=== PATIENT | male | born 1975 | race African-American/Black ===

== ENCOUNTER 2024-08-15 23:02 | Emergency (ER) | payer SELFPAY ==
[2024-08-15 23:06] VITALS: BP 179/114; PULSE 110; RESP 16; TEMP 36.1; O2SAT 97; BMI 30.7
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
[2024-08-15] MEDS: TET/DIPHTH/PERT-ADULT 0.5ML SYRINGE 0.5 ML IM (23:47)
[2024-08-16 00:01] VITALS: BP 127/78; PULSE 88; RESP 18; TEMP 36.6; O2SAT 100
== END 2024-08-16 00:07 | disposition home or self-care (01) ==
LOC: ER 08-16 00:23
PROVIDERS: Emergency Provider Emergency Medicine
DX: S01.111A Laceration without foreign body of right eyelid and periocular area, initial encounter (principal); Y04.0XXA Assault by unarmed brawl or fight, initial encounter; Z23 Encounter for immunization
CPT/HCPCS: 12011; 12001; 90471; 90715; 99282

== ENCOUNTER 2024-12-27 11:30 | Emergency (ER) | payer SELFPAY ==
[2024-12-27 11:38] VITALS: BP 138/88; PULSE 100; RESP 16; TEMP 36.8; O2SAT 99; BMI 29.9
--- NOTE | 2024-12-27 12:08 | ED_ITS ---
<Statement entered by Jevon Crowell DO - 12/27/24 16:44> I was consulted by the TANA, and we discussed the complexity of problems being addressed. I approved the treatment and management plan for this patient's care in the emergency department, thus performing a substantive portion of the medical decision making. Patient presented with right-sided ear pain. On examination he has right-sided otitis media. He also complains of a migraine that is consistent with his baseline migraines. He has not had any neurologic deficits that would raise concern for intracranial extension of infection from his otitis media. 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 Patient was administered migraine cocktail and his symptoms significantly improved. Patient will be treated with cefdinir for acute otitis media. He was discharged home in stable condition Jevon Crowell DO Discharge Plan Disposition Patient Disposition: Home, Self-Care Condition: Good Prescriptions Prescriptions: New cefdinir 300 mg capsule 300 mg PO BID 10 Days Qty: 20 0RF Referrals Follow up/Referrals: Provider,Referral, MD [Primary Care Provider, Medical] - See instructions Activity Restrictions/Add. Instructions Additional Instructions/Restrictions: Increase fluids and rest. Take meds as directed for the ear infection. If you continue with migraine or have migraine symptoms again please talk to your PCP about further treatments and management for this. Clinical Impressions Clinical Impression: Otitis media Instructions Patient Instructions: Middle Ear Infections (Alternative Therapy), DI for Migraine Print Language Print Language: Thai Discharge ED Provider: Jevon Crowell General Adult HPI <Lin Murguia (ED), PAPER MACHINE BACKTENDER - Last Filed: 12/27/24 16:32> General Chief complaint: Ear Stated complaint: R ear pain Time Seen by Provider: 12/27/24 12:16 Mode of Arrival: Ambulatory Source of Information: Patient and Spouse Description of Symptoms (Recalled from ER Triage Doc. by RN): pt complains of r ear pain. states it is causing a headache. x2 days. History of Present Illness HPI narrative: 49-year-old male presents to the ED today for complaint of ear pain on the right. States that it started hurting yesterday. Patient used heating pad Tylenol and ibuprofen. Says this had little effect. No nausea, vomiting or diarrhea. No fevers. No other symptoms. Patient continues with a headache. is at bedside and wants patient to have headache treatment. I did ask patient if he wanted headache treatment he does. Related Data Previous Rx's ?Medication ?Instructions ?Recorded cefdinir 300 mg capsule 300 mg PO BID 10 days #20 ca ps 12/27/24 Allergies Allergy/AdvReac Type Severity Reaction Status Date / Time No Known Allergies Allergy Verified 08/15/24 23:43 PFSH <Lin Murguia (ED), PAPER MACHINE BACKTENDER - Last Filed: 12/27/24 16:32> PFS Disclaimer: The information contained in this section may have been updated after the patient was seen, as this information can be updated by other users. Social History (Updated 08/16/24 @ 01:59 by Juaquin Goodwin MD) Smoking Status: Current every day smoker alcohol intake: never current occupational status: employed Travel in the last 8 weeks?: None Have you lived/traveled outside US in past 30 days?: No Contact w/someone who lives/traveled outside US past 30 days?: No Exposure to someone with infectious disease in past 14 days?: No Do you have a fever (greater than 100.4 F or 38 C)?: No Have you tested positive for COVID-19?: No Exposed to someone with COVID-19 in past 14 days?: No Do you have a sore throat?: No Do you have a cough?: No Do you have any weakness?: No Do you have any diarrhea?: No Are you experiencing any unusual bleeding?: No Do you have any muscle aches/pain?: No Do you have any abdominal pain?: No Are you experiencing loss of taste or smell?: No <Lin Murguia (ED), PAPER MACHINE BACKTENDER - Last Filed: 12/27/24 16:32> ROS Obtained: Yes Systems reviewed as appropriate & no additional complaints except as documented Constitutional Constitutional: Reports as per HPI Physical Exam <Lin Murguia (ED), PAPER MACHINE BACKTENDER - Last Filed: 12/27/24 16:32> General General appearance: alert Head Head exam: normocephalic Eye Eye exam: Present PERRL and EOMI ENT ENT exam: Present normal oropharynx and mucous membranes moist Neck Neck exam: Present full ROM and trachea midline Respiratory Respiratory exam: Present normal lung sounds bilaterally Cardiovascular Cardiovascular exam: Present regular rate, normal rhythm, normal heart sounds, +S1 and +S2 Abdominal Exam Abdominal exam: Present soft and normal bowel sounds exam: Present normal inspection Extremities Exam Extremities exam: Present normal inspection, full ROM and normal capillary refill Neurological Exam Neurological exam: Present alert and oriented X3 Skin Skin exam: Present warm, dry and intact Medical Decision Making <Lin Murguia (ED), PAPER MACHINE BACKTENDER - Last Filed: 12/27/24 16:32> Medical Records Screening: Per USPSTF and CDC recommendations, given the prevalence of disease in our region, it is our hospital?s policy to screen for HIV and viral Hepatitis for all patients aged 18 and over and those with ongoing risk factors. Michael Inquiry Pt receiving controlled substance: No Michael was queried for this patient: No Vital Signs: 12/27/24 11:38 12/27/24 13:48 12/27/24 15:09 Temperature 98.3 F 98.7 F Temperature Source Oral Pulse Rate 80 64 Pulse Rate [Right] 100 H Respiratory Rate 16 16 Blood Pressure 134/90 113/80 Blood Pressure [Right Arm] 138/88 Blood Pressure Mean 101 Blood Pressure Mean [Right Arm] 104 02 Sat by Pulse Oximetry 99 99 Oxygen Delivery Method Room Air Room Air Orders (Tests/Meds): ED MEDICATIONS Discontinued Medications Generic Name Dose Route Start Last Admin Trade Name Freq PRN Reason Stop Dose Admin Acetaminophen 1,000 mg 12/27/24 14:03 12/27/24 14:17 Acetaminophen 1,000mg/100ml Vial IV 12/27/24 14:04 1,000 mg ONCE ONE Administration Dexamethasone Sodium Phosphate 8 mg 12/27/24 12:04 12/27/24 12:49 Dexamethasone 4mg/Ml 1ml Vial IV 12/27/24 12:05 8 mg ONCE ONE Administration Diphenhydramine HCl 50 mg 12/27/24 12:04 12/27/24 12:49 Diphenhydramine 50mg/Ml Vial IV 12/27/24 12:05 50 mg ONCE ONE Administration Sodium Chloride 1,000 mls @ 999 mls/hr 12/27/24 12:04 12/27/24 15:01 Sod Chlor 0.9% 1000ml Bag IV 12/27/24 13:04 Infused .Q1H1M ONE Infusion Ceftriaxone Sodium 1 gm/ 50 mls @ 100 mls/hr 12/27/24 12:15 12/27/24 13:35 Sodium Chloride IV 01/06/25 12:14 Infused Q24H [place] Infusion Ketorolac Tromethamine 30 mg 12/27/24 12:04 12/27/24 12:49 Ketorolac 30mg/Ml Vial IV 12/27/24 12:05 30 mg ONCE ONE Administration Oxycodone HCl 5 mg 12/27/24 14:04 12/27/24 14:16 Oxycodone 5mg Immediate Release Tablet PO 12/27/24 14:05 5 mg ONCE ONE Administration Prochlorperazine Edisylate 5 mg 12/27/24 12:04 12/27/24 12:49 Prochlorperazine 10mg/2ml Vial IV 12/27/24 12:05 5 mg ONCE ONE Administration Medical Decision Narrative: patient is a 49-year-old male presenting to the emergency department for evaluation of right ear pain and migraine. Patient is hemodynamically stable and nontoxic-appearing upon arrival, afebrile. Differential diagnosis includes migraine, viral illness, ear pain among others. No workup necessary as this is an ear infection but we will treat for migraine. Initial inventions include crystalloid bolus, analgesics. Patient had Migraine cocktail which initially helped migraine cocktail that made patient sleepy and I woke him up approximately 45 minutes after he had it and he said that his headache was not gone. I gave additional medicines and checked on him at 1450 and these medications had resolved the migraine. Patient is now feeling better and wants to go home. Patient will now get his antibiotics and be safe for discharge home <Jevon Crowell, DO - Last Filed: 12/27/24 16:43> Vital Signs: 12/27/24 11:38 12/27/24 13:48 12/27/24 15:09 Temperature 98.3 F 98.7 F Temperature Source Oral Pulse Rate 80 64 Pulse Rate [Right] 100 H Respiratory Rate 16 16 Blood Pressure 134/90 113/80 Blood Pressure [Right Arm] 138/88 Blood Pressure Mean 101 Blood Pressure Mean [Right Arm] 104 02 Sat by Pulse Oximetry 99 99 Oxygen Delivery Method Room Air Room Air Orders (Tests/Meds): ED MEDICATIONS Discontinued Medications Generic Name Dose Route Start Last Admin Trade Name Freq PRN Reason Stop Dose Admin Acetaminophen 1,000 mg 12/27/24 14:03 12/27/24 14:17 Acetaminophen 1,000mg/100ml Vial IV 12/27/24 14:04 1,000 mg ONCE ONE Administration Dexamethasone Sodium Phosphate 8 mg 12/27/24 12:04 12/27/24 12:49 Dexamethasone 4mg/Ml 1ml Vial IV 12/27/24 12:05 8 mg ONCE ONE Administration Diphenhydramine HCl 50 mg 12/27/24 12:04 12/27/24 12:49 Diphenhydramine 50mg/Ml Vial IV 12/27/24 12:05 50 mg ONCE ONE Administration Sodium Chloride 1,000 mls @ 999 mls/hr 12/27/24 12:04 12/27/24 15:01 Sod Chlor 0.9% 1000ml Bag IV 12/27/24 13:04 Infused .Q1H1M ONE Infusion Ceftriaxone Sodium 1 gm/ 50 mls @ 100 mls/hr 12/27/24 12:15 12/27/24 13:35 Sodium Chloride IV 01/06/25 12:14 Infused Q24H [place] Infusion Ketorolac Tromethamine 30 mg 12/27/24 12:04 12/27/24 12:49 Ketorolac 30mg/Ml Vial IV 12/27/24 12:05 30 mg ONCE ONE Administration Oxycodone HCl 5 mg 12/27/24 14:04 12/27/24 14:16 Oxycodone 5mg Immediate Release Tablet PO 12/27/24 14:05 5 mg ONCE ONE Administration Prochlorperazine Edisylate 5 mg 12/27/24 12:04 12/27/24 12:49 Prochlorperazine 10mg/2ml Vial IV 12/27/24 12:05 5 mg ONCE ONE Administration Medical Decision Narrative: patient is a 49-year-old male presenting to the emergency department for evaluation of right ear pain and migraine. Patient is hemodynamically stable and nontoxic-appearing upon arrival, afebrile. Differential diagnosis includes migraine, viral illness, otitis media, among others. On physical examination the patient has right-sided TM erythema and bulging with purulence indicative of otitis media. No workup necessary as this is an ear infection but we will treat for migraine. Initial inventions include crystalloid bolus, analgesics. Patient had Migraine cocktail which initially helped migraine cocktail that made patient sleepy and I woke him up approximately 45 minutes after he had it and he said that his headache was not gone. I gave additional medicines and checked on him at 1450 and these medications had resolved the migraine. Patient is now feeling better and wants to go home. Patient will now get his antibiotics and be safe for discharge home Critical Care <Lin Murguia (ED), PAPER MACHINE BACKTENDER - Last Filed: 12/27/24 16:32> Critical Care Time Critical Care Time: No
[2024-12-27] MEDS: DEXAMETHASONE 4MG/ML 1ML VIAL 8 MG IV (12:49)
[2024-12-27] MEDS: 0.9 % SODIUM CHLORIDE 1000ML 1,000 ML 999 ML IV (12:49)
[2024-12-27] MEDS: PROCHLORPERAZINE 10MG/2ML VIAL 5 MG IV (12:49)
[2024-12-27] MEDS: KETOROLAC 30MG/ML VIAL 30 MG IV (12:49)
[2024-12-27] MEDS: CEFTRIAXONE 1 GM 1 GM in 0.9 % SODIUM CHLORIDE 50 ML IV (12:52)
[2024-12-27 13:48] VITALS: BP 134/90; PULSE 80; O2SAT 99
[2024-12-27] MEDS: OXYCODONE 5MG IMMEDIATE RELEASE TABLET 5 MG PO (14:16)
[2024-12-27] MEDS: ACETAMINOPHEN 1,000MG/100ML VIAL 1000 MG IV (14:17)
[2024-12-27 15:09] VITALS: BP 113/80; PULSE 64; RESP 16; TEMP 37.1; O2SAT 98
== END 2024-12-27 15:15 | disposition home or self-care (01) ==
PROVIDERS: Emergency Provider Student in an Organized Health Care Education/Training Program
DX: G43.909 Migraine, unspecified, not intractable, without status migrainosus (principal); H66.91 Otitis media, unspecified, right ear; F17.210 Nicotine dependence, cigarettes, uncomplicated
CPT/HCPCS: 96365; 96375; 99284; J0131; J0696; J0780; J1100; J1200; J1885; J7030

== ENCOUNTER 2025-02-05 11:18 | Inpatient (IN) | payer OTHER, SELFPAY ==
--- OUTSIDE RECORDS SUMMARY | 2024-12-07 08:15 | XMS_ITS | Encounter Summary ---
Author Organization [facility] Address [address] [place] [address] Care Team Providers Care Control Technician Name Role Phone No Pcp, Provider Not In [facility] Primary Care Provid er Unavailable Reason for Referral * MRI/CAT Scan (Routine) - AFF Authorized Specialty Diagnoses / Procedures Referred By Contac t Referred To Contact Orthopedic Surgery Diagnoses Cubital tunnel syndrome of both upper extremities Paresthesia and pain of both upper extremities Procedures MRI CERVICAL SPINE WO CONTRAST Yusuf Ortiz MD [address] [place] [address] Phone: tel: fax: [facility] [address] [place] [address] Phone: tel: fax: Referral ID Status Reason Start Date Expiration Date Visits Requested Visits Authorized [id number] AFF Authorized 12/07/2024 12/07/2025 1 1 Reason for Visit * Reason Comments Follow-up Encounter Details Date Type Department Care Team (Late st Contact Info) Description 12/07/2024 9:15 [place] [address] Yusuf Ortiz MD [address] [place] [address] Cubital tunnel syndrome of both upper extremities (Primary Dx); Paresthesia and pain of both upper extremities; DDD (degenerative disc disease), cervical Social History Tobacco Use Types Packs/Day Years Used Date Smoking Tobacco: Every Day Cigarettes Smokeless Tobacco: Never Alcohol Use Standard Drinks/Week Comments Yes 3.3 (1 standard drink = 0.6 oz p ure alcohol) Sexually Active Control Partners Comments Yes Female Sex and Gender Information Value Date Recorded Sex Assigned at Not on file Legal Sex Male 5:49 AM EDT Gender Identity Not on file Sexual Orientation Not on file documented as of this encounter Ordered Prescriptions Prescription Sig Dispense Quantity Refills Last Filled Start Date End Date diclofenac (VOLTAREN) 75 mg Oral Tablet, Delayed Release (E.C.)Indications:C ubital tunnel syndrome of both upper extremities,Paresth esia and pain of both upper extremities Take 1 Tablet by mouth 2 times daily. 60 Tablet 12/07/2024 methocarbamoL (ROBAXIN) 750 mg Oral TabletIndications:C ubital tunnel syndrome of both upper extremities,Paresth esia and pain of both upper extremities Take 1 Tablet by mouth 3 times daily. 90 Tablet 1 12/07/2024 documented in this encounter Progress Notes * Yusuf Ortiz MD - 12/07/2024 9:15 AM EDT Images from the original note were not included. Chief Compliant/Diagnosis: bilateral Cubital Tunnel Syndrome, clinical Bilateral chronic wrist pain /abutment syndrome Neutral variance History: Last seen: 11/25/2024 Patient returns today for EMG results. He is here today with his fianc??e who is very concerned regarding his arm pain and weakness. She reports that he was not able to lift the trash without pain Bilateral upper extremity Physical Exam: No change please see previous documentation Radiology / Other Testing: EMG [place] 11/25/2024 Based on today's study there is electrodiagnostic evidence of a moderate right median sensorimotor mononeuropathy best localized to the wrist without evidence of active denervation in the median innervated hand or forearm muscles. The right median motor study revealed a prolonged onset latency. The right median anti-sensory study revealed a prolonged peak latency. No sign of active denervation, positive sharp waves or fibrillation potentials, was noted with needle EMG of the right median innervated hand or forearm muscles. Based on today's study there is electrodiagnostic evidence of a mild left median sensory mononeuropathy best localized to the wrist without evidence of active denervation in the median innervated hand or forearm muscles. The left median anti-sensory study revealed a prolonged peak latency. Based on today's study there is no electrodiagnostic evidence of a bilateral upper extremity activeC5-T1 radiculopathy, brachial plexopathy, ulnar mononeuropathy or overt peripheral polyneuropathy. Cervical Spine, 2V AP, Lateral; 12/07/2024; [facility] Personally reviewed and interpreted Multilevel degenerative change C4-7 Loss of normal lordotic curve Impression: bilateral Cubital Tunnel Syndrome, clinical Negative EMG Right slightly worse than the left Bilateral carpal tunnel syndrome No neuropathic symptoms in median nerve distribution Asymptomatic Bilateral chronic wrist pain /abutment syndrome Neutral variance /lunate changes on MRI Cervical spine DDD C4-7 Plan: Reviewed treatment plan with patient. Discussed and reviewed the possibility of a proximal compression contributing and/or his primary cause MRI cervical spine Diclofenac prescription Robaxin prescription Return Callback list following above studies documented in this encounter Plan of Treatment Upcoming Encounters Date Type Department Care Team (Late st Contact Info) Description 02/08/2025 12:45 PM EST Office Visit [place] [phone] Yusuf Ortiz MD [address] [place] [id number] documented as of this encounter Results * MRI CERVICAL SPINE WO CONTRAST (12/22/2024 9:33 AM EDT) Narrative [facility] - 12/22/2024 9:34 AM EDT Please see the scanned MRI report associated with this order on the Imaging tab of the patient's chart. us Ysuuf Ortiz MD IMG MRI ORDERABLES Final Result [facility] * XR CERVICAL SPINE AP AND LATERAL (12/07/2024 10:04 AM EDT) Narrative [facility], Paras - 12/07/2024 10:04 AM EDT Please see physician's note from office encounter for x-ray imaging result us Yusuf Ortiz MD IMG DIAGNOSTIC IMAGING ORDERABL ES Final Result documented in this encounter Visit Diagnoses Diagnosis Cubital tunnel syndrome of both upper extremities- Primary Paresthesia and pain of both upper extremities Disturbance of skin sensation DDD (degenerative disc disease), cervical Degeneration of cervical intervertebral disc Cubital tunnel syndrome of both upper extremities Paresthesia and pain of both upper extremities Disturbance of skin sensation Cubital tunnel syndrome of both upper extremities Paresthesia and pain of both upper extremities Disturbance of skin sensation documented in this encounter Care Teams Control Technician Relationship Specialty Start Date End Date No Pcp, Provider Not In [facility] PCP - General 03/09/24 documented as of this encounter
--- OUTSIDE RECORDS SUMMARY | 2024-12-07 08:55 | XMS_ITS | Encounter Summary ---
Author Organization [facility] Address [address] [place] [address] Care Team Providers Care Receiving Supervisor Name Role Phone No Pcp, Provider Not In [facility] Primary Care Provid er Unavailable Encounter Details Date Type Department Care Team (Latest Contact Info) Description 12/07/2024 9:55 [place] [address] Yusuf Ortiz MD [address] [place] [address] Cubital tunnel syndrome of both upper extremities; Paresthesia and pain of both upper extremities Social History Tobacco Use Types Packs/Day Years [...] on file documented as of this encounter Plan of Treatment Upcoming Encounters Date Type Department Care Team (Late st Contact Info) Description 02/08/2025 12:45 PM EST Office Visit [address] [address] Yusuf Ortiz MD [address] [place] [address] documented as of this encounter Procedures Procedure Name Priority Date/Time Associated Diagnosis Comments XR CERVICAL SPINE AP AND LATERAL Routine 12/07/2024 10:04 AM EDT Cubital tunnel syndrome of both upper extremities Paresthesia and pain of both upper extremities documented in this encounter Results * XR CERVICAL SPINE AP AND LATERAL (12/07/2024 10:04 AM EDT) Narrative [facility], Paras - 12/07/2024 10:04 AM EDT Please see physician's note from office encounter for x-ray imaging result us Yusuf Ortiz MD IMG DIAGNOSTIC IMAGING ORDERABL ES Final Result documented in this encounter Visit Diagnoses Diagnosis Cubital tunnel syndrome of both upper extremities Paresthesia and pain of both upper extremities Disturbance of skin sensation documented in this encounter Care Teams Receiving Supervisor Relationship Specialty Start Date End Date No Pcp, Provider Not In Epic PCP - General 03/09/24 documented as of this encounter
--- OUTSIDE RECORDS SUMMARY | 2024-12-22 08:00 | XMS_ITS | Encounter Summary ---
Author Organization [facility] Address [address] [place] [address] Care Team Providers Care Linux System Administrator Name Role Phone No Pcp, Provider Not In [facility] Primary Care Provid er Unavailable Reason for Visit * MRI/CAT Scan (Routine) - AFF Authorized Specialty Diagnoses / Procedures Referred By Contac t Referred To Contact Orthopedic Surgery Diagnoses Cubital tunnel syndrome of both upper extremities Paresthesia and pain of both upper extremities Procedures MRI CERVICAL SPINE WO CONTRAST Yusuf Ortiz MD [address] [place] [address] Phone: tel: fax: [facility] [address] [place] [address] Phone: tel: fax: Referral ID Status Reason Start Date Expiration Date Visits Requested Visits Authorized [id number] AFF Authorized 12/07/2024 12/07/2025 1 1 Encounter Details Date Type Department Care Team (Latest Contact Info) Description 12/22/2024 9:00 AM EDT Ancillary Procedure [facility] [address] [place] [address] Yusuf Ortiz MD [address] [place] [address] Cubital tunnel syndrome of both [...] Description 02/08/2025 12:45 PM EST Office Visit [facility] [address] [place] [address] Yusuf Ortiz MD [address] [place] [address] documented as of this encounter Procedures Procedure Name Priority Date/Time Associated Diagnosis Comments MRI CERVICAL SPINE WO CONTRAST Routine 12/22/2024 9:33 AM EDT Cubital tunnel syndrome of both upper extremities Paresthesia and pain of both upper extremities documented in this encounter Results * MRI CERVICAL SPINE WO CONTRAST (12/22/2024 9:33 AM EDT) Narrative [facility] - 12/22/2024 9:34 AM EDT Please see the scanned MRI report associated with this order on the Imaging tab of the patient's chart. Yusuf Ortiz MD IMG MRI ORDERABLES Final Result [facility] documented in this encounter Visit Diagnoses Diagnosis Cubital tunnel syndrome of both upper extremities Paresthesia and pain of both upper extremities Disturbance of skin sensation documented in this encounter Care Teams Linux System Administrator Relationship Specialty Start Date End Date No Pcp, Provider Not In [facility] PCP - General 03/09/24 documented as of this encounter
--- OUTSIDE RECORDS SUMMARY | 2025-01-22 08:15 | XMS_ITS | Encounter Summary ---
Author Organization [facility] Address [address] [place] [address] Care Team Providers Care Shop Clerk Name Role Phone No Pcp, Provider Not In [facility] Primary Care Provid er Unavailable Reason for Referral * In Office Procedure (Routine) - AFF Authorized Specialty Diagnoses / Procedures Referred By Contac t Referred To Contact Orthopedic Surgery Diagnoses DDD (degenerative disc disease), cervical Radiculopathy of cervical region Procedures [facility] PROCEDURE UNDER FLUORO Albino Orellana MD [address] [facility] [address] [place] [address] Phone: tel: fax: [facility] [address] [place] [address] Phone: tel: fax: Referral ID Status Reason Start Date Expiration Date Visits Requested Visits Authorized [id number] AFF Authorized 01/22/2025 01/22/2026 1 1 Reason for Visit * Reason Comments Pain Encounter Details Date Type Department Care Team (Latest Contact Info) Description 01/22/2025 9:15 AM EDT Office Visit [facility] [address] [place], [place] [id number] Albino Orellana MD [address] [place] [address] Radiculopathy of cervical region (Primary Dx); DDD (degenerative disc disease), cervical; Smoking history; Nicotine dependence with nicotine-induced disorder, unspecified nicotine product type; Foraminal stenosis of cervical region; Neck pain; Cervical stenosis of spinal canal; Cervical spondylosis; Cervical radiculopathy Social History Tobacco Use Types Packs/Day Years [...] on file documented as of this encounter Last Filed Vital Signs Vital Sign Reading Time Taken Comments Blood Pressure - - Pulse - - Temperature - - Respiratory Rate - - Oxygen Saturation - - Inhaled Oxygen Concentration - - Weight 101.6 kg (224 lb) 01/22/2025 9:34 AM EDT Height 180.3 cm (5' 11 ) 01/22/2025 9:34 AM EDT Body Mass Index 31.24 01/22/2025 9:34 AM EDT documented in this encounter Progress Notes * Albino Orellana MD - 01/22/2025 9:15 AM EDT Images from the original note were not included. 01/22/25 CHIEF COMPLAINT: Chief Complaint Patient presents with ??? Neck - Pain HISTORY OF PRESENT ILLNESS: 49 y.o. male Bilateral hand pain Oscillates between right and left. 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 Ortiz's team Previous Treatment: Gabapentin Muscle relaxers Wrist injections at Past Medical History: Body mass index is 31.24 kg/m??. 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 He has never used smokeless tobacco. He reports current alcohol use of about 2.0 oz of alcohol per week. He reports that he does not use drugs. PHYSICAL EXAM: C-Spine Exam Inspection/Palpation: Points to the C8 distribution as a maximal source of numbness and tingling Nondermatomal pain throughout the hand Range of Motion: Guarded range of motion cervical spinal flexion extension Motor: 4 out of 5 operations mgr. Otherwise 5 out of 5 throughout Sensation: Intact throughout decrease in the C8/ulnar distribution bilaterally Special Tests: Spurling's test positive in the C6 and C7 distribution bilaterally Reflexes: Deferred Gait & station: Stable Diagnostic Testing: C spine X rays: 4 views with flexion extension. Independently reviewed Multilevel degenerative disc disease throughout the cervical spine Loss of cervical lordosis Otherwise maintained alignment C spine MRI: Independently reviewed Multilevel degenerative disc disease throughout the cervical spine C3-4 no significant neural impingement C4-5 no significant impingement C5-6 moderate left-sided foraminal stenosis C6-7 moderate to severe bilateral foraminal stenosis C7-T1 no significant neural impingement Impression: 1. Radiculopathy of cervical region [facility] PROCEDURE UNDER FLUORO 2. DDD (degenerative disc disease), cervical XR CERVICAL SPINE FLEXION AND EXTENSION ONLY [facility] PROCEDURE UNDER FLUORO 3. Smoking history CT TOBACCO USE CESSATION INTERMEDIATE 3-10 MINUTES NICOTINE+METABOLITE, URINE - REF LAB 4. Nicotine dependence with nicotine-induced disorder, unspecified nicotine product type 5. Foraminal stenosis of cervical region 6. Neck pain 7. Cervical stenosis of spinal canal 8. Cervical spondylosis 9. Cervical radiculopathy Medical decision Making: Discussion was had with the patient. He appears to have a C6 and C7 radiculopathy bilaterally. I donot think this explains all of his symptoms. Part of his symptoms are consistent with C8 however I see no impingement of C8. I do think he would benefit from an ACDF to decompress C6 and C7. I did explain that the surgery would not solve all of the issues in his upper extremities. He expressed understanding. Currently not a candidate because of his continued smoking. States he can quit. Ordering urine nicotine test. I want to see him back after he passes the test. Also ordering LEXIE for therapeutic and diagnostic purposes Tobacco: I discussed and reviewed the severe effects of nicotine and vasoconstriction, and recommended tobacco cessation. I discussed with the patient their use of tobacco (or other nicotine-containing products) and the direct negative effects on bone, muscle, nerve, and tendon tissue. These effects includedelayed or incomplete healing, increased risk of infection, and pseudarthrosis. The patient was strongly advised to discontinue the use of any nicotine-containing product and to contact their primarycare provider to discuss non-nicotine smoking cessation strategies. A patient educational handout was provided including local and state resources. Zgoy-wa-[id number] counseling was performed for approximately five minutes. Plan: C6-7 interlaminar LEXIE Urine nicotine test Follow-up when urine nicotine test is negative Will consider a C5-7 ACDF in the future Reviewed imaging with patient Activity as tolerated Albino Orellana MD [facility]opa[facility] Surgeon Disclaimer: This note was partially transcribed via voice recognition software. Though all efforts were made to ensure accuracy, it is possible this note may contain services host errors. Please bring any inaccuracies discovered to my attention so I may make a corrective addendum in a timely fashion. [1] Past Medical History: Diagnosis Date ??? Hypertension documented in this encounter Plan of Treatment Upcoming Encounters Date Type Department Care Team (Late st Contact Info) Description 02/08/2025 12:45 [place] [address] Yusuf Ortiz MD [address] [place] [phone] Scheduled Orders Name Type Priority Associated Diagnoses Orde r Schedule CT TOBACCO USE CESSATION INTERMEDIATE 3-[address] Charge Routine Smoking history Ordered: 01/22/2025 NICOTINE+METABOLITE, URINE - REF LAB Lab Routine Smoking history 1 Occurrences starting 01/22/2025 until 01/22/2026 documented as of this encounter Results * XR CERVICAL SPINE FLEXION AND EXTENSION ONLY (01/22/2025 9:33 AM EDT) Narrative Genericuser, Audit - 01/22/2025 9:33 AM EDT Please see physician's note from office encounter for x-ray imaging result Albino Orellana MD IMG DIAGNOSTIC IMAGING OR DERABLES Final Result documented in this encounter Visit Diagnoses Diagnosis Radiculopathy of cervical region- Primary Brachial neuritis or radiculitis nos DDD (degenerative disc disease), cervical Degeneration of cervical intervertebral disc Smoking history Personal history of tobacco use, presenting hazards to health Nicotine dependence with nicotine-induced disorder, unspecified nicotine product type Foraminal stenosis of cervical region Spinal stenosis in cervical region Neck pain Cervicalgia Cervical stenosis of spinal canal Spinal stenosis in cervical region Cervical spondylosis Cervical spondylosis without myelopathy Cervical radiculopathy Brachial neuritis or radiculitis nos DDD (degenerative disc disease), cervical Degeneration of cervical intervertebral disc documented in this encounter Orders Nursing Count Last Ordered Date First Orde red Date [facility] PROCEDURE UNDER FLUORO 1 025 documented in this encounter Care Teams Shop Clerk Relationship Specialty Start Date End Date No Pcp, Provider Not In [facility] PCP - General 03/09/24 documented as of this encounter
--- OUTSIDE RECORDS SUMMARY | 2025-01-22 08:30 | XMS_ITS | Encounter Summary ---
Author Organization [facility] Address [address] [place] [address] Care Team Providers Care [employer] Weapons Sergeant Name Role Phone No Pcp, Provider Not In [facility] Primary Care Provid er Unavailable Encounter Details Date Type Department Care Team (Latest Contact Info) Description 01/22/2025 9:30 AM EDT Ancillary Procedure [facility] [address] [facility] [address] [place] [address] Albino Orellana MD [address] [address] DDD (degenerative disc disease), cervical Social History [...] Description 02/08/2025 12:45 PM EST Office Visit [facility] [address] [place] [address] Yusuf Ortiz MD [address] [place] [phone] documented as of this encounter Procedures Procedure Name Priority Date/Time Associated Diagnosis Comments XR CERVICAL SPINE FLEXION AND EXTENSION ONLY Routine 01/22/2025 9:33 AM EDT DDD (degenerative disc disease), cervical documented in this encounter Results * XR CERVICAL SPINE FLEXION AND EXTENSION ONLY (01/22/2025 9:33 AM EDT) Narrative Genericuser, Audit - 01/22/2025 9:33 AM EDT Please see physician's note from office encounter for x-ray imaging result Albino Orellana MD IMG DIAGNOSTIC IMAGING OR DERABLES Final Result documented in this encounter Visit Diagnoses Diagnosis DDD (degenerative disc disease), cervical Degeneration of cervical intervertebral disc documented in this encounter Care Teams [employer] Weapons Sergeant Relationship Specialty Start Date End Date No Pcp, Provider Not In [facility] PCP - General 03/09/24 documented as of this encounter
[2025-02-05] VITALS (34 sets, daily range): BP systolic 104–171; BP diastolic 48–123; PULSE 102–116; RESP 16–29; TEMP 36.3–37; O2SAT 90–100; BMI 30.7; BMI 30.6
--- OUTSIDE RECORDS SUMMARY | 2025-02-05 11:33 | XMS_ITS | Encounter Summary ---
Author Organization [facility] Address [address] [place] [address] Care Team Providers Care Floor Clerk Name Role Phone No Pcp, Provider Not In [facility] Primary Care Provid er Unavailable Encounter Details Date Type Department Care Team (Late st Contact Info) Description 12/25/2024 Orders Only [facility] [place] [employer] [place] [address] Kimberly Torres ATC Paresthesia and pain of both upper extremities (Primary Dx) Social History Tobacco Use Types [...] Description 02/08/2025 12:45 PM EST Office Visit [facility] [address] [place] [address] Yusuf Ortiz MD [address] [place] [address] documented as of this encounter Visit Diagnoses Diagnosis Paresthesia and pain of both upper extremities- Primary Disturbance of skin sensation documented in this encounter Care Teams Floor Clerk Relationship Specialty Start Date End Date No Pcp, Provider Not In [facility] PCP - General 03/09/24 documented as of this encounter
--- OUTSIDE RECORDS SUMMARY | 2025-02-05 11:33 | XMS_ITS | Encounter Summary ---
Author Organization [facility] Address [address] [place] [address] Care Team Providers Care Admissions Counselor Name Role Phone No Pcp, Provider Not In [facility] Primary Care [facility] er Unavailable Reason for Visit * Reason Onset Date Comments Results 12/25/2024 Encounter Details Date Type Department Care Team (Late Contact Info) Description 12/25/2024 Telephone [facility] [place] [address] [place] [address] Kimberly Torres ATC Results Social History Tobacco Use Types Packs/Day Years [...] on file documented as of this encounter Miscellaneous Notes * Telephone Encounter - Kimberly Torres ATC - 12/25/2024 10:48 AM EDT tried calling pt to discuss MRI. follow up with spine. documented in this encounter Plan of Treatment Upcoming Encounters Date Type Department Care Team (Late st Contact Info) Description 02/08/2025 12:45 [place] [address] Yusuf Ortiz MD [address] [place] [phone] documented as of this encounter Visit Diagnoses Not on filedocumented in this encounter Care Teams Admissions Counselor Relationship Specialty Start Date End Date No Pcp, Provider Not In Epic PCP - General 03/09/24 documented as of this encounter
--- OUTSIDE RECORDS SUMMARY | 2025-02-05 11:33 | XMS_ITS | Encounter Summary ---
Author Organization [place] [address] Care Team Providers Care Rn Corrections Name Role Phone No Pcp, Provider Not In [facility] Primary Care Provid er Unavailable Reason for Referral * Consultation (Routine) - Pending Review Specialty Diagnoses / Procedures Referred By Viji gaona Referred To Contact Otolaryngology Diagnoses Allergic rhinitis, unspecified seasonality, unspecified trigger Procedures [place] OFFICE/OUTPATIENT NEW MODERATE MDM 45 MINUTES [place] Echevarria APRN [address] [place], [place] [id number] Phone: tel: Referral ID Status Reason Start Date Expiration Date V isits Requested Visits Authorized [id number] Pending Review 12/28/2024 12/28/2025 1 1 Encounter Details Date Type Department Care Team (Late st Contact Info) Description 12/28/2024 Community Orders [facility] [place] [address] [place] Echevarria APRN [address] [place] [address] Allergic rhinitis, unspecified seasonality, unspecified trigger (Primary Dx) Social History Tobacco Use Types [...] Description 02/08/2025 12:45 PM EST Office Visit [facility] [address] [place] [address] Yusuf Ortiz MD [address] [place] [address] Scheduled Referrals Name Type Priority Associated Diagnoses Orde r Schedule AMB REFERRAL TO ENT Outpatient Referral Routine Allergic rhinitis, unspecified seasonality, unspecified trigger Ordered: 12/28/2024 documented as of this encounter Visit Diagnoses Diagnosis Allergic rhinitis, unspecified seasonality, unspecified trigger- Primary documented in this encounter Care Teams Rn Corrections Relationship Specialty Start Date End Date No Pcp, Provider Not In [facility] PCP - General 03/09/24 documented as of this encounter
--- OUTSIDE RECORDS SUMMARY | 2025-02-05 11:35 | XMS_ITS | Clinical Summary ---
Author Organization [facility] Address [address] [place] [id number] Care Team Providers Care Title Insurance Examiner Name Role Phone Pcp, No Primary Care Provider [phone] Source Comments This information has been disclosed to you from confidential records protectedfrom disclosure by state law. You shall make no further disclosure of thisinformation without the specific, written, and informed release of theindividual to whom it pertains, or as otherwise permitted by law. A generalauthorization for the release of medical or other information is not sufficientfor the purposes of therelease of HIV test results or diagnoses. [id number] Allergies Active Allergy Reactions Criticality Noted Date Comments House Dust 10/04/2023 Mold 10/04/2023 Pollen Extracts 10/04/2023 Medications predniSONE (DELTASONE) 10 MG tabletIndicatio ns:Left wrist pain 3 po BID x 3 days, 2 po BID x 3 days, 1 po BID x 3 day, 1 po q d x 3 days 39 tablet 04/28/2024 Active predniSONE (DELTASONE) 10 MG tabletIndicatio ns:Left wrist pain 3 po BID x 3 days, 2 po BID x 3 days, 1 po BID x 3 day, 1 po q d x 3 days 39 tablet 06/23/2024 Active gabapentin (NEURONTIN) 300 MG capsuleIndicati ons:Left wrist pain Take 1 capsule (300 mg total) by mouth at bedtime. 30 capsule 06/23/2024 Active celecoxib (CELEBREX) 200 MG capsule TAKE 1 CAPSULE BY MOUTH 2 TIMES A DAY. 60 capsule 08/04/2024 Active Active Problems Problem Noted Date Diagnosed Date HTN (hypertension) 08/04/2024 TFCC (triangular fibrocartil age complex) injury, left, initial encounter 10/04/2023 Left wrist pain 10/04/2023 Social History Tobacco Use Types Packs/Day Years Used Date Smoking Tobacco: Every Day Cigarettes Tobacco Cessation:Ready to Q uit: Not Asked; Counseling Given: Not Answered Sex and Gender Information Value Date Recorded Sex Assigned at Not on file Legal Sex Male 8:24 PM EST Gender Identity Not on file Sexual Orientation Not on file Last Filed Vital Signs Vital Sign Reading Time Taken Comments Blood Pressure - - Pulse - - Temperature - - Respiratory Rate - - Oxygen Saturation - - Inhaled Oxygen Concentration - - Weight 97.5 kg (215 lb) 08/04/2024 2:26 PM EDT Height 180.3 cm (5' 11 ) 08/04/2024 2:26 PM EDT Body Mass Index 29.99 08/04/2024 2:26 PM EDT Plan of Treatment Health Maintenance Due Date Last Done Comments ASCVD Assessment 1974 Abnormal Colonoscopy Follow Up 1974 Hepatitis C Screening (MyChart) 1974 Renal Function/GFR 1974 Tobacco Cessation Readiness 1974 Immunization: DTaP/Tdap/Td ( 6 - Tdap) 02/12/1990 02/11/1990, 05/26/1979, 11/23/1975, Additional history exists Alcohol Misuse Screening 1992 Depression Screening 1992 HIV Screening 1992 Immunization: Pneumococcal ( 1 of 2 - PCV) 1993 Immunization: Hepatitis B (2 of 3 - 19+ 3-dose series) 10/28/2018 09/30/2018 Cologuard (FIT-DNA) 06/20/2019 Colonoscopy 06/20/2019 Colorectal Cancer Screening (MyChart) 06/20/2019 Stool Testing (gFOBT) 06/20/2019 Immunization: Zoster (1 of 2) 2024 Lung Cancer Screening 2024 Immunization: COVID-19 ( - season) 2024 11/11/2020, 10/20/2020 Immunization: Influenza (MyC pereira) (#1) 2024 Insurance MANAGED MEDICAID Care Teams Title Insurance Examiner Relationship Specialty Start Date End Date Pcp, No No Address PCP - General 01/21/23
--- OUTSIDE RECORDS SUMMARY | 2025-02-05 11:35 | XMS_ITS | Clinical Summary ---
Author Organization [facility] Address [address] [facility] [place] [address] Phone Care Team Providers Care Manager Workers Compensation Name Role Phone No Pcp, Provider Not In [facility] Primary Care Provid er Unavailable Allergies No known active allergies Medications lisinopril-hydroc hlorothiazide (PRINZIDE;ZESTORE TIC) 10-12.5 mg per tabletIndications :HTN (hypertension) Take 1 Tab by mouth daily. 30 Tab 1 2 Active naltrexone microspheres (VIVITROL IM) Inject into the muscle. Active ibuprofen (ADVIL;MOTRIN) 200 mg Oral Tablet Take 600 mg by mouth every 8 hours as needed for Pain. Active phenylephrine/DM/ acetaminop/GG (TYLENOL COLD AND FLU SEVERE ORAL) Take by mouth. Active ascorbic acid/multivit-min (EMERGEN-C ORAL) Take by mouth. Active dextromethorphan HBr (THERAFLU COUGH ORAL) Take by mouth. Active nabumetone (RELAFEN) 750 mg Oral Tablet Take 1 Tab by mouth 2 times daily as needed for Pain for up to 12 doses. 12 Tab 0 Active fluticasone propionate (FLONASE) 50 mcg/actuation Nasl Soddy Daisy, Suspension TAKE 1 SPRAY EACH NARE BY NASAL TWICE A DAY 0 Active methocarbamoL (ROBAXIN) 750 mg Oral TabletIndications :Cubital tunnel syndrome of both upper extremities,Pares thesia and pain of both upper extremities Take 1 Tablet by mouth 3 times daily. 90 Tablet 1 5 Active diclofenac (VOLTAREN) 75 mg Oral Tablet, Delayed Release (E.C.)Indications :Cubital tunnel syndrome of both upper extremities,Pares thesia and pain of both upper extremities Take 1 Tablet by mouth 2 times daily. 60 Tablet 5 Active diazePAM (VALIUM) 2 mg Oral TabletIndications :DDD (degenerative disc disease), cervical,Radiculo marianela of cervical region Take one tablet by mouth 30 minutes prior to MRI; take second tablet if needed 2 Tablet Active Hospital, Clinic, or Other Facility Administered Medication Ordered Dose Route Frequency Start Date End Date Status lidocaine 1% 10 mg/mL (1 %) injection 3 mLIndications:Radicul opathy of cervical region 3 mL OTHER ONCE PRN 02/03/2025 02/03/2025 Ended dexAMETHasone sodium phosphate (DECADRON) solution 20 mgIndications:Radicul opathy of cervical region 20 mg INTRASPINAL ONCE 02/03/2025 02/03/2025 Ended sodium chloride 0.9% injection/flush solution 1 mLIndications:Radicul opathy of cervical region 1 mL INTRASPINAL ONCE 02/03/2025 02/03/2025 Ended iohexoL (OMNIPAQUE) injection 3 mLIndications:Radicul opathy of cervical region 3 mL INTRASPINAL ONCE 02/03/2025 02/03/2025 Ended Active Problems Problem Noted Date Diagnosed Date HTN (hypertension) Encounters Date Type Department Care Team Description 02/03/2025 10:45 AM EST Office Visit [address] [address] Edu Yin MD Radiculopathy of cervical region (Primary Dx) 01/22/2025 9:30 AM EDT Ancillary Procedure [address] [address] Albino Orellana MD DDD (degenerative disc disease), cervical 01/22/2025 9:15 AM EDT Office Visit [address] [address] Albino Orellana MD Radiculopathy of cervical region (Primary Dx); DDD (degenerative disc disease), cervical; Smoking history; Nicotine dependence with nicotine-induced disorder, unspecified nicotine product type; Foraminal stenosis of cervical region; Neck pain; Cervical stenosis of spinal canal; Cervical spondylosis; Cervical radiculopathy 01/22/2025 [facility] [address] [address] Kalpesh Theresa, [place] Medication Refill 12/28/2024 [place] [address] [place] Echevarria APRN Allergic rhinitis, unspecified seasonality, unspecified trigger (Primary Dx) 12/25/2024 [facility]phone [facility] Audiologist [address] [place] [address] Kimberly Torres, ATC Results 12/25/2024 Orders Only [facility] Audiologist [address] [place] [address] Kimberly Torres, ATC Paresthesia and pain of both upper extremities (Primary Dx) 12/22/2024 9:00 AM EDT [facility] [address] [address] Yusuf Ortiz MD Cubital tunnel syndrome of both upper extremities; Paresthesia and pain of both upper extremities 12/07/2024 9:55 AM EDT Ancillary Procedure [address] [address] Yusuf Ortiz MD Cubital tunnel syndrome of both upper extremities; Paresthesia and pain of both upper extremities 12/07/2024 9:15 AM EDT Office Visit [address] [address] Yusuf Ortiz MD Cubital tunnel syndrome of both upper extremities (Primary Dx); Paresthesia and pain of both upper extremities; DDD (degenerative disc disease), cervical 11/25/2024 10:00 AM EDT Office Visit [address] [address] Rudi Mcneal DO Paresthesia and pain of both upper extremities (Primary Dx); Cubital tunnel syndrome of both upper extremities 11/09/2024 3:45 [place] [address] Yusuf Ortiz MD Cubital tunnel syndrome of both upper extremities (Primary Dx); Chronic pain of both wrists from Last 3 Months Surgical History Surgery Date Site/Laterality Comments VASECTOMY Medical History Medical History Date Comments Hypertension Family History Medical History Relation Name Comments Diabetes Father Hypertension Father Stroke Father Allergies Neg Hx Bleeding Prob Neg Hx Cancer Neg Hx Hearing Loss Neg Hx Heart Disease Neg Hx Migraines Neg Hx Thyroid Disease Neg Hx Relation Name Status Comments Father Alive Mother Alive Social History Tobacco Use Types Packs/Day Years [...] Sign Reading Time Taken Comments Blood Pressure 171/102 03/09/2024 10:54 AM EST Pulse 101 03/09/2024 10:44 AM EST Temperature 36.7 C (98 F) 03/09/2024 10:54 AM EST Respiratory Rate 16 03/09/2024 10:54 AM EST Oxygen Saturation 100% 03/09/2024 10:44 AM EST Inhaled Oxygen Concentration - - Weight 101.6 kg (224 lb) 01/22/2025 9:34 AM EDT Height 180.3 cm (5' 11 ) 01/22/2025 9:34 AM EDT Body Mass Index 31.24 01/22/2025 9:34 AM EDT Plan of Treatment Upcoming Encounters Date Type Department Care Team (Late st Contact Info) Description 02/08/2025 12:45 PM EST Office Visit [address] [address] Yusuf Ortiz MD [address] [place] [phone] Health Maintenance Due Date Last Done Comments Annual Wellness Exam 1977 Hepatitis B Vaccine (2 of 3 - 19+ 3-dose series) 10/28/2018 09/30/2018 Cologuard 06/20/2019 Colon Cancer Screening 06/20/2019 Colonoscopy 06/20/2019 FIT 06/20/2019 Sigmoidoscopy 06/20/2019 Virtual Colonography 06/20/2019 Pneumococcal Vaccine 50+ (1 of 1 - PCV) 2024 Zoster (1 of 2) 2024 COVID-19 Vaccine (3 - 2024- season) 2024 11/11/2020, 10/20/2020 Influenza Vaccine (#1) 2024 DTaP/TDaP/Td (7 - Td or Tdap) 08/15/2034 08/15/2024, 02/11/1990, 05/26/1979, Additional history exists Meningococcal B Vaccine Aged Out No l onger eligible based on patient's age to complete this topic Procedures Procedure Name Priority Date/Time Associated Diagnosis Comments XR CERVICAL SPINE FLEXION AND EXTENSION ONLY Routine 01/22/2025 9:33 AM EDT DDD (degenerative disc disease), cervical MRI CERVICAL SPINE WO CONTRAST Routine 12/22/2024 9:33 AM EDT Cubital tunnel syndrome of both upper extremities Paresthesia and pain of both upper extremities XR CERVICAL SPINE AP AND LATERAL Routine 12/07/2024 10:04 AM EDT Cubital tunnel syndrome of both upper extremities Paresthesia and pain of both upper extremities from Last 3 Months Results * XR CERVICAL SPINE FLEXION AND EXTENSION ONLY (01/22/2025 9:33 AM EDT) Narrative Genericuser, Paras - 01/22/2025 9:33 AM EDT Please see physician's note from office encounter for x-ray imaging result us Albino Orellana MD IMG DIAGNOSTIC IMAGING OR DERABLES Final Result * MRI CERVICAL SPINE WO CONTRAST (12/22/2024 9:33 AM EDT) Narrative [facility] - 12/22/2024 9:34 AM EDT Please see the scanned MRI report associated with this order on the Imaging tab of the patient's chart. us Yusuf WHITE MRI ORDERABLES Final Result [facility] * XR CERVICAL SPINE AP AND LATERAL (12/07/2024 10:04 AM EDT) Narrative Paras Moyer - 12/07/2024 10:04 AM EDT Please see physician's note from office encounter for x-ray imaging result us Yusuf WHITE DIAGNOSTIC IMAGING ORDERABL ES Final Result from Last 3 Months Insurance PLAN [place] [facility] Care Teams Manager Workers Compensation Relationship Specialty Start Date End Date No Pcp, Provider Not In Epic PCP - General 03/09/24
[2025-02-05 11:38] LABS: Coronavirus 19, PCR Not Detected (NotDetected); Influenza A, PCR Not Detected (NotDetected); Influenza B, PCR Not Detected (NotDetected)
--- NOTE | 2025-02-05 11:42 | XR_ITS ---
FINAL REPORT TECHNIQUE: Single view chest CLINICAL HISTORY: Shortness of breath, wheezing FINDINGS: A single view of the chest was obtained. The heart is moderately enlarged. The lungs are clear. There is no pneumothorax. IMPRESSION: No acute cardiopulmonary process. Reviewed, Interpreted and Dictated by Onesimo Larson MD Transcribed by Geraldine Malin Authenticated and [facility]
--- NOTE | 2025-02-05 11:42 | ECG_ITS ---
APPROVED REPORT Exam: Resting ECG HR:105 bpm ECG Measurements Heart Rate 105 AXES MT 128 P 68 QRSd 112 QRS -43 QT 349 T -1 QTc 410 Conclusion SINUS TACHYCARDIA POSSIBLE LEFT ATRIAL ENLARGEMENT [-0.1mV P-WAVE IN V1/V2] LEFT AXIS DEVIATION [QRS AXIS < -30] MODERATE INTRAVENTRICULAR CONDUCTION DELAY [110+ ms QRS DURATION] NONSPECIFIC T-WAVE ABNORMALITY ABNORMAL ECG UNCONFIRMED REPORT Sinus tachycardia. Isolated ST elevation in aVL. No reciprocal ST depressions. QTc normal at 410 no STEMI Electronically signed by : DANIELA BONNER, 02/05/2025 15:24:55
--- NOTE | 2025-02-05 11:52 | HMH.EDGENADL ---
Discharge Plan Disposition Patient Disposition: Admitted Prescriptions Prescriptions: No Action cefdinir 300 mg capsule 300 mg PO BID 10 Days Qty: 20 0RF Referrals Follow up/Referrals: Provider,Referral, [Referring, Medical] - See instructions Clinical Impressions Clinical Impression: Myocarditis, VILMA (acute kidney injury), Elevated liver enzymes Print Language Print Language: Omani Discharge ED Provider: Garcia Cunningham General Adult HPI General Chief complaint: Upper Respiratory Infection Stated complaint: SOA-asthma, cough, rattling/wheezing breathing Time Seen by Provider: 02/05/25 11:36 Mode of Arrival: Ambulatory Source of Information: Patient and Spouse Description of Symptoms (Recalled from ER Triage Doc. by RN): Pt presents for evaluation after feeling unwell for a week. Pt reports he has a hx of asthma and has had wheezing. Pt has attempted using his inhaler and nebulizer at home. Pt states he has had a productive cough, bodyaches and nasal congestion History of Present Illness HPI narrative: Montez Lynn is a 49-year-old male with a past medical history of asthma and neck pain who presents to the emergency department for complaints of a week of intermittently productive cough and shortness of breath and wheezing. Patient's spouse states that she was diagnosed with rhinovirus a week before his illness began. They state that his illness began on Saturday of last week. He reports mostly dry cough with occasional clear and yellow sputum. He states that he normally has an inhaler at home but has run out. He denies any fevers or chest pain. He denies any abdominal pain. He states that he recently had some diarrhea but none currently. Related Data Home Medications ?Medication ?Instructions ?Recorded ?Confirmed No Known Home Medications 02/05/25 02/05/25 Allergies Allergy/AdvReac Type Severity Reaction Status Date / Time No Known Allergies Allergy Verified 08/15/24 23:43 [facility] Disclaimer: The information contained in this section may have been updated after the patient was seen, as this information can be updated by other users. Social History Smoking Status: Current every day smoker alcohol intake: never current occupational status: employed Travel in the last 8 weeks?: None Have you lived/traveled outside [place] in past 30 days?: No Contact w/someone who lives/traveled outside [place] past 30 days?: No Exposure to someone with infectious disease in past 14 days?: No Do you have a fever (greater than 100.4 F or 38 C)?: No Have you tested positive for COVID-19?: No Exposed to someone with COVID-19 in past 14 days?: No Do you have a sore throat?: No Do you have a cough?: No Do you have any weakness?: No Do you have any diarrhea?: No Are you experiencing any unusual bleeding?: No Do you have any muscle aches/pain?: No Do you have any abdominal pain?: No Are you experiencing loss of taste or smell?: No ROS Obtained: Yes Systems reviewed as appropriate & no additional complaints except as documented Physical Exam General General appearance: alert Comment: Increased work of breathing. Head Head exam: atraumatic Eye Eye exam: Present normal appearance ENT ENT exam: Present normal external ear exam Neck Neck exam: Present full ROM Chest Chest inspection: Present symmetric chest wall rise Respiratory Respiratory exam: Present normal lung sounds bilaterally, respiratory distress (Mild increased work of breathing) and wheezes Cardiovascular Cardiovascular exam: Present normal rhythm and tachycardia Abdominal Exam Abdominal exam: Present soft and tenderness (Mild epigastric); Absent guarding exam: Present deferred Extremities Exam Extremities exam: Present normal inspection; Absent edema Back Exam Back exam: Present normal inspection Neurological Exam Neurological exam: Present alert and oriented X3 Psychiatric Psychiatric exam: Present normal affect Skin Skin exam: Present warm and dry Medical Decision Making Medical Records Screening: Per USPSTF and CDC recommendations, given the prevalence of disease in our region, it is our hospital?s policy to screen for HIV and viral Hepatitis for all patients aged 18 and over and those with ongoing risk factors. Michael Inquiry Pt receiving controlled substance: No Vital Signs: 02/05/25 11:28 02/05/25 11:30 02/05/25 11:31 Temperature 97.8 F Temperature Source Temporal Artery Scan Pulse Rate 106 H 109 H Pulse Rate [Right] 110 H Respiratory Rate 29 H 18 Blood Pressure 149/114 H 157/123 H Blood Pressure [Right Arm] 153/113 H Blood Pressure Mean [Right Arm] 126 Blood Pressure Source [Right Arm] Automatic Cuff Blood Pressure Position [Right Arm] Sitting 02 Sat by Pulse Oximetry 100 100 99 Oxygen Delivery Method Room Air 02/05/25 12:30 Temperature Temperature Source Pulse Rate Pulse Rate [Right] Respiratory Rate 28 H Blood Pressure Blood Pressure [Right Arm] Blood Pressure Mean [Right Arm] Blood Pressure Source [Right Arm] Blood Pressure Position [Right Arm] 02 Sat by Pulse Oximetry Oxygen Delivery Method Lab Data Lab Results 02/05/25 11:24: SARS-CoV-2 (PCR) Not detected, Influenza A Untype (PCR) Not detected, Influenza Type B (PCR) Not detected 02/05/25 11:48: WBC 11.7 H, RBC 4.90, Hgb 12.9 L, Hct 40.5 L, MCV 82.7, MCH 26.3 L, MCHC 31.9, RDW 15.3, Plt Count 363, MPV 10.1, Neut % (Auto) 46.1, Lymph % (Auto) 43.5, [place] % (Auto) 8.2, Eos % (Auto) 1.0, Baso % (Auto) 0.8, Neut # (Auto) 5.4, Lymph # (Auto) 5.[address], [place] # (Auto) 1.0, Eos # (Auto) 0.1, Baso # (Auto) 0.1, Total Counted 100, Neutrophils % (Manual) 50, Lymphocytes % (Manual) 41, Monocytes % (Manual) 9, Platelet Estimate Normal, RBC Morphology Normal, Sodium 137, Potassium 4.3, Chloride 104, Carbon Dioxide 26, Anion Gap 11.3, BUN 19, Creatinine 1.30 H, Estimated Creat Clear 96, Estimated GFR 58 L, Est GFR ( Amer) 71, Glucose 117 H, Calcium 9.4, Total Bilirubin 0.8, AST 194 H, ALT 304 H*, Alkaline Phosphatase 61, Troponin I 0.05 H, C-Reactive Protein 36.6 H, NT-Pro-B Natriuret Pep 5370 H, Total Protein 7.3, Albumin 4.3, Globulin 3.0, Albumin/Globulin Ratio 1.4, Lipase 73 02/05/25 11:51: VBG pH 7.36, VBG pCO2 45.3, VBG pO2 36.5, VBG HCO3 24.8, VBG Total CO2 26.2, VBG O2 Saturation 61.7, VBG Base Excess -0.7, VBG Lactic Acid 2.3 H 02/05/25 11:48 02/05/25 11:48 Orders (Tests/Meds): ED MEDICATIONS Generic Name Dose Route Start Last Admin Trade Name Butchq PRN Reason Stop Dose Admin Enoxaparin Sodium 100 mg 02/05/25 13:00 Enoxaparin 100mg/Ml Syringe 1 mg/kg (100 mg) 03/07/25 12:59 SUBCUT Q12H [place] Milrinone Lactate 20 mg/ 100 mls @ 3.742 mls/hr 02/05/25 12:43 Sodium Chloride IV 03/07/25 12:42 .Q24H [place] Protocol 0.125 MCG/KG/MIN Discontinued Medications Generic Name Dose Route Start Last Admin Trade Name Butchq PRN Reason Stop Dose Admin Albuterol/Ipratropium 9 ml 02/05/25 11:42 02/05/25 11:55 Ipratropium/Albuterol 3 Ml Neb IH 02/05/25 11:43 9 ml ONCE ONE Administration Bumetanide 2 mg 02/05/25 12:42 Bumetanide 1mg/4ml Vial IV 02/05/25 12:43 ONCE ONE Dexamethasone 10 mg 02/05/25 11:42 02/05/25 11:54 Dexamethasone 4mg Tablet PO 02/05/25 11:43 10 mg ONCE ONE Administration Lactated Ringer's 1,000 mls @ 999 mls/hr 02/05/25 11:44 02/05/25 12:24 Lactated Ringer's 1000 Ml Bag IV 02/05/25 12:44 Infused .Q1H1M ONE Infusion ORDERS Category Date Time Status Cardiology Consult [Consult to Cardiology] [CONS] Cons 02/05/25 12:49 Active Routine CXR --portable [XR chest portable] Stat Exams 02/05/25 11:42 Completed POCUS Point of Care (ER Only) Stat Exams 02/05/25 12:24 Ordered BNP [NT Pro Brain Natriuretic Pep.] Stat Lab 02/05/25 11:48 Completed CBC w/Auto Diff [Complete Blood Count Auto Diff] Stat Lab 02/05/25 11:48 Completed CMP [Comprehensive Metabolic Panel] Stat Lab 02/05/25 11:48 Completed CRP [C-Reactive Protein] Stat Lab 02/05/25 11:48 Completed Complete Blood Count Auto Diff AMLAB Lab 02/06/25 06:00 Ordered Comprehensive Metabolic Panel AMLAB Lab 02/06/25 06:00 Ordered Full Resp Panel w/COVID ([facility]) Routine Lab 02/05/25 Received Lipase Stat Lab 02/05/25 11:48 Completed Lipid Panel AMLAB Lab 02/06/25 06:00 Ordered Magnesium AMLAB Lab 02/06/25 06:00 Ordered Mini Respiratory Panel Stat Lab 02/05/25 11:24 Received Rapid PCR Covid and Flu A/B Stat Lab 02/05/25 11:24 Completed Troponin I Q3H Lab 02/05/25 14:45 Ordered Troponin I Q3H Lab 02/05/25 17:45 Ordered Troponin I Stat Lab 02/05/25 11:48 Completed VBG [Venous Blood Gas] Stat RT 02/05/25 11:51 Completed CA echo doppler complete Stat Y 02/05/25 12:46 Completed EKG Request [ECG Request] Stat Y 02/05/25 11:42 Ordered ECG Data Tracing #1: I reviewed this ECG and interpreted as documented below: Sinus tachycardia slight ST elevation in aVL. No ST depressions. QTc normal at 410. Left axis deviation. Medical Decision Narrative: Montez Lynn is a 49-year-old male with a past medical history of asthma and neck pain who presents to the emergency department for complaints of a week of intermittently productive cough and shortness of breath and wheezing. Patient's spouse states that she was diagnosed with rhinovirus a week before his illness began. They state that his illness began on Saturday of last week. He reports mostly dry cough with occasional clear and yellow sputum. He states that he normally has an inhaler at home but has run out. He denies any fevers or chest pain. He denies any abdominal pain. He states that he recently had some diarrhea but none currently. On arrival, patient is hypertensive, tachycardic, mildly tachypneic. Oxygen saturation 99% on room air. Afebrile. Physical exam, as stated above, revealed an ill-appearing male but is nontoxic. He has wheezing bilaterally on lung auscultation. He is tachycardic without murmur or rub. He has some mild tenderness in the epigastric region but abdomen is otherwise soft, nontender nondistended. No peripheral edema. Differential diagnosis includes, but is not limited to: Asthma exacerbation, pneumonia, myocarditis, pericarditis, atypical pneumonia, ACS, viral respiratory illness, acute pancreatitis, among others. The most morbid conditions were considered and workup was based on these. Workup in the emergency department included: EKG, chest x-ray, CBC with differential, CMP, troponin, BNP, CRP, VBG with lactate, viral respiratory panel, lipase, chest x-ray. Patient was treated initially with 10 mg of dexamethasone as well as a continuous albuterol treatment. Patient initially had a rapid COVID and flu testing that was negative. EKG was interpreted by me personally. Isolated mild ST elevation in aVL but no reciprocal changes. Sinus tachycardia. See interpretation above. Chest x-ray was interpreted by me personally. No focal consolidation or pneumothorax. The cardiac silhouette does appear enlarged. Patient was ordered fluids initially, however he did not receive any prior to stopping fluids due to concern for acute CHF with the enlarged heart on chest x-ray. Patient's lab work shows leukocytosis of 11.7, hemoglobin mildly low at 12.9, hematocrit 40.5, platelets normal at 363. pH normal 7.36, pCO2 normal at 45.3, bicarb normal at 24.8. Lactate very mildly elevated at 2.3. Electrolytes within normal limits, however VILMA with creatinine 1.3 BUN normal at 19. Liver enzymes are elevated with AST of 194, ALT of 304, bilirubin normal at 0.8. Initial troponin elevated at 0.05. CRP elevated at 36.6. NT proBNP elevated at 5370. Lipase normal at 73. Bedside [id number] ultrasound was performed by me personally. Patient has significantly reduced left ventricular ejection fraction but no pericardial effusion. See procedure note for details. Due to this, I am concerned patient has a viral myocarditis in setting of 's recent diagnosis of rhinovirus. Patient's respiratory panel was widened to a mini respiratory panel. I discussed patient's case with Dr. Pederson with the cardiology team who stated to place the patient on milrinone 0.125 mcg/kg/min as well as 2 mg of IV Bumex. These were ordered. Given concern for acute heart failure in the setting of likely viral myocarditis, I did discuss admission with patient and family and they are in agreement with this plan. I discussed patient's case with the hospitalist, Dr. Lubin, who agreed to admit the patient. Formal echocardiogram was ordered. A full respiratory panel was also ordered. Procedures Limited Ultrasound Indication:: Limited cardiac ultrasound Indication: Shortness of breath Identified cardiac views: -Cardiac parasternal long axis -Cardiac parasternal short axis -Cardiac apical four-chamber -Cardiac subxiphoid Findings: -Cardiac activity present however severely diminished ventricular contraction in the bilateral ventricles -Wall motion grossly normal -Pericardial effusion absent -Right heart strain absent Impression: - From above Images were saved to permanent archive The study was technically adequate CPT: 05876 This study was performed by me, Garcia Cunningham MD, and I personally interpreted all images/videos. Based on my clinical judgement, these images were adequate and did necessitate further imaging. Critical Care Critical Care Time Critical Care Time: Yes Attestation: On 02/05/25, the high probability of a clinically significant, sudden or life threatening deterioration of the following system(s) required my full and direct attention, intervention and personal management. The time I documented below is in addition to time spent performing reported procedures but includes the following listed in this critical care notation. Total Time Total Critical Care Time: 35
[2025-02-05] MEDS: DEXAMETHASONE 4MG TABLET 10 MG PO (11:54)
[2025-02-05 11:55] LABS: Hematocrit 40.5 % (42.0-52.0); Hemoglobin 12.9 g/dL (14.1-18.0); Immature Granulocytes % 0.4 %; Mean Corpuscular HGB Conc 31.9 g/dL (31.8-35.4); Mean Corpuscular Hemoglobin 26.3 pg (27.0-31.2); Mean Corpuscular Volume 82.7 fl (80-94); Nucleated Red Blood Cells % 0 %; Platelet Count 363 K/mm3 (142-424); Red Blood Count 4.90 M/mm3 (4.60-6.20); Red Cell Distribution Width-SD 45.7 fL; White Blood Count 11.7 K/mm3 (4.8-10.8)
[2025-02-05] MEDS: LACTATED RINGERS 1000ML 1,000 ML 999 ML IV (11:55)
[2025-02-05] MEDS: IPRATROPIUM/ALBUTEROL 3 ML NEB 9 ML IH (11:55)
[2025-02-05 12:00] LABS: Coronavirus 19, PCR Not Detected (NotDetected); Influenza A, PCR Not Detected (NotDetected); Influenza B, PCR Not Detected (NotDetected)
[2025-02-05 12:04] LABS: Alanine Aminotransferase 304 U/L (12-78); Albumin Level 4.3 g/dl (3.5-5.0); Albumin/Globulin Ratio 1.4 (1.1-1.8); Alkaline Phosphatase 61 U/L (38-126); Anion Gap 11.3 mEq/L (5-15); Aspartate Amino Transferase 194 U/L (17-59); Bilirubin,Total 0.8 mg/dl (0.2-1.3); Blood Urea Nitrogen 19 mg/dl (9-20); Calcium 9.4 mg/dl (8.4-10.2); Carbon Dioxide 26 mmol/L (22.0-30.0); Chloride 104 mmol/L (98-107); Creatinine Clearance Estimated 96 mL/min (50-200); Creatinine,Serum 1.30 mg/dl (0.66-1.25); Estimated Glomerular Filt Rate 58 ml/min (>60); GFR (African American) 71 ML/MIN (>60); Globulin 3.0 g/dL (1.3-3.2); Glucose 117 mg/dl (74-100); Lipase 73 U/L (23-300); Potassium 4.3 mmoL/L (3.5-5.1); Sodium 137 mmol/L (136-145); Total Protein,Serum 7.3 g/dl (6.3-8.2)
[2025-02-05 12:10] LABS: C-Reactive Protein 36.6 mg/L (0-4)
[2025-02-05 12:10] LABS: VBG HCO3 24.8 mmol/L (23-30); VBG PCO2 45.3 mmol/L (35-51); VBG PH 7.36 mmol/L (7.31-7.41); VBG PO2 36.5 mmol/L (28-40)
[2025-02-05 12:11] LABS: Lactate Venous 2.3 mmol/L (0.4-2.0)
[2025-02-05 12:18] LABS: NT Pro Brain Natriuretic Pep. 5370 pg/mL (0-125); Troponin I 0.05 ng/ml (0.00-0.034)
--- NOTE | 2025-02-05 12:46 | CA_ITS ---
APPROVED REPORT EXAM: Comprehensive 2D, Doppler, and color-flow Echocardiogram Operations Research Analyst: Gayla Montanez RT(R) Ht: 5 ft 11 in Wt: 220lbs BSA: 2.20 BP: 153/113 mmHg Indications: Shortness of air, hx rhinovirus, cough, smoker Echo Enhancing Agent Indication: Rule out Shunt Agent(s) / Amount(s) Used: Agitated Saline 10 cc 2D Dimensions LVEF (Hernández's) 10.60 % M: 52 - 72 LV Volume 246.20 mL M: 62 - 150 LV Volume Index 111.9 mL/m2 M: 34 - 74 LA Volume 81.80 mL LA Volume Index 37.18 mL/m2 (M/F) 16-34 EF AP4 7.70 % EF AP2 12.1 % EF BP 10.6 % GL Strain -3.2 % M-Mode Dimensions RVDd 3.34 cm (0.9-2.6) LA Diam 4.35 cm (1.9-4.0) LVDd 7.61 cm (3.5-5.7) LVDs 7.10 cm (3.5-5.7) IVSd 0.76 cm (0.6-1.1) PWd 0.72 cm (0.6-1.1) EF (Teich) 14.40% FS 6.70% EDV (Teich) 308.20 mL TAPSE 1.39 (<1.7) ESV (Teich) 263.70 mL Tricuspid Valve TR P. Velocity 343.00 cm/s Left Ventricle The left ventricle is severely dilated. Left ventricular systolic function is severely reduced. There is normal left ventricular wall thickness. There is severe global hypokinesis. The left ventricular diastolic function is indeterminate. LVEF is 10%. Right Ventricle The right ventricle is moderately dilated. The right ventricular systolic function is severely reduced. Atria Left atrium is severely dilated. Right atrium is moderately dilated. The interatrial septum bows rightward, suggestive of marked elevation in LA pressures. There is no color Doppler evidence of interatrial shunt. Agitated saline administration demonstrates no evidence of interatrial shunt. Aortic Valve The aortic valve is mildly thickened. There is no hemodynamically significant aortic valvular stenosis. Mild aortic regurgitation is present. Mitral Valve The mitral valve is normal in structure. No evidence of mitral valve stenosis. Mild mitral regurgitation is present. Tricuspid Valve The tricuspid valve leaflets are thin and pliable. Moderate tricuspid regurgitation. RVSP is 50-55 mmHg. Pulmonic Valve The pulmonary valve is grossly normal in structure. Mild pulmonic valve regurgitation is present. Great Vessels The aortic root is normal in size. IVC is dilated. Pericardium There is no pericardial effusion. Other Information Study Quality: Fair Conclusion Severe LV dilation with severe reduction in LV systolic function (LVEF 10%). Moderate RV dilation with severe reduction in RV systolic function. Biatrial dilation. The interatrial septum bows rightward, suggestive of marked elevation in LA pressures. Moderate TR. Mild AI, mild MR. Markedly elevated RVSP 50-55 mmHg. Electronically signed by : Silvia Mcginnis MD 02/05/2025 18:01:00
--- NOTE | 2025-02-05 12:46 | PC.NURSE ---
DR BONNER SPEAKING WITH DR ISLAS FOR ADMISSION
[2025-02-05 12:50] LABS: RBC Morphology Normal; Total Cells Counted 100
--- NOTE | 2025-02-05 12:50 | PC.NURSE ---
PATIENT PLACEMENT COORDINATOR NOTIFIED OF ADMISSION
[2025-02-05 12:51] LABS: Adenovirus,PCR Not Detected (NotDetected); Chlamydophila Pneumoniae, PCR Not Detected (NotDetected); Coronavirus 19, PCR Not Detected (NotDetected); Coronovirus HKU1,PCR Not Detected (NotDetected); Influenza A, PCR Not Detected (NotDetected); Influenza AH1, 2009 Not Detected (NotDetected); Influenza AH1, PCR Not Detected (NotDetected); Influenza AH3,PCR Not Detected (NotDetected); Influenza B, PCR Not Detected (NotDetected); Mycoplasma Pneumoniae, PCR Not Detected (NotDetected); Parainfluenza 1, PCR Not Detected (NotDetected); Parainfluenza 2, PCR Not Detected (NotDetected); Parainfluenza 3, PCR Not Detected (NotDetected); Parainfluenza 4, PCR Not Detected (NotDetected)
--- NOTE | 2025-02-05 12:51 | EXP.HP ---
History of Present Illness *Admission Date: 02/05/25 *Reason for visit:: Dyspnea *History of present illness: Mr. Lynn is a 49-year-old gentleman who presented to the ER because of complaint of shortness of breath. States he been feeling short of breath over the past week. Has been dealing with an upper respiratory infection was diagnosed with rhinovirus last week. Gotten progressively short of breath over the past week. Denies increased swelling in his legs. Has had a dry nonproductive cough. No nausea or vomiting. On arrival to the ER, patient was evaluated and found to had elevated BNP. Bedside echo performed showing reduced EF. Cardiology was consulted and recommended initiation of milrinone for possible cardiomyopathy/myocarditis secondary to his viral illness. Will also initiate diuresis. Medicine consulted for admission. Patient to be admitted to the ICU for further care. On evaluation, patient appears uncomfortable and is short of breath during interview. Diuresing well. At least 1 L out so far since admission. [facility] Disclaimer: The information contained in this section may have been updated after the patient was seen, as this information can be updated by other users. Medical History Severe left ventricular systolic dysfunction (LVSD) Cardiomyopathy Hypertension Smoker Elevated liver enzymes VILMA (acute kidney injury) Acute HFrEF (heart failure with reduced ejection fraction) Non-STEMI (non-ST elevated myocardial infarction) Social History Smoking Status: Current every day smoker alcohol intake: never current occupational status: employed Travel in the last 8 weeks?: None Have you lived/traveled outside US in past 30 days?: No Contact w/someone who lives/traveled outside US past 30 days?: No Exposure to someone with infectious disease in past 14 days?: No Do you have a fever (greater than 100.4 F or 38 C)?: No Have you tested positive for COVID-19?: No Exposed to someone with COVID-19 in past 14 days?: No Do you have a sore throat?: No Do you have a cough?: No Do you have any weakness?: No Do you have any diarrhea?: No Are you experiencing any unusual bleeding?: No Do you have any muscle aches/pain?: No Do you have any abdominal pain?: No Are you experiencing loss of taste or smell?: No Review of Systems Review of Systems Review of systems (narrative): 14 point review of systems performed, pertinent positives and negatives as per HPI Meds Home Medications and Allergies Home Medications ?Medication ?Instructions ?Recorded ?Confirmed ?Type lisinopril 20 1 tab PO DAILY 02/05/25 02/05/25 History mg-hydrochlorothiazide 25 mg tablet New Prescriptions to Start Prescriptions: Allergies Allergy/AdvReac Type Severity Reaction Status Date / Time No Known Allergies Allergy Verified 08/15/24 23:43 Exam Data for Last 24 hours Vital signs and Labs for Last 24 Hours: Temp Pulse Resp BP Pulse Ox O2 Del Method 97.8 F 110 H 28 H 153/113 H 99 Room Air 02/05/25 11:31 02/05/25 11:31 02/05/25 12:30 02/05/25 11:31 02/05/25 11:31 02/05/25 11:31 Laboratory Results - last 24 hr 02/05/25 11:24: SARS-CoV-2 (PCR) Not detected, Influenza A Untype (PCR) Not detected, Influenza Type B (PCR) Not detected 02/05/25 11:48: WBC 11.7 H, RBC 4.90, Hgb 12.9 L, Hct 40.5 L, MCV 82.7, MCH 26.3 L, MCHC 31.9, RDW 15.3, Plt Count 363, MPV 10.1, Neut % (Auto) 46.1, Lymph % (Auto) 43.5, [place] % (Auto) 8.2, Eos % (Auto) 1.0, Baso % (Auto) 0.8, Neut # (Auto) 5.4, Lymph # (Auto) 5.1 H, [place] # (Auto) 1.0, Eos # (Auto) 0.1, Baso # (Auto) 0.1, Total Counted 100, Neutrophils % (Manual) 50, Lymphocytes % (Manual) 41, Monocytes % (Manual) 9, Platelet Estimate Normal, RBC Morphology Normal, Sodium 137, Potassium 4.3, Chloride 104, Carbon Dioxide 26, Anion Gap 11.3, BUN 19, Creatinine 1.30 H, Estimated Creat Clear 96, Estimated GFR 58 L, Est GFR ( Amer) 71, Glucose 117 H, Calcium 9.4, Total Bilirubin 0.8, AST 194 H, ALT 304 H*, Alkaline Phosphatase 61, Troponin I 0.05 H, C-Reactive Protein 36.6 H, NT-Pro-B Natriuret Pep 5370 H, Total Protein 7.3, Albumin 4.3, Globulin 3.0, Albumin/Globulin Ratio 1.4, Lipase 73 02/05/25 11:51: VBG pH 7.36, VBG pCO2 45.3, VBG pO2 36.5, VBG HCO3 24.8, VBG Total CO2 26.2, VBG O2 Saturation 61.7, VBG Base Excess -0.7, VBG Lactic Acid 2.3 H I & O for Last 24 hours: Intake & Output 02/02/25 02/03/25 02/04/25 02/05/25 23:59 23:59 23:59 23:59 Intake Total 50 / 50 Balance 50 / 50 Weight 99.79 kg Constitutional Constitutional: mild distress, obese and cooperative *Routine HEENT Exam Head: Present normocephalic Eye: Present EOMI and PERRL ENT: Present mucous membranes moist *Routine Neck Exam Neck: Present supple; Absent lymphadenopathy *Routine Respiratory Exam Respiratory: Present CTA bilaterally; Absent rhonchi, wheezes or crackles Comments: Dyspneic on interview *Routine Cardiovascular Exam Cardiovascular: Present tachycardia; Absent murmur Comments: Regular rhythm *Routine Abdominal Exam Abdominal: Present soft and normoactive bowel sounds; Absent tenderness *Routine Rectal Exam Rectal:: deferred *Routine Genitalia Exam Genitalia:: deferred *Routine Extremities Exam Extremities: Absent cyanosis, clubbing or edema *Routine Skin Exam Skin: Present warm; Absent rash *Routine Neurological Exam Neurological: Present alert, oriented X3 and moving all extremities; Absent altered mental status Assessment and Plan *Assessment and plan (1) Myocarditis: Problem Comment: Enterovirus, POA Status: Acute Qualifiers: Myocarditis type: infective Infective myocarditis organism: viral Chronicity: acute Qualified Code(s): B33.22 - Viral myocarditis Category: Medical Code(s): I51.4 - Myocarditis, unspecified (2) Severe left ventricular systolic dysfunction (LVSD): Status: Acute Category: Medical Code(s): I51.89 - Other ill-defined heart diseases (3) Cardiomyopathy: Status: Acute Qualifiers: Cardiomyopathy type: other Qualified Code(s): I42.8 - Other cardiomyopathies Category: Medical Code(s): I42.9 - Cardiomyopathy, unspecified (4) Hypertension: Status: Acute Qualifiers: Hypertension type: primary hypertension Qualified Code(s): I10 - Essential (primary) hypertension Category: Medical Code(s): I10 - Essential (primary) hypertension (5) Acute HFrEF (heart failure with reduced ejection fraction): Status: Acute Category: Medical Code(s): I50.21 - Acute systolic (congestive) heart failure (6) Non-STEMI (non-ST elevated myocardial infarction): Status: Acute Category: Medical Code(s): I21.4 - Non-ST elevation (NSTEMI) myocardial infarction Plan 49-year-old male who presents with acute onset of shortness of breath over the past few days. Found to be in acute heart failure with suspected viral myocarditis. Discussed case with ER physician, request admission for treatment of his acute heart failure. I admitted to the ICU for further care. High risk for decompensation. Necessitating inpatient care. Cardiology consulted to assist with management. Problems addressed as follows: Viral myocarditis Acute HFrEF Hypertension - Discussed case with cardiology, read of echo shows an EF of approximately 15%. - Initiate milrinone drip. Will administer Bumex 1 mg IV twice daily. If blood pressure remains elevated, will initiate nitroprusside drip to facilitate diuresis. Plan for guideline directed management with consideration of Jardiance, Entresto, spironolactone and beta-jax prior to discharge pending patient's clinical course. Will hold on these medications at this time will patient is on milrinone drip. - Cardiology to reevaluate on Saturday for possible ischemic workup including left heart cath, cardiac MRI. - Remained stable on room air, goal sats greater than 90%. - Lipid panel ordered for the morning - Initial white count of 11.7, hemoglobin 12.9, kidney function likely at patient's baseline with BUN 19, creatinine 1.3. Mild elevation in liver enzymes with AST 194, ALT 304. Troponin detectable but flat at 0.05. BNP elevated at 5300. Findings consistent with congestive hepatopathy - Respiratory panel positive for entero/rhinovirus - Repeat CBC, CMP, magnesium ordered for the morning. Full code Cardiac diet Therapeutic Lovenox
[2025-02-05] MEDS: BUMETANIDE 1MG/4ML VIAL 2 MG IV (13:00)
[2025-02-05] MEDS: MILRINONE LACTATE 20 MG in 0.9 % SODIUM CHLORIDE 80 ML 3.74 MG IV (13:00)
--- NOTE | 2025-02-05 13:12 | PC.NURSE ---
[facility] nonprofit financial controller at bedside.
--- NOTE | 2025-02-05 13:16 | PC.NURSE ---
Attempted to call report. Assigned bed is still occupied at this time. Pending return call from Leah PHAN
--- NOTE | 2025-02-05 13:30 | P.CONCA_ITS ---
History of Present Illness History of Present Illness Consult date: 02/05/25 Requesting physician: Yusuf Lubin Chief complaint: SOB History of present illness: This is a 49-year-old -Al[place] gentleman who presented to the emergency department with complaints of shortness of breath. The patient reports that he has a history of asthma. He has been sick for approximately a week with an upper respiratory infection and was diagnosed with rhinovirus. He states that he has been progressively worsening having shortness of breath, wheezing and a minimally productive cough. He states that he does cough up clear to yellow sputum at times. He states that this just continues to worsen and he did not feel good so he decided to come to the emergency department. He denies any chest pain or pressure. He denies any lower extremity edema. He denies any fever, chills, nausea, vomiting, diarrhea, PND or orthopnea. He states that his significant other was sick first and then he caught what ever she had. Bedside echocardiogram showed an ejection fraction of approximately 15%. The patient has been started on a milrinone drip and there is concern of viral myocarditis. [facility] Disclaimer: The information contained in this section may have been updated after the patient was seen, as this information can be updated by other users. Medical History (Updated 02/05/25 @ 13:35 by Aure Howard APRN) Severe left ventricular systolic dysfunction (LVSD) Cardiomyopathy Hypertension Smoker Elevated liver enzymes VILMA (acute kidney injury) Acute HFrEF (heart failure with reduced ejection fraction) Non-STEMI (non-ST elevated myocardial infarction) Social History Smoking Status: Current every day smoker alcohol intake: never current occupational status: employed Travel in the last 8 weeks?: None Have you lived/traveled outside US in past 30 days?: No Contact w/someone who lives/traveled outside US past 30 days?: No Exposure to someone with infectious disease in past 14 days?: No Do you have a fever (greater than 100.4 F or 38 C)?: No Have you tested positive for COVID-19?: No Exposed to someone with COVID-19 in past 14 days?: No Do you have a sore throat?: No Do you have a cough?: No Do you have any weakness?: No Do you have any diarrhea?: No Are you experiencing any unusual bleeding?: No Do you have any muscle aches/pain?: No Do you have any abdominal pain?: No Are you experiencing loss of taste or smell?: No Review of Systems Review of Systems Review of systems:: pertinent systems reviewed and negative unless documented below Constitutional Constitutional: Reports system reviewed and no additional complaints, except as documented, Reports fatigue and Reports lethargy Eyes Eyes: Reports system reviewed and no additional complaints, except as documented ENT Ears, Nose, Mouth, and Throat: Reports system reviewed and no additional complaints, except as documented *Cardiovascular Cardiovascular: Reports system reviewed and no additional complaints, except as documented, Reports dyspnea, Reports dyspnea on exertion and Denies leg edema *Respiratory Respiratory: Reports system reviewed and no additional complaints, except as documented, Reports chest congestion, Reports cough, Reports dyspnea, Reports dyspnea on exertion and Reports wheezing *Gastrointestinal Gastrointestinal: Reports system reviewed and no additional complaints, except as documented *Genitourinary Genitourinary: Reports system reviewed and no additional complaints, except as documented *Musculoskeletal Musculoskeletal: Reports system reviewed and no additional complaints, except as documented Integumentary/Breasts Skin/Breast: Reports system reviewed and no additional complaints, except as documented *Neurologic Neurologic: Reports system reviewed and no additional complaints, except as documented Psychiatric Psychiatric: Reports system reviewed and no additional complaints, except as documented Endocrine Endocrine: Reports system reviewed and no additional complaints, except as documented and Reports fatigue Hematologic/Lymphatic Hematologic/Lymphatic: Reports system reviewed and no additional complaints, except as documented Allergic/Immunologic Allergic/Immunologic: Reports system reviewed and no additional complaints, except as documented and Reports wheezing Exam Data for Last 24 hours Vital signs and Labs for Last 24 Hours: Temp Pulse Resp BP Pulse Ox O2 Del Method 97.8 F 106 H 29 H 153/113 H 99 Room Air 02/05/25 11:31 02/05/25 13:00 02/05/25 13:00 02/05/25 11:31 02/05/25 11:31 02/05/25 11:31 Laboratory Results - last 24 hr 02/05/25 11:24: SARS-CoV-2 (PCR) Not detected 02/05/25 11:24: SARS-CoV-2 (PCR) Not detected, Influenza Type A (PCR) Not detected, Influenza A Untype (PCR) Not detected, Influenza Type B (PCR) Not detected 02/05/25 11:24: Influenza Type B (PCR) Not detected, RSV (PCR) Not detected, Rhinovirus (PCR) Detected 02/05/25 11:48: WBC 11.7 H, RBC 4.90, Hgb 12.9 L, Hct 40.5 L, MCV 82.7, MCH 26.3 L, MCHC 31.9, RDW 15.3, Plt Count 363, MPV 10.1, Neut % (Auto) 46.1, Lymph % (Auto) 43.5, [place] % (Auto) 8.2, Eos % (Auto) 1.0, Baso % (Auto) 0.8, Neut # (Auto) 5.4, Lymph # (Auto) 5.1 H, [place] # (Auto) 1.0, Eos # (Auto) 0.1, Baso # (Auto) 0.1, Total Counted 100, Neutrophils % (Manual) 50, Lymphocytes % (Manual) 41, Monocytes % (Manual) 9, Platelet Estimate Normal, RBC Morphology Normal, Sodium 137, Potassium 4.3, Chloride 104, Carbon Dioxide 26, Anion Gap 11.3, BUN 19, Creatinine 1.30 H, Estimated Creat Clear 96, Estimated GFR 58 L, Est GFR ( Amer) 71, Glucose 117 H, Calcium 9.4, Total Bilirubin 0.8, AST 194 H, ALT 304 H*, Alkaline Phosphatase 61, Troponin I 0.05 H, C-Reactive Protein 36.6 H, NT-Pro-B Natriuret Pep 5370 H, Total Protein 7.3, Albumin 4.3, Globulin 3.0, Albumin/Globulin Ratio 1.4, Lipase 73 02/05/25 11:51: VBG pH 7.36, VBG pCO2 45.3, VBG pO2 36.5, VBG HCO3 24.8, VBG Total CO2 26.2, VBG O2 Saturation 61.7, VBG Base Excess -0.7, VBG Lactic Acid 2.3 H I & O for Last 24 hours: Intake & Output 02/02/25 02/03/25 02/04/25 02/05/25 23:59 23:59 23:59 23:59 Intake Total 50 / 50 Balance 50 / 50 Weight 220 lb Constitutional Constitutional: no acute distress and average body habitus *Routine HEENT Exam Head: Present normocephalic and atraumatic ENT: Present mucous membranes moist *Routine Neck Exam Neck: Present supple, full ROM and normal carotid upstroke; Absent JVD, carotid bruit or lymphadenopathy *Routine Respiratory Exam Respiratory: Present wheezes, normal respiratory effort, able to speak in complete sentences and symmetric chest movement *Routine Cardiovascular Exam Cardiovascular: Present RRR, Normal S1 and Normal S2; Absent murmur or gallop *Routine Abdominal Exam Abdominal: Present soft and normoactive bowel sounds; Absent tenderness, distended or organomegaly *Routine Extremities Exam Extremities: Present full ROM, pulses intact and normal capillary refill; Absent cyanosis, clubbing or edema *Routine Skin Exam Skin: Present intact and warm; Absent erythema *Routine Neurological Exam Neurological: Present alert, oriented X3 and CN II-XII intact; Absent sensory deficit or motor deficit Routine Psychiatric Exam Psychiatric: Present normal affect Meds Home Medications and Allergies Home Medications ?Medication ?Instructions ?Recorded ?Confirmed ?Type No Known Home Medications 02/05/2501/23 History New Prescriptions to Start Prescriptions: Allergies Allergy/AdvReac Type Severity Reaction Status Date / Time No Known Allergies Allergy Verified 08/15/24 23:43 Assessment and Plan *Assessment and plan (1) Acute HFrEF (heart failure with reduced ejection fraction): Status: Acute Category: Medical Code(s): I50.21 - Acute systolic (congestive) heart failure (2) Non-STEMI (non-ST elevated myocardial infarction): Status: Acute Category: Medical Code(s): I21.4 - Non-ST elevation (NSTEMI) myocardial infarction (3) Elevated liver enzymes: Status: Acute Category: Medical Code(s): R74.8 - Abnormal levels of other serum enzymes (4) VILMA (acute kidney injury): Status: Acute Category: Medical Code(s): N17.9 - Acute kidney failure, unspecified (5) Smoker: Status: Acute Category: Social Hx Code(s): F17.200 - Nicotine dependence, unspecified, uncomplicated (6) Hypertension: Status: Acute Qualifiers: Hypertension type: primary hypertension Qualified Code(s): I10 - Essential (primary) hypertension Category: Medical Code(s): I10 - Essential (primary) hypertension (7) Cardiomyopathy: Status: Acute Qualifiers: Cardiomyopathy type: other Qualified Code(s): I42.8 - Other cardiomyopathies Category: Medical Code(s): I42.9 - Cardiomyopathy, unspecified (8) Severe left ventricular systolic dysfunction (LVSD): Status: Acute Category: Medical Code(s): I51.89 - Other ill-defined heart diseases Plan Plan: 1. The patient presented to the hospital with shortness of breath. He does have an elevated BNP and bedside echo shows an ejection fraction of 15%. The patient has acute HFrEF and severe LV dysfunction. Will obtain a formal echocardiogram to officially evaluate his ejection fraction. 2. The patient has been started on a milrinone drip for his acute HFrEF. Will diurese the patient over the weekend with the milrinone drip. 3. Will start him on Bumex 1 mg IV twice daily for diuresis over the weekend as well. 4. No beta-blockers at this time due to concerns of cardiogenic shock. 5. Patient does have an elevated troponin consistent with a non-STEMI. Will plan to proceed with left cardiac catheterization on Saturday morning after the patient has been diuresed over the weekend. 6. If there is no ischemic cardiomyopathy found then we will likely plan to proceed with a cardiac MRI on Saturday or Saturday to confirm whether or not the patient has a viral myocarditis. 7. His blood pressure is elevated and we do anticipate this will improve with diuresis. 8. The patient is tachycardic which we also anticipate to improve with diuresis. 9. His LDL goal is less than 55. Will get a lipid panel in the morning. 10. Will plan to start Entresto and spironolactone once the patient has been diuresed with IV diuretics over the weekend for HFrEF. 11. Will start him on Jardiance once he is euvolemic for HFrEF. 12. The patient has elevated liver enzymes which is most likely from hepatic congestion from his heart failure. 13. Patient has an VILMA is likely normal congestion from his heart failure. Will follow his kidney function closely 14. Further recommendations will be made pending the patient's response to treatment and the results of his echocardiogram. Thank you for the opportunity to help participate in the care of this patient. All recommendations and orders are per Dr. Mcginnis.
--- NOTE | 2025-02-05 13:39 | PC.NURSE ---
Report called to Leah PHAN
--- NOTE | 2025-02-05 14:09 | PC.NURSE ---
Patient arrived to ICU at this time. Patient brought to ICU via stretcher with DISCOVERY MANAGER and WALTER. Continuation of care plan.
--- NOTE | 2025-02-05 14:20 | PC.NURSE ---
Primary RN verified Milrinone order on MAY. Per Dr. Lubin, Continue patient at current rate and do not titrate drip. Continuation of care plan.
--- NOTE | 2025-02-05 15:28 | PC.NURSE ---
Per Dr. Pederson, start Nitroprusside Drip 50 mg in Dextrose 5% in Water 250mL. states titrate to a systolic of [address] Pederson states you can increase dose to 1 mcg/kg/min. Continuation of care plan.
[2025-02-05 15:37] LABS: Troponin I 0.05 ng/ml (0.00-0.034)
[2025-02-05] MEDS: NITROPRUSSIDE SODIUM 50 MG in DEXTROSE 5 % IN WATER 250 ML 15.05 MG IV (15:38)
--- NOTE | 2025-02-05 16:00 | PC.NURSE ---
Dr. Lubin states I am okay with titrating patients drip to a systolic of 120 or less. Continuation of care plan.
[2025-02-05 16:11] LABS: Reflex Lactic Add Lactic Reflex
[2025-02-05] MEDS: BUMETANIDE 1MG/4ML VIAL 1 MG IV (16:22)
--- NOTE | 2025-02-05 17:50 | PC.NURSE ---
Per Dr. Pederson, Titrate drip as needed to get goal systolic of [address] Pederson states okay to titrate drip above 1 mcg/kg/min. Continuation of care plan.
[2025-02-05 18:41] LABS: Lactic Acid Follow Up (RFLX 1) 3.6 mmol/L (0.7-2.1)
--- NOTE | 2025-02-05 18:49 | PC.NURSE ---
BP of 138/74 (97), HR of 108, Oxygen saturation of 92% on RA. Patient on 4 mcg/kg/minute of Nitroprusside drip. Refer to MAR. Dr. Lubin aware. Continuation of care plan.
[2025-02-05 19:07] LABS: Troponin I 0.04 ng/ml (0.00-0.034)
[2025-02-05] MEDS: NITROPRUSSIDE SODIUM 50 MG in DEXTROSE 5 % IN WATER 250 ML 120.36 MG IV (20:04)
[2025-02-05] MEDS: ACETAMINOPHEN 325MG TAB 650 MG PO (20:18)
[2025-02-05 20:20] LABS: Reflex Lactic (2 hrs) Add Lactic Reflex
[2025-02-05 20:47] LABS: Lactic Acid Follow up (RFLX 2) 3.4 mmol/L (0.7-2.1)
[2025-02-05] MEDS: NITROPRUSSIDE SODIUM 50 MG in DEXTROSE 5 % IN WATER 250 ML 90.27 MG IV (22:04)
[2025-02-06] VITALS (36 sets, daily range): BP systolic 109–166; BP diastolic 59–99; PULSE 85–107; RESP 15–28; TEMP 36.2–36.6; O2SAT 88–99; BMI 29.8
[2025-02-06 01:01] LABS: Potassium 3.8 mmoL/L (3.5-5.1)
[2025-02-06] MEDS: NITROPRUSSIDE SODIUM 50 MG in DEXTROSE 5 % IN WATER 250 ML 30.09 MG IV (01:57)
[2025-02-06 07:36] LABS: Hematocrit 38.7 % (42.0-52.0); Hemoglobin 12.9 g/dL (14.1-18.0); Immature Granulocytes % 0.6 %; Mean Corpuscular HGB Conc 33.3 g/dL (31.8-35.4); Mean Corpuscular Hemoglobin 26.5 pg (27.0-31.2); Mean Corpuscular Volume 79.6 fl (80-94); Nucleated Red Blood Cells % 0.1 %; Platelet Count 380 K/mm3 (142-424); Red Blood Count 4.86 M/mm3 (4.60-6.20); Red Cell Distribution Width-SD 42.2 fL; White Blood Count 17.1 K/mm3 (4.8-10.8)
[2025-02-06 07:50] LABS: Alanine Aminotransferase 248 U/L (12-78); Albumin Level 4.0 g/dl (3.5-5.0); Albumin/Globulin Ratio 1.5 (1.1-1.8); Alkaline Phosphatase 64 U/L (38-126); Anion Gap 11.7 mEq/L (5-15); Aspartate Amino Transferase 106 U/L (17-59); Bilirubin,Total 0.6 mg/dl (0.2-1.3); Blood Urea Nitrogen 17 mg/dl (9-20); Calcium 9.0 mg/dl (8.4-10.2); Carbon Dioxide 23 mmol/L (22.0-30.0); Chloride 102 mmol/L (98-107); Cholesterol 202 mg/dl (140-200); Creatinine Clearance Estimated 110 mL/min (50-200); Creatinine,Serum 1.10 mg/dl (0.66-1.25); Estimated Glomerular Filt Rate 71 ml/min (>60); GFR (African American) 86 ML/MIN (>60); Globulin 2.7 g/dL (1.3-3.2); Glucose 152 mg/dl (74-100); HDL Cholesterol 50 mg/dl (40-60); Magnesium 1.6 mg/dl (1.6-2.3); Potassium 3.7 mmoL/L (3.5-5.1); Sodium 133 mmol/L (136-145); Total Protein,Serum 6.7 g/dl (6.3-8.2); Triglycerides 108 mg/dl (30-150)
--- NOTE | 2025-02-06 08:11 | P.PN_ITS ---
Subjective *Date: 02/06/25 *Time: 12:11 Interval history: States he is breathing more comfortable today. Denies chest pain. Still quite fatigued. Planes of being hot, the temperature in his room is warm however. Afebrile. Pressure with systolics in the 120s on nitroprusside drip. Will discontinue milrinone today. Stable on room air. Tolerating p.o. intake. Has had significant urine output of greater than 5 L, negative greater than 3-1/2 L since admission Medical Exam Vital signs and Labs for Last 24 Hours: Vital Signs Temp Pulse Pulse Resp BP BP Pulse Ox 02/06/25 07:55 93 L 02/06/25 06:50 02/06/25 06:00 99 H 129/80 89 L 02/06/25 05:00 02/06/25 05:00 93 H 23 130/81 91 L 02/06/25 04:00 97.8 F 98 H 25 H 131/76 92 L 02/06/25 04:00 02/06/25 04:00 99 H 02/06/25 03:00 02/06/25 03:00 101 H 26 H 119/64 97 02/06/25 02:00 100 H 23 134/76 91 L 02/06/25 01:00 02/06/25 01:00 101 H 22 121/72 99 02/06/25 00:30 100 H 22 118/73 94 L 02/06/25 00:15 123/79 02/06/25 00:15 106 H 93 L 02/06/25 00:00 02/06/25 00:00 99 H 02/06/25 00:00 97.6 F 100 H 21 109/72 L 95 02/05/25 23:00 02/05/25 23:00 104 H 20 104/48 L 96 02/05/25 22:00 105 H 17 128/66 90 L 02/05/25 21:00 104 H 24 126/61 93 L 02/05/25 21:00 02/05/25 20:30 106 H 22 121/64 93 L 02/05/25 20:00 107 H 02/05/25 20:00 02/05/25 20:00 98.6 F 106 H 28 H 139/73 96 02/05/25 19:00 02/05/25 18:46 108 H 24 138/74 93 L 02/05/25 18:30 107 H 26 H 148/80 H 97 02/05/25 18:24 104 H 28 H 132/76 96 02/05/25 18:20 105 H 28 H 161/91 H 96 02/05/25 18:15 102 H 28 H 159/91 H 96 02/05/25 18:00 103 H 28 H 170/98 H 96 02/05/25 17:44 106 H 16 163/108 H 96 02/05/25 17:42 103 H 24 163/112 H 96 02/05/25 17:33 104 H 27 H 163/116 H 97 02/05/25 17:15 104 H 16 145/100 H 96 02/05/25 17:00 108 H 26 H 153/101 H 93 L 02/05/25 17:00 02/05/25 16:45 107 H 25 H 144/99 H 96 02/05/25 16:30 109 H 18 151/100 H 96 02/05/25 16:19 109 H 26 H 151/93 H 98 02/05/25 16:16 113 H 28 H 171/109 H 96 02/05/25 16:00 109 H 26 H 129/89 94 L 02/05/25 16:00 110 H 02/05/25 15:40 114 H 23 150/102 H 96 02/05/25 15:23 109 H 18 151/109 H 96 02/05/25 15:00 02/05/25 15:00 110 H 19 151/103 H 95 02/05/25 14:46 97.4 F L 114 H 20 149/104 H 98 02/05/25 14:42 113 H 95 02/05/25 14:21 116 H 02/05/25 14:20 115 H 20 166/123 H 97 02/05/25 14:08 98.5 F 108 H 22 157/123 H 02/05/25 13:00 106 H 29 H 02/05/25 12:30 28 H 02/05/25 11:31 97.8 F 110 H 18 153/113 H 99 02/05/25 11:30 109 H 29 H 157/123 H 100 02/05/25 11:28 106 H 149/114 H 100 O2 Del Method 02/06/25 07:55 Room Air 02/06/25 06:50 Room Air 02/06/25 06:00 Room Air 02/06/25 05:00 Room Air 02/06/25 05:00 Room Air 02/06/25 04:00 Room Air 02/06/25 04:00 Room Air 02/06/25 04:00 02/06/25 03:00 Room Air 02/06/25 03:00 Room Air 02/06/25 02:00 Room Air 02/06/25 01:00 Room Air 02/06/25 01:00 02/06/25 00:30 02/06/25 00:15 02/06/25 00:15 02/06/25 00:00 Room Air 02/06/25 00:00 02/06/25 00:00 02/05/25 23:00 Room Air 02/05/25 23:00 Room Air 02/05/25 22:00 Room Air 02/05/25 21:00 02/05/25 21:00 Room Air 02/05/25 20:30 02/05/25 20:00 02/05/25 20:00 Room Air 02/05/25 20:00 Room Air 02/05/25 19:00 Room Air 02/05/25 18:46 Room Air 02/05/25 18:30 Room Air 02/05/25 18:24 Room Air 02/05/25 18:20 Room Air 02/05/25 18:15 Room Air 02/05/25 18:00 Room Air 02/05/25 17:44 Room Air 02/05/25 17:42 Room Air 02/05/25 17:33 Room Air 02/05/25 17:15 Room Air 02/05/25 17:00 Room Air 02/05/25 17:00 Room Air 02/05/25 16:45 Room Air 02/05/25 16:30 Room Air 02/05/25 16:19 02/05/25 16:16 02/05/25 16:00 Room Air 02/05/25 16:00 02/05/25 15:40 Room Air 02/05/25 15:23 Room Air 02/05/25 15:00 Room Air 02/05/25 15:00 Room Air 02/05/25 14:46 Room Air 02/05/25 14:42 Room Air 02/05/25 14:21 02/05/25 14:20 Room Air 02/05/25 14:08 Room Air 02/05/25 13:00 02/05/25 12:30 02/05/25 11:31 Room Air 02/05/25 11:30 02/05/25 11:28 Intake and Output 02/05/25 02/06/25 02/06/25 23:59 07:59 15:59 Intake Total 805.026 / 855.026 329.987 / 329.987 Output Total 3700 / 4050 1000 / 1000 Balance -2894.974 / -3194.974 -670.013 / -670.013 Intake: Intake, Oral Amount 210 / 210 0 / 0 Intake, Total IV Amount 595.026 / 645.026 329.987 / 329.987 Nitroprusside Sodium 50 mg In 595.026 / 595.026 329.987 / 329.987 Dextrose 5 % in Water 250 ml @ 0.5 MCG/KG/MIN 15.045 mls/hr IV .[id number] [facility] Rx#:[id number] Output: Output, Urine Amount 3700 / 4050 1000 / 1000 Other: Weight 96.706 kg Patient Weight 02/06/25 23:59 Weight 96.706 kg Laboratory Results - last 24 hr 02/05/25 11:24: SARS-CoV-2 (PCR) Not detected 02/05/25 11:24: SARS-CoV-2 (PCR) Not detected, Influenza Type A (PCR) Not detected, Influenza A Untype (PCR) Not detected, Influenza Type B (PCR) Not detected 02/05/25 11:24: Influenza Type B (PCR) Not detected, RSV (PCR) Not detected, Rhinovirus (PCR) Detected 02/05/25 11:48: WBC 11.7 H, RBC 4.90, Hgb 12.9 L, Hct 40.5 L, MCV 82.7, MCH 26.3 L, MCHC 31.9, RDW 15.3, Plt Count 363, MPV 10.1, Neut % (Auto) 46.1, Lymph % (Auto) 43.5, [place] % (Auto) 8.2, Eos % (Auto) 1.0, Baso % (Auto) 0.8, Neut # (Auto) 5.4, Lymph # (Auto) 5.1 H, [place] # (Auto) 1.0, Eos # (Auto) 0.1, Baso # (Auto) 0.1, Total Counted 100, Neutrophils % (Manual) 50, Lymphocytes % (Manual) 41, Monocytes % (Manual) 9, Platelet Estimate Normal, RBC Morphology Normal, Sodium 137, Potassium 4.3, Chloride 104, Carbon Dioxide 26, Anion Gap 11.3, BUN 19, Creatinine 1.30 H, Estimated Creat Clear 96, Estimated GFR 58 L, Est GFR ( Amer) 71, Glucose 117 H, Calcium 9.4, Total Bilirubin 0.8, AST 194 H, ALT 304 H*, Alkaline Phosphatase 61, Troponin I 0.05 H, C-Reactive Protein 36.6 H, NT-Pro-B Natriuret Pep 5370 H, Total Protein 7.3, Albumin 4.3, Globulin 3.0, Albumin/Globulin Ratio 1.4, Lipase 73 02/05/25 11:51: VBG pH 7.36, VBG pCO2 45.3, VBG pO2 36.5, VBG HCO3 24.8, VBG Total CO2 26.2, VBG O2 Saturation 61.7, VBG Base Excess -0.7, VBG Lactic Acid 2.3 H 02/05/25 15:00: Troponin I 0.05 H 02/05/25 18:11: Lactate 3.6 H, Troponin I 0.04 H 02/05/25 20:30: Lactate 3.4 H 02/05/25 : Chlamy pneumoniae PCR Not detected, Adenovirus (PCR) Not detected, B. pertussis DNA (PCR) Not detected, Coronavirus OC43 (PCR) Not detected, Coronavirus HKU1 (PCR) Not detected, Coronavirus 229E (PCR) Not detected, SARS-CoV-2 (PCR) Not detected, Coronavirus NL63 (PCR) Not detected, Human Metapneumovir PCR Not detected, Influenza A (H1) PCR Not detected, Influ A (H1N1/09) PCR Not detected, Influenza A (H3) PCR Not detected, Influenza Type A (PCR) Not detected, Influenza Type B (PCR) Not detected, M. pneumoniae (PCR) Not detected, Parainfluenza 1 (PCR) Not detected, Parainfluenza 2 (PCR) Not detected, Parainfluenza 3 (PCR) Not detected, Parainfluenza 4 (PCR) Not detected, RSV (PCR) Not detected, Entero/Rhino (PCR) Detected A 02/06/25 00:48: Potassium 3.8 02/06/25 07:25: WBC 17.1 H D, RBC 4.86, Hgb 12.9 L, Hct 38.7 L, MCV 79.6 L, MCH 26.5 L, MCHC 33.3, RDW 14.7, Plt Count 380, MPV 10.1, Neut % (Auto) 75.0, Lymph % (Auto) 17.1, [place] % (Auto) 7.1, Eos % (Auto) 0.0 L, Baso % (Auto) 0.2, Neut # (Auto) 12.8 H, Lymph # (Auto) 2.9, [place] # (Auto) 1.2 H, Eos # (Auto) 0.0, Baso # (Auto) 0.0, Sodium 133 L, Potassium 3.7, Chloride 102, Carbon Dioxide 23, Anion Gap 11.7, BUN 17, Creatinine 1.10, Estimated Creat Clear 110, Estimated GFR 71, Est GFR ( Amer) 86 D, Glucose 152 H D, Calcium 9.0, Magnesium 1.6, Total Bilirubin 0.6, AST 106 H D, ALT 248 H, Alkaline Phosphatase 64, Total Protein 6.7, Albumin 4.0, Globulin 2.7, Albumin/Globulin Ratio 1.5, Triglycerides 108, Cholesterol 202 H, LDL Cholesterol Direct 129.25 H, VLDL Cholesterol 22, HDL Cholesterol 50, Cholesterol/HDL Ratio 4.0 H I & O for Labs for Last 24 Hours: Intake & Output 02/03/25 02/04/25 02/05/25 02/06/25 23:59 23:59 23:59 23:59 Intake Total 855.026 / 855.026 329.987 / 329.987 Output Total 4050 / 4050 1000 / 1000 Balance -3194.974 / -3194.974 -670.013 / -670.013 Weight 99.507 kg 96.706 kg Constitutional: Present mild distress, obese and cooperative Head: Present atraumatic and normocephalic Respiratory: Present normal respiratory effort; Absent rhonchi, wheezes or crackles Cardiac: Present Regular Rhythm and Tachycardia GI: Present soft and normal bowel sounds; Absent distention or tenderness Extremities: Present normal inspection and full ROM; Absent edema Skin: Present intact; Absent erythema Neuro: Present Grossly Intact, alert, awake, oriented x 3 and moves all extremities Assessment and Plan *Assessment and plan (1) Myocarditis: Problem Comment: Enterovirus, POA Status: Acute Qualifiers: Chronicity: acute Infective myocarditis organism: viral Myocarditis type: infective Qualified Code(s): B33.22 - Viral myocarditis Category: Medical Code(s): I51.4 - Myocarditis, unspecified (2) Severe left ventricular systolic dysfunction (LVSD): Status: Acute Category: Medical Code(s): I51.89 - Other ill-defined heart diseases (3) Cardiomyopathy: Status: Acute Qualifiers: Cardiomyopathy type: other Qualified Code(s): I42.8 - Other cardiomyopathies Category: Medical Code(s): I42.9 - Cardiomyopathy, unspecified (4) Hypertension: Status: Acute Qualifiers: Hypertension type: primary hypertension Qualified Code(s): I10 - Essential (primary) hypertension Category: Medical Code(s): I10 - Essential (primary) hypertension (5) Acute HFrEF (heart failure with reduced ejection fraction): Status: Acute Category: Medical Code(s): I50.21 - Acute systolic (congestive) heart failure (6) Non-STEMI (non-ST elevated myocardial infarction): Status: Acute Category: Medical Code(s): I21.4 - Non-ST elevation (NSTEMI) myocardial infarction Plan 49-year-old male who presents with acute onset of shortness of breath over the past few days. Found to be in acute heart failure with suspected viral myocarditis. Discussed case with ER physician, request admission for treatment of his acute heart failure. I admitted to the ICU for further care. High risk for decompensation. Weaning drips today, will discontinue milrinone but continue nitroprusside. Continue to aggressively diurese. Consider initiating GDMT tomorrow pending patient's response to stopping milrinone. Cardiology continues to assist with care. Problems addressed as follows: Viral myocarditis due to enterovirus Acute HFrEF Hypertension - Discussed case with cardiology, read of echo shows an EF of approximately 10%. - Wean off milrinone drip today. Continue Bumex 1 mg IV twice daily. Continue nitroprusside drip for goal blood pressure systolic less than 120. - If does well off milrinone and on nitroprusside over the next 24 hours, will initiate low-dose Entresto in the morning. - Plan for guideline directed management with consideration of Jardiance, Entresto, spironolactone and beta-jax prior to discharge pending patient's clinical course. - Cardiology to reevaluate on Saturday for possible ischemic workup including left heart cath, cardiac MRI. - Remained stable on room air, goal sats greater than 90%. - Kidney function stable with BUN 17, creatinine 1.1. - LDL 129. - Liver enzymes remain marginally elevated with AST 106, ALT 249. - Respiratory panel positive for entero/rhinovirus - Repeat CBC, CMP, magnesium ordered for the morning. A1C and TSH ordered for screening purposes for the morning given his heart failure ICU/Critical care attestation This patient is critically ill with 35 minutes devoted solely to this patient managing life/organ supporting interventions that required physician assessment. This includes time spent making adjustments in ventilator settings, IV fluid administration, titration of pressors, adjustments of medications, discussion of patient with consultants and other care providers as well as updating patient and/or family (if patient by virtue of his/her condition is unable to participate in decision making). This does not include time spent performing separately billed procedures. Time is not concurrent with that of other providers. Full code Cardiac diet Therapeutic Lovenox
[2025-02-06] MEDS: NITROPRUSSIDE SODIUM 50 MG in DEXTROSE 5 % IN WATER 250 ML 90.27 MG IV ×5 (08:25→21:35)
[2025-02-06] MEDS: BUMETANIDE 1MG/4ML VIAL 1 MG IV ×2 (08:25→15:51)
--- NOTE | 2025-02-06 11:00 | PC.NURSE ---
Patient complains of shortness of breath and congestion. Patients oxygen saturation of 95% on RA. Patients lungs sounds bilaterally clear throughout. notified. No new orders received. Continuation of care plan.
--- NOTE | 2025-02-06 12:20 | PC.NURSE ---
Patient and spouse educated on cardiac diet and restrictions. Patient and spouse verbalize understanding. Continuation of care plan.
[2025-02-06] MEDS: MAGNESIUM SULFATE IN WATER 2 GM/50 ML PIGGYBACK IV (12:48)
--- NOTE | 2025-02-06 13:27 | PC.NURSE ---
Pharmacist, Lencho, states ordered one 2 gm dose of Magnesium as ordered on MAY. Primary RN verified with Provider at this time. Dr. Lubin states he only wants one dose of magnesium, even though ordered electrolyte protocol calls for two doses to be given. Continuation of care plan.
[2025-02-06] MEDS: NITROPRUSSIDE SODIUM 50 MG in DEXTROSE 5 % IN WATER 250 ML 120.36 MG IV (13:48)
--- NOTE | 2025-02-06 18:10 | PC.NURSE ---
Addendum entered by Leah Lanier RN 02/06/25 19:18: Patients spouse states that patient is short of breath and congested. Original Note: Patients spouse states complains that patient is short of breath and congested Patients oxygen saturation of 96% on RA. Patients lung sounds diminished bilaterally in bases. Primary RN askes patient how he feels. Patient states he is just tired. Ave Ruiz notified. Continuation of care plan.
--- NOTE | 2025-02-06 18:15 | PC.NURSE ---
Patient provided an Incentive Spirometer at this time. Patient educated on how to use IS and benefits of IS. Patient verbalizes understanding. Continuation of care plan.
--- NOTE | 2025-02-06 18:46 | PC.NURSE ---
Ave Ruiz at bedside. Continuation of care plan.
[2025-02-07] VITALS (32 sets, daily range): BP systolic 113–151; BP diastolic 65–116; PULSE 82–110; RESP 14–27; TEMP 36.4–36.9; O2SAT 92–98; BMI 30.2
[2025-02-07] MEDS: NITROPRUSSIDE SODIUM 50 MG in DEXTROSE 5 % IN WATER 250 ML 90.27 MG IV ×2 (00:27→03:55)
--- NOTE | 2025-02-07 00:39 | PC.NURSE ---
Pts POA, Mary, called questioning why pt did not have antibiotics ordered considering his WBC is 17. I spoke with Mary to let her know I had contacted the provider to make her aware that the family had questions about antibiotics and that pt was flagging severe sepsis risk. Ave Garcia spoke with latosha at bedside and Tita) over the phone.
--- NOTE | 2025-02-07 06:03 | EXP.ACUTE.PN ---
Subjective *Date: 02/07/25 *Time: 09:24 Interval history: Feeling little bit better today. Some shortness of breath overnight needing oxygen. Concern for component of sleep apnea per nurses evaluation. Blood pressure doing better. Will discontinue nitro drip today. Continues have negative volume status. Kidney function remained stable. Alert and oriented x 4. Medical Exam Vital signs and Labs for Last 24 Hours: Vital Signs Temp Pulse Resp BP Pulse Ox O2 Del Method O2 Flow Rate 02/07/25 05:00 92 H 27 H 133/72 93 L Nasal Cannula 1 02/07/25 05:00 133/72 02/07/25 04:00 97.7 F 98 H 25 H 120/78 93 L Nasal Cannula 1 02/07/25 04:00 96 Nasal Cannula 1 02/07/25 04:00 Nasal Cannula 1 02/07/25 04:00 96 H 02/07/25 03:01 102 H 19 128/79 96 Nasal Cannula 1 02/07/25 02:00 95 H 24 115/75 92 L Nasal Cannula 1 02/07/25 02:00 Nasal Cannula 1 02/07/25 01:00 96 H 22 113/72 94 L Nasal Cannula 1 02/07/25 01:00 Nasal Cannula 1 02/07/25 00:00 97.7 F 96 H 21 117/65 95 Room Air 02/07/25 00:00 95 Nasal Cannula 1 02/07/25 00:00 96 H 02/06/25 23:00 96 H 15 123/59 L 95 Room Air 02/06/25 23:00 Nasal Cannula 1 02/06/25 21:00 85 27 H 111/62 88 L Room Air 02/06/25 21:00 Room Air 02/06/25 20:57 97.7 F 02/06/25 20:00 102 H 02/06/25 20:00 95 Room Air 02/06/25 20:00 100 H 22 116/75 91 L 02/06/25 19:00 101 H 16 116/76 95 02/06/25 18:25 Room Air 02/06/25 18:00 99 H 20 141/73 H 97 Room Air 02/06/25 17:51 99 H 20 127/73 94 L Room Air 02/06/25 17:30 96 H 22 126/78 95 Room Air 02/06/25 17:02 97 H 20 122/82 95 Room Air 02/06/25 17:00 Room Air 02/06/25 16:15 97.2 F L 95 H 17 109/72 L 94 L Room Air 02/06/25 16:00 100 H 02/06/25 16:00 96 Room Air 02/06/25 15:31 100 H 21 115/67 97 Room Air 02/06/25 15:00 Room Air 02/06/25 15:00 103 H 24 125/81 98 Room Air 02/06/25 14:43 99 H 20 128/79 94 L Room Air 02/06/25 14:28 106 H 20 143/84 H 96 Room Air 02/06/25 14:09 97 H 22 131/74 93 L Room Air 02/06/25 13:30 100 H 19 122/99 H 97 Room Air 02/06/25 13:01 98 H 22 120/66 95 Room Air 02/06/25 13:00 Room Air 02/06/25 12:45 97.2 F L 99 H 20 120/69 96 Room Air 02/06/25 12:00 96 Room Air 02/06/25 12:00 100 H 28 H 135/69 93 L Room Air 02/06/25 12:00 107 H 02/06/25 11:00 96 H 24 125/68 92 L Room Air 02/06/25 11:00 Room Air 02/06/25 10:08 97 H 20 134/82 93 L Room Air 02/06/25 09:00 96 H 17 151/91 H 96 Room Air 02/06/25 09:00 Room Air 02/06/25 08:15 97 H 20 132/70 92 L Room Air 02/06/25 08:00 100 H 02/06/25 08:00 97.5 F L 97 H 24 145/66 H 96 Room Air 02/06/25 07:55 93 L Room Air 02/06/25 07:00 97.5 F L 99 H 18 166/98 H 93 L Room Air 02/06/25 06:50 Room Air Intake and Output 02/06/25 02/06/25 02/07/25 15:59 23:59 07:59 Intake Total 1455.333 / 2609.282 823.962 / 2609.282 502.750 / 502.750 Output Total 1050 / 3870 1820 / 3870 400 / 400 Balance 405.333 / -1260.718 -996.038 / -1260.718 102.750 / 102.750 Intake: Intake, Oral Amount 535 / 870 335 / 870 0 / 0 Intake, Total IV Amount 920.333 / 1739.282 488.962 / 1739.282 502.750 / 502.750 Magnesium Sulfate in Water 2 gm 38 / 38 In 50 ml @ 50 mls/hr IV ONCE ONE Rx#:[id number] Milrinone Lactate 20 mg In 0.9 74.925 / 74.925 % Sodium Chloride 80 ml @ 0.125 MCG/KG/MIN 3.742 mls/hr IV . Q24H [facility] Rx#:[id number] Nitroprusside Sodium 50 mg In 311.424 / 641.411 Dextrose 5 % in Water 250 ml @ 3 MCG/KG/MIN 90.273 mls/hr IV . Q2H48M [facility] Rx#:[id number] Nitroprusside Sodium 50 mg In 495.984 / 984.946 488.962 / 984.946 502.750 / 502.750 Dextrose 5 % in Water 250 ml @ 4 MCG/KG/MIN 120.364 mls/hr IV .Q2H6M [facility] Rx#:[id number] Output: Output, Urine Amount 1050 / 3870 1820 / 3870 400 / 400 Other: Weight 97.84 kg Patient Weight 02/07/25 23:59 Weight 97.84 kg Laboratory Results - last 24 hr 02/06/25 07:25: WBC 17.1 H D, RBC 4.86, Hgb 12.9 L, Hct 38.7 L, MCV 79.6 L, MCH 26.5 L, MCHC 33.3, RDW 14.7, Plt Count 380, MPV 10.1, Neut % (Auto) 75.0, Lymph % (Auto) 17.1, [place] % (Auto) 7.1, Eos % (Auto) 0.0 L, Baso % (Auto) 0.2, Neut # (Auto) 12.8 H, Lymph # (Auto) 2.9, [place] # (Auto) 1.2 H, Eos # (Auto) 0.0, Baso # (Auto) 0.0, Sodium 133 L, Potassium 3.7, Chloride 102, Carbon Dioxide 23, Anion Gap 11.7, BUN 17, Creatinine 1.10, Estimated Creat Clear 110, Estimated GFR 71, Est GFR ( Amer) 86 D, Glucose 152 H D, Calcium 9.0, Magnesium 1.6, Total Bilirubin 0.6, AST 106 H D, ALT 248 H, Alkaline Phosphatase 64, Total Protein 6.7, Albumin 4.0, Globulin 2.7, Albumin/Globulin Ratio 1.5, Triglycerides 108, Cholesterol 202 H, LDL Cholesterol Direct 129.25 H, VLDL Cholesterol 22, HDL Cholesterol 50, Cholesterol/HDL Ratio 4.0 H I & O for Labs for Last 24 Hours: Intake & Output 02/04/25 02/05/25 02/06/25 02/07/25 23:59 23:59 23:59 23:59 Intake Total 855.026 / 670.228 7025.282 / 2609.282 502.750 / 502.750 Output Total 4050 / 4050 3870 / 3870 400 / 400 Balance -3194.974 / -3194.974 -1260.718 / -1260.718 102.750 / 102.750 Weight 99.507 kg 96.706 kg 97.84 kg Constitutional: Present mild distress, obese and cooperative Head: Present atraumatic and normocephalic Respiratory: Present normal respiratory effort; Absent rhonchi, wheezes or crackles Cardiac: Present Regular Rhythm and Tachycardia GI: Present soft and normal bowel sounds; Absent distention or tenderness Extremities: Present normal inspection and full ROM; Absent edema Skin: Present intact; Absent erythema Neuro: Present Grossly Intact, alert, awake, oriented x 3 and moves all extremities Assessment and Plan *Assessment and plan (1) Myocarditis: Problem Comment: Enterovirus, POA Status: Acute Qualifiers: Chronicity: acute Infective myocarditis organism: viral Myocarditis type: infective Qualified Code(s): B33.22 - Viral myocarditis Category: Medical Code(s): I51.4 - Myocarditis, unspecified (2) Severe left ventricular systolic dysfunction (LVSD): Status: Acute Category: Medical Code(s): I51.89 - Other ill-defined heart diseases (3) Cardiomyopathy: Status: Acute Qualifiers: Cardiomyopathy type: other Qualified Code(s): I42.8 - Other cardiomyopathies Category: Medical Code(s): I42.9 - Cardiomyopathy, unspecified (4) Hypertension: Status: Acute Qualifiers: Hypertension type: primary hypertension Qualified Code(s): I10 - Essential (primary) hypertension Category: Medical Code(s): I10 - Essential (primary) hypertension (5) Acute HFrEF (heart failure with reduced ejection fraction): Status: Acute Category: Medical Code(s): I50.21 - Acute systolic (congestive) heart failure (6) Non-STEMI (non-ST elevated myocardial infarction): Status: Acute Category: Medical Code(s): I21.4 - Non-ST elevation (NSTEMI) myocardial infarction Plan 49-year-old male who presents with acute onset of shortness of breath over the past few days. Found to be in acute heart failure with suspected viral myocarditis. Discussed case with ER physician, request admission for treatment of his acute heart failure. I admitted to the ICU for further care. High risk for decompensation. Off both today. Initiating oral Entresto. Continue diuresis. Consider initiating GDMT tomorrow pending patient's response to stopping milrinone. Cardiology continues to assist with care. Problems addressed as follows: Viral myocarditis due to enterovirus Acute HFrEF Hypertension - Discussed case with cardiology, read of echo shows an EF of approximately 10%. - Discontinue nitroprusside. Continue Bumex 1 mg twice daily - Initiate Entresto 24/ twice daily. Will monitor for improvement in blood pressure. Consider up titration if blood pressure remains elevated today - Plan for guideline directed management with consideration of Jardiance, spironolactone and beta-jax prior to discharge pending patient's clinical course. - Cardiology to reevaluate on Saturday for possible ischemic workup including left heart cath, cardiac MRI. - Remained stable on room air while awake, oxygen overnight while asleep at 1 L. goal sats greater than 90%. - White count still elevated at 17, likely reactive with his steroids plus viral infection. Kidney function stable with BUN 16, creatinine 1.2. Liver enzymes improving with bilirubin 0.8, AST 82, ALT 153 - LDL 129. - Respiratory panel positive for entero/rhinovirus - Repeat CBC, CMP, magnesium ordered for the morning. A1C and TSH ordered for screening purposes for the morning given his heart failure ICU/Critical care attestation This patient is critically ill with 35 minutes devoted solely to this patient managing life/organ supporting interventions that required physician assessment. This includes time spent making adjustments in ventilator settings, IV fluid administration, titration of pressors, adjustments of medications, discussion of patient with consultants and other care providers as well as updating patient and/or family (if patient by virtue of his/her condition is unable to participate in decision making). This does not include time spent performing separately billed procedures. Time is not concurrent with that of other providers. Full code Cardiac diet Therapeutic Lovenox
[2025-02-07] MEDS: ACETAMINOPHEN 325MG TAB 650 MG PO (06:28)
--- NOTE | 2025-02-07 07:07 | PC.NURSE ---
states stop Nitroprusside IV drip and administer 0900 Entresto dose ordered on MAY now. Continuation of care plan.
[2025-02-07] MEDS: SACUBITRIL/VALSARTAN 24-26MG TABLET 1 EACH PO ×2 (07:27→12:43)
[2025-02-07 07:50] LABS: Hematocrit 41.2 % (42.0-52.0); Hemoglobin 13.7 g/dL (14.1-18.0); Immature Granulocytes % 0.8 %; Mean Corpuscular HGB Conc 33.3 g/dL (31.8-35.4); Mean Corpuscular Hemoglobin 26.4 pg (27.0-31.2); Mean Corpuscular Volume 79.4 fl (80-94); Nucleated Red Blood Cells % 0.2 %; Platelet Count 374 K/mm3 (142-424); Red Blood Count 5.19 M/mm3 (4.60-6.20); Red Cell Distribution Width-SD 43.0 fL; White Blood Count 17.1 K/mm3 (4.8-10.8)
[2025-02-07 08:07] LABS: Alanine Aminotransferase 153 U/L (12-78); Albumin Level 3.7 g/dl (3.5-5.0); Albumin/Globulin Ratio 1.4 (1.1-1.8); Alkaline Phosphatase 67 U/L (38-126); Anion Gap 8.3 mEq/L (5-15); Aspartate Amino Transferase 82 U/L (17-59); Bilirubin,Total 0.8 mg/dl (0.2-1.3); Blood Urea Nitrogen 16 mg/dl (9-20); Calcium 8.7 mg/dl (8.4-10.2); Carbon Dioxide 25 mmol/L (22.0-30.0); Chloride 101 mmol/L (98-107); Creatinine Clearance Estimated 102 mL/min (50-200); Creatinine,Serum 1.20 mg/dl (0.66-1.25); Estimated Glomerular Filt Rate 64 ml/min (>60); GFR (African American) 78 ML/MIN (>60); Globulin 2.7 g/dL (1.3-3.2); Glucose 108 mg/dl (74-100); Magnesium 1.8 mg/dl (1.6-2.3); Potassium 3.3 mmoL/L (3.5-5.1); Sodium 131 mmol/L (136-145); Total Protein,Serum 6.4 g/dl (6.3-8.2)
[2025-02-07 08:58] LABS: RBC Morphology Normal; Total Cells Counted 100
[2025-02-07] MEDS: POTASSIUM CHLORIDE 20MEQ TAB 40 MEQ PO ×2 (09:05→12:24)
[2025-02-07] MEDS: BUMETANIDE 1MG/4ML VIAL 1 MG IV ×2 (09:05→15:55)
[2025-02-07 09:55] LABS: Thyroid Stimulating Hormone 0.91 uIU/mL (0.465-4.68)
--- NOTE | 2025-02-07 12:29 | PC.NURSE ---
Patients blood pressure of 144/116 (121), HR 93. notified. 1243 New orders received. Refer to MAR. Continuation of care plan.
[2025-02-07 14:45] LABS: Hemoglobin A1C 6.5 % (4.0-6.0)
--- NOTE | 2025-02-07 16:24 | PC.NURSE ---
Transfer pt from step-down to Med-surg.
--- NOTE | 2025-02-07 16:51 | PC.NURSE ---
Patient transferred to Medical Surgical Room 213 at this time. Patient transported via wheelchair by ICU SRNA.
[2025-02-07] MEDS: SACUBITRIL/VALSARTAN 24-26MG TABLET 2 EACH PO (18:57)
[2025-02-08] VITALS (15 sets, daily range): BP systolic 105–158; BP diastolic 59–103; PULSE 90–104; RESP 14–19; TEMP 36.4–36.7; O2SAT 91–99; BMI 29.5
--- NOTE | 2025-02-08 | IR_ITS ---
APPROVED REPORT Patient Location: Inpatient PROCEDURES Left heart catheterization Left ventriculogram Selective coronary angiogram INDICATION Cardiomyopathy ejection fraction 10% Informed consent was obtained prior to the procedure. COMPLICATIONS none Estimated Blood Loss: less than 10ml TECHNIQUE One percent lidocaine used to anesthetize the right anterior aspect of the wrist. The right radial artery was accessed via the Seldinger technique. A 6 [place] sheath was placed in the right radial artery. 2.5 mg of Verapamil, 800 mcg of nitroglycerin, 1mg Lidocaine and 5000 U Heparin were given through the arterial sheath. The JL3 catheter was also used to perform left heart catheterization, left ventriculogram and selective coronary angiogram. At the end of the procedure the sheath was removed good hemostasis was achieved using Traclet band, patient was transferred to the postop holding area in stable condition. ANGIOGRAPHIC RESULTS The left main artery Normal The left anterior descending artery Normal The circumflex artery Large dominant normal The right coronary artery Small nondominant The REIS ventriculogram reveals Severely dilated severely hypokinetic ejection fraction 5 to 10% The left ventricular end-diastolic pressure 15 to 20 mmHg IMPRESSION Normal coronary arteries Severe left ventricular dilatation with severely reduced ejection fraction Normal LVEDP PLAN 1. GDMT for systolic heart failure 2. Recommend anticoagulation based on severely reduced ejection fraction 3. LifeVest 4. Recommend CMR to evaluate for myocarditis Electronically signed by : Neal Pederson MD 02/08/2025 12:58:34
[2025-02-08 06:03] LABS: Hematocrit 50.9 % (42.0-52.0); Immature Granulocytes % 1.3 %; Mean Corpuscular HGB Conc 32.0 g/dL (31.8-35.4); Mean Corpuscular Hemoglobin 25.6 pg (27.0-31.2); Mean Corpuscular Volume 79.9 fl (80-94); Nucleated Red Blood Cells % 0.1 %; Platelet Count 432 K/mm3 (142-424); Red Blood Count 6.37 M/mm3 (4.60-6.20); Red Cell Distribution Width-SD 43.0 fL; White Blood Count 16.2 K/mm3 (4.8-10.8)
[2025-02-08 06:08] LABS: Hemoglobin 16.6 g/dL (14.1-18.0)
[2025-02-08 06:26] LABS: Alanine Aminotransferase 142 U/L (12-78); Albumin Level 4.0 g/dl (3.5-5.0); Albumin/Globulin Ratio 1.2 (1.1-1.8); Alkaline Phosphatase 65 U/L (38-126); Anion Gap 8.9 mEq/L (5-15); Aspartate Amino Transferase 43 U/L (17-59); Bilirubin,Total 0.8 mg/dl (0.2-1.3); Blood Urea Nitrogen 18 mg/dl (9-20); Calcium 9.2 mg/dl (8.4-10.2); Carbon Dioxide 25 mmol/L (22.0-30.0); Chloride 105 mmol/L (98-107); Creatinine Clearance Estimated 92 mL/min (50-200); Creatinine,Serum 1.30 mg/dl (0.66-1.25); Estimated Glomerular Filt Rate 58 ml/min (>60); GFR (African American) 71 ML/MIN (>60); Globulin 3.3 g/dL (1.3-3.2); Glucose 130 mg/dl (74-100); Potassium 3.9 mmoL/L (3.5-5.1); Sodium 135 mmol/L (136-145); Total Protein,Serum 7.3 g/dl (6.3-8.2)
[2025-02-08 06:30] LABS: Magnesium 2.0 mg/dl (1.6-2.3)
--- NOTE | 2025-02-08 06:41 | PC.NURSE ---
Pt. is alert and orientated x 4. Pt. is on room air. Pt. has viral myocardititis Pt. scheduled for a heart cath today and possible cardiac MRI. Pt. has slept all night. Pt. denies chest pain or shortness of breath. Personal items and call light in reach. Bed in low and locked postion. safety measures in place.
[2025-02-08] MEDS: EMPAGLIFLOZIN 10MG TABLET 10 MG PO (07:46)
[2025-02-08] MEDS: SPIRONOLACTONE 25MG TABLET 25 MG PO (07:46)
[2025-02-08] MEDS: SACUBITRIL/VALSARTAN 24-26MG TABLET 4 EACH PO ×2 (07:47→21:18)
[2025-02-08] MEDS: BUMETANIDE 1 MG TABLET PO ×2 (07:52→17:00)
[2025-02-08 09:05] LABS: Total Cells Counted 100
[2025-02-08 09:06] LABS: RBC Morphology Normal
--- NOTE | 2025-02-08 09:31 | US_ITS ---
FINAL REPORT TECHNIQUE: Sonographic images of the kidneys and retroperitoneum were obtained in the longitudinal and transverse planes. CLINICAL HISTORY: htn COMPARISON: None FINDINGS: The right kidney measures 11.7 cm in nhgv-[id number] length. No hydronephrosis, mass, or stone. Cortical echogenicity and thickness are normal. There is a hypoechoic cyst present in the midportion of the right kidney, measuring 1.5 x 1.4 cm in size. The left kidney measures 11.4 cm in [id number]-vp-[id number] length. No hydronephrosis, mass, or stone. Cortical echogenicity and thickness are normal. There is a large hypoechoic 6.4 x 6.0 left upper pole cyst. Several other smaller cysts are noted in the left kidney as well. IMPRESSION: Bilateral renal cysts are present, largest on the left measuring 6.4 x 6.0 cm in size. No evidence of hydronephrosis or masses otherwise seen. Reviewed, Interpreted and Dictated by Lucas Brown MD Transcribed by Constance Stokes Authenticated and [facility]
--- NOTE | 2025-02-08 09:44 | P.PN_ITS ---
Subjective *Date: 02/08/25 *Time: 09:44 Interval history: Feels little fatigued this morning. Has diuresed well over the past 24 hours. Stable on room air. Afebrile. No nausea or vomiting. Awaiting cards eval and heart cath. Medical Exam Vital signs and Labs for Last 24 Hours: Vital Signs Temp Pulse Pulse Resp BP BP Pulse Ox 02/08/25 09:00 02/08/25 08:00 100 H 02/08/25 08:00 97.6 F 102 H 19 135/96 H 96 02/08/25 08:00 02/08/25 06:48 02/08/25 05:00 02/08/25 04:00 98.1 F 104 H 16 158/100 H 95 02/08/25 04:00 100 H 02/08/25 03:00 02/08/25 01:00 02/08/25 00:00 100 H 02/08/25 00:00 97.7 F 95 H 16 141/93 H 97 02/07/25 21:00 02/07/25 20:00 90 02/07/25 20:00 16 98 02/07/25 20:00 98.4 F 91 H 16 138/93 H 98 02/07/25 19:00 02/07/25 18:55 146/99 H 02/07/25 17:46 94 H 18 151/99 H 98 02/07/25 17:00 02/07/25 16:05 97.6 F 100 H 22 137/95 H 94 L 02/07/25 16:00 95 02/07/25 16:00 100 H 02/07/25 16:00 02/07/25 15:02 96 H 26 H 128/97 H 93 L 02/07/25 14:03 98 H 16 141/99 H 96 02/07/25 14:00 02/07/25 13:05 96 H 18 147/113 H 95 02/07/25 12:09 99 H 20 148/116 H 94 L 02/07/25 12:00 95 02/07/25 12:00 100 H 02/07/25 12:00 02/07/25 10:55 97.9 F 02/07/25 10:45 96 H 18 142/97 H 97 02/07/25 10:30 94 H 20 134/82 97 02/07/25 10:20 95 H 20 144/81 H 96 02/07/25 10:15 89 16 98 02/07/25 10:00 99 H 15 97 02/07/25 10:00 02/07/25 09:45 98 H 14 96 O2 Del Method 02/08/25 09:00 Room Air 02/08/25 08:00 02/08/25 08:00 Room Air 02/08/25 08:00 Room Air 02/08/25 06:48 Room Air 02/08/25 05:00 Room Air 02/08/25 04:00 Room Air 02/08/25 04:00 02/08/25 03:00 Room Air 02/08/25 01:00 Room Air 02/08/25 00:00 02/08/25 00:00 Room Air 02/07/25 21:00 Room Air 02/07/25 20:00 02/07/25 20:00 Room Air 02/07/25 20:00 Room Air 02/07/25 19:00 Room Air 02/07/25 18:55 02/07/25 17:46 Room Air 02/07/25 17:00 Room Air 02/07/25 16:05 Room Air 02/07/25 16:00 Room Air 02/07/25 16:00 02/07/25 16:00 Room Air 02/07/25 15:02 Room Air 02/07/25 14:03 Room Air 02/07/25 14:00 Room Air 02/07/25 13:05 02/07/25 12:09 Room Air 02/07/25 12:00 Room Air 02/07/25 12:00 02/07/25 12:00 Room Air 02/07/25 10:55 02/07/25 10:45 Room Air 02/07/25 10:30 Room Air 02/07/25 10:20 Room Air 02/07/25 10:15 Room Air 02/07/25 10:00 Room Air 02/07/25 10:00 Room Air 02/07/25 09:45 Room Air Intake and Output 02/07/25 02/08/25 02/08/25 23:59 07:59 15:59 Intake Total 370 / 1914.750 240 / 240 Output Total 777 / 3802 0 / 0 Balance -407 / -1887.250 240 / 240 Intake: Intake, Oral Amount 370 / 1160 240 / 240 Output: Output, Urine Amount 777 / 3802 0 / 0 Other: Number of Voids 1 Number of Unmeasured Voids 2 1 Weight 95.765 kg Patient Weight 02/08/25 23:59 Weight 95.765 kg Laboratory Results - last 24 hr 02/07/25 07:19: Hemoglobin A1c 6.5 H, TSH 0.91 02/08/25 05:32: WBC 16.2 H, RBC 6.37 H, Hgb 16.6 D, Hct 50.9, MCV 79.9 L, MCH 25.6 L, MCHC 32.0, RDW 17.2, Plt Count 432 H, MPV 10.7 H, Neut % (Auto) 53.8, Lymph % (Auto) 32.3, [place] % (Auto) 10.0 H, Eos % (Auto) 1.9, Baso % (Auto) 0.7, Neut # (Auto) 8.7 H, Lymph # (Auto) 5.2 H, [place] # (Auto) 1.6 H, Eos # (Auto) 0.3, Baso # (Auto) 0.1, Total Counted 100, Neutrophils % (Manual) 55, Lymphocytes % (Manual) 39, Monocytes % (Manual) 3, Eosinophils % (Manual) 1, Basophils % (Manual) 2.0 H, Platelet Estimate Normal, RBC Morphology Normal, Sodium 135 L, Potassium 3.9, Chloride 105, Carbon Dioxide 25, Anion Gap 8.9, BUN 18, Creatinine 1.30 H, Estimated Creat Clear 92, Estimated GFR 58 L, Est GFR ( Amer) 71, Glucose 130 H D, Calcium 9.2, Magnesium 2.0 D, Total Bilirubin 0.8, AST 43 D, ALT 142 H, Alkaline Phosphatase 65, Total Protein 7.3, Albumin 4.0, Globulin 3.3 H, Albumin/Globulin Ratio 1.2 I & O for Labs for Last 24 Hours: Intake & Output 02/05/25 02/06/25 02/07/25 02/08/25 23:59 23:59 23:59 23:59 Intake Total 855.026 / 462.158 0141.282 / 2609.282 1674.750 / 1914.750 240 / 240 Output Total 4050 / 4050 3870 / 3870 3802 / 3802 0 / 0 Balance -3194.974 / -3194.974 -1260.718 / -1260.718 -2127.250 / -1887.250 240 / 240 Weight 99.507 kg 96.706 kg 97.84 kg 95.765 kg Constitutional: Present no acute distress, obese and cooperative Head: Present atraumatic and normocephalic Respiratory: Present normal respiratory effort; Absent rhonchi, wheezes or crackles Cardiac: Present Regular Rhythm and Tachycardia GI: Present soft and normal bowel sounds; Absent distention or tenderness Extremities: Present normal inspection and full ROM; Absent edema Skin: Present intact; Absent erythema Neuro: Present Grossly Intact, alert, awake, oriented x 3 and moves all extremities Assessment and Plan *Assessment and plan (1) Myocarditis: Problem Comment: Enterovirus, POA Status: Acute Qualifiers: Chronicity: acute Infective myocarditis organism: viral Myocarditis type: infective Qualified Code(s): B33.22 - Viral myocarditis Category: Medical Code(s): I51.4 - Myocarditis, unspecified (2) Severe left ventricular systolic dysfunction (LVSD): Status: Acute Category: Medical Code(s): I51.89 - Other ill-defined heart diseases (3) Cardiomyopathy: Status: Acute Qualifiers: Cardiomyopathy type: other Qualified Code(s): I42.8 - Other cardiomyopathies Category: Medical Code(s): I42.9 - Cardiomyopathy, unspecified (4) Hypertension: Status: Acute Qualifiers: Hypertension type: primary hypertension Qualified Code(s): I10 - Essential (primary) hypertension Category: Medical Code(s): I10 - Essential (primary) hypertension (5) Acute HFrEF (heart failure with reduced ejection fraction): Status: Acute Category: Medical Code(s): I50.21 - Acute systolic (congestive) heart failure (6) Non-STEMI (non-ST elevated myocardial infarction): Status: Acute Category: Medical Code(s): I21.4 - Non-ST elevation (NSTEMI) myocardial infarction (7) Enteroviral infection: Status: Acute Category: Medical Code(s): B34.1 - Enterovirus infection, unspecified (8) Diabetes: Status: Acute Category: Medical Code(s): E11.9 - Type 2 diabetes mellitus without complications Plan 49-year-old male who presents with acute onset of shortness of breath over the past few days. Found to be in acute heart failure with suspected viral myocarditis. Discussed case with ER physician, request admission for treatment of his acute heart failure. I admitted to the ICU for further care. High risk for decompensation. Off both today. Initiating oral Entresto. Continue diuresis. Consider initiating GDMT tomorrow pending patient's response to stopping milrinone. Cardiology continues to assist with care. Problems addressed as follows: Viral myocarditis due to enterovirus Acute HFrEF Hypertension New diagnosis of diabetes - Discussed case with cardiology, read of echo shows an EF of approximately 10%. Evaluating today for heart cath. Plan on going for heart cath later today. -Transition to Bumex 1 mg p.o. twice daily. Increase Entresto to full dose twice daily. Will add Jardiance 10 mg daily and spironolactone 25 mg daily. Continue to hold on beta-jax at risk for cardiogenic shock. -Will consider cardiac MRI after heart cath today. - Remained stable on room air, goal sats greater than 90%. - White count improving at 16. Hemoglobin 16.6. Platelets 432. Kidney function stable with BUN 18, creatinine 1.3. Glucose 130. Potassium 3.9 and magnesium 2.0. Liver enzymes essentially normal today. - LDL 129, will consider statin pending heart cath findings - Respiratory panel positive for entero/rhinovirus - Repeat CBC, CMP, magnesium ordered for the morning. A1C 6.5, TSH 0.9. Will initiate fingersticks with sliding scale insulin. Would likely see improvement with just the addition of Jardiance as above Full code Cardiac diet Therapeutic Lovenox
--- NOTE | 2025-02-08 09:57 | EXP.CARD.PN ---
Subjective Subjective Date: 02/08/25 Time: 08:00 Principal diagnosis: Acute HFrEF Interval history: Patient complaining of generalized weakness and fatigue. Denies chest pain or shortness of breath. Off of all drips. Patient is -7 L. Morning labs reviewed and stable. Exam Data for Last 24 hours Vital signs and Labs for Last 24 Hours: Temp Pulse Resp BP Pulse Ox O2 Del Method O2 Flow Rate 97.6 F 102 H 19 135/96 H 96 Room Air 1 02/08/25 08:00 02/08/25 08:00 02/08/25 08:00 02/08/25 08:00 02/08/25 08:00 02/08/25 09:00 02/07/25 06:00 Laboratory Results - last 24 hr 02/07/25 07:19: Hemoglobin A1c 6.5 H 02/08/25 05:32: WBC 16.2 H, RBC 6.37 H, Hgb 16.6 D, Hct 50.9, MCV 79.9 L, MCH 25.6 L, MCHC 32.0, RDW 17.2, Plt Count 432 H, MPV 10.7 H, Neut % (Auto) 53.8, Lymph % (Auto) 32.3, [place] % (Auto) 10.0 H, Eos % (Auto) 1.9, Baso % (Auto) 0.7, Neut # (Auto) 8.7 H, Lymph # (Auto) 5.2 H, [place] # (Auto) 1.6 H, Eos # (Auto) 0.3, Baso # (Auto) 0.1, Total Counted 100, Neutrophils % (Manual) 55, Lymphocytes % (Manual) 39, Monocytes % (Manual) 3, Eosinophils % (Manual) 1, Basophils % (Manual) 2.0 H, Platelet Estimate Normal, RBC Morphology Normal, Sodium 135 L, Potassium 3.9, Chloride 105, Carbon Dioxide 25, Anion Gap 8.9, BUN 18, Creatinine 1.30 H, Estimated Creat Clear 92, Estimated GFR 58 L, Est GFR ( Amer) 71, Glucose 130 H D, Calcium 9.2, Magnesium 2.0 D, Total Bilirubin 0.8, AST 43 D, ALT 142 H, Alkaline Phosphatase 65, Total Protein 7.3, Albumin 4.0, Globulin 3.3 H, Albumin/Globulin Ratio 1.2 I & O for Last 24 hours: Intake & Output 02/05/25 02/06/25 02/07/25 02/08/25 23:59 23:59 23:59 23:59 Intake Total 855.026 / 037.091 1535.282 / 2609.282 1674.750 / 1914.750 240 / 240 Output Total 4050 / 4050 3870 / 3870 3802 / 3802 0 / 0 Balance -3194.974 / -3194.974 -1260.718 / -1260.718 -2127.250 / -1887.250 240 / 240 Weight 219 lb 6 oz 213 lb 3.2 oz 215 lb 11.2 oz 211 lb 2 oz Constitutional Constitutional: no acute distress *Routine Respiratory Exam Respiratory: Present CTA bilaterally and symmetric chest movement *Routine Cardiovascular Exam Cardiovascular: Present RRR, Normal S1 and Normal S2 *Routine Abdominal Exam Abdominal: Present soft and normoactive bowel sounds; Absent tenderness *Routine Extremities Exam Extremities: Present full ROM and normal capillary refill; Absent edema *Routine Skin Exam Skin: Present intact, dry and warm Detailed Neck Exam: Thyroids Thyroid: Absent bruit Progress Note: A&P Assessment and plan (1) Myocarditis: Problem details: Enterovirus, POA Status: Acute (2) Severe left ventricular systolic dysfunction (LVSD): Status: Acute (3) Cardiomyopathy: Status: Acute (4) Hypertension: Status: Acute (5) Acute HFrEF (heart failure with reduced ejection fraction): Status: Acute (6) Non-STEMI (non-ST elevated myocardial infarction): Status: Acute (7) Enteroviral infection: Status: Acute (8) Diabetes: Status: Acute Assessment and Plan Assessment and Plan for All Diagnoses:: Acute HFrEF RV dilation and severe reduction in RV function Moderate TR Markedly elevated RVSP 50-55 Concern for viral myocarditis EF 10% with moderate RV dilation with severe reduction in RV systolic function Respiratory panel positive for entero/rhinovirus. WBC 17.1 trending down to 16.2, lactate 3.6, C-reactive protein 36.6 on admission Patient diuresed well over the weekend, -7 L Continue GDMT with Entresto, Jardiance and Aldactone Start metoprolol to tartrate 6.25 mg p.o. twice daily Left heart catheterization today shows normal coronaries with normal LVEDP LifeVest ordered Patient will need outpatient cardiac MRI for further evaluation of cardiomyopathy Hypertension Renal artery ultrasound pending Continue meds as outlined above Hyperlipidemia LDL goal less than 55, LDL is 129. No statin until liver enzymes are normal New diagnosis of diabetes mellitus A1c is 6.5 Defer to primary service Transaminitis-improving AST 194, ALT 304 on admission-both improving Likely secondary to cardiogenic shock on admission Acute kidney injury Creatinine 1.3 today, continue to monitor Cardiac summary 02/08/2025: Left heart catheterization reveals normal coronaries and normal LVEDP. Patient will be fitted for LifeVest this afternoon. Will restart metoprolol tartrate 6.25 mg p.o. twice daily. Anticipate discharge home tomorrow morning. Patient will need outpatient cardiac MRI for further evaluation of cardiomyopathy. Cardiac meds: Bumex 1 mg p.o. twice daily Jardiance 10 mg p.o. daily Entresto 97/103 mg p.o. twice daily Aldactone 25 mg p.o. daily Needs statin prior to discharge No beta-jax at this time due to recent cardiogenic shock
--- NOTE | 2025-02-08 11:49 | PC.NURSE ---
pt off floor to minilab operator
[2025-02-08] MEDS: HEPARIN 1,000 UNITS/500ML NS (CATH LAB) 3000 UNIT IV (11:55)
[2025-02-08] MEDS: 0.9 % SODIUM CHLORIDE 500 ML 25 ML IV (11:56)
[2025-02-08] MEDS: LIDOCAINE 1% 10ML MDV 10 ML IJ (11:56)
[2025-02-08] MEDS: VERAPAMIL 2.5MG/ML 2ML VIAL 2.5 MG IV (11:56)
[2025-02-08] MEDS: NITROGLYCERIN 800MCG/8ML SYR (CATH LAB) 800 MCG IA (11:56)
[2025-02-08] MEDS: HEPARIN 1,000 UNITS/ML 10ML VIAL (CATH LAB) 5000 UNIT IV (11:56)
[2025-02-08] MEDS: FENTANYL 100MCG/2ML VIAL 50 MCG IV (11:58)
[2025-02-08] MEDS: MIDAZOLAM HCL 1MG/ML 5ML VIAL 1 MG IV (11:58)
--- NOTE | 2025-02-08 13:04 | SUR.PHASEII ---
Patient recovered on cath table, taken to [facility] from procedure room.
[2025-02-08] MEDS: IOPAMIDOL-370 (76%);100ML BOTTLE 50 ML IV (13:43)
[2025-02-08] MEDS: METOPROLOL TARTRATE 25MG TABLET 6.25 MG PO ×2 (14:40→21:18)
[2025-02-08] MEDS: ACETAMINOPHEN 325MG TAB 650 MG PO (15:30)
[2025-02-08 17:42] LABS: POC Glucose,Bedside 126 gm/dL (70-110)
[2025-02-08 21:32] LABS: POC Glucose,Bedside 131 gm/dL (70-110)
[2025-02-09] VITALS: BP 116/74; PULSE 89; PULSE 90; RESP 14; TEMP 36.6; O2SAT 96
[2025-02-09 04:00] VITALS: BP 136/98; PULSE 100; PULSE 95; RESP 14; TEMP 36.6; O2SAT 98; BMI 29.7
--- NOTE | 2025-02-09 04:00 | PC.NURSE ---
Patient is alert and oriented x4. He was observed to be resting in bed with eyes closed, respirations even and unlabored on room air, and no apparent distress throughout the majority of the night. Family members have called a couple times during the night to check in on the patient. He has not had any complaints, such as worsening shortness of breath, pain, dizziness, etc, this shift. Normal sinus rhythm on telemetry. Right radial cath site was assessed; dressing remains clean, dry, and intact. Patient ambulates independently with standby assistance as needed. Physical assessment was performed appropriately (see nursing shift biophysical intervention) for this shift. No acute changes noted thus far. Scheduled medications were administered per MAY. He was provided a few bedtime snacks and tolerated consumption of the items very well (without nausea/vomiting urges). ACHS glucose checks performed. Vital signs have remained stable. At this time, the patient remains resting in bed with no new needs vocalized. Call light within reach. Droplet precautions ongoing for Entero/Rhinovirus.
[2025-02-09 05:53] LABS: POC Glucose,Bedside 136 gm/dL (70-110)
[2025-02-09 06:06] LABS: Hematocrit 49.9 % (42.0-52.0); Hemoglobin 16.1 g/dL (14.1-18.0); Immature Granulocytes % 0.9 %; Mean Corpuscular HGB Conc 32.3 g/dL (31.8-35.4); Mean Corpuscular Hemoglobin 26.1 pg (27.0-31.2); Mean Corpuscular Volume 80.9 fl (80-94); Nucleated Red Blood Cells % 0 %; Platelet Count 444 K/mm3 (142-424); Red Blood Count 6.17 M/mm3 (4.60-6.20); Red Cell Distribution Width-SD 44.1 fL; White Blood Count 15.9 K/mm3 (4.8-10.8)
[2025-02-09 06:16] LABS: Alanine Aminotransferase 123 U/L (12-78); Albumin Level 4.0 g/dl (3.5-5.0); Albumin/Globulin Ratio 1.3 (1.1-1.8); Alkaline Phosphatase 58 U/L (38-126); Anion Gap 10.2 mEq/L (5-15); Aspartate Amino Transferase 55 U/L (17-59); Bilirubin,Total 0.7 mg/dl (0.2-1.3); Blood Urea Nitrogen 21 mg/dl (9-20); Calcium 8.9 mg/dl (8.4-10.2); Carbon Dioxide 24 mmol/L (22.0-30.0); Chloride 105 mmol/L (98-107); Creatinine Clearance Estimated 80 mL/min (50-200); Creatinine,Serum 1.50 mg/dl (0.66-1.25); Estimated Glomerular Filt Rate 50 ml/min (>60); GFR (African American) 60 ML/MIN (>60); Globulin 3.1 g/dL (1.3-3.2); Glucose 136 mg/dl (74-100); Potassium 4.2 mmoL/L (3.5-5.1); Sodium 135 mmol/L (136-145); Total Protein,Serum 7.1 g/dl (6.3-8.2)
[2025-02-09 06:45] LABS: Magnesium 2.1 mg/dl (1.6-2.3)
[2025-02-09 07:55] VITALS: BP 131/87; PULSE 95; RESP 18; TEMP 37; O2SAT 98
[2025-02-09 08:00] VITALS: PULSE 110
[2025-02-09] MEDS: EMPAGLIFLOZIN 10MG TABLET 10 MG PO (08:25)
[2025-02-09] MEDS: METOPROLOL TARTRATE 25MG TABLET 6.25 MG PO (08:25)
[2025-02-09] MEDS: SPIRONOLACTONE 25MG TABLET 25 MG PO (08:26)
[2025-02-09] MEDS: SACUBITRIL/VALSARTAN 24-26MG TABLET 4 EACH PO (08:26)
[2025-02-09] MEDS: BUMETANIDE 1 MG TABLET PO ×2 (08:30→16:02)
--- NOTE | 2025-02-09 09:31 | CA_ITS ---
FINAL REPORT TECHNIQUE: Grayscale, color Doppler and duplex Doppler ultrasound of the kidneys, aorta and renal arteries was performed. Multiple velocities were measured. CLINICAL HISTORY: HTN, Smoker, NSTEMI, Cardiomyopathy-EF=10% COMPARISON: None FINDINGS: Aorta velocity: 50 cm/sec Right kidney: 11.7 cm. No evidence of hydronephrosis or mass. Renal cysts are again noted, and unchanged since the ultrasound of the kidneys 02/08/2025. Right intrarenal RI: 0.56-0.66 Right renal artery velocity: 125 cm/sec. Right RAR (Renal artery-Aortic Ratio): 2.48 Left Kidney: 11.4 cm. No evidence of hydronephrosis or mass. Renal cysts are again noted, and unchanged since the prior ultrasound of 02/08/2025. Left intrarenal RI: 0.61-0.70 Left renal artery velocity: 119 cm/sec. Left RAR (Renal Artery-Aortic Ratio): 2.65 IMPRESSION: No evidence of significant renal artery stenosis. CT angiogram or postcontrast MR angiogram would be more sensitive for evaluation of possible renal artery stenosis. Reviewed, Interpreted and Dictated by Lucas Brown MD Transcribed by Constance Stokes Authenticated and [facility]
--- NOTE | 2025-02-09 10:46 | EXP.CARD.PN ---
Subjective Subjective Date: 02/09/25 Time: 08:00 Principal diagnosis: Acute HFrEF Interval history: Patient doing well this morning. He denies chest pain or shortness of breath. He continues to complain of generalized weakness. Morning labs reviewed and stable. Exam Data for Last 24 hours Vital signs and Labs for Last 24 Hours: Temp Pulse Resp BP Pulse Ox O2 Del Method O2 Flow Rate 98.6 F 110 H 18 131/87 98 Room Air 1 02/09/25 07:55 02/09/25 08:00 02/09/25 07:55 02/09/25 07:55 02/09/25 07:55 02/09/25 09:00 02/07/25 06:00 Laboratory Results - last 24 hr 02/08/25 16:59: POC Glucose 126 H 02/08/25 21:23: POC Glucose 131 H 02/09/25 05:24: WBC 15.9 H, RBC 6.17, Hgb 16.1, Hct 49.9, MCV 80.9, MCH 26.1 L, MCHC 32.3, RDW 17.1, Plt Count 444 H, MPV 10.3, Neut % (Auto) 56.1, Lymph % (Auto) 31.0, [place] % (Auto) 9.3, Eos % (Auto) 1.9, Baso % (Auto) 0.8, Neut # (Auto) 8.9 H, Lymph # (Auto) 4.9 H, [place] # (Auto) 1.5 H, Eos # (Auto) 0.3, Baso # (Auto) 0.1, Sodium 135 L, Potassium 4.2, Chloride 105, Carbon Dioxide 24, Anion Gap 10.2, BUN 21 H, Creatinine 1.50 H, Estimated Creat Clear 80, Estimated GFR 50 L, Est GFR ( Amer) 60, Glucose 136 H, Calcium 8.9, Magnesium 2.1, Total Bilirubin 0.7, AST 55 D, ALT 123 H, Alkaline Phosphatase 58, Total Protein 7.1, Albumin 4.0, Globulin 3.1, Albumin/Globulin Ratio 1.3 02/09/25 05:45: POC Glucose 136 H I & O for Last 24 hours: Intake & Output 02/06/25 02/07/25 02/08/25 02/09/25 23:59 23:59 23:59 23:59 Intake Total 2609.282 / 2609.282 1674.750 / 3853.830 4065 / 1720 600 / 600 Output Total 3870 / 3870 3802 / 3802 150 / 150 0 / 0 Balance -1260.718 / -1260.718 -2127.250 / -1887.250 970 / 1570 600 / 600 Weight 213 lb 3.2 oz 215 lb 11.2 oz 211 lb 2 oz 212 lb 7 oz Constitutional Constitutional: no acute distress *Routine Respiratory Exam Respiratory: Present CTA bilaterally and symmetric chest movement *Routine Cardiovascular Exam Cardiovascular: Present RRR, Normal S1 and Normal S2 *Routine Abdominal Exam Abdominal: Present soft and normoactive bowel sounds; Absent tenderness *Routine Extremities Exam Extremities: Present full ROM and normal capillary refill; Absent edema *Routine Skin Exam Skin: Present intact, dry and warm Detailed Neck Exam: Thyroids Thyroid: Absent bruit Progress Note: A&P Assessment and plan (1) Myocarditis: Problem details: Enterovirus, POA Status: Acute (2) Severe left ventricular systolic dysfunction (LVSD): Status: Acute (3) Cardiomyopathy: Status: Acute (4) Hypertension: Status: Acute (5) Acute HFrEF (heart failure with reduced ejection fraction): Status: Acute (6) Non-STEMI (non-ST elevated myocardial infarction): Status: Acute (7) Enteroviral infection: Status: Acute (8) Diabetes: Status: Acute Assessment and Plan Assessment and Plan for All Diagnoses:: Acute HFrEF RV dilation and severe reduction in RV function Moderate TR Markedly elevated RVSP 50-55 Concern for viral myocarditis EF 10% with moderate RV dilation with severe reduction in RV systolic function Respiratory panel positive for entero/rhinovirus. WBC 17.1 trending down to 16.2, lactate 3.6, C-reactive protein 36.6 on admission Patient diuresed well over 7 L Continue GDMT with Entresto, Jardiance and Aldactone and metoprolol Left heart catheterization yesterday shows normal coronaries with normal LVEDP LifeVest in place Patient will need outpatient cardiac MRI for further evaluation of cardiomyopathy Hypertension Renal ultrasound shows bilateral renal cysts Renal artery duplex is pending Continue meds as outlined above Hyperlipidemia LDL goal less than 55, LDL is 129. No statin until liver enzymes are normal New diagnosis of diabetes mellitus A1c is 6.5 Defer to primary service Transaminitis-improving AST 194, ALT 304 on admission-both improving Likely secondary to cardiogenic shock on admission Acute kidney injury Creatinine 1.5 today, continue to monitor Cardiac summary 02/09/2025: Patient is CV stable for discharge home. Please schedule an office follow-up on Saturday for reevaluation. Patient needs cardiac MRI for cardiomyopathy ordered on Saturday. Renal artery duplex is pending and can be addressed at Saturday's follow-up. Will need labs at office follow-up. LifeVest is in place. Please continue below listed medications. Cardiac meds: Bumex 1 mg p.o. twice daily Jardiance 10 mg p.o. daily Entresto 97/103 mg p.o. twice daily Aldactone 25 mg p.o. daily Needs statin at office follow-up if labs have improved Metoprolol to tartrate 6.25 mg p.o. twice daily
[2025-02-09 10:55] LABS: POC Glucose,Bedside 109 gm/dL (70-110)
--- NOTE | 2025-02-09 10:55 | DIET.NUTRFU ---
provided multiple diabetic handouts for at home, diabetes is new. Encouraged him to limit sugary beverages and adjust portion control
[2025-02-09 12:00] VITALS: BP 123/82; PULSE 80; RESP 17; O2SAT 100
--- NOTE | 2025-02-09 12:10 | P.DS_ITS ---
General Admission date:: 02/05/25 HPI HPI HPI: Mr. Lynn is a 49-year-old gentleman who presented to the ER because of complaint of shortness of breath. States he been feeling short of breath over the past week. Has been dealing with an upper respiratory infection was diagnosed with rhinovirus last week. Gotten progressively short of breath over the past week. Denies increased swelling in his legs. Has had a dry nonproductive cough. No nausea or vomiting. On arrival to the ER, patient was evaluated and found to had elevated BNP. Bedside echo performed showing reduced EF. Cardiology was consulted and recommended initiation of milrinone for possible cardiomyopathy/myocarditis secondary to his viral illness. Will also initiate diuresis. Medicine consulted for admission. Patient to be admitted to the ICU for further care. On evaluation, patient appears uncomfortable and is short of breath during interview. Diuresing well. At least 1 L out so far since admission. Hospital Course Hospital Course Hospital Course: Jason Lynn is a 49-year-old male who presented with acute onset of shortness of breath over the past few days. Found to be in acute heart failure with suspected viral myocarditis in setting of rhinovirus. Discussed case with ER physician, request admission for treatment of his acute heart failure. 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 Presented with shortness of breath, weakness, malaise in the setting of rhinovirus. ? ECHO revealed LVEF 10% with moderate RV dilatation, severe reduction in RV systolic function, elevated RVSP 50 to 55 mmHg. ? Troponins plateaued at 0.04, BNP 5370 with signs of pulmonary edema. ? Cardiology consulted s/p [facility] on 02/08/2025 which showed normal coronaries severely reduced LVEF. Recommended cardiac MRI and LifeVest. ? Patient has a longstanding current smoker, does not drink alcohol. A1c 6.5%, LDL 129, TSH normal. ? Cardiology recommended Bumex 1 mg twice daily, metoprolol tartrate 6.25 mg twice daily, Jardiance 10 mg, Entresto 97-103 mg, spironolactone 25 mg. Patient tolerated these medications well during hospital course. BP stable. ? Gradually clinically improved over hospital course. On day of discharge, patient feels like some of his energy is back but continues to have dyspnea on exertion which is improving. Diuresed well with IV Bumex. ? LifeVest fitted, planning for outpatient cardiac MRI. ? Will closely follow-up with cardiology within 1 week. Cardiology will start statin at follow-up. #Type 2 diabetes, new diagnosis ? Hemoglobin A1c 6.5%, started metformin 500 mg twice daily. ? Follow-up with PCP within 1 week. #Current tobacco smoker ? Patient would like to quit smoking, discharge nicotine patches. Total time spent on discharge: 36 minutes on chart review, counseling, documentation, and direct care with patient. Exam Data for Last 24 hours Vital signs and Labs for Last 24 Hours: Temp Pulse Resp BP Pulse Ox O2 Del Method O2 Flow Rate 98.6 F 110 H 18 131/87 98 Room Air 1 02/09/25 07:55 02/09/25 08:00 02/09/25 07:55 02/09/25 07:55 02/09/25 07:55 02/09/25 10:54 02/07/25 06:00 Laboratory Results - last 24 hr 02/08/25 16:59: POC Glucose 126 H 02/08/25 21:23: POC Glucose 131 H 02/09/25 05:24: WBC 15.9 H, RBC 6.17, Hgb 16.1, Hct 49.9, MCV 80.9, MCH 26.1 L, MCHC 32.3, RDW 17.1, Plt Count 444 H, MPV 10.3, Neut % (Auto) 56.1, Lymph % (Auto) 31.0, [place] % (Auto) 9.3, Eos % (Auto) 1.9, Baso % (Auto) 0.8, Neut # (Auto) 8.9 H, Lymph # (Auto) 4.9 H, [place] # (Auto) 1.5 H, Eos # (Auto) 0.3, Baso # (Auto) 0.1, Sodium 135 L, Potassium 4.2, Chloride 105, Carbon Dioxide 24, Anion Gap 10.2, BUN 21 H, Creatinine 1.50 H, Estimated Creat Clear 80, Estimated GFR 50 L, Est GFR ( Amer) 60, Glucose 136 H, Calcium 8.9, Magnesium 2.1, Total Bilirubin 0.7, AST 55 D, ALT 123 H, Alkaline Phosphatase 58, Total Protein 7.1, Albumin 4.0, Globulin 3.1, Albumin/Globulin Ratio 1.3 02/09/25 05:45: POC Glucose 136 H 02/09/25 10:46: POC Glucose 109 I & O for Last 24 hours: Intake & Output 02/06/25 02/07/25 02/08/25 02/09/25 23:59 23:59 23:59 23:59 Intake Total 2609.282 / 2609.282 1674.750 / 3978.320 4063 / 1720 960 / 960 Output Total 3870 / 3870 3802 / 3802 150 / 150 0 / 0 Balance -1260.718 / -1260.718 -2127.250 / -1887.250 970 / 1570 960 / 960 Weight 96.706 kg 97.84 kg 95.765 kg 96.36 kg Constitutional Constitutional: no acute distress *Routine Respiratory Exam Respiratory: Present CTA bilaterally and symmetric chest movement *Routine Cardiovascular Exam Cardiovascular: Present RRR, Normal S1 and Normal S2 *Routine Abdominal Exam Abdominal: Present soft and normoactive bowel sounds; Absent tenderness *Routine Extremities Exam Extremities: Present full ROM and normal capillary refill; Absent edema *Routine Skin Exam Skin: Present intact, dry and warm Detailed Neck Exam: Thyroids Thyroid: Absent bruit Results Data Completed and Pending Labs on day of discharge: Labs from last 24 hours 02/09/25 02/09/25 02/09/25 10:46 05:45 05:24 WBC 15.9 H RBC 6.17 Hgb 16.1 Hct 49.9 MCV 80.9 MCH 26.1 L MCHC 32.3 RDW 17.1 Plt Count 444 H MPV 10.3 Neut % (Auto) 56.1 Lymph % (Auto) 31.0 [place] % (Auto) 9.3 Eos % (Auto) 1.9 Baso % (Auto) 0.8 Neut # (Auto) 8.9 H Lymph # (Auto) 4.9 H [place] # (Auto) 1.5 H Eos # (Auto) 0.3 Baso # (Auto) 0.1 Sodium 135 L Potassium 4.2 Chloride 105 Carbon Dioxide 24 Anion Gap 10.2 BUN 21 H Creatinine 1.50 H Estimated Creat Clear 80 Estimated GFR 50 L Est GFR ( Amer) 60 Glucose 136 H POC Glucose 109 136 H Calcium 8.9 Magnesium 2.1 Total Bilirubin 0.7 AST 55 D ALT 123 H Alkaline Phosphatase 58 Total Protein 7.1 Albumin 4.0 Globulin 3.1 Albumin/Globulin Ratio 1.3 02/08/25 02/08/25 21:23 16:59 WBC RBC Hgb Hct MCV MCH MCHC RDW Plt Count MPV Neut % (Auto) Lymph % (Auto) [place] % (Auto) Eos % (Auto) Baso % (Auto) Neut # (Auto) Lymph # (Auto) [place] # (Auto) Eos # (Auto) Baso # (Auto) Sodium Potassium Chloride Carbon Dioxide Anion Gap BUN Creatinine Estimated Creat Clear Estimated GFR Est GFR ( Amer) Glucose POC Glucose 131 H 126 H Calcium Magnesium Total Bilirubin AST ALT Alkaline Phosphatase Total Protein Albumin Globulin Albumin/Globulin Ratio DS: Diagnosis Discharge Diagnosis (1) Myocarditis: Status: Acute Code(s): I51.4 - Myocarditis, unspecified Qualifiers: Chronicity: acute Infective myocarditis organism: viral Myocarditis type: infective Qualified Code(s): B33.22 - Viral myocarditis Problem details: Enterovirus, POA (2) Severe left ventricular systolic dysfunction (LVSD): Status: Acute Code(s): I51.89 - Other ill-defined heart diseases (3) Cardiomyopathy: Status: Acute Code(s): I42.9 - Cardiomyopathy, unspecified Qualifiers: Cardiomyopathy type: other Qualified Code(s): I42.8 - Other cardiomyopathies (4) Hypertension: Status: Acute Code(s): I10 - Essential (primary) hypertension Qualifiers: Hypertension type: primary hypertension Qualified Code(s): I10 - Essential (primary) hypertension (5) Acute HFrEF (heart failure with reduced ejection fraction): Status: Acute Code(s): I50.21 - Acute systolic (congestive) heart failure (6) Non-STEMI (non-ST elevated myocardial infarction): Status: Acute Code(s): I21.4 - Non-ST elevation (NSTEMI) myocardial infarction (7) Enteroviral infection: Status: Acute Code(s): B34.1 - Enterovirus infection, unspecified (8) Diabetes: Status: Acute Code(s): E11.9 - Type 2 diabetes mellitus without complications Meds Home Medications and Allergies Home Medications ?Medication ?Instructions ?Recorded ?Confirmed ?Type bumetanide 1 mg tablet 1 mg PO BIDL 30 days #60 tab s 11/18/25 Rx empagliflozin 10 mg tablet 10 mg PO DAILY 30 days #30 tabs 02/09/25 Rx (Jardiance) metformin 500 mg tablet 500 mg PO BIDWMEAL 30 days # 60 tabs 02/09/25 Rx metoprolol tartrate 25 mg tablet 6.25 mg (1/4 x 25 mg) PO BID 30 02/09/25 Rx days #15 tabs nicotine 21 mg/24 hr daily 21 mg transdermal DAILY 30 days 02/09/25 Rx transdermal patch #28 ea sacubitril 97 mg-valsartan 103 mg 1 tab PO BID 30 days #60 tabs 02/09/25 Rx tablet (Entresto) spironolactone 25 mg tablet 25 mg PO DAILY 30 days #30 tabs 02/09/25 Rx New Prescriptions to Start Prescriptions: valentinmetanide Angelina,Lan empagliflozin [Jardiance] Angelina,Lan metformin Angelina,Lan metoprolol tartrate Angelina,Lan nicotine Angelina,Lan sacubitril-valsartan [Entresto] Angelina,Lan spironolactone Angelina,Lan Allergies Allergy/AdvReac Type Severity Reaction Status Date / Time No Known Allergies Allergy Verified 08/15/24 23:43 Discharge Plan Disposition Patient Disposition: Home, Self-Care Condition: Fair Discharge Order Discharge Orders: Discharge Order (Routine); Ordered 02/09/25 Ordered By: Lan Alfaro Follow up Plan Follow up with: Chari Branch MD [Physician, Pulmonology] - 04/05/25 3:40 pm Referral Note: Elevated RVSP, would benefit from sleep study. Carlos Enrique Mcginnis MD [Staff Physician, Cardiology] - 02/16/25 10:45 am Prescriptions/Medication Reconciliation: New bumetanide 1 mg Tablet 1 mg PO BIDL 30 Days Qty: 60 0RF metoprolol tartrate 25 mg Tablet 6.25 mg PO BID 30 Days Qty: 15 0RF Jardiance 10 mg Tablet 10 mg PO DAILY 30 Days Qty: 30 0RF spironolactone 25 mg Tablet 25 mg PO DAILY 30 Days Qty: 30 0RF nicotine 21 mg/24 hr Patch 24 Hour 21 mg transdermal DAILY 30 Days Qty: 28 0RF metformin 500 mg tablet 500 mg PO BIDWMEAL 30 Days Qty: 60 0RF sacubitril-valsartan [Entresto] 97-103 mg tablet 1 tab PO BID 30 Days Qty: 60 0RF Discontinued lisinopril-hydrochlorothiazide 20-25 mg tablet 1 tab PO DAILY Problem Reconciliation Problems Reviewed?: Yes Patient Discharge Instructions Patient Instructions: Cardiac Catheterization, DI for Myocarditis, DI for Surgical Site Infection, Stop Light Heart Failure Print Language: German Providers Primary Care Provider: Marta Shaw Admit Provider: Yusuf Lubin Attending Provider: Yusuf Lubin
[2025-02-09] MEDS: NICOTINE 21MG/24HR PATCH 21 MG TD (15:54)
[2025-02-09] MEDS: ACETAMINOPHEN 325MG TAB 650 MG PO (15:54)
[2025-02-09 16:11] LABS: POC Glucose,Bedside 112 gm/dL (70-110)
--- NOTE | 2025-02-10 10:03 | SW/DCPLANNER ---
Spoke with patient on the phone. Patient stated that he is doing pretty good. Patient stated that he is aware of his upcoming appointments. Patient stated that he was able to get his medicine picked up from the pharmacy. Patient stated that he does not have any concerns or questions at this time. Bella Amaro
== END 2025-02-09 16:15 | disposition home or self-care (01) | DRG 280 ==
LOC: ER 13:03 → ICU 13:10 → 2ND 02-07 16:37
PROVIDERS: Internal Medicine; Admitting Provider Internal Medicine Adolescent Medicine; Emergency Provider Student in an Organized Health Care Education/Training Program; PCP Pediatrics; Visit Provider Internal Medicine Adolescent Medicine
PROC: 4A023N7 Measurement of Cardiac Sampling and Pressure, Left Heart, Percutaneous Approach (ICD-10-PCS; CPT 93452; principal; 2025-02-08 12:00)
DX: I40.0 Infective myocarditis (principal); I50.21 Acute systolic (congestive) heart failure; I21.A1 Myocardial infarction type 2; N17.9 Acute kidney failure, unspecified; I42.8 Other cardiomyopathies; I11.0 Hypertensive heart disease with heart failure; K76.1 Chronic passive congestion of liver; J45.909 Unspecified asthma, uncomplicated; E11.9 Type 2 diabetes mellitus without complications; E78.5 Hyperlipidemia, unspecified; F17.200 Nicotine dependence, unspecified, uncomplicated; I07.1 Rheumatic tricuspid insufficiency; B97.10 Unspecified enterovirus as the cause of diseases classified elsewhere; B97.89 Other viral agents as the cause of diseases classified elsewhere; Z79.899 Other long term (current) drug therapy
CPT/HCPCS: 0223U; 36415; 71045; 76770; 80053; 80061; 82803; 82962; 83036; 83605; 83690; 83735; 83880; 84132; 84443; 84484; 85007; 85025; 86140; 87631; 87636; 93005; 93306; 93976; 99152; 99285; C1725; C1769; J1200; J1644; J1650; J1939; J2003; J2250; J2260; J3010; J3475; J7040; J7060; J7120; J8540; Q9967

== ENCOUNTER 2025-02-23 09:04 | Outpatient (CLI) | payer OTHER, SELFPAY ==
--- OUTSIDE RECORDS SUMMARY | 2025-02-11 15:00 | XMS_ITS | Encounter Summary ---
Author Organization [facility] Address [address] [place] [address] Care Team Providers Care Practice Support Specialist Name Role Phone Duke Monterroso MD Primary Care Provider [phone] Reason for Referral * Consult, Test & Treat (Routine) - Authorized Specialty Diagnoses / Procedures Referred By Contac t Referred To Contact Sleep Medicine / Pulmonology Diagnoses Chronic systolic heart failure (CMS/HCC) Mary Blackburn MD [address] [place] [address] Phone: tel: fax: Modesto Davidson MD [address] [facility] [address] [place] [address] Phone: tel: fax: Referral ID Status Reason Start Date Expiration Date V isits Requested Visits Authorized [id number] Authorized 02/11/2025 02/11/2026 99 99 * Radiology Services (Routine) - Not Needed Specialty Diagnoses / Procedures Referred By Contac t Referred To Contact Diagnoses Acute on chronic combined systolic and diastolic heart failure (CMS/HCC) Procedures 2D ECHO COMPLETE W/STRAIN/3D PRN CONTR/BUBBLE WV ECHO TTHRC R-T 2D W/WOM-MODE COMPL SPEC&COLR D CHG 3D RENDERING W/INTERP & POSTPROCESS SUPERVISION Mary Blackburn MD [address] [place] [address] Phone: tel: fax: [address] [address] Phone: tel: Referral ID Status Reason Start Date Expiration Date V isits Requested Visits Authorized [id number] Not Needed 02/11/2025 02/11/2026 1 1 * Radiology Services (Routine) - Pending Review Specialty Diagnoses / Procedures Referred By Contac t Referred To Contact Diagnoses Acute on chronic combined systolic and diastolic heart failure (CMS/HCC) Procedures DIAG-CHEST PA & LATERAL Mary Blackburn MD [address] [place] [address] [place] [address] Phone: tel: fax: [address] [phone] Phone: tel: Referral ID Status Reason Start Date Expiration Date V isits Requested Visits Authorized [id number] Pending Review 02/11/2025 02/11/2026 1 1 Reason for Visit * Reason Comments New Patient Consult Encounter Details Date Type Department Care Team (Latest Contact Info) Description 02/11/2025 3:00 PM EST Office Visit [facility] - [facility] Heart Failure [address] [place] [address] Medical Office Building [address] [place] [address] Mary Blackburn MD [address] [place] [address] [place] [address] Acute on chronic combined systolic and diastolic [...] 3:01 PM EST documented in this encounter Patient Instructions * [...] the original note were not included. The [facility] [place] New Patient Visit Subjective Montez Lynn 1975 [...] recent hospital stay. He was admitted to [facility] for day days with symptoms of [...] 210 to 208 lbs). 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 Order Dose: 1 Katy IBUPROFEN (MOTRIN) 200 MG TABLET Take 600 [...] Advanced Heart Failure & Cardiac Transplant [facility] The patient/family provided verbal consent to the use of ambient listening technology/audio recording during this visit. I reviewed/edited the note before signing. Total time spent 65 minutes New 60-74 min [facility] [id number] [1] Current Outpatient Medications: bumetanide (BUMEX) 1 [...] fluticasone propionate (FLONASE) 50 mcg/actuation nasal spray, Katy 1 Katy into nose daily. (Patient not taking: Reported [...] Care Team (Late st Contact Info) Description 02/24/2025 2:30 PM EST Appointment [facility] Testing Center [facility] [address], [address] [place] [address] 02/25/2025 1:00 PM EST Appointment [facility] Heart Failure [address] [place] [address] Medical Office Building [address] [place] [address] Rose Sol, DANGELO [address] [place] [phone] Scheduled Orders Name Type Priority Associated Diagnoses Orde r Schedule DIAG-CHEST PA & LATERAL Imaging Routine Acute on chronic combined systolic and diastolic heart failure (CMS/HCC) Expected: 02/11/2025, Expires: 02/11/2026 2D ECHO COMPLETE W/STRAIN/3D PRN CONTR/BUBBLE ECHO Routine Acute on chronic combined systolic and diastolic heart failure (CMS/HCC) Expected: 02/18/2025, Expires: 02/11/2026 Scheduled Referrals Name Type Priority Associated Diagnoses Orde r Schedule AMB REFERRAL TO SLEEP MEDICINE CONSULT Outpatient Referral Routine Acute on chronic combined systolic and diastolic heart failure (CMS/HCC) Overweight (BMI 25.0-29.9) LYN (obstructive sleep apnea) Ordered: 02/11/2025 documented as of this encounter Results * (ABNORMAL) HS TROPONIN-I, OUTPATIENT (02/11/2025 4:28 PM EST) Pathologist [facility] HS-Troponin I, Outpatient 94(HH) 0 - 35 ng/L [facility] Comment: The critical result was called to and read back by Torrie Arzate PROCESS IMPROVEMENT MANAGER Please refer to the High Sensitivity Troponin [...] Blackburn MD CHEMISTRY ORDERABLES Final R esult [facility] [address] [place] [address], [facility] * (ABNORMAL) COMPREHENSIVE METABOLIC PANEL (02/11/2025 4:28 PM EST) Pathologist [facility] Sodium 139 135 - 146 mmol/L [facility] Potassium 4.7 3.5 - 5.1 mmol/L [facility] Chloride 102 98 - 110 mmol/L [facility] CO2 26 22 - 29 mmol/L [facility] Anion Gap 11 5 - 13 mmol/L [facility] Comment:Anion gap calculatio n does not include potassium (K+) value. BUN 22 7 - 25 mg/dL [facility] Creatinine 1.67(H) 0.50 - 1.30 mg/dL [facility] Glucose 103(H) 71 - 99 mg/dL [facility] Comment:Reference range (71- 99 mg/dL) refers only to fasting samples, and does not apply to non-fasting samples. eGFR CKD-EPI 2020 50 See Note [facility] Comment: eGFR calculated with 2020 [...] LAB ALT 98(H) 0 - 60 U/L [facility] Alkaline Phosphatase 46 33 - 140 U/L [facility] Total Protein 7.8 6.0 - 8.0 g/dL [facility] Albumin 4.5 3.5 - 5.0 g/dL [facility] Globulin 3.3 2.0 - 3.7 g/dL [facility] Albumin/Globulin Ratio 1.4 1.0 - 2.1 [facility] BUN/Creatinine Ratio 13 [facility] Serum (Serum) 02/11/2025 4:2 8 PM EST 02/11/2025 5:46 PM EST us Mary Blackburn MD CHEMISTRY ORDERABLES Final R esult [facility] [address] * (ABNORMAL) HGB, A1C (GLYCOHEMOGLOBIN) (02/11/2025 4:28 PM EST) Hgb A1C 6.2(H) 4.0 - 5.6 % [facility] Comment: Reference Ranges for Hgb [...] Glycohemoglobin Standardization program (NGSP) and traceable to [facility]. Estimated Average Glucose 131(H) 68 - 114 mg/dL [facility] Whole Blood 02/11/2025 4:28 PM EST 02/11/2025 5:42 PM EST Mary Blackburn MD CHEMISTRY ORDERABLES Final R esult Performing Organization Address City/[facility] Co de Phone Number [facility] [address] * NT PRO BNP (02/11/2025 4:28 PM EST) [facility] Signature Pro BNP 254 0 - 299 pg/mL [facility] Comment: The reference ranges are for acute CHF diagnosis only: Rule out cutpoint----<300 pg/mL Rule in cutpoint ----->450 pg/mL (<50 years old) >900 pg/mL (>50 years old) Plasma 02/11/2025 4:28 PM EST 02/11/2025 5:50 PM EST Mary Blackburn MD CHEMISTRY ORDERABLES Final R esult Performing Organization Address [facility] Co de Phone Number [facility] [address] documented in this encounter Visit Diagnoses [...] conditions classified elsewhere and of unspecified site documented in this encounter Care Teams Practice Support Specialist Relationship Specialty Start Date End Date Duke Monterroso MD PCP - General Family Medicine 05/18/10 02/11/25 documented as of this encounter
--- OUTSIDE RECORDS SUMMARY | 2025-02-11 16:18 | XMS_ITS | Encounter Summary ---
Author Organization [facility] Address [address] [place] [address] Care Team Providers Care Cooling Tower Operator Name Role Phone Duke Monterroso MD Primary Care Provider [phone] Encounter Details Date Type Department Care Team (Latest Contact Info) Description 02/11/2025 4:18 PM EST - 02/11/2025 11:59 PM EST Hospital Encounter Laboratory [address] [place] [address] [address] [place] [address] Chronic systolic heart failure (CMS/HCC) Discharge Disposition: [...] this encounter Medications at Time of Discharge bumetanide (BUMEX) 1 mg tabletIndications :Acute on [...] fluticasone propionate (FLONASE) 50 mcg/actuation nasal spray Tamms 1 Tamms into nose daily. 10/13/2024 ibuprofen (MOTRIN) 200 mg tablet Take 600 mg by mouth every 8 hours as needed. 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 90 Tablet 1 02/11/2025 metFORMIN (GLUCOPHAGE) 500 mg tablet Take 500 mg by mouth 2 times daily (with meals). 02/09/2025 methocarbamoL (ROBAXIN) 750 mg tablet Take 750 mg by mouth 3 times daily. 12/07/2024 nicotine (NICODERM CQ) 21 mg/24 hr patch Apply 1 Patch to skin daily. 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 90 Tablet 1 02/11/2025 documented as of this encounter Plan of Treatment Upcoming Encounters Date Type Department Care Team (Late st Contact Info) Description 02/24/2025 2:30 PM EST Appointment [facility] - [place] [facility] [address], [address] [place] [phone] 02/25/2025 1:00 PM EST Appointment [facility] - [facility] Heart Failure [address] [place] [address] Medical Office Building [address] [place] [address] Rose Sol NP [address] [place] [phone] documented as of this encounter Procedures Procedure [...] to and read back by Torrie Arzate INFORMATION CONSULTANT Please refer to the High Sensitivity Troponin [...] Blackburn MD CHEMISTRY ORDERABLES Final R esult [facility] [address] * (ABNORMAL) COMPREHENSIVE METABOLIC PANEL (02/11/2025 [...] LAB Creatinine 1.67(H) 0.50 - 1.30 mg/dL [facility] Glucose 103(H) 71 - 99 mg/dL [facility] Comment:Reference range (71- 99 mg/dL) refers only to fasting samples, and does not apply to non-fasting samples. eGFR CKD-EPI 2020 50 See Note [facility] Comment: eGFR calculated with 2020 CKD-EPI equation using creatinine, patient's age and gender. Other factors, especially muscle mass, may affect accuracy and need to be considered. Patient values should be interpreted as a trend. The reference interval is >60 mL/min/1.73m2. Calcium 9.5 8.5 - 10.5 mg/dL [facility] Total Bilirubin 0.3 0.2 - 1.2 mg/dL [facility] AST 35 0 - 40 U/L [facility] ALT 98(H) 0 - 60 U/L [facility] Alkaline Phosphatase 46 33 - 140 U/L [facility] Total Protein 7.8 6.0 - 8.0 g/dL [facility] Albumin 4.5 3.5 - 5.0 g/dL [facility] Globulin 3.3 2.0 - 3.7 g/dL [facility] Albumin/Globulin Ratio 1.4 1.0 - 2.1 [facility] BUN/Creatinine Ratio 13 [facility] Serum (Serum) 02/11/2025 4:2 8 PM EST 02/11/2025 5:46 PM EST us Mary Blackburn MD CHEMISTRY ORDERABLES Final R esult [facility] [address] * (ABNORMAL) HGB, A1C (GLYCOHEMOGLOBIN) (02/11/2025 4:28 PM EST) Hgb A1C 6.2(H) 4.0 - 5.6 % [facility] Comment: Reference Ranges for [...] Glycohemoglobin Standardization program (NGSP) and traceable to [facility]. Estimated Average Glucose 131(H) 68 - 114 mg/dL [facility] Whole Blood 02/11/2025 4:28 PM EST 02/11/2025 5:42 PM EST Mary Blackburn MD CHEMISTRY ORDERABLES [facility] Performing Organization Address [facility] de Phone Number [facility] [address] * NT PRO BNP (02/11/2025 4:28 PM EST) [facility] Signature Pro BNP 254 0 - 299 pg/mL [facility] Comment: The reference ranges are for acute CHF diagnosis only: Rule out cutpoint----<300 pg/mL Rule in cutpoint ----->450 pg/mL (<50 years old) >900 pg/mL (>50 years old) Plasma 02/11/2025 4:28 PM EST 02/11/2025 5:50 PM EST us Mary Blackburn MD CHEMISTRY ORDERABLES Final R esult Performing Organization Address [facility] Co de Phone Number [facility] [address] documented in this encounter Visit Diagnoses Diagnosis Chronic systolic heart failure (CMS/HCC) Chronic systolic heart failure documented in this encounter Care Teams Cooling Tower Operator Relationship Specialty Start Date End Date Duke Monterroso MD PCP - General Family Medicine 05/18/10 02/11/25 documented as of this encounter
--- OUTSIDE RECORDS SUMMARY | 2025-02-12 11:25 | XMS_ITS | Encounter Summary ---
Author Organization [facility] Address [address] [place] [id number] Care Team Providers Care Environmental Field Professional Name Role Phone Madison Echevarria Primary Care Provider [phone] Reason for Visit * Reason Comments Chest Pain Encounter Details Date Type Department Care Team ([facility] st Contact Info) Description 02/12/2025 11:25 AM EST - 02/12/2025 4:10 PM EST Emergency [facility] Emergency Department - [facility] (Main) [address] [place] [id number] Bryanna Rosenthal MD [address] [place] [address]. [place] [address] Atypical chest pain (Primary Dx); Systolic heart failure, unspecified HF chronicity (CMS/HCC) Discharge Disposition: Home or Self Care Social History Tobacco Use Types Packs/Day Years Used Date Smoking Tobacco: Every Day Cigarettes Passive Smoke Exposure: Never Smokeless Tobacco: Current Tobacco Cessation:Ready to Q uit: Not Asked; Counseling Given: Not Answered Alcohol Use Standard Drinks/Week Comments Yes 0 (1 standard drink = 0.6 oz pur e alcohol) occ Sex and Gender Information Value Date Recorded Sex Assigned at Not on file Legal Sex Male 7:08 PM EST Gender Identity Not on file Sexual Orientation Not on file documented as of this encounter Last Filed Vital Signs Vital Sign Reading Time Taken Comments Blood Pressure 101/64 02/12/2025 3:55 PM EST Pulse 83 02/12/2025 3:55 PM EST Temperature 37 C (98.6 F) 02/12/2025 11:25 AM EST Respiratory Rate 20 02/12/2025 3:55 PM EST Oxygen Saturation 98% 02/12/2025 3:55 PM EST Inhaled Oxygen Concentration - - Weight 96.6 kg (213 lb) 02/12/2025 12:11 PM EST Height 180.3 cm (5' 11 ) 02/12/2025 12:11 PM EST Body Mass Index 29.71 02/12/2025 12:11 PM EST documented in this encounter Discharge Instructions * Discharge Instructions* Bryanna Rosenthal MD - 02/12/2025 3:17 PM EST Continue to take all your medicines as prescribed. Follow up with Dr. Blackburn in the heart failure team in the office. Return immediately if any chest pain or shortness of breath with exertion, coughing up blood, fevers of 100.4, or any other concerns * Attachments The following attachments cannot be sent through Care Everywhere. * Nonspecific Chest Pain Adult [id number] ([place]ican) * Heart Failure: How to Manage ([place]ican) * Heart Failure Action Plan ([place]) documented in this encounter Medications at Time of Discharge [...] fluticasone propionate (FLONASE) 50 mcg/actuation nasal spray [place] 1 [place] into nose daily. 10/13/2024 ibuprofen (MOTRIN) 200 [...] 1 02/11/2025 documented as of this encounter ED Notes * Breanne Hernandez RN - 02/12/2025 4:03 PM EST Patient Education: Learner: Patient and Family/Other Motivation/Readiness to Learn: High Barriers to Learning: None Learning Preference: Verbal and Written Discharge instructions given. Patient and Family verbalizes understanding of instructions. No further questions. Carley Lynn discharged to home per ambulation Patient identification verified with all documents, including prescriptions given to the patient:yes What was your final reassessment of pain: 0 = No Pain * Jevon Novoa - 02/12/2025 2:25 PM EST Cricital result call to Calvin Hare RN for hs troponin 66.2 * Breanne Hernandez RN - 02/12/2025 2:19 PM EST Spoke with pacemaker rep via phone. Requested pt's hotspot for pacemaker and recommends extra batteries and lithopone charger for [employer]. Pt is working on getting someone to bring items to this ED. * Bryanna Rosenthal MD - 02/12/2025 11:41 AM EST Images from the original note were not included. CHIEF COMPLAINT Chief Complaint Patient presents with Chest Pain at bedside who adds to history HPI Carley Lynn is a 49 y.o. male who presents with reports of left upper chest pain that he has had for over a month with some shortness of breath. The patient was admitted to [facility] in [place] this past week and was diagnosed with acute congestive heart failure with an ejection fraction of 10%. He had cardiac catheterization which showed a unremarkable coronary arteries. He was started on blood pressure medicines as well as diuretics. He has been weighing himself daily his weight has been stable since discharge. The [facility] he was seen yesterday by Dr. Blackburn. Outpatient blood work was performed high sensitivity troponin was 94 so he was contacted to come to the ER today. The patient states it was fell on well today until they called and told him this and he became worried and he again had some discomfort in theleft upper chest and left anterior shoulder region. He denies any shortness of breath today. The states that this morning he was diaphoretic. No nausea vomiting or diarrhea. No fevers or chills. No cough. No orthopnea or PND They state that they believe uncontrolled severe hypertension was the culprit to the heart failure REVIEW OF SYSTEMS See HPI for further details. Review of systems as noted above otherwise all system reviewed and arenegative PAST MEDICAL HISTORY Past Medical History[1] FAMILY HISTORY Family History[2] SOCIAL HISTORY Social History[3] SURGICAL HISTORY Past Surgical History[4] CURRENT MEDICATIONS Medications- Current, Listed Cont[5] ALLERGIES Allergies[6] PHYSICAL EXAM VITAL SIGNS: BP 110/86 Pulse 77 Temp 98.6 ??F (37 ??C) (Oral) Resp (!) 21 Ht 5' 11 (1.803 m) Wt 213 lb (96.6 kg) SpO2 95% BMI 29.71 kg/m?? Constitutional: Well developed, Well nourished, Non-toxic appearance. Overweight HENT: Normocephalic, Atraumatic, Bilateral external ears normal, Oropharynx moist, No oral exudates, Nose normal. Eyes: PERRLA, EOMI, Conjunctiva normal, No discharge. Neck: Normal range of motion, No tenderness, Supple, No stridor. Cardiovascular: Regular rate and rhythm. No rubs or gallops Thorax & Lungs: Minimally diminished at the base otherwise clear to auscultation. Speaking in full sentences. O2 saturation 100% on room air Abdomen: Soft, nontender, nondistended, positive bowel sounds Skin: Warm, Dry, No erythema, No rash. Back: No tenderness, No CVA tenderness. Extremities: Intact distal pulses, No tenderness, No cyanosis, No clubbing. No edema no clinical evidence DVT Neurologic: Alert & oriented x 3, Normal motor function, Normal sensory function, No focal deficits noted. MEDICAL DECISION MAKING EKG--reviewed and interpreted by myself Sinus rhythm LAE, consider biatrial enlargement Left ventricular hypertrophy Anterior Q waves, possibly due to LVH Nonspecific T abnormalities, lateral leads rate 88 beats per minute Left axis deviation Normal ST segments No evidence of acute ischemia infarct MEDICAL RECORD REVIEW: RADIOLOGY DIAG-PORTABLE CHEST Final Result by Interface, Incoming Radiology Results (02/12 122) IMPRESSION: No acute radiographic abnormality of the chest. Electronically signed by Mati Mora DO ED PROCEDURES CLINICAL COURSE & DISPOSITION: Pertinent Labs & Imaging studies reviewed. (See chart for details) Labs Reviewed CBC WITH DIFFERENTIAL - Abnormal; Notable for the following components: Result Value RBC 6.11 (*) Hematocrit Blood 52.1 (*) MCH 26.5 (*) RDW 17.2 (*) Platelets 467 (*) All other components within normal limits B NATRIURETIC PEPTIDE - Abnormal; Notable for the following components: BNP 134 (*) All other components within normal limits D-DIMER - Abnormal; Notable for the following components: D-Dimer, Quant 233 (*) All other components within normal limits POC HS TROPONIN I ISTAT - Abnormal; Notable for the following components: POC HS Troponin I ISTAT 65.6 (*) All other components within normal limits POC HS TROPONIN I ISTAT - Abnormal; Notable for the following components: POC HS Troponin I ISTAT 66.2 (*) All other components within normal limits PT (PRO TIME INCLUDES INR) APTT DIFFERENTIAL NT PRO BNP POC CARDIAC SERIES (0, 90M, 3H, 6H) Upon arrival EKG was obtained which had nonspecific T-waves laterally in repolarization abnormalitysecondary to LVH but no evidence of acute ischemia infarct. Initial high sensitivity troponin was 66.2 repeat was 65.6 no evidence acute coronary syndrome. CBC had normal white blood cell count and hemoglobin with platelets of 467,000. BNP was 134. D-dimer was 233 which age adjusted is normal no concerns for pulmonary emboli. Chest x-ray showed no acute abnormality. I reached out to the congestive heart failure team that the patient's clin asst Dr. Blackburn's part of. They came down to evaluate the patient. They contacted [employer] and there has been no significant dysrhythmias. They have cleared the patient for discharge home and close outpatient follow up. Patient was given chest pain precautions. It is extremely reassuring that the patient had a left heart catheterization this month which showed no significant obstructive disease but he does have significant congestive heart failure that will need close outpatient follow up. He was discharged in good and stable condition I estimate there is LOW risk for PULMONARY EMBOLISM, ACUTE CORONARY SYNDROME, OR THORACIC AORTIC DISSECTION, thus I consider the disposition reasonable. The patient and/or family and I have discussedthe diagnosis and risks, and and disposition was agreed upon. We also discussed returning to the Emergency Department immediately if new or worsening symptoms occur. We have discussed the symptoms which are most concerning (e.g., bloody sputum, fever, worsening pain or shortness of breath, vomiting) that necessitate immediate return. RISK FACTORS Hypertension Diabetes Mellitus Obesity: BMI >30 kg/m Smoking: Current or quit within last 90 days Positive family history: Patient of sibling with CVD <65yo Atherosclerotic disease: Prior NH, PCI, CABG, CVA, TIA or PAD History: 0 EK Age: 1 Risk:1 Troponin:0 Total Score:3 [x] Pertinent Labs & Imaging studies reviewed. (See chart for details) [x] Independent Review of the EKG and comparison with old studies has been performed and is stated above [x] Test in the radiology section of CPT: ordered and reviewed [x] Pt's Past Medical records have been obtained and reviewed ( see above) [x] Review and summarize past medical records [x] Differential Diagnosis considered but not limited to : Acute coronary syndrome, pulmonary emboli, pneumothorax, congestive heart failure, pericarditis, pneumonia [x] Chronic medical conditions affecting care: has no past medical history on file. [x] During the patient's time in the ED,I spoke with and had shared clinical decision making with the following providers regarding the care of the patient: BEDSIDE NURSING, the congestive heart failure team led by Dr. Alexandre [x] ALL test results,differential,final diagnosis and treatment plan has been discussed with pt andfamily(if present) and they voice complete understanding. [x] CODE STATUS Decision has been discussed or reviewed No Order [] Decision Rules/Scores Utilized MIPS: No MIPS criteria met SOCIAL DETERMINANTS OF HEALTH Social Determinants of Health significantly impacting pt treatment and diagnosis Social Drivers of Health Tobacco Use: High Risk (02/12/2025) Patient History Smoking Tobacco Use: Every Day Smokeless Tobacco Use: Current Passive Exposure: Never Alcohol Use: Not on file Financial Resource Strain: Not on file Food Insecurity: Not on file Transportation Needs: Not on file Physical Activity: Not on file Stress: Not on file Social Connections: Not on file Intimate Partner Violence: Not on file Depression: Not on file Housing Stability: Not on file Utilities: Not on file FINAL IMPRESSION 1. Acute on chronic atypical chest pain 2. Chronic systolic heart failure 3. Please note that some or all of this chart was generated using [employer] medical voicerecognition software. Although every effort was made to ensure the accuracy of this automated contaminated land consultant, some errors in contaminated land consultant may have occurred. Electronically signed by: Bryanna Rosenthal MD, 02/12/2025 3:14 PM [1] No past medical history on file. [2] No family history on file. [3] Social History Socioeconomic History Marital status: Significant Other Tobacco Use Smoking status: Every Day Types: Cigarettes Passive exposure: Never Smokeless tobacco: Current Substance and Sexual Activity Alcohol use: Yes Comment: occ Drug use: Not Currently [4] No past surgical history on file. [5] No current facility-administered medications for this encounter. Current Outpatient Medications: bumetanide (BUMEX) 1 mg [...] fluticasone propionate (FLONASE) 50 mcg/actuation nasal spray, [place] 1 [place] into nose daily. (Patient not taking: Reported [...] mouth daily., Disp: 90 Tablet, Rfl: 1 [6] Allergies Allergen Reactions House Dust Mold Pollen Extracts * Sabra Burnett RN - 02/12/2025 11:17 AM EST Pt presents to ED with cc of left sided chest pain x 1 month, Endorses radiation into neck and leftshoulder. Denies numbness/tingling of extremities or SOB. States he went to clin asst yesterday and obtained blood work. HS Trop yesterday 94 + cardiac hx Pt has life vest on Sent by cardiology documented in this encounter Plan of Treatment Upcoming Encounters Date Type Department Care Team (Late st Contact Info) Description 02/24/2025 2:30 PM EST Appointment [facility] Testing Center - [facility] Out[facility] [address], [address] [place] [id number] 02/25/2025 1:00 PM EST Appointment [facility] [place] Heart Failure [facility] [facility] [address] [place] [address] Rose Sol, DANGELO [facility] [address] [place] [address] documented as of this encounter Procedures Procedure Name Priority Date/Time Associated Diagnosis Comments POC HS TROPONIN I ISTAT Routine 02/12/2025 2:23 PM EST NT PRO BNP STAT 02/12/2025 12:37 PM EST POC HS TROPONIN I ISTAT Routine 02/12/2025 11:59 AM EST DIAG-PORTABLE CHEST STAT 02/12/2025 1 1:55 AM EST APTT STAT 02/12/2025 11:42 AM EST PT (PRO TIME INCLUDES INR) STAT 02/12/2025 11:42 AM EST DIFFERENTIAL STAT 02/12/2025 11:42 AM EST D-DIMER STAT 02/12/2025 11:42 AM EST CBC WITH DIFFERENTIAL STAT 02/12/2025 11:42 AM EST B NATRIURETIC PEPTIDE STAT 02/12/2025 11:42 AM EST ECG STAT 02/12/2025 11:32 AM EST documented in this encounter Results * (ABNORMAL) POC HS TROPONIN I ISTAT (02/12/2025 2:23 PM EST) [facility] POC HS Troponin I ISTAT 66.2(HH) 0.0 - 35.0 ng/L [facility] Blood, Venous 02/12/2025 2:2 3 PM EST 02/12/2025 2:25 PM EST Bryanna Rosenthal MD POINT OF CARE TEST ORDERABLES Final Result Performing Organization Address City/[facility] [address]/[facility] Co de Phone Number [facility] [address] * NT PRO BNP (02/12/2025 12:37 PM EST) [facility] Pro BNP 282 0 - 299 pg/mL [facility] Comment: The reference ranges are for acute CHF diagnosis only: Rule out cutpoint----<300 pg/mL Rule in cutpoint ----->450 pg/mL (<50 years old) >900 pg/mL (>50 years old) Plasma 02/12/2025 12:3 7 PM EST 02/12/2025 1:18 PM EST Bryanna Rosenthal MD CHEMISTRY ORDERABLES Final Res ult Performing Organization Address [facility] [address]/[facility] de Phone Number [facility] [address] * (ABNORMAL) POC HS TROPONIN I ISTAT (02/12/2025 11:59 AM EST) [facility] POC HS Troponin I ISTAT 65.6(HH) 0.0 - 35.0 ng/L [facility] Blood, Venous 02/12/2025 11: 59 AM EST 02/12/2025 12:00 PM EST Bryanna Rosenthal MD POINT OF CARE TEST ORDERABLES Final Result Performing Organization Address City/[facility] [address]/[facility] Co de Phone Number [facility] [address] * DIAG-PORTABLE CHEST (02/12/2025 11:55 AM EST) Anatomical Region Laterality Modality Chest Radiographic Shabana ging 02/12/2025 12:2 1 PM EST Impressions 02/12/2025 12:21 PM EST IMPRESSION: No acute radiographic abnormality of the chest. Electronically signed by Mati Mora DO Narrative 02/12/2025 12:21 PM EST EXAM: DIAG-PORTABLE CHEST. DATE: 02/12/2025 11:41 EST. INDICATION: Chest pain COMPARISON: None TECHNIQUE: Standard per department protocol. FINDINGS: Medical devices: None Cardiomediastinal silhouette at the upper limits of normal No focal consolidation, pleural fluid collection, or pneumothorax. Osseous structures unremarkable. Procedure Note Mati Mora DO - 02/12/2025 EXAM: DIAG-PORTABLE CHEST. DATE: 02/12/2025 11:41 EST. INDICATION: Chest pain COMPARISON: None TECHNIQUE: Standard per department protocol. FINDINGS: Medical devices: None Cardiomediastinal silhouette at the upper limits of normal No focal consolidation, pleural fluid collection, or pneumothorax. Osseous structures unremarkable. IMPRESSION: No acute radiographic abnormality of the chest. Electronically signed by Mati Mora DO Bryanna Rosenthal MD [facility] ORDERAB LES Final Result * DIFFERENTIAL (02/12/2025 11:42 AM EST) Neutrophils Absolute 4.95 1.50 - 7.80 10*3/uL [facility] Lymphocytes Absolute 3.17 0.80 - 3.90 10*3/uL [facility] Monocytes Absolute 0.70 0.20 - 0.90 10*3/uL [facility] Eosinophils Absolute 0.23 0.00 - 0.50 10*3/uL [facility] Basophils Absolute 0.08 0.00 - 0.20 10*3/uL [facility] Immature Granulocytes Absolute 0.05 0.00 - 0.10 10*3/uL [facility] Neutrophils Relative 54.0 % [facility] Lymphocytes Relative 34.5 % [facility] Monocytes Relative 7.6 % [facility] Eosinophils Relative 2.5 % [facility] Basophils Relative 0.9 % [facility] Immature Granulocytes 0.5 % [facility] nRBC 0 0 - 0 /100 WBC [facility] Whole Blood 02/12/2025 11:4 2 AM EST 02/12/2025 11:50 AM EST Bryanna Rosenthal MD HEMATOLOGY ORDERABLES Final Re sult Performing Organization Address [facility] [address]/[facility] Co de Phone Number [facility] [address] * (ABNORMAL) D-DIMER (02/12/2025 11:42 AM EST) D-Dimer, Quant 233(H) 0 - 230 ng/mL DDU [facility] Comment: The D-dimer test is used frequently to exclude an acute PE or DVT. In patients with a low to moderate clinical risk assessment and a D-dimer result < 230 ng/mL DDU, the likelihood of a PE or DVT is very low. However, a thromboembolic event should not be excluded solely on the basis of the D-Dimer level. Increased levels of D-Dimer are associated with a PE, DVT, DIC, malignancies, inflammation, sepsis, surgery, trauma, , and advancing patient age. For patients above 50yo with low to moderate risk assessment, the cutoff value rises and can be calculated: age x5. Example: patient age 60, cutoff is 300 ng/L DDU Plasma (Blood) 02/12/2025 11 :42 AM EST 02/12/2025 11:50 AM EST Bryanna Rosenthal MD HEMATOLOGY ORDERABLES Final Re sult Performing Organization Address [facility] [address]/[facility] Co de Phone Number [facility] [address] * (ABNORMAL) B NATRIURETIC PEPTIDE (02/12/2025 11:42 AM EST) BNP 134(H) 0 - 100 pg/mL [facility] Plasma (Blood) 02/12/2025 11 :42 AM EST 02/12/2025 11:50 AM EST Bryanna Rosenthal MD CHEMISTRY ORDERABLES Final Res ult Performing Organization Address [facility] de Phone Number [facility] [address] * APTT (02/12/2025 11:42 AM EST) PTT 28.4 23.1 - 37.6 seconds [facility] Comment: Effective 09/21/2024, there is a new lot number of PTT reagent. There are no changes in critical value or reference ranges. Plasma (Blood) 02/12/2025 11 :42 AM EST 02/12/2025 11:50 AM EST Bryanna Rosenthal MD HEMATOLOGY ORDERABLES Final Re sult Performing Organization Address [facility] de Phone Number [facility] [address] * PT (PRO TIME INCLUDES INR) (02/12/2025 11:42 AM EST) Protime 11.5 10.1 - 13.7 seconds [facility] Comment: Effective 09/21/24, the PT reference range changed from 10.5-14.1 s to 10.1-13.7 s. The INR reference range remains the same at 0.9-1.1. INR 1.0 0.9 - 1.[address] [facility] Comment: RECOMMENDED THERAPEUTIC RANGES USING INR : Stable Oral Anticoagulant Therapy: 2.0 - 3.0 Mechanical Prosthetic Heart Valve: 2.5 - 3.5 Recurrent Acute Myocardial Infarction: 2.5 - 3.5 Plasma (Blood) 02/12/2025 11 :42 AM EST 02/12/2025 11:50 AM EST Bryanna Rosenthal MD HEMATOLOGY ORDERABLES Final Re sult Performing Organization Address [facility] [address]/[facility] de Phone Number [facility] [address] * (ABNORMAL) CBC WITH DIFFERENTIAL (02/12/2025 11:42 AM EST) WBC 9.18 4.00 - 12.00 10*3/uL [facility] RBC 6.11(H) 4.20 - 5.80 10*6/uL [facility] Hemoglobin 16.2 13.2 - 17.1 g/dL [facility] Hematocrit Blood 52.1(H) 40.0 - 51.0 % [facility] MCV 85.3 80.0 - 100.0 fL [facility] MCH 26.5(L) 27.0 - 33.0 pg [facility] MCHC 31.1 30.0 - 36.0 g/dL [facility] RDW 17.2(H) 11.0 - 15.0 % [facility] Platelets 467(H) 140 - 400 10*3/uL [facility] MPV 9.8 9.0 - 13.0 fL [facility] Whole Blood (Blood) 02/12/2025 11:42 AM EST 02/12/2025 11:50 AM EST us Bryanna Rosenthal MD HEMATOLOGY ORDERABLES Final Re sult [facility] [address] * ECG (02/12/2025 11:32 AM EST) Heart Rate 88 bpm [facility] QRS Interval 105 ms [facility] QT Interval 348 ms [facility] QTc Interval 421 ms [facility] P [place] [address] [facility] QRS [place] -[address] [facility] T Wave [place] 117 deg [facility] P-R Interval 151 msec [facility] 02/12/2025 11:3 2 AM EST Narrative [facility] - 02/12/2025 11:[address] [facility] ED Test Date: 2025-02-12 11:32:03 Pat Name: CARLEY LYNN Department: ED Room: Gender: Male Senior Animal Trainer: [id number] : 1975 Requested By: BRYANNA Lai Order Number: [id number] Reading MD: Bryanna Rosenthal MD Interpretive Statements Sinus rhythm LAE, consider biatrial enlargement Left ventricular hypertrophy Anterior Q waves, possibly due to LVH Nonspecific T abnormalities, lateral leads rate 88 beats per minute Left axis deviation Normal ST segments No evidence of acute ischemia infarct Electronically Signed On 02-12-2025 11:43:29 EST by Bryanna Rosenthal MD Procedure Note Bryanna Rosenthal MD - 02/12/2025 [facility] ED Test Date: 2025-02-12 11:32:03 Pat Name: CARLEY LYNN Department: ED Room: Gender: Male Senior Animal Trainer: [id number] : 1975 Requested By: BRYANNA Lai Order Number: [id number] Reading MD: Bryanna Rosenthal MD Interpretive Statements Sinus rhythm LAE, consider biatrial enlargement Left ventricular hypertrophy Anterior Q waves, possibly due to LVH Nonspecific T abnormalities, lateral leads rate 88 beats per minute Left axis deviation Normal ST segments No evidence of acute ischemia infarct Electronically Signed On 02-12-2025 11:43:29 EST by Bryanna Rosenthal MD Bryanna Rosenthal MD ECG ORDERABLES Final Result Performing Organization Address City/State/[facility] Co de Phone Number [facility] [address] [place] [address] documented in this encounter Visit Diagnoses Diagnosis Atypical chest pain- Primary Other chest pain Systolic heart failure, unspecified HF chronicity (CMS/HCC) documented in this encounter Administered Medications Inactive Administered Medications - up to 3 most recent administrations Medication Order MAR Action Action Date Dose Rate Site aspirin chewable tablet 324 mg 324 mg, Oral, ONCE, On Sat02/12/25 at 1200, For 1 dose Given 02/12/2025 11:58 AM EST 324 mg nitroglycerin (NITRO-BID) 2 % ointment 1 Inch 1 Inch, Transdermal, ONCE, On Sat02/12/25 at 1200, For 1 dose, Apply one (1) inch to chest wall. Given 02/12/2025 11:58 AM EST 1 Inch documented in this encounter Active and Recently Administered Medications Times are shown in EST. Scheduled Medication Order 02/10/2025 02/11/2025 02/12/2025 aspirin chewable tablet 324 mg (COMPLETED) 324 mg, Oral, ONCE, On Sat02/12/25 at 1200, For 1 dose 1158 (Given - Provid er: Breanne Hernandez RN) nitroglycerin (NITRO-BID) 2 % ointment 1 Inch (COMPLETED) 1 Inch, Transdermal, ONCE, On Sat02/12/25 at 1200, For 1 dose, Apply one (1) inch to chest wall. 1158 (Given - Provid er: Breanne Hernandez RN) documented in this encounter Care Teams Environmental Field Professional Relationship Specialty Start Date End Date [address] [place] [address] PCP - General 02/12/25 documented as of this encounter
--- NOTE | 2025-02-23 09:00 | MR_ITS ---
APPROVED REPORT Acid Strength Inspector: CLINICAL INDICATION Cardiomyopathy evaluation TECHNIQUE Image Acquisition: Cardiac magnetic resonance (CMR) was performed on Siemens Espree MRI 1.5T scanner. Software platform sequences were performed using the Siemens [employer] MR B19 platform. A set of three-plane, low-resolution, large ejypk-mo-wduf localizers were initially acquired. Then axial, coronal, sagittal TrueFISP, as well as axial HASTE images, were obtained. These were followed by gated TrueFISP breathold cinematic sequences obtained in the short axis with 8 mm slices and 2 mm gaps, 2-chamber (vertical long axis), 3-chamber, 4-chamber (horizontal long axis). A bolus of contrast was injected intravenously with first-pass sequences obtained in the short axis and four-chamber planes. After approximately 10 minutes, a TI supervisor in charge sequence was performed to determine the optimal TI time. Using the optimized TI time, delayed contrast enhancement segmented inversion???recovery TurboFLASH sequences were obtained in the short axis, 2-chamber, 3-chamber, and 4-chamber projections. 2D-velocity phase mapping was performed. Functional parameters were calculated by offline analysis on an independent workstation ([employer] Platform, [employer] ([employer] Contrast: ProHance??? (Gadoteridol) FINDINGS MORPHOLOGY AND FUNCTION Left ventricle: The left ventricle is severely dilated. The indexed left ventricular end-diastolic volume (LVEDVi) is 164 ml/m2 (reference range 57-105 ml/m2 in males, 56-96 ml/m2 in females). Severe reduction in global LV systolic function is present. There is normal left ventricular wall thickness. LVEF is calculated at 21.7% (reference range 57-77%). Right ventricle: The right ventricle is severely dilated. The indexed right ventricular end-diastolic volume (RVEDVi) is 105 ml/m2 (reference range 61-121 ml/m2 in males, 48-112 ml/m2 in females). Severe reduction in right ventricular systolic function is present. RVEF is calculated at 21.3% (reference range 52-72% in males, 51-71% in females). Atria: The left atrium is mildly dilated. The maximum indexed left atrial volume is 36 ml/m2 (reference range 26-52 ml/m2 in males, 27-53 ml/m2 in females). The right atrium is normal in size. The maximum indexed right atrial volume is 20ml/m2 (reference range 18-90 ml/m2). Aorta: The diameter of the aortic annulus is normal, measuring 25 mm (coronal view reference range 21-30 mm in males, 19-27 mm in females). The diameter of the aortic sinus is normal, measuring 35 mm (coronal view reference range 25-42 mm in males, 24-36 mm in females). The diameter of the sinotubular junction is normal, measuring 25 mm (coronal view reference range 18-32 mm in males, 18-28 mm in females). The diameters of the ascending and descending thoracic aorta are normal. Main pulmonary artery: The main pulmonary artery diameter is normal. Pericardium: The pericardial thickness is normal. The pericardial thickness measures 2.0 mm (normal < 4.0 mm). There is no pericardial effusion. VALVES The valvular morphologies in the visualized sequences appear normal. There is no significant valvular stenosis or regurgitation of the mitral, aortic, tricuspid, or pulmonic valve noted visually. Systolic anterior motion of the mitral valve is not visualized. Ratio of pulmonary to systemic flow, Qp:Qs ratio = 0.9 (normal < or = 1.2, hemodynamically significant shunt > 1.5), demonstrating no evidence of hemodynamically significant shunt. TISSUE CHARACTERIZATION Resting Perfusion: Normal myocardial blood flow at rest. No evidence of resting hypoperfusion. Myocardial Fibrosis and/or edema: Normal gadolinium kinetics are present. No evidence of late gadolinium enhancement is noted, consistent with absence of myocardial scarring, infarction, or necrosis. T2-weighted imaging demonstrates no evidence of myocardial edema or inflammation. OTHER No other significant findings are noted. However, this exam is focused on the cardiac structure and function. IMPRESSION Severe LV dilation with severe reduction in LV systolic function. LVEDVi= 164 ml/m2 and LVEF= 21.7%. Severe RV dilation with severe reduction in RV systolic function. RVEDVi= 105 ml/m2 and RVEF= 21.3%. Mild LA atrial enlargement. No CMR evidence of myocardial scarring, infarction, or necrosis. No evidence of myocardial edema or inflammation. Perfusion analysis demonstrates normal blood flow at rest with no evidence of resting hypoperfusion. Ratio of pulmonary to systemic flow, Qp:Qs ratio = 0.9 (normal < or = 1.2, hemodynamically significant shunt > 1.5), demonstrating no evidence of hemodynamically significant shunt. The above CMR findings are most suggestive of chronic, dilated, non-ischemic cardiomyopathy. COMPARISON None CRITICAL RESULT None COMMUNICATION The above findings were relayed to the patient at the time of the routine outpatient cardiology follow-up visit, prior to dictation of this report. The findings of this cardiac MR were reviewed, reported, and signed by Carlos Enrique Mcginnis MD (Diet Consultant). Conclusion Electronically signed by : Silvia Mcginnis MD 03/09/2025 12:44:32
--- OUTSIDE RECORDS SUMMARY | 2025-02-23 09:07 | XMS_ITS | Encounter Summary ---
Author Organization [facility] Address [address] [place] [address] Care Team Providers Care Biostatistics Professor Name Role Phone Duke Monterroso MD Primary Care Provider [phone] Madison Echevarria Primary Care Provider [phone] Reason for Visit * Reason Onset Date Comments Results 02/11/2025 Encounter Details Date Type Department Care Team ([facility] st Contact Info) Description 02/11/2025 Telephone [facility] Physicians - Heart & Vascular, [place] [address] [place] [address] Torrie Arzate NP [address] [facility] [place] [address] Results Social History Tobacco Use Types Packs/Day [...] encounter Miscellaneous Notes * Telephone Encounter - Torrie Arzate NP - 02/11/2025 8:09 PM EST Alerted after hours for elevated hs Trop of 94, as ordered today during office visit with other labs. During office visit today reported to have stable presentation, will alert ordering team of lab. documented in this encounter Plan of Treatment Upcoming Encounters Date Type Department Care Team (Late st Contact Info) Description 02/24/2025 2:30 PM EST Appointment [facility] Testing Center - [facility] [address] [facility], [address] [place] [address] 02/25/2025 1:00 PM EST Appointment [facility] Cardi[facility] - [place] Heart Failure [address] [place] [address] Medical Office Building [address] [place] [address] Rose Sol, DANGELO [address] [place] [address] [address] [place] [address] documented as of this encounter Visit Diagnoses Not on filedocumented in this encounter Care Teams Biostatistics Professor Relationship Specialty Start Date End Date Duke Monterroso MD PCP - General Family Medicine 05/18/10 02/11/25 Madison Echevarria [address] [place] [address] PCP - General 02/12/25 documented as of this encounter
--- OUTSIDE RECORDS SUMMARY | 2025-02-23 09:07 | XMS_ITS | Encounter Summary ---
Author Organization [facility] Address [address] [place] [address] Care Team Providers Care Sql Database Developer Name Role Phone Madison Echevarria Primary Care Provider [phone] Reason for Visit * Reason Onset Date Comments Patient Status Update 02/12/2025 Encounter Details Date Type Department Care Team (Late st Contact Info) Description 02/12/2025 Telephone [facility] Cardiovascular Associates - [facility] Heart Failure [address] [place] [address] Medical Office Building [address] [place] [phone] Lena Ruby, RN [address] [place] [address] Patient Status Update Social History Tobacco Use Types Packs/Day Years Used Date Smoking Tobacco: Every Day Cigarettes Passive Smoke Exposure: Never Smokeless Tobacco: Current Alcohol Use Standard Drinks/Week Comments Yes 0 (1 standard drink = 0.6 oz pur e alcohol) occ Sex and Gender Information Value Date Recorded Sex Assigned at Not on file Legal Sex Male 7:08 PM EST Gender Identity Not on file Sexual Orientation Not on file documented as of this encounter Miscellaneous Notes * Telephone Encounter - Lena Ruby RN - 02/12/2025 10:40 AM EST Montez is a 49 y.o. M with a hx of HF, HTN, DM II He saw Dr. Blackburn in the clinic 02/11. Labs were ordered. Critical outpt Troponin of 94. A. DANGELO Arzate was notified and sent the call to Dr. Blackburn. Sent secure chat to Dr. Blackburn to make sure she wasaware. Per Dr. Blackburn, if patient having CP, come to clinic to get an EKG. Called pt. He stated he had left shoulder pain this morning for about 5 mins. Denied any other symptoms. Per Dr. Blackburn, come to clinic to get an EKG. Called Montez back. His SO stated he was now diaphoretic, clammy, and having left shoulder pain. Advised pt go to the ER. They stated they were already on their way. Dr. Blackburn notified in secure chat. Dr. Blackburn stated she reviewed pt's lab results last night. 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 [...] images: Echo, CT scan sent to us documented in this encounter Plan of Treatment Upcoming Encounters Date Type Department Care Team (Late st Contact Info) Description 02/24/2025 2:30 PM EST Appointment [facility] Testing Center - [place] [facility] Outpatient [facility] [address] [place] [address], [address] [place] [id number] 02/25/2025 1:00 PM EST Appointment [facility] Cardiovascular Associates - [facility] [place] Heart Failure [address] [place] [address] Medical Office Building [address] [place] [phone] Rose Sol NP [address] [place] [phone] documented as of this encounter Visit Diagnoses Not on filedocumented in this encounter Care Teams Sql Database Developer Relationship Specialty Start Date End Date Madison Echevarria [address] [place] [address] PCP - General 02/12/25 documented as of this encounter
--- OUTSIDE RECORDS SUMMARY | 2025-02-23 09:07 | XMS_ITS | Encounter Summary ---
Author Organization [facility] Address [address] [place] [address] Care Team Providers Care Actuarial Science Teacher Name Role Phone Duke Monterroso MD Primary Care Provider [phone] Encounter Details Date Type Department Care Team (Late st Contact Info) Description 02/11/2025 Abstract [facility] Cardiovascular Associates - [facility] Heart Failure [address] [place] [address] Office [address] [place] [address] Kristi Veliz RN Social History Tobacco Use Types Packs/Day Years [...] Description 02/24/2025 2:30 PM EST Appointment [facility] Testing Center [facility] Outpatient Center [address] [facility], [address] [place], [place] [id number] 02/25/2025 1:00 PM EST Appointment [facility] Cardi[facility] - [facility] Heart Failure [address] [place] [address] Medical Office Building [address] [place] [phone] Rose Sol, DANGELO [address] [facility] [address] [place] [phone] documented as of this encounter Visit Diagnoses Not on filedocumented in this encounter Care Teams Actuarial Science Teacher Relationship Specialty Start Date End Date Duke Monterroso MD PCP - General Family Medicine 05/18/10 02/11/25 documented as of this encounter
--- OUTSIDE RECORDS SUMMARY | 2025-02-23 09:07 | XMS_ITS | Encounter Summary ---
Author Organization [facility] Address [address] [place] [address] Care Team Providers Care Attendant Coin Operated Laundry Name Role Phone Duke Monterroso MD Primary Care Provider [phone] Madison Echevarria Primary Care Provider [phone] Encounter Details Date Type Department Care Team (Late st Contact Info) Description 02/11/2025 Orders Only [facility] Cardiovascular Associates - [facility] Heart [address] [place] [phone] Mast, Juliette [address] [place] [address]. [place], [place] [address] Social History Tobacco Use Types Packs/Day Years [...] Description 02/24/2025 2:30 PM EST Appointment [facility] Outpatient Center [address] [facility], [address] [place] [address] 02/25/2025 1:00 PM EST Appointment [facility] Cardiovascular Associates - [facility] Heart [address] [place] [phone] Rose Sol NP [address] [phone] documented as of this encounter Visit Diagnoses Not on filedocumented in this encounter Care Teams Attendant Coin Operated Laundry Relationship Specialty Start Date End Date Duke Monterroso MD PCP - General Family Medicine 05/18/10 02/11/25 Madison Echevarria [address] [place] [address] PCP - General 02/12/25 documented as of this encounter
--- OUTSIDE RECORDS SUMMARY | 2025-02-23 09:07 | XMS_ITS | Clinical Summary ---
Author Organization [facility] Address [address] [place] [address] Care Team Providers Care Tours Hostess Name Role Phone Madison Echevarria Primary Care Provider [phone] Allergies Active Allergy Reactions Criticality Noted Date Comments House Dust 10/04/2023 Mold 10/04/2023 Pollen Extracts 10/04/2023 Medications diclofenac (VOLTAREN) 75 mg EC tablet Take 75 mg by mouth 2 times daily. 12/08/19 25 Active ibuprofen (MOTRIN) 200 mg tablet Take 600 mg by mouth every 8 hours as needed. Active methocarbamoL (ROBAXIN) 750 mg tablet Take 750 mg by mouth 3 times daily. 12/08/19 25 Active fluticasone propionate (FLONASE) 50 mcg/actuation nasal spray [place] 1 [place] into nose daily. 10/14/19 25 Active nicotine (NICODERM CQ) 21 mg/24 hr patch Apply 1 Patch to skin daily. 02/10/20 25 Active metFORMIN (GLUCOPHAGE) 500 mg tablet Take 500 mg by mouth 2 times daily (with meals). 02/10/20 25 Active Cefdinir (OMNICEF) 300 mg capsule 300 MG ORALLY TWICE A DAY FOR 10 DAYS 12/28/19 25 Active diazePAM (VALIUM) 2 mg tablet Take one tablet by mouth 30 minutes prior to MRI; take second tablet if needed 01/23/20 25 Active bumetanide (BUMEX) 1 mg tabletIndicati ons: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 90 Tablet 1 02/12/20 25 Active Entresto 97-103 mg TabletIndicati ons:Acute on chronic combined systolic and diastolic heart failure (CMS/HCC) Take 1 Tablet by mouth 2 times daily. 90 Tablet 3 02/12/20 Active spironolactone (ALDACTONE) 25 mg tabletIndicati ons:Acute on chronic combined systolic and diastolic heart failure (CMS/HCC) Take 1 Tablet by mouth daily. 90 Tablet 1 02/12/20 25 Active Jardiance 10 mg Tablet tabletIndicati ons:Acute on chronic combined systolic and diastolic heart failure (CMS/HCC) Take 1 Tablet by mouth daily. 90 Tablet 1 02/12/20 Active bumetanide (BUMEX) 1 mg tablet Take 1 mg by mouth daily. 02/10/20 025 Discontinued(Re order) Jardiance 10 mg Tablet tablet Take 10 mg by mouth daily. 02/10/20 025 Discontinued(Re order) metoprolol tartrate (LOPRESSOR) 25 mg tablet Take 12.5 mg by mouth daily. 02/10/20 025 Discontinued Entresto 97-103 mg Tablet Take 1 Tablet by mouth 2 times daily. 02/11/20 025 Discontinued(Re order) spironolactone (ALDACTONE) 25 mg tablet Take 25 mg by mouth daily. 02/10/20 025 Discontinued(Re order) Active Problems Problem Noted Date Diagnosed Date Chronic systolic heart failure 02/11/2025 Acute on chronic combined sy stolic and diastolic heart failure 02/11/2025 Overweight (BMI 25.0-29.9) 02/11/2025 Primary hypertension 02/11/2025 LYN (obstructive sleep apnea) 02/11/2025 Chronic systolic dysfunction of right ventricle 02/11/2025 Tobacco use 02/11/2025 Rhinovirus infection 02/11/2025 Encounters Date Type Department Care Team Description 02/15/2025 Telephone [facility] Physicians - Heart & Vascular, [place] [address] [place] [address] Mary Blackburn MD Other (Recent ED visit and results ) 02/12/2025 11:25 AM EST - 02/12/2025 4:10 PM EST Emergency [facility] Emergency Department - [facility] ([facility]) [address] [place] [address] Bryanna Rosenthal MD Atypical chest pain (Primary Dx); Systolic heart failure, unspecified HF chronicity (CMS/HCC) Discharge Disposition: Home or Self Care 02/12/2025 Travel 02/12/2025 Telephone [facility] Failure [address] [place] [address] [address] [place] [phone] Lena Ruby, SYLVESTER Patient Status Update 02/11/2025 4:18 PM EST - 02/11/2025 11:59 PM EST Hospital Encounter Laboratory [address] [facility] [address] [place] [address] Chronic systolic heart failure (CMS/HCC) Discharge Disposition: Home or Self Care 02/11/2025 3:00 PM EST Office Visit [facility] [address] [place] [phone] Mary Blackburn MD Acute on chronic combined systolic and diastolic heart failure (CMS/HCC) (Primary Dx); Chronic systolic dysfunction of right ventricle; Overweight (BMI 25.0-29.9); Primary hypertension; LYN (obstructive sleep apnea); Tobacco use; Rhinovirus infection 02/11/2025 Telephone [facility] Physicians - Heart & Vascular, [place] [id number] [place] [address] [address] [place] [address] Torrie Arzate, DANGELO Results 02/11/2025 Telephone [facility] [address] [place] [address] [address] [place] [phone] Lena Ruby, SYLVESTER Other (Off work x 6 weeks) 02/11/2025 Abstract [facility] Failure [address] [place] [address] Office [facility] [address] [place] [phone] Kristi Veliz RN 02/11/2025 Orders Only [facility] [address] Medical Office Building [address] [place] [phone] Mast, Juliette from Last 3 Months Social History Tobacco Use Types Packs/Day Years [...] Mass Index 29.71 02/12/2025 12:11 PM EST Plan of Treatment Upcoming Encounters Date Type Department Care Team (Late st Contact Info) Description 02/24/2025 2:30 PM EST Appointment [facility] Testing Center [facility] Outpatient Center [address] [facility], [address] [place] [id number] 02/25/2025 1:00 PM EST Appointment [facility] Cardiovascular Associates - [facility] Heart Failure [address] [place] [address] Medical Office Building [address] [place] [phone] Rose Sol NP [address] [place] [address] [address] [place] [phone] Health Maintenance Due Date Last Done Comments Cologuard 1975 Colonoscopy 1974 Colorectal Cancer Screening 1974 FIT 1974 Tobacco Cessation Counseling 1986 Lipid Screening 1992 Pneumococcal Vaccine: 50+ Ye ars (1 of 2 - PCV) 1993 BMI Counseling 03/25/2024 Depression Screening 03/25/2024 Zoster-RZV(Shingrix) (1 of 2) 2024 COVID-19 Vaccine (3 - season) 2024, 10/20/2020 Influenza Vaccination (#1) 2024 Tetanus Vaccination (Every 10 Years) 08/15/203407/24 Procedures Procedure Name Priority Date/Time Associated Diagnosis Comments POC HS TROPONIN I ISTAT Routine 02/12/2025 2:23 PM EST NT PRO BNP STAT 02/12/2025 12:37 PM EST POC HS TROPONIN I ISTAT Routine 02/12/2025 11:59 AM EST DIAG-PORTABLE CHEST STAT 02/12/2025 1 1:55 AM EST DIFFERENTIAL STAT 02/12/2025 11:42 AM EST D-DIMER STAT 02/12/2025 11:42 AM EST B NATRIURETIC PEPTIDE STAT 02/12/2025 11:42 AM EST APTT STAT 02/12/2025 11:42 AM EST PT (PRO TIME INCLUDES INR) STAT 02/12/2025 11:42 AM EST CBC WITH DIFFERENTIAL STAT 02/12/2025 11:42 AM EST ECG STAT 02/12/2025 11:32 AM EST HS TROPONIN-I, OUTPATIENT Routine 02/11/2025 4:28 PM EST Chronic systolic heart failure (CMS/HCC) COMPREHENSIVE METABOLIC PANEL Routine 02/11/2025 4:28 PM EST Chronic systolic heart failure (CMS/HCC) HGB, A1C (GLYCOHEMOGLOBIN) Routine 02/11/2025 4:28 PM EST Chronic systolic heart failure (CMS/HCC) NT PRO BNP Routine 02/11/2025 4:28 PM EST Chronic systolic heart failure (CMS/HCC) from Last 3 Months Results * (ABNORMAL) POC HS TROPONIN I ISTAT (02/12/2025 2:23 PM EST) Only the most recent of2 resultswithin the time period is included. POC HS Troponin I ISTAT 66.2(HH) 0.0 - 35.0 ng/L [facility] Blood, Venous 02/12/2025 2:2 3 PM EST 02/12/2025 2:25 PM EST Bryanna Rosenthal MD POINT OF CARE TEST ORDERABLES Final Result Performing Organization Address [facility] de Phone Number [facility] [address] * NT PRO BNP (02/12/2025 12:37 PM EST) Only the most recent of2 resultswithin the time period is included. Pathologist [facility] Pro BNP 282 0 - 299 pg/mL [facility] Comment: The reference ranges are for acute CHF diagnosis only: Rule out cutpoint----<300 pg/mL Rule in cutpoint ----->450 pg/mL (<50 years old) >900 pg/mL (>50 years old) Plasma 02/12/2025 12:3 7 PM EST 02/12/2025 1:18 PM EST Bryanna Rosenthal MD CHEMISTRY ORDERABLES Final Res ult Performing Organization Address [facility] Co de Phone Number [facility] [address] * DIAG-PORTABLE CHEST (02/12/2025 11:55 AM [...] DIAGNOSTIC IMAGING ORDERAB LES Final Result * APTT (02/12/2025 11:42 AM EST) PTT 28.4 23.1 - 37.6 seconds [facility] Comment: Effective 09/21/2024, there is a new lot number of PTT reagent. There are no changes in critical value or reference ranges. Plasma (Blood) 02/12/2025 11 :42 AM EST 02/12/2025 11:50 AM EST Bryanna Rosenthal MD HEMATOLOGY ORDERABLES Final Re sult [facility] [address] * PT (PRO TIME INCLUDES INR) (02/12/2025 11:42 AM EST) Pathologist [facility] Protime 11.5 10.1 - 13.7 seconds [facility] Comment: Effective 09/21/24, the PT reference range changed from 10.5-14.1 s to 10.1-13.7 s. The INR reference range remains the same at 0.9-1.1. INR 1.0 0.9 - 1.1 [facility] Comment: RECOMMENDED THERAPEUTIC RANGES USING INR : Stable Oral Anticoagulant Therapy: 2.0 - 3.0 Mechanical Prosthetic Heart Valve: 2.5 - 3.5 Recurrent Acute Myocardial Infarction: 2.5 - 3.5 Plasma (Blood) 02/12/2025 11 :42 AM EST 02/12/2025 11:50 AM EST us Bryanna Rosenthal MD HEMATOLOGY ORDERABLES Final Re sult [facility] [address] * DIFFERENTIAL (02/12/2025 11:42 AM EST) Pathologist [facility] Neutrophils Absolute 4.95 1.50 - 7.80 10*3/uL [...] ORDERABLES Final Re sult Performing Organization Address [facility] de Phone Number [facility] [address] * (ABNORMAL) D-DIMER (02/12/2025 11:42 AM EST) D-Dimer, Quant 233(H) 0 - 230 ng/mL [facility] Comment: The D-dimer test is [...] ORDERABLES Final Re sult Performing Organization Address [facility] de Phone Number [facility] [address] * (ABNORMAL) CBC WITH DIFFERENTIAL (02/12/2025 [...] LAB RDW 17.2(H) 11.0 - 15.0 % [facility] Platelets 467(H) 140 - 400 10*3/uL [facility] MPV 9.8 9.0 - 13.0 fL [facility] Whole Blood (Blood) 02/12/2025 11:42 AM EST 02/12/2025 11:50 AM EST us Bryanna Rosenthal MD HEMATOLOGY ORDERABLES Final Re sult Performing Organization Address City/[facility]/ZIP Co de Phone Number [facility] [address] * (ABNORMAL) B NATRIURETIC PEPTIDE (02/12/2025 11:42 AM EST) BNP 134(H) 0 - 100 pg/mL [facility] Plasma (Blood) 02/12/2025 11 :42 AM EST 02/12/2025 11:50 AM EST us Bryanna Rosenthal MD CHEMISTRY ORDERABLES Final Res ult Performing Organization Address [facility] de Phone Number [facility] [address] * ECG (02/12/2025 11:32 AM EST) Heart Rate 88 bpm [facility] QRS Interval 105 ms [facility] QT Interval 348 ms [facility] QTc Interval 421 ms [facility] P Che[place] 64 deg [facility] QRS [place] -35 deg [facility] T Wave [place] 117 deg [facility] P-R Interval 151 msec [facility] 02/12/2025 11:3 2 AM EST Narrative [facility] - 02/12/2025 11:43 AM EST [facility] ED Test Date: 2025-02-12 11:32:03 Pat Name: CARLEY KIMBLE Department: ED Room: Gender: Male Photocopy Operator: [id number] : 1975 Requested By: BRYANNA Lai Order Number: [id number] Reading MD: Bryanna Rosenthal MD Interpretive Statements Sinus rhythm LAE, consider biatrial enlargement Left ventricular hypertrophy Anterior Q waves, possibly due to LVH Nonspecific T abnormalities, lateral leads rate 88 beats per minute Left axis deviation Normal ST segments No evidence of acute ischemia infarct Electronically Signed On 02-12-2025 11:43:29 EST by Bryanna Rosenthal MD Procedure Note Bryanna Rosenthal MD - 02/12/2025 [facility] ED Test Date: 2025-02-12 11:32:03 Pat Name: CARLEY KIMBLE Department: ED Room: Gender: Male Photocopy Operator: [id number] : 1975 Requested By: BRYANNA Lai Order Number: [id number] Reading MD: Bryanna Rosenthal MD Interpretive Statements Sinus rhythm LAE, consider biatrial enlargement Left ventricular hypertrophy Anterior Q waves, possibly due to LVH Nonspecific T abnormalities, lateral leads rate 88 beats per minute Left axis deviation Normal ST segments No evidence of acute ischemia infarct Electronically Signed On 02-12-2025 11:43:29 EST by Bryanna Rosenthal MD Bryanna Rosenthal MD ECG ORDERABLES Final Result [facility] [address] [place] [address] * (ABNORMAL) HS TROPONIN-I, OUTPATIENT (02/11/2025 4:28 PM EST) HS-Troponin I, Outpatient 94(HH) 0 - 35 ng/L [facility] Comment: The critical result was called to and read back by Torrie Arzate CNP Please refer to the High Sensitivity Troponin [...] ORDERABLES Final R esult Performing Organization Address [facility] de Phone Number [facility] [address] * (ABNORMAL) HGB, A1C (GLYCOHEMOGLOBIN) (02/11/2025 4:28 PM EST) Hgb A1C 6.2(H) 4.0 - 5.6 % [facility] Comment: Reference Ranges for [...] Glycohemoglobin Standardization program (NGSP) and traceable to [facility]. Estimated Average Glucose 131(H) 68 - 114 mg/dL [facility] Whole Blood 02/11/2025 4:28 PM EST 02/11/2025 5:42 PM EST us Mary Blackburn MD CHEMISTRY ORDERABLES Final R esult Performing Organization Address [facility] Co de Phone Number [facility] [address] * (ABNORMAL) COMPREHENSIVE METABOLIC PANEL (02/11/2025 4:28 PM EST) Sodium 139 135 - 146 mmol/L [facility] Potassium 4.7 3.5 - 5.1 mmol/L [facility] Chloride 102 98 - 110 mmol/L [facility] CO2 26 22 - 29 mmol/L [facility] Anion Gap 11 5 - 13 mmol/L [facility] Comment:Anion gap calculatio n does not include potassium (K+) value. BUN 22 7 - 25 mg/dL [facility] Creatinine 1.67(H) 0.50 - 1.30 mg/dL [facility] Glucose 103(H) 71 - 99 mg/dL [facility] Comment:Reference range (71- 99 mg/dL) [...] LAB Albumin 4.5 3.5 - 5.0 g/dL [facility] Globulin 3.3 2.0 - 3.7 g/dL [facility] Albumin/Globulin Ratio 1.4 1.0 - 2.1 [facility] BUN/Creatinine Ratio 13 [facility] Serum (Serum) 02/11/2025 4:2 8 PM EST 02/11/2025 5:46 PM EST us Mary Blackburn MD CHEMISTRY ORDERABLES Final R esult [facility] [address] [place] [address], [facility] from Last 3 Months Insurance [facility] [facility] MEDICAID Care Teams Tours Hostess Relationship Specialty Start Date End Date Madison Echevarria [address] [place] [address] PCP - General 02/12/25
--- OUTSIDE RECORDS SUMMARY | 2025-02-23 09:07 | XMS_ITS | Encounter Summary ---
Author Organization [facility] Address [address] [place] [address] Care Team Providers Care Thread Singer Name Role Phone Madison Echevarria Primary Care Provider [phone] Encounter Details Date Type Department Care Team (Latest Contact Info) Description 02/12/2025 Travel Social History Tobacco Use Types Packs/Day Years [...] [facility] Testing [facility] Outpatient Center [address] [place] [address], [facility] [address] [place] [address] 02/25/2025 1:00 PM EST Appointment [facility] Cardiovascular Associates - [facility] [place] Heart Failure [facility] Medical Office Building [address] [place] [address] Rose Sol NP [facility] [address] [place] [address] documented as of this encounter Visit Diagnoses Not on filedocumented in this encounter Care Teams Thread Singer Relationship Specialty Start Date End Date Madison Echevarria [address] [place] [address] PCP - General 02/12/25 documented as of this encounter
--- OUTSIDE RECORDS SUMMARY | 2025-02-23 09:07 | XMS_ITS | Encounter Summary ---
Author Organization [facility] Address [address] [place] [address] Care Team Providers Care Frame Welder Cargo Utility Trailers Name Role Phone Yu Echevarriaie Primary Care Provider [phone] Reason for Visit * Reason Onset Date Comments Other 02/15/2025 Recent ED visit and results Encounter Details Date Type Department Care Team ([facility] st Contact Info) Description 02/15/[address] [facility] Physicians - Heart & Vascular, [place] [address] [place] [address] Mary Blackburn MD [address] [facility] [place] [address] Other (Recent ED visit and results ) Social History Tobacco Use Types Packs/Day Years [...] encounter Miscellaneous Notes * Telephone Encounter - Anna Hays RN - 02/17/2025 9:59 AM EST Spoke w/ Semora. Informed her we are requesting [facility] images from earlier this month at [facility] and will have RAG review once received into [facility]. Explained this can take some time to receive/review. Per Saw, [facility] has merged us the cath from this month. She states pt still has a can dragger at [facility] as this is what is closest to them at home in case of an emergency. They would like to keep both [facility] and [facility] astheir cardiologists and have the doctors work together . She states they started Toprol nightly but RAG has Lopressor 12.5mg daily on hold as of 02/11 OV d/t bradycardia. She states pt has not takenthis medication yet. Advised her to call this office and explain we held Lopressor d/t bradycardia and advise if they would still like to start this medication. She states his BP has been 90/50's nightly. She states she will call them to re-address if he should take Toprol. He has an echo and follow up with us next week. * Telephone Encounter - Lena Ruby RN - 02/16/2025 11:12 AM EST Called MYKE Herrmann. Called Kendra back, pt's S/O. Informed her of Dr. Blackburn's recommendation to get an echo first and then she will decide if he needs an MRI. Informed her of preference to have itdone at [facility]. Kendra agreeable with plan. Asked Montez to continue to monitor his BP and let us know at upcoming appt if it remains low (SBP 90s or less). Kendra agreeable with plan, verbalized unde rstanding. Kendra wanted me to ask Dr. Blackburn if she was able to get the [facility] report from [facility] and if she has reviewed it? She is eager to hear Dr. Blackburn's interpretation of it. * Telephone Encounter - Mary Blackburn MD - 02/15/2025 4:50 PM EST I spoke with the inpatient team - Dr. Chavez, when he went in. Let's get the echo first and then decide about the MRI. If done, I would prefer it here. Regarding BP -- might need to back off on things if it remains low. Is he drinking enough fluid? Werecently backed off on diuretics and I think he was dry. RAG * Telephone Encounter - Anna Hays RN - 02/15/2025 4:14 PM EST Montez is a 49 y.o. M with a hx of HF, HTN, DM II He saw Dr. Blackburn in the clinic 02/11. Labs were ordered. Critical outpt Troponin of 94. Lena PHAN spoke w/ pt 02/12 and he stated he had left shoulder pain that morning for about 5 mins. Denied any other symptoms. Per Dr. Blackburn, come to clinic to get an EKG. He was then called back to have him come in for EKG when his s/o reported he was diaphoretic, clammy, and having left shoulder pain. He wasthen advised to go to ER. In the ER, they redrew labs, Troponin trended around 65-66. CXR showed noabnormality of chest. Per ER note, HF team evaluated LifeVest and noted no significant dysrhythmias and was cleared for d/c. He had a LHC earlier this month which showed no significant obstructive disease but does have significant HF and to have close follow up with out office. He has echo scheduled for 02/24 and follow up with MANUFACTURED BUILDINGS SUPERVISOR 02/25 next week. Spoke w/ pt s/o today and she inquired about if RAG reviewed ER visit/results and question about a cardiac MRI ordered by [facility]. She states the [facility] ordereda cardiac MRI outpatient at their hospital upon d/c from ER previously and it is not yet scheduled but awaiting insurance coverage approval. She states pt BP yesterday and today was around 90/59. He denied any dizziness, just mild fatigue. His weight is stable around baseline of 207-208lbs today. We discussed fluid/sodium intake and she reports he may not be drinking enough fluids. Advised her tohave him increase his fluids to no more than 48-64oz daily and continue monitoring BP/weight. Askedher to call if BP remains low this week or if he becomes symptomatic. Spoke w/ pt s/o today she inquired if Dr. Blackburn reviewed ER note from 02/12 and results. She also asked if [facility] (awaiting ins coverage) or if he should have it at [facility]. (He is having echo 02/24). Do you feel he needs CMRI and echo? * Telephone Encounter - Rebecca Guzmán - 02/15/2025 10:27 AM EST Kendra is calling to see if Dr. Blackburn had been able to review the pt info and results from the pt ED visit on 02/12. Kendra would like to know if they plan on doing more test or where to go fromhere. documented in this encounter Plan of Treatment Upcoming Encounters Date Type Department Care Team (Late st Contact Info) Description 02/24/2025 2:30 PM EST Appointment [facility] Testing Center - [place] [facility] Outpatient Center [address] [facility], [address] [place] [id number] 02/25/2025 1:00 PM EST Appointment [facility] Cardiovascular Associates - [facility] Heart Failure [address] [place] [address] Medical Office Building [address] [place] [phone] Rose Sol NP [address] [place] [phone] documented as of this encounter Visit Diagnoses Not on filedocumented in this encounter Care Teams Frame Welder Cargo Utility Trailers Relationship Specialty Start Date End Date Madison Echevarria [address] [place] [address] PCP - General 02/12/25 documented as of this encounter
--- OUTSIDE RECORDS SUMMARY | 2025-02-23 09:07 | XMS_ITS | Encounter Summary ---
Author Organization [facility] Address [address] [place] [address] Care Team Providers Care Lighting Technician Name Role Phone Duke Monterroso MD Primary Care Provider [phone] Reason for Visit * Reason Onset Date Comments Other 02/11/2025 Off work x 6 wee ks Encounter Details Date Type Department Care Team (Late st Contact Info) Description 02/11/2025 Telephone [facility] Associates - [facility] Heart Failure [address] [place] [address] Medical Office Building [address] [place] [phone] Lena Ruby, RN [address] [place] [address] Other (Off work x 6 weeks) Social History Tobacco Use Types Packs/Day Years [...] Telephone Encounter - Lena Ruby RN - 02/11/2025 4:04 PM EST Patient saw Dr. Blackburn today in clinic. Per secure chat with Dr. Blackburn, pt to remain off work for 6 weeks. Letter created and signed by Dr Blackburn, given to patient. Asked pt to let us know if his work required additional FMLA or short term disability paperwork and we could get that filled out. Montez verbalized understanding. documented in this encounter Plan of Treatment Upcoming Encounters Date Type Department Care Team (Late st Contact Info) Description 02/24/2025 2:30 PM EST Appointment [facility] Testing Center - [facility] [address] [facility], [address] [place] [address] 02/25/2025 1:00 PM EST Appointment [facility] Cardiovascular Associates - [facility] Heart Failure [address] [place] [address] Medical Office Building [address] [place] [phone] Rose Sol NP [address] [place] [phone] documented as of this encounter Visit Diagnoses Not on filedocumented in this encounter Care Teams Lighting Technician Relationship Specialty Start Date End Date Duke Monterroso MD PCP - General Family Medicine 05/18/10 02/11/25 documented as of this encounter
[2025-02-23] MEDS: 0.9 % SODIUM CHLORIDE 50 ML VIAL 20 ML IV (10:04)
[2025-02-23] MEDS: SODIUM CHLORIDE 0.9% 10ML SYR (RAD ONLY) 10 ML IV (10:04)
[2025-02-23] MEDS: GADOTERIDOL INJ 20ML SYRINGE 20 ML IV (10:04)
== END 2025-02-23 23:59 | disposition home or self-care (01) ==
PROVIDERS: Visit Provider Internal Medicine
DX: I51.7 Cardiomegaly (principal); I51.89 Other ill-defined heart diseases; I42.8 Other cardiomyopathies
CPT/HCPCS: 75561; A9576

== ENCOUNTER 2025-03-24 17:50 | Emergency (ER) | payer OTHER, SELFPAY ==
--- OUTSIDE RECORDS SUMMARY | 2025-02-03 10:45 | XMS_ITS | Encounter Summary ---
Author Organization [facility] Address [address] [place] [address] Care Team Providers Care Hogshead Inspector Name Role Phone No Pcp, Provider [facility] Primary Care Provid er Unavailable Reason for Visit * Reason Comments Pain Procedure * In Office Procedure (Routine) - AFF Authorized Specialty Diagnoses / Procedures Referred By Contac t Referred To Contact Orthopedic Surgery Diagnoses DDD (degenerative disc disease), cervical Radiculopathy of cervical region Procedures [facility] PROCEDURE UNDER FLUORO Albino Orellana MD [address] [facility] [address] [place] [address] Phone: tel: fax: [facility] [address] [place] [address] Phone: tel: fax: Referral ID Status Reason Start Date Expiration Date Visits Requested Visits Authorized [id number] AFF Authorized 01/22/2025 01/22/2026 1 1 Encounter Details Date Type Department Care Team (Latest Contact Info) Description 02/03/2025 10:45 AM EST Office Visit [facility] [address] [place] [address] Edu Yin MD [address] [place] [address] Radiculopathy of cervical region (Primary Dx) Social History Tobacco Use Types Packs/Day Years [...] on file documented as of this encounter Progress Notes * Edu Yin MD - 02/03/2025 10:45 AM EST Images from the original note were not included. PROCEDURE: Cervical Interlaminar Epidural Steroid injection under C-arm fluoroscopic guidance. INDICATION: Cervical radicular pain. LEVEL: C7-T1 INJECTANT: 1. 5 ml 1% lidocaine 2. 3 ml Omnipaque, 47 ml discarded. 3. 1 ml (10mg) Decadron ALLERGIES: No known allergies to contrast, iodine, anesthetics, or latex. DATE: 02/03/2025 Imaging review: I personally reviewed the patients cervical spine MRI. A discussion with the patient explaining risks and benefits, including bleeding, infection, worsening of the pain, damage to the area being injected, weakness, allergic reaction to medications, vascular injection, and nerve damage was had. I discussed the possibility of infection that could requiresurgical intervention and/or inpatient hospital admission.The patient's questions about the procedure were answered. After discussion of the risks and benefits of the procedure the patient decided toproceed with the procedure. I discussed risk if spinal cord injury, nerve injury, permanent nerve damage, injury to the cervical spine, worsening pain and infection. The patient expressed their understanding and desire to proceed. Reportedly the patient has not taken any Coumadin, Aspirin, or Plavix for at least 72 hours prior to the injection. Time out was performed to verify patient and procedural site. The patient was placed in the prone position on the imaging table, and windshield technician images were performed utilizing the fluoroscope. The skin was marked at the appropriate position, and then the area was cleansed with chlorhexidine x 2 which was allowed to dry and draped in sterile fashion. 5 ml of 1% lidocaine was utilized to infiltrate the skin and underlying muscle along the proposed needle path with a 25g 1.5-inch needle. An initial 10 degree ipsilateral tilt was utilized to visualize the interlaminar space. The needle approach was paramedian, not crossing midline. A 22g 3 1/2 inch Tuohy spinal needle is placed under intermittent fluoroscopic imaging to the to the interlaminar space. A 40 degree contralateral safetyview was utilized to advance the needle to the ligamentum flavum. Using the loss of resistance technique, the needle was advanced just anterior to the interlaminar line, upon which point, loss of resistence was noted. Live fluoroscopy was performed during the passage of Omnipaque--revealing a normal epidurigram. No sign of vascular or intradural uptake was noted on imaging. After negative aspiration for blood or CSF, the steroid mixture was administered slowly over 20-40 seconds. The needle was removed without significant bleeding or hematoma formation. The skin was cleansed and a bandage was placed over the site. The patient was able to sit up and stand without significant loss of motor or sensory function, and no reports of headache. The patient tolerated the proce dure well without complications. The patient experienced pressure sensation with today's procedure typical of a cervical epidural injection. The patient was monitored following injection prior to discharge. During that time, the patient remained neurologically and hemodynamically intact. Post procedure physical exam included intact strength, sensation and coordination in the bilateral upper and lower extremities. IMPRESSION: Technically successful Cervical Interlaminar epidural steroid injection. (Fluoroscopic Images of the procedure were recorded and stored) PLAN: 1. Patient advised not to perform strenuous activities or work for 36 hours. 2. The patient may restart any medications withheld due to the procedure as per guidelines. 3. Ice or cold compress to bandaged area for 20 minutes upon arriving at home; apply a second time 2 hours later. 4. Patient advised to contact our office for any significant side effects, including possible headache extremity pain or weakness, or any other neurologic symptom should develop. 5. The patient will keep the injection site clean and dry for the next 72 hours to prevent infection. 6. The patient will follow up with at their next scheduled clinical appointment. If they experienceany issues with today's procedure prior to that visit they will contact my office. F/U: 2 weeks Edu Yin M.D. Interventional Pain Physician Board Certified in: Anesthesiology, Pain Management, MICHAEL, ABPM. [facility] Much of this encounter is an electronic health informatics advisor/translation of spoken language to printed text. The electronic translation of spoken language may permit erroneous or at times nonsensical words of phrases to be inadvertently transcribed; Although I have reviewed the note for such errors, some may still exist. * Laura Walls MA - 02/03/2025 10:45 AM EST Fluoro time 16 seconds documented in this encounter Plan of Treatment Scheduled Orders Name Type Priority Associated Diagnoses Orde r Schedule SD NJX DX/THER SBST INTRLMNR CRV/THRC W/IMG GDN SD Charge Routine Radiculopathy of cervical region Ordered: 02/03/2025 documented as of this encounter Visit Diagnoses Diagnosis Radiculopathy of cervical region- Primary Brachial neuritis or radiculitis nos documented in this encounter Administered Medications Inactive Administered Medications - up to 1 most recent administrations Medication Order MAR Action Action Date Dose Rate Site dexAMETHasone sodium phosphate (DECADRON) solution 20 mg 20 mg, Intraspinal, ONCE, 1 dose, On Sat02/03/25 at 1100, Dx: 1. Radiculopathy of cervical regionIndications:Radiculopathy of cervical region Given 02/03/2025 10:57 AM EST 20 mg iohexoL (OMNIPAQUE) injection 3 mL 3 mL, Intraspinal, ONCE, 1 dose, On Sat02/03/25 at 1100, VESICANT , Dx: 1. Radiculopathy of cervical regionIndications:Radiculopathy of cervical region Given 02/03/2025 10:58 AM EST 3 mL lidocaine 1% 10 mg/mL (1 %) injection 3 mL 3 mL, Other, ONCE PRN, 1 dose, Starting on Sat02/03/25 at 1057, Until Sat02/03/25 at 1058, Local Anesthesia, Dx: 1. Radiculopathy of cervical regionIndications:Radiculopathy of cervical region Given 02/03/2025 10:58 AM EST 3 mL sodium chloride 0.9% injection/flush solution 1 mL 1 mL, Intraspinal, ONCE, 1 dose, On Sat02/03/25 at 1100, Dx: 1. Radiculopathy of cervical regionIndications:Radiculopathy of cervical region Given 02/03/2025 10:58 AM EST 1 mL documented in this encounter Care Teams Hogshead Inspector Relationship Specialty Start Date End Date No Pcp, Provider Not In Epic PCP - General 03/09/24 documented as of this encounter
--- OUTSIDE RECORDS SUMMARY | 2025-02-11 15:00 | XMS_ITS | Encounter Summary ---
Author Organization [facility] Address [address] [place] [address] Care Team Providers Care Air Conditioning Specialist Name Role Phone Duke Monterroso MD Primary Care Provider [phone] Reason for Referral * Consult, Test & Treat (Routine) - Authorized Specialty Diagnoses / Procedures Referred By Viji t Referred To Contact Sleep Medicine / Pulmonology Diagnoses Chronic systolic heart failure (CMS/HCC) Mary Blackburn MD [facility] [address] [place] [address] Phone: tel: [place]: [place] [address] [place], [place] [address]e. [address] [place] [address] Phone: tel: fax: Referral ID Status Reason Start Date Expiration Date V isits Requested Visits Authorized [id number] Authorized 02/11/2025 02/11/2026 99 99 * Radiology Services (Routine) - Not Needed Specialty Diagnoses / Procedures Referred By Contac t Referred To Contact Diagnoses Acute on chronic combined systolic and diastolic heart failure (CMS/HCC) Procedures 2D ECHO COMPLETE W/STRAIN/3D PRN CONTR/BUBBLE ID ECHO TTHRC R-T 2D W/WOM-MODE COMPL SPEC&COLR D CHG 3D RENDERING W/INTERP & POSTPROCESS SUPERVISION Mary Blackburn MD [address] [place] [address] Phone: tel: fax: [address] [address] Phone: tel: Referral ID Status Reason Start Date Expiration Date V isits Requested Visits Authorized [id number] Not Needed 02/11/2025 02/11/2026 1 1 * Radiology Services (Routine) - Pending Review Specialty Diagnoses / Procedures Referred By Contac t Referred To Contact Diagnoses Acute on chronic combined systolic and diastolic heart failure (CMS/HCC) Procedures DIAG-CHEST PA & LATERAL Mary Blackburn MD [address] [place] [address] [place] [address] Phone: tel: fax: [address] [address] Phone: tel: Referral ID Status Reason Start Date Expiration Date V isits Requested Visits Authorized [id number] Pending Review 02/11/2025 02/11/2026 1 1 Reason for Visit * Reason Comments New Patient Consult Encounter Details Date Type Department Care Team (Latest Contact Info) Description 02/11/2025 3:00 PM EST Office Visit [facility] Heart Failure [address] [place] [address] Medical Office Building [address] [place] [phone] Mary Blackburn MD [address] [place] [address] [place] [id number] Acute on chronic combined systolic and diastolic heart failure (CMS/HCC) (Primary Dx); Chronic systolic dysfunction of right ventricle; Overweight (BMI 25.0-29.9); Primary hypertension; LYN (obstructive sleep apnea); Tobacco use; Rhinovirus infection Social History Tobacco Use Types Packs/Day Years Used Date Smoking Tobacco: Never Passive Smoke Exposure: Never Smokeless Tobacco: Current Tobacco Cessation:Ready to Q uit: No; Counseling Given: No Alcohol Use Standard Drinks/Week Comments Not Currently 0 (1 standard drink = 0.6 oz pur e alcohol) Sex and Gender Information Value Date Recorded Sex Assigned at Not on file Legal Sex Male 7:08 PM EST Gender Identity Not on file Sexual Orientation Not on file documented as of this encounter Last Filed Vital Signs Vital Sign Reading Time Taken Comments Blood Pressure 118/82 02/11/2025 3:01 PM EST Pulse 52 02/11/2025 3:01 PM EST Temperature - - Respiratory Rate - - Oxygen Saturation - - Inhaled Oxygen Concentration - - Weight 96.7 kg (213 lb 3.2 oz) 02/11/2025 3:01 P M EST Height 180.3 cm (5' 11 ) 02/11/2025 3:01 PM EST Body Mass Index 29.74 02/11/2025 3:01 PM EST documented in this encounter Functional Status * Vitals Question Answer Date of Assessment Author BP 118/82 02/11/2025 3:01 PM EST [place] Pulse 52 02/11/2025 3:01 PM EST [place] Height 71 02/11/2025 3:01 PM EST [place] Weight 3411.2 02/11/2025 3:01 PM EST [place] Patient Position Sitting 02/11/2025 3:01 PM EST Pedro Arthur * [place] Body Weight (kg) (auto-calculated) Answer Date of Assessment Author 75.3 02/11/2025 3:01 PM EST Pedro Sneed * Drug Calculation Weight Formula Row Answer Date of Assessment Author 1 02/11/2025 3:01 PM EST Pedro Sneed documented as of this encounter Mental Status * Vitals Question Answer Entry Date Author BP 118/82 02/11/2025 3:01 PM EST [place] Pulse 52 02/11/2025 3:01 PM EST [place] Patient Position Sitting 02/11/2025 3:01 PM Pedro Mar documented in this encounter Patient Instructions * Patient Instructions* Mary Blackburn MD - 02/11/2025 3:00 PM EST Montez Lynn, Thank you for coming into the office today. It was a pleasure to see you. Below you will find a brief summary of the things we discussed during your appointment. I look forward to seeing you again atthe next appointment. Check your blood pressure once daily, 2 hours after morning or evening pills and record. Check your weight daily and record, especially if we have recently adjusted your diuretics or you notice swelling. Today, we decreased the following medications: Bumex. Drop to 1 tablet per day. If weight continuesto fall, please make it as needed . Watch out for abdominal bloating, shortness of breath with bending over or activities. We are going to pause your metoprolol medication. Labs have been ordered to take place today (room 130). CXR today. Please call the office if you feel you are developing fluid overload or dehydration, the medications are too strong for you, or you have questions/concerns. Sleep medicine referral placed. Return to clinic 2-4 weeks from now. Mary Blackburn MD documented in this encounter Progress Notes * Pedro Sneed - 02/11/2025 3:00 PM EST ROOMING NOTE Reason for Visit: Mr. Lynn is here for New Patient Consult Vital Signs: BP 118/82 Pulse 52 Ht 5' 11 (1.803 m) Wt 213 lb 3.2 oz (96.7 kg) BMI 29.74 kg/m?? Allergies: Mr. Lynn is allergic to house dust, mold, and pollen extracts. Rooming Questions: Shortness of breath? No Can you lay flat? Yes Any swelling? No Any chest pain? No Any skipped heart beats / palpitations? No Any passing out / syncope? No Any Dizziness? No If you have an ICD, has it shocked you? No Any possible side effects to meds? No Electronically signed by: Pedro Sneed, 02/11/2025 3:20 PM * Mary Blackburn MD - 02/11/2025 3:00 PM EST Images from the original note were not included. 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 Provided guidance regarding prn changes (increase/decrease). Device Therapies: Currently wearing a Zoll LifeVest. We will request access to the report Repeat echo. If dramatically improved, would discontinue the LifeVest. If still significantly reduced (LVEF less than 35%), we will continue with LifeVest monitoring for now I suspect his cardiomyopathy is longer standing but simply unmasked in the context of recent viral illness. I do not suspect that this was myocarditis given the normal troponin and overall clinical presentation Requested chest x-ray, two-view, to evaluate cardiac silhouette as well as pulmonary parenchyma A work absence letter was provided for six weeks. Need to explore whether or not he had an ischemic workup. Suspected obstructive sleep apnea Obstructive sleep apnea is suspected to be contributing to cardiovascular issues, with symptoms of fatigue, nocturnal breathing difficulty, and body habitus Plan: A referral to sleep medicine for evaluation and potential sleep study is initiated. Recent viral upper respiratory infection (rhinovirus/RSV), resolved The viral upper respiratory infection with rhinovirus/RSV has resolved with no current respiratory symptoms. Essential hypertension Longstanding essential hypertension is contributing to chronic heart failure. BP today is well controlled See above medication adjustments Low-sodium heart healthy diet recommended Diabetes Newly diagnosed Hemoglobin A1c less than 7 On an SGLT2 inhibitor Should be on a statin but this was held off during hospital stay due to his transaminitis. We will look to add this. Follow-up: Labs today Return to clinic in 2-4 weeks for close follow-up Would get LifeVest reports transitioned to us Requested out side images: Echo, CT scan sent to us History of Present Illness Montez Lynn is a 49-year-old male with a history of asthma, long-standing hypertension, active tobacco use, and newly diagnosed diabetes mellitus (HbA1c 6.5), who presented earlier this month with acute decompensated heart failure in the setting of a recent rhinovirus infection contracted from hiswife. He presents today to establish outpatient care and for follow up from his recent hospital stay. He was admitted to [facility] for day days with symptoms of productive cough, dyspnea, and wheezing, and was found to have significant biventricular dysfunction on echocardiography (EF 10%, moderate RV dilation with severe reduction in RVEF), cardiomegaly on chest X-ray, and laboratory evidence of systemic inflammation (CRP 36.6), mild leukocytosis, and elevated NT-proBNP (5370). Initial labs also revealed transaminitis (LFTs 300-400s), mild lactic acidosis (peak lactate 3.6), and a mildly elevated troponin I (0.05). He was hemodynamically stable but required ICU admission due to lab abnormalities and severe heart failure. During hospitalization, he was treated with IV milrinone, corticosteroids, and diuresed aggressively (net negative 15 lbs), with subsequent improvement in symptoms and hemodynamics. His antihypertensive regimen was transitioned to guideline-directed medical therapy for HFrEF (Entresto, metoprolol, spironolactone, Jardiance, and Bumex), with discontinuation of lisinopril and hydrochlorothiazide. He was also fitted with a LifeVest and counseled regarding the need for further evaluation, including cardiac MRI, for suspected viral myocarditis. Since discharge, he reports improved energy and activity tolerance, though he continues to experience a persistent cough and has noted only a slight decrease in weight (from 210 to 208 lbs). 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 He requested an urgent follow-up today(discharged only 2 days ago) due to feeling poorly last night, but his current blood pressure and symptoms are now improved. Rooming Questions: Shortness of breath? No Can you lay flat? Yes Any swelling? No Any chest pain? No Any skipped heart beats / palpitations? No Any passing out / syncope? No Any Dizziness? No If you have an ICD, has it shocked you? No Any possible side effects to meds? No Patient's Medications Current Medications CEFDINIR (OMNICEF) 300 MG CAPSULE 300 MG ORALLY TWICE A DAY FOR 10 DAYS Order Dose: -- DIAZEPAM (VALIUM) 2 MG TABLET Take one tablet by mouth 30 minutes prior to MRI; take second tablet if needed Order Dose: -- DICLOFENAC (VOLTAREN) 75 MG EC TABLET Take 75 mg by mouth 2 times daily. Order Dose: 75 mg FLUTICASONE PROPIONATE (FLONASE) 50 MCG/ACTUATION NASAL SPRAY [place] 1 [place] into nose daily. Order Dose: 1 [place] IBUPROFEN (MOTRIN) 200 MG TABLET Take 600 mg by mouth every 8 hours as needed. Order Dose: 600 mg METFORMIN (GLUCOPHAGE) 500 MG TABLET Take 500 mg by mouth 2 times daily (with meals). Order Dose: 500 mg METHOCARBAMOL (ROBAXIN) 750 MG TABLET Take 750 mg by mouth 3 times daily. Order Dose: 750 mg NICOTINE (NICODERM CQ) 21 MG/24 HR PATCH Apply 1 Patch to skin daily. Order Dose: 1 Patch Modified/Renewed Medications Modified Medication Previous Medication BUMETANIDE (BUMEX) 1 MG TABLET bumetanide (BUMEX) 1 mg tablet Take 1 Tablet (1 mg) by mouth daily. Take 1 mg by mouth daily. Order Dose: 1 mg Order Dose: 1 mg ENTRESTO 97-103 MG TABLET Entresto 97-103 mg Tablet Take 1 Tablet by mouth 2 times daily. Take 1 Tablet by mouth 2 times daily. Order Dose: 1 Tablet Order Dose: 1 Tablet JARDIANCE 10 MG TABLET TABLET Jardiance 10 mg Tablet tablet Take 1 Tablet by mouth daily. Take 10 mg by mouth daily. Order Dose: 10 mg Order Dose: 10 mg SPIRONOLACTONE (ALDACTONE) 25 MG TABLET spironolactone (ALDACTONE) 25 mg tablet Take 1 Tablet by mouth daily. Take 25 mg by mouth daily. Order Dose: 25 mg Order Dose: 25 mg Current Medications[1] Discontinued Medications METOPROLOL TARTRATE (LOPRESSOR) 25 MG TABLET Take 12.5 mg by mouth daily. Notes: -- Allergies[2] Problem List[3] Orders Placed This Encounter Procedures NT pro BNP today A1c Today CMP today HS Troponin-I, Outpatient 2D ECHO COMPLETE W/STRAIN/3D PRN CONTR/BUBBLE Past Medical History[4] Past Surgical History[5] Social History[6] Family History[7] Objective Vitals: 02/11/25 1501 BP: 118/82 Pulse: 52 Weight: 213 lb 3.2 oz (96.7 kg) Height: 5' 11 (1.803 m) Body mass index is 29.74 kg/m??. Physical Exam Physical Exam VITALS: P- 52, BP- 118/82 MEASUREMENTS: Weight- 213. GENERAL: Warm to touch. NECK: Neck veins are flat. CHEST: Lungs clear to auscultation. CARDIOVASCULAR: Normal S1, S2, regular rate and rhythm, normal S3, S4. ABDOMEN: Abdomen soft. EXTREMITIES: No leg edema. ICD-10-CM 1. Acute on chronic combined systolic and diastolic heart failure (CMS/HCC) I50.43 2. Chronic systolic dysfunction of right ventricle I51.89 3. Overweight (BMI 25.0-29.9) E66.3 4. Primary hypertension I10 5. LYN (obstructive sleep apnea) G47.33 6. Tobacco use Z72.0 7. Rhinovirus infection B34.8 Lab Results Component Value Date PROBNP 254 02/11/2025 Wt Readings from Last 3 Encounters: 02/11/25 213 lb 3.2 oz (96.7 kg) No results found for this or any previous visit from the past 360 days. Results LABS Labs performed today after appointment: High sensitivity troponin: NT proBNP 254 Hemoglobin A1c 6.2 Sodium 139, potassium 4.7, chloride 102, BUN 22, creatinine 1.67 (GFR 50), total bilirubin 0.3, AST35, ALT 98, albumin 4.5 Hemoglobin: 12 (02/05/2025) WBC: 11.7 (02/05/2025) Creatinine: 1.3 (02/05/2025) AST: 194 (02/05/2025) ALT: 304 (02/05/2025) Total bilirubin: 0.8 (02/05/2025) Alkaline phosphatase: 61 (02/05/2025) Troponin I: 0.05 (02/05/2025) CRP: 36.6 (02/05/2025) AntiproBNP: 5370 (02/05/2025) Total protein: 7.3 (02/05/2025) Albumin: 4.3 (02/05/2025) Lipase: 73 (02/05/2025) VBG: pH 7.36, PCO2 45.3, Bicarb 24.8, PAO2 36.5 (02/05/2025) Lactic acid: 2.3 (02/05/2025) RADIOLOGY Chest x-ray: Findings consistent with heart failure with cardiomegaly and pulmonary edema per report (02/05/2025) Prescription medication review/management provided. I have personally reviewed his previous history, laboratory tests including electrolytes lipids renal function and complete blood count, as well as pertinent imaging studies such as echocardiograms. Orders Placed This Encounter Procedures CXR today - PA/LAT NT pro BNP today A1c Today CMP today HS Troponin-I, Outpatient Sleep Medicine Referral (Internal) 2D ECHO COMPLETE W/STRAIN/3D PRN CONTR/BUBBLE Return in about 4 weeks (around 03/11/2025) for In-Person Visit. Mary Blackburn MD Advanced Heart Failure & Cardiac Transplant [facility] The patient/family provided verbal consent to the use of ambient listening technology/audio recording during this visit. I reviewed/edited the note before signing. Total time spent 65 minutes New 60-[address] [facility] [id number] [1] Current Outpatient Medications: bumetanide (BUMEX) 1 mg tablet, Take 1 Tablet (1 mg) by mouth daily., Disp: 90 Tablet, Rfl: 1 Cefdinir (OMNICEF) 300 mg capsule, 300 MG ORALLY TWICE A DAY FOR 10 DAYS, Disp: , Rfl: diazePAM (VALIUM) 2 mg tablet, Take one tablet by mouth 30 minutes prior to MRI; take second tabletif needed, Disp: , Rfl: diclofenac (VOLTAREN) 75 mg EC tablet, Take 75 mg by mouth 2 times daily. (Patient not taking: Reported on 02/11/2025), Disp: , Rfl: Entresto 97-103 mg Tablet, Take 1 Tablet by mouth 2 times daily., Disp: 90 Tablet, Rfl: 3 fluticasone propionate (FLONASE) 50 mcg/actuation nasal spray, [place] 1 [place] into nose daily. (Patient not taking: Reported on 02/11/2025), Disp: , Rfl: ibuprofen (MOTRIN) 200 mg tablet, Take 600 mg by mouth every 8 hours as needed. (Patient not taking: Reported on 02/11/2025), Disp: , Rfl: Jardiance 10 mg Tablet tablet, Take 1 Tablet by mouth daily., Disp: 90 Tablet, Rfl: 1 metFORMIN (GLUCOPHAGE) 500 mg tablet, Take 500 mg by mouth 2 times daily (with meals). (Patient nottaking: Reported on 02/11/2025), Disp: , Rfl: methocarbamoL (ROBAXIN) 750 mg tablet, Take 750 mg by mouth 3 times daily. (Patient not taking: Reported on 02/11/2025), Disp: , Rfl: nicotine (NICODERM CQ) 21 mg/24 hr patch, Apply 1 Patch to skin daily. (Patient not taking: Reported on 02/11/2025), Disp: , Rfl: spironolactone (ALDACTONE) 25 mg tablet, Take 1 Tablet by mouth daily., Disp: 90 Tablet, Rfl: 1 [2] Allergies Allergen Reactions House Dust Mold Pollen Extracts [3] Patient Active Problem List Diagnosis Chronic systolic heart failure (CMS/HCC) Acute on chronic combined systolic and diastolic heart failure (CMS/HCC) Overweight (BMI 25.0-29.9) Primary hypertension LYN (obstructive sleep apnea) Chronic systolic dysfunction of right ventricle Tobacco use Rhinovirus infection [4] No past medical history on file. [5] No past surgical history on file. [6] Social History Tobacco Use Smoking status: Never Passive exposure: Never Smokeless tobacco: Current Substance Use Topics Alcohol use: Not Currently Drug use: Not Currently [7] No family history on file. documented in this encounter Plan of Treatment Upcoming Encounters Date Type Department Care Team (Late st Contact Info) Description 04/08/2025 11:10 AM EST Appointment [facility] Heart Failure [address] [place] [address] Medical Office Building [address] [place] [phone] Mary Blackburn MD [facility]. [address] [place] [address] Scheduled Orders Name Type Priority Associated Diagnoses Orde r Schedule DIAG-CHEST PA & LATERAL Imaging Routine Acute on chronic combined systolic and diastolic heart failure (CMS/HCC) Expected: 02/11/2025, Expires: 02/11/2026 Scheduled Referrals Name Type Priority Associated Diagnoses Orde r Schedule AMB REFERRAL TO SLEEP MEDICINE CONSULT Outpatient Referral Routine Acute on chronic combined systolic and diastolic heart failure (CMS/HCC) Overweight (BMI 25.0-29.9) LYN (obstructive sleep apnea) Ordered: 02/11/2025 documented as of this encounter Results * (ABNORMAL) 2D ECHO COMPLETE W/STRAIN/3D PRN CONTR/BUBBLE (02/24/2025 4:35 PM EST) Mitral Valve Regurgitation trivial [facility] Tricuspid Regurgitation trivial [facility] EXTERNAL [facility] EF 29(LL) 50 - 72 percent [facility] EXTERNAL [facility] Anatomical Region Laterality Modality Intravascular Ul trasound 02/24/2025 2:40 PM EST Narrative 02/24/2025 4:[address] [facility] Echocardiography Lab [address] [place] [address] Transthoracic Echocardiogram Patient: Montez Lynn Gender: Jassi MR #: [id number] Age: 49 Account: [id number] : 1975 Study Date: 02/24/2025 Room: BP: 101 / 64 Referring Physician: Mary Blackburn Interpreting Physician: Nilo Villagomez PERFORMING Nilo Villagomez GRAIN RECEIVER Hue Villagomez REFERRING Mary Blackburn ORDERING Mary Blackburn Procedure:2D ECHO COMPLETE W/STRAIN/3D PRN Order: Accession CONTR/BUBBLE Number:[id number] Facility: [facility] Indications: CHF, Unspecified (I509). PMH: Congestive heart failure. Obstructive sleep apnea. Risk factors: The patient is a current tobacco user. Hypertension. Study data: Study status: Routine. Procedure: A transthoracic echocardiogram was performed. Image quality was adequate. Scanning was performed from the parasternal, apical, subcostal, and suprasternal notch acoustic windows. Agitated saline was administered to identify shunting. 3D imaging was utilized for left ventricular quantification.Myocardial strain analysis was utilized for left ventricular quantification. Transthoracic echocardiogram. M-mode, complete 2D, 3D, complete spectral Doppler, Color Flow Doppler, and myocardial strain imaging. Age: Patient is 49year(s) old. Sex: gender: male. Body mass index: BMI: 29.7kg/m^2. Patient status: Outpatient. Study date: Study date: 02/24/2025. Study time: 02:40 PM. Location: Echo laboratory. Study Conclusions - Left ventricle: The cavity is dilated. Wall thickness is normal. LV systolic function is severely reduced. The estimated ejection fraction is 29%, by biplane method of disks. There is severe diffuse LV hypokinesis. Doppler parameters are consistent with abnormal left ventricular relaxation (grade 1 diastolic dysfunction). The ejection fraction by Hernández's biplane is 29%. The LVOT stroke index is 24ml/m^2. - Aortic valve: The peak systolic gradient is 8mm Hg. - Atrial septum: The septum bows from left to right, consistent with increased left atrial pressure. Agitated saline shows no [id number] atrial level shunt. - Inferior vena cava: The IVC is normal-sized. Respirophasic diameter changes are in the normal range (>= 50%), consistent with normal central venous pressure. Cardiac Anatomy Left ventricle: The cavity is dilated. Wall thickness is normal. The end-diastolic septal thickness is 0.6cm. The end-diastolic dimension is 7.7cm. The end-diastolic posterior wall thickness is 0.7cm. The end-diastolic relative thickness (SMM) is 0.17. The wall mass is 226g. The wall mass index is 104g/m^2. The chordal end-systolic diameter is 7.0cm. The end-systolic diameter index at the chordal level is 3.2cm/m^2. The fractional shortening at the chordal level is 9%. The stroke volume index is 39ml/m^2. The ejection fraction by Hernández's biplane is 29%. The lateral e' velocity is 9.3cm/sec. The lateral E/e' ratio is 5. The medial e' velocity is 4.9cm/sec. The medial E/e' ratio is 9. The average of medial and lateral annular e' velocities is 7.1cm/sec. The average E/e' ratio is 7. The LVOT diameter during systole is 2.1cm. The LVOT endocardial area is 3.5cm^2. The LVOT peak systolic velocity is 0.93m/sec. The LVOT mean systolic velocity is 0.93m/sec. The LVOT systolic velocity-time integral is 14.7cm. The LVOT peak systolic gradient is 3mm Hg. The LVOT mean systolic gradient is 2mm Hg. The LVOT stroke index is 24ml/m^2. LV systolic function is severely reduced. The estimated ejection fraction is 29%, by biplane method of disks. There is severe diffuse LV hypokinesis. Doppler parameters are consistent with abnormal left ventricular relaxation (grade 1 diastolic dysfunction). Aortic valve: - The valve is structurally normal. Cusp separation is normal. Velocity is within the normal range. There is no stenosis. There is no significant regurgitation. The peak systolic velocity is 1.4m/sec. The peak systolic gradient is 8mm Hg. The ratio of LVOT to aortic valve peak velocity is 0.68. The valve area by the peak velocity method is 2.3cm^2. The valve area index by the peak velocity method is 1.08cm^2/m^2. Aorta: The end-diastolic aortic root diameter is 3.2cm. The ascending aorta A-P systolic diameter is 2.7cm. The ascending aorta A-P systolic diameter indexed to bsa is 1.2cm/m^2. Aortic root: The root is not dilated. Mitral valve: - The valve is structurally normal. Leaflet separation is normal. Inflow velocity is within the normal range. There is no stenosis. There is trivial regurgitation. The peak E-wave velocity is 0.46m/sec. The peak A-wave velocity is 0.55m/sec. The deceleration time is 201ms. Left atrium: The atrium is normal in size. The volume is 59ml. The volume index is 27ml/m^2. Atrial septum: The septum bows from left to right, consistent with increased left atrial pressure. Agitated saline shows no mzdrs-jk-[id number] atrial level shunt. Right ventricle: - The cavity size is normal. Wall thickness is normal. Systolic function is normal. The tricuspid annular plane systolic excursion is 1.1cm. The basal end-diastolic minor axis dimension (A4C) is 3.7cm. The mid-ventricular end-diastolic minor axis dimension (A4C) is 2.7cm. The RV s' is 8.4cm/sec. Pulmonic valve: - The valve is structurally normal. The peak systolic velocity is 0.8m/sec. Pulmonary arteries: Not well visualized. Tricuspid valve: - The valve is structurally normal. Leaflet separation is normal. Inflow velocity is within the normal range. There is no stenosis. There is trivial regurgitation. Right atrium: The atrium is normal in size. The volume at ventricular end-systole is 29.2ml. The end-systolic volume index is 13ml/m^2. Pericardium: - The pericardium is normal in appearance. There is no pericardial effusion. . Systemic veins: Inferior vena cava: The IVC is normal-sized. Respirophasic diameter changes are in the normal range (>= 50%), consistent with normal central venous pressure. The proximal internal diameter during inspiration is 0.6cm. The proximal internal diameter during expiration is 1.4cm. The respirophasic change in diameter is 59.8%. Measurements Left ventricle Value Ref ESD, LAX chord (H) 7.0 cm 2.5 - 4.0 ESD/bsa, LAX chord (H) 3.2 cm/m^2 1.3 - 2.1 FS, LAX chord (L) 9 % 25 - 43 SV/bsa, 1-p A4C 39 ml/m^2 EF, 2-p (L) 29 % 52 - 72 IVS, ED, MM on 2D (N) 0.6 cm 0.6 - 1.0 LILY, MM on 2D (H) 7.7 cm 4.2 - 5.8 PW, ED, MM on 2D (N) 0.7 cm 0.6 - 1.0 RWT, ED SMM (L) 0.17 0.24 - 0.42 Mass, MM on 2D (H) 226 g 88 - 224 Mass/bsa, MM on 2D (N) 104 g/m^2 49 - 115 e', lateral, TDI (L) 9.3 cm/sec >=10.0 E/e', lateral, TDI (N) 5 <=13 e', medial, TDI (L) 4.9 cm/sec >=7.0 E/e', med sae, TDI 9 e', avg, TDI 7.1 cm/sec E/e', avg, TDI (N) 7 <=14 LVOT Value Ref Diam, S 2.1 cm Area 3.5 cm^2 Peak annamarie, S 0.93 m/sec Mean annamarie, S 0.93 m/sec VTI, S 14.7 cm Peak grad, S 3 mm Hg Mean grad, S 2 mm Hg SV/bsa 24 ml/m^2 Right ventricle Value Ref LILY minor ax, A4C base (N) 3.7 cm 2.5 - 4.1 LILY minor ax, A4C mid (N) 2.7 cm 1.9 - 3.5 TAPSE, MM (L) 1.1 cm >=1.7 s', lateral (L) 8.4 cm/sec >=9.5 Left atrium Value Ref Vol, S (H) 59 ml 18 - 58 Vol/bsa, S (N) 27 ml/m^2 16 - 34 Right atrium Value Ref Vol, ES, A/L 29.2 ml Vol/bsa, ES, A/L (N) 13 ml/m^2 11 - 39 Aortic valve Value Ref Peak v, S (N) 1.4 m/sec <=2.5 Peak grad, S 8 mm Hg LVOT/AV, Vpeak ratio 0.68 ILENE, Vmax 2.3 cm^2 ILENE/bsa, Vmax 1.08 cm^2/m^2 Mitral valve Value Ref Peak E 0.46 m/sec Peak A 0.55 m/sec Decel time 201 ms Pulmonic valve Value Ref Peak v, S 0.8 m/sec Aortic root Value Ref Root diam, ED (N) 3.2 cm 2.8 - 4.3 Ascending aorta Value Ref AAo AP diam, S 2.7 cm AAo AP diam/bsa, S 1.2 cm/m^2 Inferior vena cava Value Ref Prox diam, insp (N) 0.6 cm <=2.1 Prox diam, exp 1.4 cm Collapse 59.8 % Legend: (L) and (H) dorothy values outside specified reference range. (N) child values inside specified reference range. Reviewed and confirmed by Nilo Villagomez [id number] Procedure Note Nilo Villagomez MD - 02/24/[address] [facility] Echocardiography [facility] [address] [place] [id number] Transthoracic Echocardiogram Patient: Montez Lynn Gender: Jassi MR #: [id number] Age: 49 Account: [id number] : 1975 Study Date: 02/24/2025 Room: BP: 101 / 64 Referring Physician: Mary Blackburn Interpreting Physician: Nilo Villagomez PERFORMING Nilo Villagomez GRAIN RECEIVER Hue Villagomez, Mary Blackburn, Mary Procedure:2D ECHO COMPLETE W/STRAIN/3D PRN Order: Accession CONTR/BUBBLE Number:[id number] Facility: [facility] Indications: CHF, Unspecified (I509). PMH: Congestive heart failure. Obstructive sleep apnea. Risk factors: The patient is a current tobacco user. Hypertension. Study data: Study status: Routine. Procedure: A transthoracic echocardiogram was performed. Image quality was adequate. Scanning was performed from the parasternal, apical, subcostal, and suprasternalnotch acoustic windows. Agitated saline was administered to identify shunting.3D imaging was utilized for left ventricular quantification.Myocardialstrain analysis was utilized for left ventricular quantification. Transthoracic echocardiogram. M-mode, complete 2D, 3D, completespectral Doppler, Color Flow Doppler, and myocardial strain imaging. Age:Patient is 49year(s) old. Sex: gender: male. Body mass index: BMI: 29.7kg/m^2. Patient status: Outpatient. Study date: Study date: 02/24/2025. Study time: 02:40 PM. Location: Echo laboratory. Study Conclusions - Left ventricle: The cavity is dilated. Wall thickness is normal. LV systolic function is severely reduced. The estimated ejection fractionis 29%, by biplane method of disks. There is severe diffuse LVhypokinesis. Doppler parameters are consistent with abnormal left ventricular relaxation (grade 1 diastolic dysfunction). The ejection fraction by Hernández's biplane is 29%. The LVOT stroke index is 24ml/m^2. - Aortic valve: The peak systolic gradient is 8mm Hg. - Atrial septum: The septum bows from left to right, consistent with increased left atrial pressure. Agitated saline shows no rqsep-[id number]-cdyb atrial level shunt. - Inferior vena cava: The IVC is normal-sized. Respirophasic diameter changes are in the normal range (>= 50%), consistent with normalcentral venous pressure. Cardiac Anatomy Left ventricle: The cavity is dilated. Wall thickness is normal. The end-diastolic septal thickness is 0.6cm. The end-diastolic dimension is 7.7cm. The end-diastolic posterior wall thickness is 0.7cm. The end-diastolic relative thickness (SMM) is 0.17. The wall mass is 226g.The wall mass index is 104g/m^2. The chordal end-systolic diameter is 7.0cm.The end-systolic diameter index at the chordal level is 3.2cm/m^2. The fractional shortening at the chordal level is 9%. The stroke volume indexis 39ml/m^2. The ejection fraction by Hernández's biplane is 29%. The laterale' velocity is 9.3cm/sec. The lateral E/e' ratio is 5. The medial e'velocity is 4.9cm/sec. The medial E/e' ratio is 9. The average of medial andlateral annular e' velocities is 7.1cm/sec. The average E/e' ratio is 7. TheLVOT diameter during systole is 2.1cm. The LVOT endocardial area is 3.5cm^2.The LVOT peak systolic velocity is 0.93m/sec. The LVOT mean systolic velocityis 0.93m/sec. The LVOT systolic velocity-time integral is 14.7cm. The LVOTpeak systolic gradient is 3mm Hg. The LVOT mean systolic gradient is 2mm Hg.The LVOT stroke index is 24ml/m^2. LV systolic function is severely reduced.The estimated ejection fraction is 29%, by biplane method of disks. There is severe diffuse LV hypokinesis. Doppler parameters are consistent with abnormal left ventricular relaxation (grade 1 diastolic dysfunction). Aortic valve: - The valve is structurally normal. Cusp separation is normal. Velocityis within the normal range. There is no stenosis. There is no significant regurgitation. The peak systolic velocity is 1.4m/sec. The peaksystolic gradient is 8mm Hg. The ratio of LVOT to aortic valve peak velocity is 0.68. The valve area by the peak velocity method is 2.3cm^2. The valve area index by the peak velocity method is 1.08cm^2/m^2. Aorta: The end-diastolic aortic root diameter is 3.2cm. The ascending aorta A-P systolic diameter is 2.7cm. The ascending aorta A-P systolic diameter indexed to bsa is 1.2cm/m^2. Aortic root: The root is not dilated. Mitral valve: - The valve is structurally normal. Leaflet separation is normal. Inflow velocity is within the normal range. There is no stenosis. There is trivial regurgitation. The peak E-wave velocity is 0.46m/sec. The peak A-wave velocity is 0.55m/sec. The deceleration time is 201ms. Left atrium: The atrium is normal in size. The volume is 59ml. Thevolume index is 27ml/m^2. Atrial septum: The septum bows from left to right, consistent with increased left atrial pressure. Agitated saline shows no [id number] atrial level shunt. Right ventricle: - The cavity size is normal. Wall thickness is normal. Systolic functionis normal. The tricuspid annular plane systolic excursion is 1.1cm. Thebasal end-diastolic minor axis dimension (A4C) is 3.7cm. The mid-ventricular end-diastolic minor axis dimension (A4C) is 2.7cm. The RV s' is8.4cm/sec. Pulmonic valve: - The valve is structurally normal. The peak systolic velocity is0.8m/sec. Pulmonary arteries: Not well visualized. Tricuspid valve: - The valve is structurally normal. Leaflet separation is normal. Inflow velocity is within the normal range. There is no stenosis. There is trivial regurgitation. Right atrium: The atrium is normal in size. The volume at ventricular end-systole is 29.2ml. The end-systolic volume index is 13ml/m^2. Pericardium: - The pericardium is normal in appearance. There is no pericardial effusion. . Systemic veins: Inferior vena cava: The IVC is normal-sized. Respirophasic diameterchanges are in the normal range (>= 50%), consistent with normal central venous pressure. The proximal internal diameter during inspiration is 0.6cm.The proximal internal diameter during expiration is 1.4cm. The respirophasic change in diameter is 59.8%. Measurements Left ventricle Value Ref ESD, LAX chord (H) 7.0 cm 2.5 - 4.0 ESD/bsa, LAX chord (H) 3.2 cm/m^2 1.3 - 2.1 FS, LAX chord (L) 9 % 25 - 43 SV/bsa, 1-p A4C 39 ml/m^2 EF, 2-p (L) 29 % 52 - 72 IVS, ED, MM on 2D (N) 0.6 cm 0.6 - 1.0 LILY, MM on 2D (H) 7.7 cm 4.2 - 5.8 PW, ED, MM on 2D (N) 0.7 cm 0.6 - 1.0 RWT, ED SMM (L) 0.17 0.24 - 0.42 Mass, MM on 2D (H) 226 g 88 - 224 Mass/bsa, MM on 2D (N) 104 g/m^2 49 - 115 e', lateral, TDI (L) 9.3 cm/sec >=10.0 E/e', lateral, TDI (N) 5 <=13 e', medial, TDI (L) 4.9 cm/sec >=7.0 E/e', med sae, TDI 9 e', avg, TDI 7.1 cm/sec E/e', avg, TDI (N) 7 <=14 LVOT Value Ref Diam, S 2.1 cm Area 3.5 cm^2 Peak annamarie, S 0.93 m/sec Mean annmaarie, S 0.93 m/sec VTI, S 14.7 cm Peak grad, S 3 mm Hg Mean grad, S 2 mm Hg SV/bsa 24 ml/m^2 Right ventricle Value Ref LILY minor ax, A4C base (N) 3.7 cm 2.5 - 4.1 LILY minor ax, A4C mid (N) 2.7 cm 1.9 - 3.5 TAPSE, MM (L) 1.1 cm >=1.7 s', lateral (L) 8.4 cm/sec >=9.5 Left atrium Value Ref Vol, S (H) 59 ml 18 - 58 Vol/bsa, S (N) 27 ml/m^2 16 - 34 Right atrium Value Ref Vol, ES, A/L 29.2 ml Vol/bsa, ES, A/L (N) 13 ml/m^2 11 - 39 Aortic valve Value Ref Peak v, S (N) 1.4 m/sec <=2.5 Peak grad, S 8 mm Hg LVOT/AV, Vpeak ratio 0.68 ILENE, Vmax 2.3 cm^2 ILENE/bsa, Vmax 1.08 cm^2/m^2 Mitral valve Value Ref Peak E 0.46 m/sec Peak A 0.55 m/sec Decel time 201 ms Pulmonic valve Value Ref Peak v, S 0.8 m/sec Aortic root Value Ref Root diam, ED (N) 3.2 cm 2.8 - 4.3 Ascending aorta Value Ref AAo AP diam, S 2.7 cm AAo AP diam/bsa, S 1.2 cm/m^2 Inferior vena cava Value Ref Prox diam, insp (N) 0.6 cm <=2.1 Prox diam, exp 1.4 cm Collapse 59.8 % Legend: (L) and (H) dorothy values outside specified reference range. (N) child values inside specified reference range. Reviewed and confirmed by Nilo Villagomez [id number] us Mary Blackburn MD CARDNT ECHO ORDERABLES Final Result * (ABNORMAL) HS TROPONIN-I, OUTPATIENT (02/11/2025 4:28 PM EST) Pathologist [facility] HS-Troponin I, Outpatient 94(HH) 0 - 35 ng/L [facility] Comment: The critical result was called to and read back by Torrie Arzate TENDER COORDINATOR Please refer to the High Sensitivity Troponin protocol. Gender-specific 99th percentile cutoff values are as follows: males 0-35 ng/L and females 0-17 ng/L. The critical value range in the outpatient setting is any result > or = 64 ng/L. Elevated hsTnI can be seen in a variety of settings including cardiac conditions such as heart failure and refractory angina among others. Warning: Different methods give potentially significantly different numerical values. Do NOT compare TnI values reported in ng/mL to hsTnI values reported in ng/L. Plasma 02/11/2025 4:28 PM EST 02/11/2025 5:50 PM EST us Mary Blackburn MD CHEMISTRY ORDERABLES Final R esult [facility] [address] * (ABNORMAL) COMPREHENSIVE METABOLIC PANEL (02/11/2025 4:28 PM EST) Pathologist [facility] Sodium 139 135 - 146 mmol/L [facility] Potassium 4.7 3.5 - 5.1 mmol/L [facility] Chloride 102 98 - 110 mmol/L [facility] CO2 26 22 - 29 mmol/L [facility] Anion Gap 11 5 - 13 mmol/L [facility] Comment:Anion gap calculatio n does not include potassium (K+) value. BUN 22 7 - 25 mg/dL [facility] Creatinine 1.67(H) 0.50 - 1.30 mg/dL [facility] Glucose 103(H) 71 - 99 mg/dL [facility] Comment:Reference range (71- 99 mg/dL) refers only to fasting samples, and does not apply to non-fasting samples. eGFR CKD-EPI 2020 50 See Note [facility] Comment: eGFR calculated with 2020 CKD-EPI equation using creatinine, patient's age and gender. Other factors, especially muscle mass, may affect accuracy and need to be considered. Patient values should be interpreted as a trend. The reference interval is >60 mL/min/1.73m2. Calcium 9.5 8.5 - 10.5 mg/dL [facility] Total Bilirubin 0.3 0.2 - 1.2 mg/dL [facility] AST 35 0 - 40 U/L [facility] ALT 98(H) 0 - 60 U/L [facility] Alkaline Phosphatase 46 33 - 140 U/L [facility] Total Protein 7.8 6.0 - 8.0 g/dL [facility] Albumin 4.5 3.5 - 5.0 g/dL [facility] Globulin 3.3 2.0 - 3.7 g/dL [facility] Albumin/Globulin Ratio 1.4 1.0 - 2.1 [facility] BUN/Creatinine Ratio 13 [facility] Serum (Serum) 02/11/2025 4:2 8 PM EST 02/11/2025 5:46 PM EST us Mary Blackburn MD CHEMISTRY ORDERABLES Final R esult [facility] [address] * (ABNORMAL) HGB, A1C (GLYCOHEMOGLOBIN) (02/11/2025 4:28 PM EST) Hgb A1C 6.2(H) 4.0 - 5.6 % [facility] Comment: Reference Ranges for Hgb A1c: Increased risk for diabetes: 5.7-6.4% Probable diabetes: >=6.5% Desired control for previously diagnosed diabetics: <7.0% Many conditions can affect the Hgb A1c value including hemolysis, recent transfusion, hemoglobin variants, thalassemias, severe chronic hepatic and renal disease and iron deficiency among others. Please note that results from this assay are invalid for patients with abnormal amounts of Hemoglobin (HbF). Results must be interpreted in the proper clinical context. This method is certified by the National Glycohemoglobin Standardization program (NGSP) and traceable to [facility]. Estimated Average Glucose 131(H) 68 - 114 mg/dL [facility] Whole Blood 02/11/2025 4:28 PM EST 02/11/2025 5:42 PM EST us Mary Blackburn MD CHEMISTRY ORDERABLES Final R esult Performing Organization Address [facility] Co de Phone Number [facility] [address] * NT PRO BNP (02/11/2025 4:28 PM EST) Pro BNP 254 0 - 299 pg/mL [facility] Comment: The reference ranges are for acute CHF diagnosis only: Rule out cutpoint----<300 pg/mL Rule in cutpoint ----->450 pg/mL (<50 years old) >900 pg/mL (>50 years old) Plasma 02/11/2025 4:28 PM EST 02/11/2025 5:50 PM EST us Mary Blackburn MD CHEMISTRY ORDERABLES Final R esult Performing Organization Address [facility] de Phone Number [facility] [address] documented in this encounter Visit Diagnoses Diagnosis Acute on chronic combined systolic and diastolic heart failure (CMS/HCC)- Primary Acute on chronic combined systolic and diastolic heart failure Chronic systolic dysfunction of right ventricle Overweight (BMI 25.0-29.9) Overweight Primary hypertension Unspecified essential hypertension LYN (obstructive sleep apnea) Obstructive sleep apnea (adult) (pediatric) Tobacco use Tobacco use disorder Rhinovirus infection Rhinovirus infection in conditions classified elsewhere and of unspecified site Acute on chronic combined systolic and diastolic heart failure (CMS/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
--- OUTSIDE RECORDS SUMMARY | 2025-02-11 16:18 | XMS_ITS | Encounter Summary ---
Author Organization [facility] Address [address] [place] [address] Care Team Providers Care Pressure Steamer Tender Name Role Phone Duke Monterroso MD Primary Care Provider [phone] Encounter Details Date Type Department Care Team (Latest Contact Info) Description 02/11/2025 4:18 PM EST - 02/11/2025 11:59 PM EST Hospital Encounter Laboratory [address] [place] [address] [address] [place] [address] Chronic systolic heart failure (CMS/HCC) Discharge Disposition: Home or Self Care Social History Tobacco Use Types Packs/Day Years Used Date Smoking Tobacco: Never Passive Smoke Exposure: Never Smokeless Tobacco: Current Alcohol Use Standard Drinks/Week Comments Not Currently 0 (1 standard drink = 0.6 oz pur e alcohol) Sex and Gender Information Value Date Recorded Sex Assigned at Not on file Legal Sex Male 7:08 PM EST Gender Identity Not on file Sexual Orientation Not on file documented as of this encounter Medications at Time of Discharge azelastine (ASTELIN) 137 mcg (0.1 %) Shirley, Non-Aerosol SPRAY ONE SPRAY NASALLY TWICE DAILY 10/13/2024 bumetanide (BUMEX) 1 mg tabletIndications :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 90 Tablet 1 02/11/2025 Cefdinir (OMNICEF) 300 mg capsule 300 MG ORALLY TWICE A DAY FOR 10 DAYS 12/27/2024 diazePAM (VALIUM) 2 mg tablet Take one tablet by mouth 30 minutes prior to MRI; take second tablet if needed 01/22/2025 diclofenac (VOLTAREN) 75 mg EC tablet Take 75 mg by mouth 2 times daily. 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 90 Tablet 3 02/11/2025 fluticasone propionate (FLONASE) 50 mcg/actuation nasal spray Shirley 1 Shirley into nose daily. 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 90 Tablet 1 02/11/2025 methocarbamoL (ROBAXIN) 750 mg tablet Take 750 mg by mouth 3 times daily. 12/07/2024 nicotine (NICODERM CQ) 21 mg/24 hr patch Apply 1 Patch to skin daily. 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 90 Tablet 1 02/11/2025 ibuprofen (MOTRIN) 200 mg tablet Take 600 mg by mouth every 8 hours as needed. 02/25/2025 metFORMIN (GLUCOPHAGE) 500 mg tablet Take 500 mg by mouth 2 times daily (with meals). 02/09/2025 02/25/2025 documented as of this encounter Plan of Treatment Upcoming Encounters Date Type Department Care Team (Late st Contact Info) Description 04/08/2025 11:10 AM EST Appointment [facility] - [facility] Heart Failure [address] [place] [address] Medical Office Building [address] [place] [address] Mary Blackburn MD [address] [place] [address] [address] [place] [address] documented as of this encounter Procedures Procedure Name Priority Date/Time Associated Diagnosis Comments HS TROPONIN-I, OUTPATIENT Routine 02/11/2025 4:28 PM EST Chronic systolic heart failure (CMS/HCC) NT PRO BNP Routine 02/11/2025 4:28 PM EST Chronic systolic heart failure (CMS/HCC) HGB, A1C (GLYCOHEMOGLOBIN) Routine 02/11/2025 4:28 PM EST Chronic systolic heart failure (CMS/HCC) COMPREHENSIVE METABOLIC PANEL Routine 02/11/2025 4:28 PM EST Chronic systolic heart failure (CMS/HCC) documented in this encounter Results * (ABNORMAL) HS TROPONIN-I, OUTPATIENT (02/11/2025 4:28 PM EST) HS-Troponin I, Outpatient 94(HH) 0 - 35 ng/L [facility] Comment: The critical result was called to and read back by Torrie Arzate TABLEAU ADMINISTRATOR Please refer to the High Sensitivity Troponin [...] Blackburn MD CHEMISTRY ORDERABLES Final R esult [facility] [address] * (ABNORMAL) COMPREHENSIVE METABOLIC PANEL (02/11/2025 4:28 PM EST) Sodium 139 135 - 146 mmol/L [facility] Potassium 4.7 3.5 - 5.1 mmol/L [facility] Chloride 102 98 - 110 mmol/L [facility] CO2 26 22 - 29 mmol/L [facility] Anion Gap 11 5 - 13 mmol/L [facility] Comment:Anion gap calculatio n does not include potassium (K+) value. BUN 22 7 - 25 mg/dL [facility] Creatinine 1.67(H) 0.50 - 1.30 mg/dL [facility] Glucose 103(H) 71 - 99 mg/dL [facility] [facility] Comment:Reference range (71- 99 mg/dL) refers only to fasting samples, and does not apply to non-fasting samples. eGFR CKD-EPI 2020 50 See Note [facility] Comment: eGFR calculated with 2020 [...] Alkaline Phosphatase 46 33 - 140 U/L [facility] [facility] Total Protein 7.8 6.0 - 8.0 g/dL [facility] Albumin 4.5 3.5 - 5.0 g/dL [facility] Globulin 3.3 2.0 - 3.7 g/dL [facility] Albumin/Globulin Ratio 1.4 1.0 - 2.1 [facility] [facility] BUN/Creatinine Ratio 13 [facility] [facility] Serum (Serum) 02/11/2025 4:2 8 PM EST 02/11/2025 5:46 PM EST us Mray Blackburn MD CHEMISTRY ORDERABLES Final R esult [facility] [facility] [address] * (ABNORMAL) HGB, A1C (GLYCOHEMOGLOBIN) (02/11/2025 4:28 PM EST) Hgb A1C 6.2(H) 4.0 - 5.6 % [facility] [facility] Comment: Reference Ranges for Hgb [...] Glycohemoglobin Standardization program (NGSP) and traceable to [facility]. Estimated Average Glucose 131(H) 68 - 114 mg/dL [facility] [facility] Whole Blood 02/11/2025 4:28 PM EST 02/11/2025 5:42 PM EST us Mary Blackburn MD CHEMISTRY ORDERABLES Final R esult Performing Organization Address [facility] de Phone Number [facility] [facility] [address] * NT PRO BNP (02/11/2025 4:28 PM EST) [facility] Signature Pro BNP 254 0 - 299 pg/mL [facility] [facility] Comment: The reference ranges are for acute CHF diagnosis only: Rule out cutpoint----<300 pg/mL Rule in cutpoint ----->450 pg/mL (<50 years old) >900 pg/mL (>50 years old) Plasma 02/11/2025 4:28 PM EST 02/11/2025 5:50 PM EST Mary Blackburn MD CHEMISTRY ORDERABLES Final R esult Performing Organization Address [facility] Co de Phone Number [facility] [address] documented in this encounter Visit Diagnoses Diagnosis Chronic systolic heart failure (CMS/HCC) Chronic systolic heart failure documented in this encounter Care Teams Pressure Steamer Tender Relationship Specialty Start Date End Date Duke Monterroso MD PCP - General Family Medicine 05/18/10 02/11/25 documented as of this encounter
--- OUTSIDE RECORDS SUMMARY | 2025-02-12 11:25 | XMS_ITS | Encounter Summary ---
Author Organization [facility] Address [address] [place] [address] Care Team Providers Care Echocardiographer Name Role Phone Echevarria Madison Primary Care Provider [phone] Reason for Visit * Reason Comments Chest Pain Encounter Details Date Type Department Care Team ([facility] st Contact Info) Description 02/12/2025 11:25 AM EST - 02/12/2025 4:10 PM EST Emergency [facility] Emergency Department - [facility] (Main) [address] [place] [id number] Bryanna Rosenthal MD [address] [place] [address]. [place] [address] Atypical chest pain (Primary Dx); Systolic heart [...] 12:11 PM EST documented in this encounter Functional Status * Respiratory Question Answer Date of Assessment Author Respiratory (WDL) WDL 02/12/2025 11:45 AM Breanne Ugarte RN * Reproductive Question Answer Date of Assessment Author Reproductive (WDL) WDL 02/12/2025 11:45 AM ES T Breanne Hernandez RN * Skin Color/Condition (WDL) Answer Date of Assessment Author X 02/12/2025 11:45 AM Remy Ugarte RN * Blood Products Refusal Question Answer Date of Assessment Author Do you have any episcopal, cultural, or personal beliefs that would prevent you from receiving blood or blood products? No 02/12/2025 11:17 AM Sabra Lion RN * Post Cardiac Arrest Targeted Temperature Management (TTM) Question Answer Date of Assessment Author Temp 98.6 02/12/2025 11:25 AM EST Anahi Mack * [place] Body Weight (kg) (auto-calculated) Answer Date of Assessment Author 75.3 02/12/2025 12:11 PM Remy Ugarte RN * Initial Fall Risk Screening (Cait Carvajal) Question Answer Date of Assessment Author Last Known Fall 0-No falls 02/12/2025 11:17 AM Sabra Lion RN Mobility 0-No limitations 02/12/2025 11:1 7 AM Sabra Lion RN Medications 1-Cardiovascular or central nervous system meds 02/12/2025 11:17 AM Sabra Lion RN Mental Status/LOC/Awareness 0-Awake, alert, and oriented to date, place, and person 02/12/2025 11:17 AM Sabra Lion RN Toileting Needs 0-No needs 02/12/2025 11:17 AM Sabra Lion RN Volume/Electrolyte Status 0-No problems 02/12/2025 11:17 AM Sabra Lion RN Communication/Sensory 0-No deficits 02/12/2025 11:17 AM Sabra Lion RN Behavior 0-Appropriate behavior 11:17 AM Sabra Lion RN Initial Fall Risk Total (Cait Carvajal) Low 02/12/2025 11:17 AM Sabra Lion RN * Acuity Question Answer Date of Assessment Author Patient Acuity 2-Emergent 02/12/2025 11:20 AM Sabra Childress RN * [place] Coma Scale Question Answer Date of Assessment Author Eye Opening 4 02/12/2025 11:45 AM Breanne Ugarte RN Best Motor Response 6 02/12/2025 11:45 AM Breanne Jeff RN Best Verbal Response 5 02/12/2025 11:45 AM Breanne Ugarte RN [place] Coma Scale Score 15 02/12/2025 11:45 AM Breanne Ugarte RN * Vitals Question Answer Date of Assessment Author Temp src Oral 02/12/2025 11:25 AM Anahi Glasgow * Skin Color/Integrity Question Answer Date of Assessment Author Skin Color Appropriate for race 02/12/2025 11:45 AM Breanne Ugarte RN Skin Condition/Temp Warm;Diaphoretic 02/12/2025 11:45 AM Breanne Ugarte RN Skin Integrity Intact Yes 02/12/2025 11:45 AM Breanne Ugarte RN * Height and Weight Question Answer Date of Assessment Author Height 71 02/12/2025 12:11 PM Breanne Ugarte RN Weight 3408 02/12/2025 12:11 PM Breanne Ugarte RN Height Method Stated 02/12/2025 12:11 PM Breanne Rojas RN * Safe in Home/Relationship Question Answer Date of Assessment Author Safe in Home Yes 02/12/2025 11:21 AM Sabra Stoll RN Safe in Relationship Yes 02/12/2025 11:21 AM Sabra Lion RN * Vitals Question Answer Date of Assessment Author BP 101/64 02/12/2025 3:55 PM Breanne Ugarte RN Pulse 83 02/12/2025 3:55 PM Breanne Ugarte RN Resp 20 02/12/2025 3:55 PM Breanne Ugarte RN SpO2 98 02/12/2025 3:55 PM Breanne Ugarte RN Patient Position Supine 02/12/2025 11:47 AM Breanne Ugarte RN * Acuity Main Score Question Answer Date of Assessment Author Acuity Main Score 49 02/12/2025 3:01 PM EST Epic, User * Fall Risk Question Answer Date of Assessment Author MANN Fall Risk (filed) 9.86 02/12/2025 4:[address] Epic, User Sew * Sepsis Screening Question Answer Date of Assessment Author Has the patient had an abnor mal temperature in the last 24h OR concern for infection? No 02/12/2025 12:11 PM Breanne Ugarte RN * Fall Risk Score (PA filed) Answer Date of Assessment Author Low 02/12/2025 4:01 PM EST Epic, Use r Sew * In order to keep everyone here safe I need to ask you: Question Answer Date of Assessment Author Do you have any concealed weapon(s)? (If yes, call Security) No 02/12/2025 11:21 AM Sabra Lion RN * ICU/ED Neuro Question Answer Date of Assessment Author Facial Droop Negative 02/12/2025 11:45 AM Breanne Ugarte RN Orientation Level WDL;Appropriate for age;Oriented X4 02/12/2025 11:45 AM Breanne Ugarte RN Cognition Appropriate judgement;Appropriate safety awareness;Follows commands 02/12/2025 11:45 AM Breanne Ugarte RN * Drug Calculation Weight Formula Row Answer Date of Assessment Author 1 02/12/2025 12:11 PM Remy Ugarte RN * Abdominal Question Answer Date of Assessment Author Gastrointestinal (WDL) WDL 02/12/2025 11:45 A M Breanne Ugarte RN * Cardiac Question Answer Date of Assessment Author Cardiac Assessment Chest Pain 02/12/2025 11:45 AM Breanne Martin RN Bedside Imcu Specialist On Yes 02/12/2025 11: 45 AM Breanne Ugarte RN Bedside Cardiac Audible Yes 02/12/2025 11:45 AM Breanne Ugarte RN Bedside Cardiac Alarms Set Yes 02/12/2025 11: 45 AM Breanne Ugarte RN Cardiac (WDL) X 02/12/2025 11:45 AM Breanne Rojas RN * Urinary Question Answer Date of Assessment Author Genitourinary (WDL) WDL 02/12/2025 11:45 AM Breanne Jeff RN * Cough Question Answer Date of Assessment Author Cough Present No 02/12/2025 11:45 AM Breanne Rojas RN * Suicide Risk Assessment (RN ONLY) - Daily For At Risk Patients Question Answer Date of Assessment Author 1. Have you wished you were or wished you could go to sleep and not wake up? No 02/12/2025 11:21 AM Sabra Lion RN 2. Have you actually had any thoughts of killing yourself? No 02/12/2025 11:21 AM Sabra Lomas RN 6. Have you ever done anythi ng, started to do anything, or prepared to do anything to end your life? No 02/12/2025 11:21 AM Sabra Lion RN documented as of this encounter Mental Status * Skin Color/Condition (WDL) Answer Entry Date Author X 02/12/2025 11:45 AM Remy Ugarte RN * Post Cardiac Arrest Targeted Temperature Management (TTM) Question Answer Entry Date Author Temp 98.6 02/12/2025 11:25 AM Anahi Glasgow * Initial Fall Risk Screening (Cait Carvajal) Question Answer Entry Date Author Initial Fall Risk Total (Nallely Smith) Low 02/12/2025 11:17 AM Sabra Lion RN * [place] Coma Scale Question Answer Entry Date Author Eye Opening 4 02/12/2025 11:45 AM Breanne Ugarte RN Best Motor Response 6 02/12/2025 11:45 AM Breanne Jeff RN Best Verbal Response 5 02/12/2025 11:45 AM Breanne Ugarte RN [place] Coma Scale Score 15 02/12/2025 11:45 AM Breanne Ugarte RN * Vitals Question Answer Entry Date Author Debo src Oral 02/12/2025 11:25 AM EST Anahi Mack * Skin Color/Integrity Question Answer Entry Date Author Skin Color Appropriate for race 02/12/2025 11:45 AM Breanne Ugarte RN Skin Condition/Temp Warm;Diaphoretic 02/12/2025 11:45 AM Breanne Ugarte RN Skin Integrity Intact Yes 02/12/2025 11:45 AM Breanne Ugarte RN * Vitals Question Answer Entry Date Author BP 101/64 02/12/2025 3:55 PM Breanne Ugarte RN Pulse 83 02/12/2025 3:55 PM Breanne Ugarte RN Resp 20 02/12/2025 3:55 PM Breanne Ugarte RN SpO2 98 02/12/2025 3:55 PM Breanne Ugarte RN Patient Position Supine 02/12/2025 11:47 AM Breanne Ugarte RN * Fall Risk Score (PA filed) Answer Entry Date Author Low 02/12/2025 4:01 PM EST Epic, Use r Sew * ICU/ED Neuro Question Answer Entry Date Author Facial Droop Negative 02/12/2025 11:45 AM Breanne Ugarte RN Orientation Level WDL;Appropriate for age;Oriented X4 02/12/2025 11:45 AM Breanne Ugarte RN Cognition Appropriate judgement;Appropriate safety awareness;Follows commands 02/12/2025 11:45 AM Breanne Ugarte RN * Suicide Risk Assessment (RN ONLY) - Daily For At Risk Patients Question Answer Entry Date Author 1. Have you wished you were or wished you could go to sleep and not wake up? No 02/12/2025 11:21 AM Sabra Lion , SYLVESTER 2. Have you actually had any thoughts of killing yourself? No 02/12/2025 11:21 AM EST Sabra Munoz, SYLVESTER 6. Have you ever done anythi ng, started to do anything, or prepared to do anything to end your life? No 02/12/2025 11:21 AM EST Sabra Burnett RN documented in this encounter Discharge Instructions * [...] Care Everywhere. * Nonspecific Chest Pain Adult Uhmz-mo-Iojw (Citizen [place]) * Heart Failure: How to Manage (Citizen [place]) * Heart Failure Action Plan (Citizen [place]) documented in this encounter Medications at Time of Discharge azelastine (ASTELIN) 137 mcg (0.1 %) Gove, Non-Aerosol SPRAY ONE SPRAY NASALLY TWICE DAILY [...] fluticasone propionate (FLONASE) 50 mcg/actuation nasal spray Gove 1 Gove into nose daily. 10/13/2024 Jardiance 10 mg [...] 02/09/2025 02/25/2025 documented as of this encounter ED Notes * Breanne Hernandez RN - 02/12/2025 4:03 PM EST Patient Education: Learner: Patient and Family/Other Motivation/Readiness to Learn: High Barriers to Learning: None Learning Preference: Verbal and Written Discharge instructions given. Patient and Family verbalizes understanding of instructions. No further questions. Carley Kimble discharged to home per ambulation Patient identification [...] for pacemaker and recommends extra batteries and scrap charger for lifevest. Pt is working on getting someone to bring items to this ED. * Bryanna Rosenthal MD - 02/12/2025 11:41 AM EST Images from the original note were not included. CHIEF COMPLAINT Chief Complaint Patient presents with Chest Pain at bedside who adds to history HPI Carley Kimble is a 49 y.o. male who presents with reports of left upper chest pain that he has had for over a month with some shortness of breath. The patient was [place] [facility] past week and was diagnosed with acute congestive heart failure with an ejection fraction of 10%. He had cardiac catheterization which showed a unremarkable coronary arteries. He was started on blood pressure medicines as well as diuretics. He has been weighing himself daily his weight has been stable since discharge. The patient was referred to [facility] Cardiology Department he was seen yesterday by [...] Result by Interface, Incoming Radiology Results (02/12 1222) IMPRESSION: No acute radiographic abnormality of the chest. Electronically signed by Mati Mora, ED PROCEDURES CLINICAL COURSE & DISPOSITION: Pertinent [...] congestive heart failure team that the patient's systems software manager Dr. Blackburn's part of. They came down [...] sibling with CVD <65yo Atherosclerotic disease: Prior [place], PCI, CABG, CVA, TIA or PAD History: [...] all of this chart was generated using [employer] medical voicerecognition software. Although every effort was made to ensure the accuracy of this automated distributor operator, some errors in distributor operator may have occurred. Electronically signed by: Bryanna [...] fluticasone propionate (FLONASE) 50 mcg/actuation nasal spray, Gove 1 Gove into nose daily. (Patient not taking: Reported [...] House Dust Mold Pollen Extracts * Sabra Burnett, SYLVESTER - 02/12/2025 11:17 AM EST Pt presents to ED with cc of left sided chest pain x 1 month, Endorses radiation into neck and leftshoulder. Denies numbness/tingling of extremities or SOB. States he went to systems software manager yesterday and obtained blood work. HS Trop yesterday 94 + cardiac hx Pt has life vest on Sent by cardiology documented in this encounter Plan of Treatment Upcoming Encounters Date Type Department Care Team (Late st Contact Info) Description 04/08/2025 11:10 AM EST Appointment [facility] [place] Heart Failure [address] [place] [address] Mary Blackburn MD [address] [facility] [place], [place] [id number] documented as of this encounter Procedures Procedure [...] TROPONIN I ISTAT (02/12/2025 2:23 PM EST) POC HS Troponin I ISTAT 66.2(HH) 0.0 - 35.0 ng/L [facility] Blood, Venous 02/12/2025 2:2 3 PM EST 02/12/2025 2:25 PM EST Bryanna Rosenthal MD POINT OF CARE TEST ORDERABLES Final Result Performing Organization Address [facility] de Phone Number [facility] [address] * NT PRO BNP (02/12/2025 12:37 PM EST) Pathologist [facility] Pro BNP 282 0 - 299 pg/mL [facility] Comment: The reference ranges are for acute CHF diagnosis only: Rule out cutpoint----<300 pg/mL Rule in cutpoint ----->450 pg/mL (<50 years old) >900 pg/mL (>50 years old) Plasma 02/12/2025 12:3 7 PM EST 02/12/2025 1:18 PM EST Bryanna Rosenthal MD CHEMISTRY ORDERABLES Final Res ult Performing Organization Address [facility] de Phone Number [facility] [address] * (ABNORMAL) POC HS TROPONIN I ISTAT (02/12/2025 11:59 AM EST) [facility] POC HS Troponin I ISTAT 65.6(HH) 0.0 - 35.0 ng/L [facility] Blood, Venous 02/12/2025 11: 59 AM EST 02/12/2025 12:00 PM EST Bryanna Rosenthal MD POINT OF CARE TEST ORDERABLES Final Result Performing Organization Address [facility] de Phone Number [facility] [address] * DIAG-PORTABLE CHEST (02/12/2025 11:55 AM [...] by Mati Mora DO Bryanna Rosenthal MD IMG DIAGNOSTIC IMAGING ORDERAB LES Final Result * [...] [facility] Immature Granulocytes 0.5 % [facility] nRBC 0 0 - 0 /100 WBC [facility] Whole Blood 02/12/2025 11:4 2 AM EST 02/12/2025 11:50 AM EST Bryanna Rosenthal MD HEMATOLOGY ORDERABLES Final Re sult Performing Organization Address [facility] de Phone Number [facility] [address] * (ABNORMAL) D-DIMER (02/12/2025 11:42 AM EST) D-Dimer, Quant 233(H) 0 - 230 ng/mL DDU [facility] Comment: The D-dimer test is [...] Bryanna Rosenthal MD HEMATOLOGY ORDERABLES Final Re alvarot Performing Organization Address [facility] de Phone Number [facility] [address] * (ABNORMAL) B NATRIURETIC PEPTIDE (02/12/2025 11:42 AM EST) BNP 134(H) 0 - 100 pg/mL [facility] Plasma (Blood) 02/12/2025 11 :42 AM EST 02/12/2025 11:50 AM EST Bryanna Rosenthal MD CHEMISTRY ORDERABLES Final Res ult Performing Organization Address [facility] de Phone Number [facility] [address] * APTT (02/12/2025 11:42 AM EST) PTT 28.4 23.1 - 37.6 seconds [facility] Comment: Effective 09/21/2024, there is a new lot number of PTT reagent. There are no changes in critical value or reference ranges. Plasma (Blood) 02/12/2025 11 :42 AM EST 02/12/2025 11:50 AM EST Bryanna Rosenthal MD HEMATOLOGY ORDERABLES Final Re sult Performing Organization Address City/[facility]/ZIP Co de Phone Number [facility] [address] * PT (PRO TIME INCLUDES INR) (02/12/2025 11:42 AM EST) Pathologist [facility] Protime 11.5 10.1 - 13.7 seconds [facility] Comment: Effective 09/21/24, the PT reference range changed from 10.5-14.1 s to 10.1-13.7 s. The INR reference range remains the same at 0.9-1.1. INR 1.0 0.9 - 1.1 [facility] DISABILITY LIAISON OFFICER AL LAB Comment: RECOMMENDED THERAPEUTIC RANGES USING INR : Stable Oral Anticoagulant Therapy: 2.0 - 3.0 Mechanical Prosthetic Heart Valve: 2.5 - 3.5 Recurrent Acute Myocardial Infarction: 2.5 - 3.5 Plasma (Blood) 02/12/2025 11 :42 AM EST 02/12/2025 11:50 AM EST Bryanna Rosenthal MD HEMATOLOGY ORDERABLES Final Re sult [facility] [address] * (ABNORMAL) CBC WITH DIFFERENTIAL (02/12/2025 11:42 AM EST) WBC 9.18 4.00 - 12.00 10*3/uL [facility] RBC 6.11(H) 4.20 - 5.80 [...] Rosenthal MD HEMATOLOGY ORDERABLES Final Re sult [facility] [address] * ECG (02/12/2025 11:32 AM EST) Heart Rate 88 bpm [facility] QRS Interval 105 ms [facility] E[facility] QT Interval 348 ms [facility] QTc Interval 421 ms [facility] P [place] 64 deg [facility] DIS[facility] LIAISON OFFIC[facility] QRS [place] -35 deg [facility] LIAISON OFFICER [facility] T Wave [place] 117 deg [facility] P-R Interval 151 msec [facility] 02/12/2025 11:3 2 AM EST Narrative [facility] - 02/12/2025 11:43 AM EST [facility] ED Test Date: 2025-02-12 11:32:03 Pat Name: CARLEY KIMBLE Department: ED Room: 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 : 1975 Requested By: BRYANNA Lai Order Number: [id number] Reading MD: Bryanna Rosenthal MD Interpretive Statements Sinus rhythm LAE, consider biatrial enlargement Left ventricular hypertrophy Anterior Q waves, possibly due to LVH Nonspecific T abnormalities, lateral leads rate 88 beats per minute Left axis deviation Normal ST segments No evidence of acute ischemia infarct Electronically Signed On 02-12-2025 11:43:29 EST by Bryanna Rosenthal MD Procedure Note Bryanna Rosenthal MD - 02/12/2025 [facility] ED Test Date: 2025-02-12 11:32:03 Pat Name: CARLEY KIMBLE Department: ED Room: 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 : 1975 Requested By: BRYANNA Lai Order Number: [id number] Reading MD: Bryanna Rosenthal MD Interpretive Statements Sinus rhythm LAE, consider biatrial enlargement Left ventricular hypertrophy Anterior Q waves, possibly due to LVH Nonspecific T abnormalities, lateral leads rate 88 beats per minute Left axis deviation Normal ST segments No evidence of acute ischemia infarct Electronically Signed On 02-12-2025 11:43:29 EST by Bryanna Rosenthal MD Bryanna Rosenthal MD ECG ORDERABLES Final Result [facility] [address] documented in this encounter Visit Diagnoses [...] RN) documented in this encounter Care Teams Echocardiographer Relationship Specialty Start Date End Date [address] [place] [address] PCP - General 02/12/25 documented as of this encounter
--- OUTSIDE RECORDS SUMMARY | 2025-02-24 14:30 | XMS_ITS | Encounter Summary ---
Author Organization [facility] Address [address] [place] [address] Care Team Providers Care Oil Furnace Installer Name Role Phone Madison Echevarria Primary Care Provider [phone] Reason for Referral * Radiology Services (Routine) - Not Needed Specialty Diagnoses / Procedures Referred By Viji gaona Referred To Contact Diagnoses Acute on chronic combined systolic and diastolic heart failure (CMS/HCC) Procedures 2D ECHO COMPLETE W/STRAIN/3D PRN CONTR/BUBBLE CA ECHO TTHRC R-T 2D W/WOM-MODE COMPL SPEC&COLR D CHG 3D RENDERING W/INTERP & POSTPROCESS SUPERVISION Mary Blackburn MD [address] [facility]. [address] [place] [address] Phone: tel: fax: [address] [address] Phone: tel: Referral ID Status Reason Start Date Expiration Date V isits Requested Visits Authorized [id number] Not Needed 02/11/2025 02/11/2026 1 1 Reason for Visit * Radiology Services (Routine) - Not Needed Specialty Diagnoses / Procedures Referred By Viji gaona Referred To Contact Diagnoses Acute on chronic combined systolic and diastolic heart failure (CMS/HCC) Procedures 2D ECHO COMPLETE W/STRAIN/3D PRN CONTR/BUBBLE CA ECHO TTHRC R-T 2D W/WOM-MODE COMPL SPEC&COLR D CHG 3D RENDERING W/INTERP & POSTPROCESS SUPERVISION Mary Blackburn MD [address] [facility]. [address] [place] [address] Phone: tel: fax: [facility] [address] [place] [address] Phone: tel: Referral ID Status Reason Start Date Expiration Date V isits Requested Visits Authorized [id number] Not Needed 02/11/2025 02/11/2026 1 1 Encounter Details Date Type Department Care Team (Latest Contact Info) Description 02/24/2025 2:30 PM EST - 02/24/2025 11:59 PM EST Hospital Encounter [facility] Outpatient Center [address] [facility], [address] [place] [address] Acute on chronic combined systolic and diastolic heart failure (CMS/HCC) Discharge Disposition: Home or [...] Discharge azelastine (ASTELIN) 137 mcg (0.1 %) [place], Non-Aerosol SPRAY ONE SPRAY NASALLY TWICE DAILY [...] fluticasone propionate (FLONASE) 50 mcg/actuation nasal spray [place] 1 [place] into nose daily. 10/13/2024 Jardiance 10 mg [...] Description 04/08/2025 11:10 AM EST Appointment [facility] Cardi[facility] Associates - [facility] [place] Heart Failure [address] [place] [address] Medical Office Building [address] [place] [phone] Mary Blackburn MD [address] [place] [address] [place] [address] documented as of this encounter Procedures Procedure Name Priority Date/Time Associated Diagnosis Comments 2D ECHO COMPLETE W/STRAIN/3D PRN CONTR/BUBBLE Routine 02/24/2025 4:35 PM EST Acute on chronic combined systolic and diastolic heart failure (CMS/HCC) documented in this encounter Results * (ABNORMAL) 2D ECHO COMPLETE W/STRAIN/3D PRN CONTR/BUBBLE (02/24/2025 4:35 PM EST) Mitral Valve Regurgitation trivial [facility] EXTERNAL [facility] Tricuspid Regurgitation trivial [facility] EXTERNAL [facility] EF 29(LL) 50 - 72 percent [facility] EXTERNAL LAB Anatomical Region Laterality Modality Intravascular Ul trasound 02/24/2025 2:40 PM EST Narrative 02/24/2025 4:[address] [facility] Echocardiography Lab [address] [place] [address] Transthoracic Echocardiogram Patient: Montez Lynn Gender: M MR #: [id number] Age: 49 Account: [id number] : 1975 Study Date: 02/24/2025 Room: BP: 101 / 64 Referring Physician: Mary Blackburn Interpreting Physician: Nilo Villagomez PERFORMING Nilo Villagomez TRAVERTINE INSTALLER Hue Villagomez REFERRING Mary Blackburn ORDERING Mary Blackburn Procedure:2D ECHO COMPLETE W/STRAIN/3D PRN Order: Accession CONTR/BUBBLE Number:[id number] Facility: [facility] Indications: CHF, Unspecified (I509). PMH: Congestive [...] left atrial pressure. Agitated saline shows no xzlca-ss-rrys atrial level shunt. - Inferior vena cava: [...] left atrial pressure. Agitated saline shows no chjkz-mb-xlmh atrial level shunt. Right ventricle: - The [...] range. Reviewed and confirmed by Nilo Villagomez [id number] Procedure Note Nilo Villagomez MD - 02/24/2025 [facility] Echocardiography Lab [address] [place] [address] Transthoracic Echocardiogram Patient: Montez Lynn Gender: Jassi MR #: [id number] Age: 49 Account: [id number] : 1975 Study Date: 02/24/2025 Room: BP: 101 / 64 Referring Physician: Mary Blackburn Interpreting Physician: Nilo Villagomez PERFORMING Nilo Villagomez TRAVERTINE INSTALLER Hue Villagomez REFERRING Mary Blackburn ORDERING Mary Blackburn Procedure:2D ECHO COMPLETE W/STRAIN/3D PRN Order: Accession CONTR/BUBBLE Number:[id number] Facility: [facility] Indications: CHF, Unspecified (I509). PMH: Congestive [...] left atrial pressure. Agitated saline shows no mxvuo-to-exlt atrial level shunt. - Inferior vena cava: [...] left atrial pressure. Agitated saline shows no rxnui-yq-pzan atrial level shunt. Right ventricle: - The [...] Collapse 59.8 % Legend: (L) and (H) dortohy values outside specified reference range. (N) child values inside specified reference range. Reviewed and confirmed by Nilo Villagomez [id number] us Mary Blackburn MD CARDNT ECHO ORDERABLES Final Result documented in this encounter Visit Diagnoses Diagnosis Acute on chronic combined systolic and diastolic heart failure (CMS/HCC) Acute on chronic combined systolic and diastolic heart failure documented in this encounter Care Teams Oil Furnace Installer Relationship Specialty Start Date End Date Madison Echevarria [address] [place] [address] PCP - General 02/12/25 documented as of this encounter
--- OUTSIDE RECORDS SUMMARY | 2025-02-25 13:00 | XMS_ITS | Encounter Summary ---
Author Organization [facility] Address [address] [place] [address] Care Team Providers Care Rubber Goods Tester Water Name Role Phone Echevarria Madison Primary Care Provider Reason for Visit * Reason Comments Cardiovascular Follow-up Encounter Details Date Type Department Care Team (Latest Contact Info) Description 02/25/2025 1:00 PM EST Office Visit [facility] Cardiovascular Associates - [facility] Heart Failure [address] [place] [address] Medical Office Building [address] [place] [address] Rose Sol NP [address] [place] [address] [address] [place] [address] Acute on chronic combined systolic and diastolic heart failure (CMS/HCC) (Primary Dx); Primary hypertension; LYN (obstructive sleep apnea) Social History Tobacco Use Types Packs/Day Years [...] Sign Reading Time Taken Comments Blood Pressure 100/68 02/25/2025 12:56 PM EST Pulse 86 02/25/2025 12:56 PM EST Temperature - - Respiratory Rate - - Oxygen Saturation - - Inhaled Oxygen Concentration - - Weight 99.3 kg (219 lb) 02/25/2025 12:56 PM EST Height 180.3 cm (5' 11 ) 02/25/2025 12:56 PM EST Body Mass Index 30.54 02/25/2025 12:56 PM EST documented in this encounter Functional Status * Vitals Question Answer Date of Assessment Author BP 100/68 02/25/2025 12:56 PM EST Breanne Palmer Pulse 86 02/25/2025 12:56 PM EST Breanne Palmer Height 71 02/25/2025 12:56 PM EST Breanne Palmer Weight 3504 02/25/2025 12:56 PM EST Breanne Palmer Patient Position Sitting 02/25/2025 12:56 PM EST Breanne Palmer * [place] Body Weight (kg) (auto-calculated) Answer Date of Assessment Author 75.3 02/25/2025 12:56 PM EST Remy Palmer ather * Drug Calculation Weight Formula Row Answer Date of Assessment Author 1 02/25/2025 12:56 PM EST Remy Palmer documented as of this encounter Mental Status * Vitals Question Answer Entry Date Author BP 100/68 02/25/2025 12:56 PM EST Breanne Palmer Pulse 86 02/25/2025 12:56 PM EST Breanne Palmer Patient Position Sitting 02/25/2025 12:56 PM EST Breanne Palmer documented in this encounter Patient Instructions * Patient Instructions* Rose Sol NP - 02/25/2025 1:00 PM EST Ok to take bumex 1 mg in afternoon as needed Monitor closely for: Weight gain of more than 3 pounds in 1 day or 5 pounds in 1 week from baseline weight Worsening shortness of breath with activity or when lying flat Increase in swelling, including child left in legs by socks or swelling of feet that does not resolve completely when legs are elevated while sleeping at night Call [phone] or message via [employer] with issues documented in this encounter Progress Notes * Rose Sol NP - 02/25/2025 1:00 PM EST Images from the original note were not included. Montez Lynn 1975 [id number] Chief Complaint: 4 week follow up Machine Sprayer: Dr Blackburn Assessment ICD-10-CM 1. Acute on chronic combined systolic and diastolic heart failure (CMS/HCC) I50.43 2. Primary hypertension I10 3. LYN (obstructive sleep apnea) G47.33 Plan 1. Acute on chronic combined systolic and diastolic heart failure (CMS/HCC) (Primary) New diagnosis 01/2025 [facility] at OSH w/o signficant disease (waiting on images to be sent to [facility]) TTE: EF 10 on initial TTE. TTE 01/25/25: EF 29%, g1dd, LVEDD 7.7 cm, increase LA pressure NYHA Class: 1-2 Device:wearing Zoll Lifevest GDMT: spironolactone, jardiance, entresto 97-103 mg twice daily. No bb d/t bradycardia Volume: bumex 1 mg daily - had cMRI done 3 days ago at OSH; waiting on results - Normal right-sided filling pressures. Weight +5-7 lbs. Continue bumex 1 mg daily + as needed bumex 1 mg in afternoons - repeat TTE in 3 months. If LVEF <35%, EP referral for primary prevention ICD - Pro BNP, Bmp today, troponin 2. Primary hypertension 100/68 today, controlled GDMT as above 3. LYN (obstructive sleep apnea) Provided with sleep medicine referral at last appt Return in about 6 weeks (around 04/08/2025) for Dr Blackburn. Subjective Montez Lynn is a 49 y[address] patient of Dr Blackburn. Montez has a past medical history of HTN, Diabtes A1C 6.5, tobacco use. He was hospitalized at [facility] ([place]) for acute decompensated heart failure in setting of rhinovirus infection. EF 10% on TTE at OSH. Pro BNP 5370, transaminitis (LFTS 300-400s), peak lactate3.6. He was treated with IV milrinone, steroids, and diuresed aggressively (15 lbs). He was startedon GDMT and discharged with Lifevest. He established with Dr Blackburn 02/11 for advanced HF management. Thought HF has been on-going and viral illness provoked exacerbation. He had repeat TTE done 02/24 which showed EF 39%, normal RV function, and LVEDD 7.7 cm. Follow up labs show Cr 1.6, HS troponin 94, pro BNP 282, LFTS normalizing, hgb16.2. Today he presents with his . Overall he feels well- denies shortness of breath, chest pain, lightheadedness, or palpitations. Notes some weight gain with reducing bumex from Twice daily dosing todaily dosing- holds onto fluid in abdomen. Allergies[1] Social History Tobacco Use Smoking status: Every Day Types: Cigarettes Passive exposure: Never Smokeless tobacco: Current Substance Use Topics Alcohol use: Yes Comment: occ Family History[2] Objective Cardiac Imaging: TTE 02/24/25 Left ventricle: The cavity is dilated. Wall [...] left atrial pressure. Agitated saline shows no xvtnm-xl-anra atrial level shunt. - Inferior vena cava: The IVC is normal-sized. Respirophasic diameter changes are in the normal range (>= 50%), consistent with normal central venous pressure. Pertinent Labs: Creatinine (mg/dL) Date Value 02/11/2025 1.67 (HIGH) Hgb A1C (%) Date Value 02/11/2025 6.2 (HIGH) Lab Results Component Value Date BNP 134 (HIGH) 02/12/2025 PROBNP 282 02/12/2025 PROBNP 254 02/11/2025 No results found for: CHL , HDL , LDLCALCEXT , TRIG Vitals and Weights: Vitals: 02/25/25 1256 BP: 100/68 Pulse: 86 Weight: 219 lb (99.3 kg) Height: 5' 11 (1.803 m) Wt Readings from Last 3 Encounters: 02/25/25 219 lb (99.3 kg) 02/12/25 213 lb (96.6 kg) 02/11/25 213 lb 3.2 oz (96.7 kg) Body mass index is 30.54 kg/m??. Patient's Medications Current Medications AZELASTINE (ASTELIN) 137 MCG (0.1 %) SPRAY, NON-AEROSOL SPRAY ONE SPRAY NASALLY TWICE DAILY Order Dose: -- BUMETANIDE (BUMEX) 1 MG TABLET Take 1 Tablet (1 mg) by mouth daily. Order Dose: 1 mg CEFDINIR (OMNICEF) 300 MG CAPSULE 300 MG ORALLY TWICE A DAY FOR 10 DAYS Order Dose: -- DIAZEPAM (VALIUM) 2 MG TABLET Take one tablet by mouth 30 minutes prior to MRI; take second tablet if needed Order Dose: -- DICLOFENAC (VOLTAREN) 75 MG EC TABLET Take 75 mg by mouth 2 times daily. Order Dose: 75 mg ENTRESTO 97-103 MG TABLET Take 1 Tablet by mouth 2 times daily. Order Dose: 1 Tablet FLUTICASONE PROPIONATE (FLONASE) 50 MCG/ACTUATION NASAL SPRAY [place] 1 [place] into nose daily. Order Dose: 1 [place] JARDIANCE 10 MG TABLET TABLET Take 1 Tablet by mouth daily. Order Dose: 10 mg METHOCARBAMOL (ROBAXIN) 750 MG TABLET Take 750 mg by mouth 3 times daily. Order Dose: 750 mg NICOTINE (NICODERM CQ) 21 MG/24 HR PATCH Apply 1 Patch to skin daily. Order Dose: 1 Patch SPIRONOLACTONE (ALDACTONE) 25 MG TABLET Take 1 Tablet by mouth daily. Order Dose: 25 mg Discontinued Medications IBUPROFEN (MOTRIN) 200 MG TABLET Take 600 mg by mouth every 8 hours as needed. Notes: -- METFORMIN (GLUCOPHAGE) 500 MG TABLET Take 500 mg by mouth 2 times daily (with meals). Notes: -- Constitutional: Vital signs are stable, patient is in no acute distress. Cardiovascular: RRR, normal S1 S2, no M R G, no carotid bruit,no JVP, no LE edema Respiratory: Normal respiratory effort, lungs are clear to auscultation bilaterally. Skin: Warm, Dry, No erythema, No visible rashes. Neurologic: Nonfocal exam Psychiatric: Normal affect and mood Rose Sol NP [facility] [place] [address] [1] Allergies Allergen Reactions House Dust Mold Pollen Extracts [2] No family history on file. documented in this encounter Plan of Treatment Upcoming Encounters Date Type Department Care Team (Late st Contact Info) Description 04/08/2025 11:10 AM EST Appointment [facility] [place] Heart Failure [address] [facility] Medical Office Building [address] [place] [address] Mary Blackburn MD [address] [facility] [place] [address] documented as of this encounter Results * HS TROPONIN-I, OUTPATIENT (02/25/2025 2:07 PM EST) Pathologist [facility] HS-Troponin I, Outpatient 8 0 - 35 ng/L [facility] EXTERNAL [facility] Comment: Please refer to the High Sensitivity Troponin [...] to hsTnI values reported in ng/L. Plasma 02/25/2025 2:07 PM EST 02/25/2025 11:27 PM EST us Rose Sol NP CHEMISTRY ORDERABLES Final R esult [facility] [address] [place], [place] [id number] [place] [address] * NT PRO BNP (02/25/2025 2:07 PM EST) Pathologist [facility] Pro BNP 247 0 - 299 pg/mL [facility] Comment: The reference ranges are for acute CHF diagnosis only: Rule out cutpoint----<300 pg/mL Rule in cutpoint ----->450 pg/mL (<50 years old) >900 pg/mL (>50 years old) Plasma 02/25/2025 2:07 PM EST 02/25/2025 11:27 PM EST Rose Sol TREE TOPPER CHEMISTRY ORDERABLES Final R esult Performing Organization Address City/[facility]/ZIP Co de Phone Number [facility] EX[facility] [address] * (ABNORMAL) BASIC METABOLIC PANEL (BMP=EP1) (02/25/2025 2:07 PM EST) Sodium 140 135 - 146 mmol/L [facility] Potassium 5.0 3.5 - 5.1 mmol/L [facility] Chloride 104 98 - 110 mmol/L [facility] CO2 27 22 - 29 mmol/L [facility] Anion Gap 9 5 - 13 mmol/L [facility] Comment:Anion gap calculatio n does not include potassium (K+) value. BUN 18 7 - 25 mg/dL [facility] Creatinine 1.53(H) 0.50 - 1.30 mg/dL [facility] Glucose 99 71 - 99 mg/dL [facility] Comment:Reference range (71- 99 mg/dL) refers only to fasting samples, and does not apply to non-fasting samples. eGFR CKD-EPI 2020 55 See Note [facility]NAL [facility] Comment: eGFR calculated with 2020 CKD-EPI equation using creatinine, patient's age and gender. Other factors, especially muscle mass, may affect accuracy and need to be considered. Patient values should be interpreted as a trend. The reference interval is >60 mL/min/1.73m2. Calcium 9.9 8.5 - 10.5 mg/dL [facility] EX[facility] BUN/Creatinine Ratio 12 [facility] Serum (Serum) 02/25/2025 2:0 7 PM EST 02/25/2025 5:39 PM EST Rose Sol TREE TOPPER CHEMISTRY ORDERABLES Final R esult Performing Organization Address [facility] de Phone Number [facility] [address] documented in this encounter Visit Diagnoses Diagnosis Acute on chronic combined systolic and diastolic heart failure (CMS/HCC)- Primary Acute on chronic combined systolic and diastolic heart failure Primary hypertension Unspecified essential hypertension LYN (obstructive sleep apnea) Obstructive sleep apnea (adult) (pediatric) documented in this encounter Care Teams Rubber Goods Tester Water Relationship Specialty Start Date End Date EchevarriaMadison [address] [place] [address] PCP - General 02/12/25 documented as of this encounter
--- OUTSIDE RECORDS SUMMARY | 2025-02-25 13:57 | XMS_ITS | Encounter Summary ---
Author Organization [facility] Address [address] [place] [address] Care Team Providers Care Reconditioning Associate Name Role Phone Madison Echevarria Primary Care Provider [phone] Encounter Details Date Type Department Care Team (Latest Contact Info) Description 02/25/2025 1:57 PM EST - 02/25/2025 11:59 PM EST Hospital Encounter Laboratory [address] [place] [address] [address] [place] [address] Acute on chronic combined systolic and diastolic [...] Discharge azelastine (ASTELIN) 137 mcg (0.1 %) [place], Non-Aerosol SPRAY ONE SPRAY NASALLY TWICE DAILY [...] fluticasone propionate (FLONASE) 50 mcg/actuation nasal spray [place] 1 [place] into nose daily. 10/13/2024 Jardiance 10 mg [...] Description 04/08/2025 11:10 AM EST Appointment [facility] Cardiovascular [facility] - [place] Heart Failure [address] [place] [address] Medical Office Building [address] [place] [phone] Mary Blackburn MD [address] [place] [phone] documented as of this encounter Procedures Procedure Name Priority Date/Time Associated Diagnosis Comments HS TROPONIN-I, OUTPATIENT Routine 02/25/2025 2:07 PM EST Acute on chronic combined systolic and diastolic heart failure (CMS/HCC) NT PRO BNP Routine 02/25/2025 2:07 PM EST Acute on chronic combined systolic and diastolic heart failure (CMS/HCC) BASIC METABOLIC PANEL (BMP=EP1) Routine 02/25/2025 2:07 PM EST Acute on chronic combined systolic and diastolic heart failure (CMS/HCC) documented in this encounter Results * HS TROPONIN-I, OUTPATIENT (02/25/2025 2:07 PM EST) Pathologist [facility] HS-Troponin I, Outpatient 8 0 - 35 ng/L [facility] EXTERNAL [facility] Comment: Please refer to the [...] EST 02/25/2025 11:27 PM EST Rose Sol NP CHEMISTRY ORDERABLES Final R esult Performing Organization Address [facility] de Phone Number [facility] EX[facility] [address] * NT PRO BNP (02/25/2025 2:07 PM EST) Pathologist [facility] Pro BNP 247 0 - 299 pg/mL [facility] EX[facility] Comment: The reference ranges are for acute CHF diagnosis only: Rule out cutpoint----<300 pg/mL Rule in cutpoint ----->450 pg/mL (<50 years old) >900 pg/mL (>50 years old) Plasma 02/25/2025 2:07 PM EST 02/25/2025 11:27 PM EST Rose Sol CUBING MACHINE TENDER CHEMISTRY ORDERABLES Final R esult Performing Organization Address [facility] Co de Phone Number [facility] [address] * (ABNORMAL) BASIC METABOLIC PANEL (BMP=EP1) (02/25/2025 2:07 PM EST) Sodium 140 135 - 146 mmol/L [facility] Potassium 5.0 3.5 - 5.1 mmol/L [facility] Chloride 104 98 - 110 mmol/L [facility] CO2 27 22 - 29 mmol/L [facility] Anion Gap 9 5 - 13 mmol/L [facility] Comment:Anion gap calculatio n does not include potassium (K+) value. BUN 18 7 - 25 mg/dL [facility] Creatinine 1.53(H) 0.50 - 1.30 mg/dL [facility] Glucose 99 71 - 99 mg/dL [facility] Comment:Reference range (71- 99 mg/dL) refers only to fasting samples, and does not apply to non-fasting samples. eGFR CKD-EPI 2020 55 See Note [facility] Comment: eGFR calculated with 2020 CKD-EPI equation using creatinine, patient's age and gender. Other factors, especially muscle mass, may affect accuracy and need to be considered. Patient values should be interpreted as a trend. The reference interval is >60 mL/min/1.73m2. Calcium 9.9 8.5 - 10.5 mg/dL [facility] BUN/Creatinine Ratio 12 [facility] Serum (Serum) 02/25/2025 2:0 7 PM EST 02/25/2025 5:39 PM EST us Rose Sol CUBING MACHINE TENDER CHEMISTRY ORDERABLES Final R esult [facility] [address] documented in this encounter Visit Diagnoses Diagnosis Acute on chronic combined systolic and diastolic heart failure (CMS/HCC) Acute on chronic combined systolic and diastolic heart failure documented in this encounter Care Teams Reconditioning Associate Relationship Specialty Start Date End Date Madison Echevarria [address] [place] [address] PCP - General 02/12/25 documented as of this encounter
--- NOTE | 2025-03-24 17:53 | ED_ITS ---
Discharge Plan Disposition Patient Disposition: Home, Self-Care Condition: Good Prescriptions Prescriptions: No Action metoprolol succinate [Toprol XL] 25 mg tablet extended release 24 hr 12.5 mg PO DAILY Qty: 30 5RF Jardiance 10 mg tablet 10 mg PO DAILY 30 Days Qty: 30 0RF sacubitril-valsartan [Entresto] 97-103 mg tablet 1 tab PO BID 30 Days Qty: 60 0RF spironolactone 25 mg tablet 25 mg PO DAILY 30 Days Qty: 30 0RF bumetanide 1 mg tablet 1 mg PO BIDL 30 Days Qty: 60 0RF nicotine 21 mg/24 hr Patch 24 Hour 21 mg transdermal DAILY 30 Days Qty: 28 0RF Referrals Follow up/Referrals: Provider,Referral, MD [Primary Care Provider, Medical] - See instructions Activity Restrictions/Add. Instructions Additional Instructions/Restrictions: You were evaluated on an emergency basis. It is very important that you follow- up with your primary care provider and any specialist who we discussed within the next 2 days in order to better assess your health more comprehensively. For example, incidental findings on imaging or laboratory results that were performed today may be discovered, which do not require immediate medical care, but may impact your health in the future. If your symptoms worsen or persist, please return to the emergency department immediately for reassessment. Take all medications as prescribed. In queue for allowing me to participate in your health care, and I hope you feel better soon. Clinical Impressions Clinical Impression: Acute myringitis of right ear Instructions Patient Instructions: DI for Ear Pain in Adults Print Language Print Language: Peruvian Discharge ED Provider: Yonas Mccarty General Adult HPI <Torrie Pimentel - Last Filed: 03/24/25 20:23> General Chief complaint: Headache Stated complaint: headache,ear ache, fever Time Seen by Provider: 03/24/25 18:33 History of Present Illness HPI narrative: 49-year-old male with a history of heart failure and cardiomyopathy presents to the emergency department with complaints of right ear pain with headaches since waking this morning. He denies any head trauma. He denies fevers. He states that he contacted his primary care provider earlier today and they gave him a prescription for amoxicillin for treatment of the ear infection. He states he called the coat operator insulator office because his blood pressure has been increasing today due to the pain. Recommended he come to ER for evaluation. He states he last took Tylenol approximately 4 hours prior to arrival. Related Data Previous Rx's ?Medication ?Instructions ?Recorded nicotine 21 mg/24 hr daily 21 mg transdermal DAILY 30 days 02/09/25 transdermal patch #28 ea empagliflozin 10 mg tablet 10 mg PO DAILY 30 days #30 tabs 02/22/25 (Jardiance) sacubitril 97 mg-valsartan 103 mg 1 tab PO BID 30 days #60 tabs 02/22/25 tablet (Entresto) spironolactone 25 mg tablet 25 mg PO DAILY 30 days #30 tabs 02/22/25 bumetanide 1 mg tablet 1 mg PO BIDL 30 days #60 tab s 03/08/25 metoprolol succinate 25 mg 12.5 mg (1/2 x 25 mg) PO DA THEA #30 03/08/25 tablet,extended release 24 hr tabs (Toprol XL) Allergies Allergy/AdvReac Type Severity Reaction Status Date / Time No Known Allergies Allergy Verified 03/08/25 14:10 [facility] <Torrie Pimentel - Last Filed: 03/24/25 20:23> [facility] Disclaimer: The information contained in this section may have been updated after the patient was seen, as this information can be updated by other users. Medical History (Updated 03/24/25 @ 20:23 by Torrie Pimentel) Sleep apnea, unspecified Severe left ventricular systolic dysfunction (LVSD) Cardiomyopathy Hypertension Smoker Elevated liver enzymes VILMA (acute kidney injury) Acute HFrEF (heart failure with reduced ejection fraction) Non-STEMI (non-ST elevated myocardial infarction) Social History Smoking Status: Current some day smoker alcohol intake: never current occupational status: employed Travel in the last 8 weeks?: None Have you lived/traveled outside US in past 30 days?: No Contact w/someone who lives/traveled outside US past 30 days?: No Exposure to someone with infectious disease in past 14 days?: No Do you have a fever (greater than 100.4 F or 38 C)?: No Have you tested positive for COVID-19?: No Exposed to someone with COVID-19 in past 14 days?: No Do you have a sore throat?: No Do you have a cough?: No Do you have any weakness?: No Do you have any diarrhea?: No Are you experiencing any unusual bleeding?: No Do you have any muscle aches/pain?: No Do you have any abdominal pain?: No Are you experiencing loss of taste or smell?: No Other Medical History Have you received the Flu Vaccine for this season: No Have you received the Pneumonia Vaccine: No <Torrie Pimentel - Last Filed: 03/24/25 20:23> ROS Obtained: Yes other Constitutional Constitutional: Reports headache(s) ENT Ears, Nose, Mouth, and Throat: Reports otalgia and Reports headache(s) Neurologic Neurologic: Reports headache(s) Physical Exam <Torrie Pimentel - Last Filed: 03/24/25 20:23> Narrative Physical exam: General: Awake, aware, in no acute distress HEENT: Bilateral tympanic membranes are intact. No erythema. No drainage noted from ear canals. Patient does have a slight increase of fluid behind bilateral tympanic membranes. CV: RRR, no murmurs, rubs, or gallops Pulm: CTA bilaterally with no rhonchi, rales, wheezes ABD: Nontender, no swelling, guarding, or rebound tenderness Psych, appropriate mood and affect General General appearance: alert Respiratory Respiratory exam: Present normal lung sounds bilaterally Cardiovascular Cardiovascular exam: Present regular rate Neurological Exam Neurological exam: Present alert Medical Decision Making <Torrie Pimentel - Last Filed: 03/24/25 20:23> Medical Records Screening: Per USPSTF and CDC recommendations, given the prevalence of disease in our region, it is our hospital?s policy to screen for HIV and viral Hepatitis for all patients aged 18 and over and those with ongoing risk factors. Michael Inquiry Pt receiving controlled substance: No Vital Signs: 03/24/25 18:44 Temperature 99.7 F H Temperature Source Oral Pulse Rate [Right Radial] 100 H Respiratory Rate 18 Blood Pressure [Right Arm] 157/109 H Blood Pressure Mean [Right Arm] 125 Blood Pressure Source [Right Arm] Automatic Cuff Blood Pressure Position [Right Arm] Sitting 02 Sat by Pulse Oximetry 98 Oxygen Delivery Method Room Air Lab Data Lab Results 03/24/25 19:15: SARS-CoV-2 (PCR) Not detected, Influenza A Untype (PCR) Not detected, Influenza Type B (PCR) Not detected Orders (Tests/Meds): ED MEDICATIONS Discontinued Medications Generic Name Dose Route Start Last Admin Trade Name Radha PRN Reason Stop Dose Admin Acetaminophen 1,000 mg 03/24/25 20:10 03/24/25 20:33 Acetaminophen 1,000mg/100ml Vial IV 03/24/25 20:11 1,000 mg ONCE ONE Administration Diphenhydramine HCl 25 mg 03/24/25 18:42 03/24/25 19:36 Diphenhydramine 50mg/Ml Vial IV 03/24/25 18:43 25 mg ONCE ONE Administration Ampicillin Sodium/Sulbactam 100 mls @ 200 mls/hr 03/24/25 20:10 03/24/25 20:34 Sodium 3 gm/ Sodium Chloride IV 03/24/25 20:11 200 mls/hr ONCE ONE Administration Prochlorperazine Edisylate 5 mg 03/24/25 18:42 03/24/25 19:36 Prochlorperazine 10mg/2ml Vial IV 03/24/25 18:43 5 mg ONCE ONE Administration ORDERS Category Date Time Status CT head/brain wo con Stat Cat Scan 03/24/25 18:42 Completed Rapid PCR Covid and Flu A/B Stat Lab 03/24/25 19:15 Completed Medical Decision Narrative: Initial impression of presenting illness: 49-year-old male presents the emergency department with complaints of right ear pain with headache that started this morning. He denies any trauma. He states he last took Tylenol approximately 4 hours prior to arrival. Patient states that he contacted his primary care provider earlier today and they gave him a prescription for a moxicillin to treat ear infection however due to the pain his blood pressure keeps increasing. He states he then contacted his coat operator insulator as he does have a history of heart failure cardiomyopathy and wears a Lifepak. They instructed him to come to the ER for evaluation due to his blood pressure elevated. Differential diagnosis includes but is not limited to: Otitis media, otitis externa, viral illness, intracranial abnormality, uncontrolled hypertension Patient arrives hemodynamically stable, afebrile, without respiratory distress with vital signs interpreted by myself. Initial physical exam reveals a slight increase in fluid behind bilateral TMs however no erythema or drainage noted. No focal neurological deficits present. Rest of exam was unremarkable. Initial diagnostic plan: CT of head without contrast, COVID and flu swab, Compazine and Benadryl for symptom relief Results from initial plan were reviewed and interpreted by myself, pertinent positives include: COVID and flu swabs were negative. CT of head without contrast was also unremarkable. Interventions in the ED: Patient was given Benadryl and Compazine for pain control. Have ED attending Dr. Abreu evaluate patient's ear pain as well. He is concerned that the may be the beginnings of bullous myringitis. Patient was ordered IV Tylenol as well as IV Unasyn. Patient was made aware of the results and the findings, upon reevaluation patient has remained stable throughout stay, symptoms remained stable. Disposition: Reviewed findings today's workup with patient and spouse and informed no acute abnormalities were noted. Advised them that they can continue with Tylenol as needed for pain control. Advised them that they can use the amoxicillin prescription that they prescribed by the primary care provider for treatment of this condition. Instructed them to return to the emergency department any new or worsening symptoms. Also encourage patient to continue to monitor his blood pressure and to follow-up with his coat operator insulator as needed. They were agreeable to plan of care. Patient made aware of findings and had a detailed discussion with symptomatic care and return precautions, patient voiced understanding. <Yonas Mccarty MD - Last Filed: 03/24/25 20:36> Vital Signs: 03/24/25 18:44 Temperature 99.7 F H Temperature Source Oral Pulse Rate [Right Radial] 100 H Respiratory Rate 18 Blood Pressure [Right Arm] 157/109 H Blood Pressure Mean [Right Arm] 125 Blood Pressure Source [Right Arm] Automatic Cuff Blood Pressure Position [Right Arm] Sitting 02 Sat by Pulse Oximetry 98 Oxygen Delivery Method Room Air Lab Data Lab Results 03/24/25 19:15: SARS-CoV-2 (PCR) Not detected, Influenza A Untype (PCR) Not detected, Influenza Type B (PCR) Not detected Orders (Tests/Meds): ED MEDICATIONS Discontinued Medications Generic Name Dose Route Start Last Admin Trade Name Freq PRN Reason Stop Dose Admin Acetaminophen 1,000 mg 03/24/25 20:10 03/24/25 20:33 Acetaminophen 1,000mg/100ml Vial IV 03/24/25 20:11 1,000 mg ONCE ONE Administration Diphenhydramine HCl 25 mg 03/24/25 18:42 03/24/25 19:36 Diphenhydramine 50mg/Ml Vial IV 03/24/25 18:43 25 mg ONCE ONE Administration Ampicillin Sodium/Sulbactam 100 mls @ 200 mls/hr 03/24/25 20:10 03/24/25 20:34 Sodium 3 gm/ Sodium Chloride IV 03/24/25 20:11 200 mls/hr ONCE ONE Administration Prochlorperazine Edisylate 5 mg 03/24/25 18:42 03/24/25 19:36 Prochlorperazine 10mg/2ml Vial IV 03/24/25 18:43 5 mg ONCE ONE Administration ORDERS Category Date Time Status CT head/brain wo con Stat Cat Scan 03/24/25 18:42 Completed Rapid PCR Covid and Flu A/B Stat Lab 03/24/25 19:15 Completed Medical Decision Narrative: Initial impression of presenting illness: 49-year-old male presents the emergency department with complaints of right ear pain with headache that started this morning. He denies any trauma. He states he last took Tylenol approximately 4 hours prior to arrival. Patient states that he contacted his [facility] care provider earlier today and they gave him a prescription for amoxicillin to treat ear infection however due to the pain his blood pressure keeps increasing. He states he then contacted his coat operator insulator as he does have a history of heart failure cardiomyopathy and wears a Lifepak. They instructed him to come to the ER for evaluation due to his blood pressure elevated. Differential diagnosis includes but is not limited to: Otitis media, otitis externa, viral illness, intracranial abnormality, uncontrolled hypertension Patient arrives hemodynamically stable, afebrile, without respiratory distress with vital signs interpreted by myself. Initial physical exam reveals a slight increase in fluid behind bilateral TMs however no erythema or drainage noted. No focal neurological deficits present. Rest of exam was unremarkable. Initial diagnostic plan: CT of head without contrast, COVID and flu swab, Compazine and Benadryl for symptom relief Results from initial plan were reviewed and interpreted by myself, pertinent positives include: COVID and flu swabs were negative. CT of head without contrast was also unremarkable. Interventions in the ED: Patient was given Benadryl and Compazine for pain control. Have ED attending Dr. Abreu evaluate patient's ear pain as well. He is concerned that the may be the beginnings of bullous myringitis. Patient was ordered IV Tylenol as well as IV Unasyn. Patient was made aware of the results and the findings, upon reevaluation patient has remained stable throughout stay, symptoms remained stable. Disposition: Reviewed findings today's workup with patient and spouse and informed no acute abnormalities were noted. Advised them that they can continue with Tylenol as needed for pain control. Advised them that they can use the avani xicillin prescription that they prescribed by the primary care provider for treatment of this condition. Instructed them to return to the emergency department any new or worsening symptoms. Also encourage patient to continue to monitor his blood pressure and to follow-up with his coat operator insulator as needed. They were agreeable to plan of care. Patient made aware of findings and had a detailed discussion with symptomatic care and return precautions, patient voiced understanding. Yonas Mccarty MD: I was consulted by the TANA, and we discussed the complexity of the problems being addressed. I approved the treatment and management plan for this patient's care in the emergency department, thus performing a substantive portion of the medical decision making. Shared decision making discussion was had with me personally over the utility of IV antibiotics versus oral antibiotics we proceeded with 1 dose of IV antibiotics and I have no concern for serious infection such as mastoiditis and all emergencies have been ruled out at this point patient is appropriate for outpatient management at this time. Critical Care <Torrie Pimentel - Last Filed: 03/24/25 20:23> Critical Care Time Critical Care Time: No
--- OUTSIDE RECORDS SUMMARY | 2025-03-24 18:40 | XMS_ITS | Encounter Summary ---
Author Organization [facility] Address [address] [place] [address] Care Team Providers Care Patent Prosecution Attorney Name Role Phone Madison Echevarria Primary Care Provider [phone] Encounter Details Date Type Department Care Team (Latest Contact Info) Description 02/26/2025 Results Follow-Up [facility] Cardiovascular [facility] Heart Failure [address] [place] [address] [place] [phone] Roes Sol NP [address] [place] [phone] BASIC METABOLIC PANEL (BMP=EP1), NT PRO BNP, HS TROPONIN-I, OUTPATIENT Social History Tobacco Use Types Packs/Day Years [...] Description 04/08/2025 11:10 AM EST Appointment [facility] Heart Failure [address] [place] [address] Office [address] [place] [address] Mary Blackburn MD [address] [place] [address] [address] [place] [address] documented as of this encounter Visit Diagnoses Not on filedocumented in this encounter Care Teams Patent Prosecution Attorney Relationship Specialty Start Date End Date Madison Echevarria [address] [place] [address] PCP - General 02/12/25 documented as of this encounter
--- OUTSIDE RECORDS SUMMARY | 2025-03-24 18:40 | XMS_ITS | Encounter Summary ---
Author Organization [facility] Address [address] [place] [address] Care Team Providers Care Film Touch Up Inspector Name Role Phone Madison Echevarria Primary Care Provider [phone] Reason for Visit * Reason Onset Date Comments Imaging Results 02/24/2025 Encounter Details Date Type Department Care Team (Late st Contact Info) Description 02/24/2025 Telephone [facility] Heart Failure [address] [place] [address] Medical Office Building [address] [place] [phone] Lena Ruby, RN [address] [place] [address] Imaging Results Social History Tobacco Use Types Packs/Day [...] Telephone Encounter - Lena Ruby RN - 03/03/2025 10:29 AM EST Pt was seen in office 02/25. Will close encounter. * Telephone Encounter - Lena Ruby RN - 02/24/2025 6:13 PM EST Montez is a 49 y.o. M who saw Dr. Blackburn as a new pt consult 02/11 for HF. Pt was wearing a lifevest. Order for an echo to reassess LVEF. Plan to discontinue Lifevest for improved EF >35%. Current cardiac meds: Bumex 1mg daily, Entresto 97-103mg BID, Jardiance 10mg daily, Spironolactone 25mg daily Echo complete, results below. EF 29%. Sending results as an FYI as pt sees Pratibha Almanza NP tomorrow 02/25. 2D ECHO COMPLETE W/STRAIN/3D PRN CONTR/BUBBLE (02/24/2025 16:35) Study Conclusions - Left ventricle: The cavity [...] left atrial pressure. Agitated saline shows no [id number] atrial level shunt. - Inferior vena cava: The IVC is normal-sized. Respirophasic diameter changes are in the normal range (>= 50%), consistent with normal central venous pressure. LOVN 02/11 Chronic Combined Systolic & Diastolic [...] Description 04/08/2025 11:10 AM EST Appointment [facility] Heart Failure [address] [place] [address] Medical Office Building [address] [place] [phone] Mary Blackburn MD [address] [place] [address]. [address] [place], [place] [id number] documented as of this encounter Visit Diagnoses Not on filedocumented in this encounter Care Teams Film Touch Up Inspector Relationship Specialty Start Date End Date Madison Echevarria [address] [place] [address] PCP - General 02/12/25 documented as of this encounter
--- OUTSIDE RECORDS SUMMARY | 2025-03-24 18:40 | XMS_ITS | Encounter Summary ---
Author Organization [facility] Address [address] [place] [address] Care Team Providers Care Rn Pain Management Name Role Phone No Pcp, Provider Not In [facility] Primary Care Provid er Unavailable Reason for Visit * Reason Onset Date Comments Missed Appointment 03/01/2025 Encounter Details Date Type Department Care Team ([facility] st Contact Info) Description 03/01/2025 [place] [address] Yusuf Ortiz MD [address] [place], [place] [phone] Missed Appointment Social History Tobacco Use Types Packs/Day Years [...] encounter Miscellaneous Notes * Telephone Encounter - Veronica Almonte - 03/01/2025 11:49 AM EST patient phone is off / no showed documented in this encounter Plan of Treatment Not on file documented as of this encounter Visit Diagnoses Not on filedocumented in this encounter Care Teams Rn Pain Management Relationship Specialty Start Date End Date No Pcp, Provider Not In [facility] PCP - General 03/09/24 documented as of this encounter
--- OUTSIDE RECORDS SUMMARY | 2025-03-24 18:41 | XMS_ITS | Encounter Summary ---
Author Organization [facility] Address [address] [place] [address] Care Team Providers Care Perinatology Physician Name Role Phone Madison Echevarria Primary Care Provider [phone] Encounter Details Date Type Department Care Team [...] on file documented as of this encounter Functional Status * Communicable Disease Screening Question Answer Date of Assessment Author Have you been in contact with someone who was sick? No / Unsure 02/12/2025 11:20 AM Sabra Lion RN Do you have any of the following new or worsening symptoms? None of these 02/12/2025 11:20 AM Sabra Lion RN documented as of this encounter Plan of Treatment Upcoming Encounters Date Type Department Care Team (Late st Contact Info) Description 04/08/2025 11:10 AM EST Appointment [facility] Heart Failure [address] [facility] Medical Office Building [address] [place] [address] Mary Blackburn MD [address] [facility]. [address] [place] [address] documented as of this encounter Visit Diagnoses Not on filedocumented in this encounter Care Teams Perinatology Physician Relationship Specialty Start Date End Date Madison Echevarria [address] [place] [address] PCP - General 02/12/25 documented as of this encounter
--- OUTSIDE RECORDS SUMMARY | 2025-03-24 18:41 | XMS_ITS | Encounter Summary ---
Author Organization [facility] Address [address] [place] [address] Care Team Providers Care Dog Barber Name Role Phone Madison Echevarria Primary Care Provider [phone] Reason for Visit * Reason Onset Date Comments Other 02/15/2025 Recent ED visit and results Encounter Details Date Type Department Care Team (Late st Contact Info) Description 02/15/2025 Telephone [facility] Physicians - Heart & Vascular, [place] [address] [place] [address] Mary Blackburn MD [address] [facility] [place] [address] Other (Recent ED visit and [...] Telephone Encounter - Anna Hays RN - 03/09/2025 4:33 PM EST Per Raina, images still not received of [facility] from [facility]. Spoke w/ pt and informed him that multiple attempts were made to get images and all were unsuccessful. Asked him if he would still like RAG to review LHC images from [facility] to get images downloaded onto CD via their medical records department and bring with him to [facility] to further review as we cannot get images from their hospital. He verified understanding. * Telephone Encounter - Anna Hays RN - 03/02/2025 3:49 PM EST Raina sent email to Skyler inquire about [facility] images as they are not in merge. Will await response. * Telephone Encounter - Mary Blackburn MD - 02/24/2025 12:56 PM EST Maybe I am looking at it the wrong way. How do I access [employer]? I went through [facility] and did not see them there. RAG * Telephone Encounter - Anna Hays RN - 02/23/2025 4:08 PM EST Per Saw, he spoke w/ [facility] and cath images were uploaded into [employer] again today. Can you login into [employer] to review? * Telephone Encounter - Anna Hays RN - 02/23/2025 3:24 PM EST Sent secure chat to Saw to call [facility] again and inquire about images merged to us from earlier this month. Once re-confirmed, will route back to [facility] to review cath images. * Telephone Encounter - Mary Blackburn MD - 02/23/2025 1:10 PM EST No plans to restart the lopressor yet. I still cannot see the images. rAG * Telephone Encounter - Anna Hays RN - 02/17/2025 9:59 AM EST Spoke w/ Wheeler. Informed her we are requesting [facility] images from earlier this month at [facility] and will have RAG review once received into [facility]. Explained this can take some time to receive/review. Per Saw, [facility] has merged us the cath from this month. 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 They would like to keep both [facility] and [facility] astheir cardiologists and have the doctors [...] her of preference to have itdone at [facility]. Kendra agreeable with plan. Asked Montez to continue to monitor his BP and let us know at upcoming appt if it remains low (SBP 90s or less). Kendra agreeable with plan, verbalized unde rstanding. Kendra wanted me to ask Dr. Blackburn if she was able to get the [facility] report from [facility] and if she has reviewed it? [...] were ordered. Critical outpt Troponin of 94. Lnea RN spoke w/ pt 02/12 and he stated [...] scheduled for 02/24 and follow up with [employer]UC[employer] ASSISTANT 02/25 next week. Spoke w/ pt s/o today and she inquired about if RAG reviewed ER visit/results and question about a cardiac MRI ordered by [facility]. She states the [facility] ordereda cardiac MRI outpatient at their hospital [...] if pt should get Cardiac MRI at [facility] (awaiting ins coverage) or if he should have it at [facility]. (He is having echo 02/24). Do you [...] Description 04/08/2025 11:10 AM EST Appointment [facility] [place] [address] [place] [address] Medical [address] [place] [address] Mary Blackburn MD [address] [place] [address]. [address] [place], [place] [id number] documented as of this encounter Visit Diagnoses Not on filedocumented in this encounter Care Teams Dog Barber Relationship Specialty Start Date End Date Madison Echevarria [address] [place] [address] PCP - General 02/12/25 documented as of this encounter
--- OUTSIDE RECORDS SUMMARY | 2025-03-24 18:41 | XMS_ITS | Clinical Summary ---
Author Organization [facility] Address [address] [place] [address] Care Team Providers Care Seeing Eye Dog Teacher Name Role Phone Madison Echevarria Primary Care Provider [phone] Allergies Active Allergy Reactions Criticality Noted Date Comments House Dust 10/04/2023 Mold 10/04/2023 Pollen Extracts 10/04/2023 Medications diclofenac (VOLTAREN) 75 mg EC tablet Take 75 mg by mouth 2 times daily. 5 Active methocarbamoL (ROBAXIN) 750 mg tablet Take 750 mg by mouth 3 times daily. 5 Active fluticasone propionate (FLONASE) 50 mcg/actuation nasal spray [place] 1 [place] into nose daily. 5 Active nicotine (NICODERM CQ) 21 mg/24 hr patch Apply 1 Patch to skin daily. 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 90 Tablet 1 5 Active azelastine (ASTELIN) 137 mcg (0.1 %) [place], Non-Aerosol SPRAY ONE SPRAY NASALLY TWICE DAILY Active ibuprofen (MOTRIN) 200 mg tablet Take 600 mg by mouth every 8 hours as needed. 02/26/20 Discontinu ed(Therapy Completed) metFORMIN (GLUCOPHAGE) 500 mg tablet Take 500 mg by mouth 2 times daily (with meals). 02/26/20 Discontinu ed(Therapy Completed) Active Problems Problem Noted Date Diagnosed Date Chronic systolic heart failure 02/11/2025 Acute on chronic combined sy stolic and diastolic heart failure 02/11/2025 Overweight (BMI 25.0-29.9) 02/11/2025 Primary hypertension 02/11/2025 LYN (obstructive sleep apnea) 02/11/2025 Chronic systolic dysfunction of right ventricle 02/11/2025 Tobacco use 02/11/2025 Rhinovirus infection 02/11/2025 Encounters Date Type Department Care Team Description 02/26/2025 Results Follow-Up [facility] Heart Failure [address] [place] [address] Rose Sol, DANGELO BASIC METABOLIC PANEL (BMP=EP1), NT PRO BNP, HS TROPONIN-I, OUTPATIENT 02/25/2025 1:57 PM EST - 02/25/2025 11:59 PM EST Hospital Encounter Laboratory [address] [facility] [address] [place] [address] Acute on chronic combined systolic and diastolic heart failure (CMS/HCC) Discharge Disposition: Home or Self Care 02/25/2025 1:00 PM EST Office Visit [facility] Heart Failure [address] [facility] [address] [place] [address] Rose Sol NP Acute on chronic combined systolic and diastolic heart failure (CMS/HCC) (Primary Dx); Primary hypertension; LYN (obstructive sleep apnea) 02/24/2025 2:30 PM EST - 02/24/2025 11:59 PM EST Hospital Encounter [facility] Testing Center [facility] [address], [address] [place] [address] Acute on chronic combined systolic and diastolic heart failure (CMS/HCC) Discharge Disposition: Home or Self Care 02/24/2025 Telephone [facility] Heart Failure [address] [facility] Office [address] [place] [phone] Lena Ruby business computers teacher Results 02/15/2025 Telephone [facility] Physicians - Heart & Vascular, [place] [address] [place] [phone] Mary Blackburn MD Other (Recent ED visit and results ) 02/12/2025 11:25 AM EST - 02/12/2025 4:10 PM EST Emergency [facility] [place] [facility] [address] [place], [place] [address] Bryanna Rosenthal MD Atypical chest pain (Primary Dx); Systolic heart failure, unspecified HF chronicity (CMS/HCC) Discharge Disposition: Home or Self Care 02/12/2025 Travel 02/12/2025 Telephone [facility] [address] [facility] Medical Office [address] [place] [phone] Lena Ruby, RN Patient Status Update 02/11/2025 4:18 PM EST - 02/11/2025 11:59 PM EST Hospital Encounter Laboratory [address] [facility] [address] [place] [address] Chronic systolic heart failure (CMS/HCC) Discharge Disposition: Home or Self Care 02/11/2025 3:00 PM EST Office Visit [facility] [place] Heart Failure [address] [facility] Office [address] [place] [address] Mary Blackburn MD Acute on chronic combined systolic and diastolic heart failure (CMS/HCC) (Primary Dx); Chronic systolic dysfunction of right ventricle; Overweight (BMI 25.0-29.9); Primary hypertension; LYN (obstructive sleep apnea); Tobacco use; Rhinovirus infection 02/11/2025 Telephone [facility] [address] [place] [address] Torrie Arzate NP Results 02/11/2025 Telephone [facility] Heart Failure [address] [place] [address] [address] [place] [phone] Lena Ruby RN Other (Off work x 6 weeks) 02/11/2025 Abstract [facility] Cardiovascular [facility] Heart Failure [address] [place] [address] [address] [place] [phone] Kristi Veliz RN 02/11/2025 Orders Only [facility] Heart [address] [place] [phone] Juliette James from Last 3 Months Social History Tobacco [...] Pulse 86 02/25/2025 12:56 PM EST Temperature 37 C (98.6 F) 02/12/2025 11:25 AM EST Respiratory Rate 20 02/12/2025 3:55 PM EST Oxygen Saturation 98% 02/12/2025 3:55 PM EST Inhaled Oxygen Concentration - - Weight 99.3 kg (219 lb) 02/25/2025 12:56 PM EST Height 180.3 cm (5' 11 ) 02/25/2025 12:56 PM EST Body Mass Index 30.54 02/25/2025 12:56 PM EST Plan of Treatment Upcoming Encounters Date Type Department Care Team (Late st Contact Info) Description 04/08/2025 11:10 AM EST Appointment [facility] [place] Heart Failure [address] [place] [address] Medical Office [address] [place] [phone] Mary Blackburn MD [address] [place] [address] [address] [place], [place] [address] Health Maintenance Due Date Last Done Comments [...] combined systolic and diastolic heart failure (CMS/HCC) 2D ECHO COMPLETE W/STRAIN/3D PRN CONTR/BUBBLE Routine 02/24/2025 4:35 PM EST Acute on chronic combined systolic and diastolic heart failure (CMS/HCC) POC HS TROPONIN I ISTAT Routine 02/12/2025 [...] (CMS/HCC) from Last 3 Months Results * HS TROPONIN-I, OUTPATIENT (02/25/2025 2:07 PM EST) Only the most recent of2 resultswithin the time period is included. HS-Troponin I, Outpatient 8 0 - 35 ng/L [facility] Comment: Please refer to [...] 2:07 PM EST 02/25/2025 11:27 PM EST Roseaureliano Sol BRANCH LENDING MANAGER CHEMISTRY ORDERABLES Final R MOGO Design Performing Organization Address [facility] de Phone Number [facility] [address] * NT PRO BNP (02/25/2025 2:07 PM EST) Only the most recent of3 resultswithin the time period is included. Pathologist [facility] Pro BNP 247 0 - 299 pg/mL [facility] Comment: The reference ranges are for acute CHF diagnosis only: Rule out cutpoint----<300 pg/mL Rule in cutpoint ----->450 pg/mL (<50 years old) >900 pg/mL (>50 years old) Plasma 02/25/2025 2:07 PM EST 02/25/2025 11:27 PM EST Rosearcelia Sol BRANCH LENDING MANAGER CHEMISTRY ORDERABLES Final R esult Performing Organization Address [facility] Co de Phone Number [facility] [address] * (ABNORMAL) BASIC METABOLIC PANEL (BMP=EP1) (02/25/2025 2:07 PM EST) Sodium 140 135 - 146 mmol/L [facility] Potassium 5.0 3.5 - 5.1 mmol/L [facility] Chloride 104 98 - 110 mmol/L [facility] CO2 27 22 - 29 mmol/L [facility] Anion Gap 9 5 - 13 mmol/L [facility] Comment:Anion gap calculatio n does not include potassium (K+) value. BUN 18 7 - 25 mg/dL [facility] Creatinine 1.53(H) 0.50 - 1.30 mg/dL [facility] Glucose 99 71 - 99 mg/dL [facility] Comment:Reference range (71- 99 mg/dL) refers only to fasting samples, and does not apply to non-fasting samples. eGFR CKD-EPI 2020 55 See Note [facility] Comment: eGFR calculated with 2020 CKD-EPI equation using creatinine, patient's age and gender. Other factors, especially muscle mass, may affect accuracy and need to be considered. Patient values should be interpreted as a trend. The reference interval is >60 mL/min/1.73m2. Calcium 9.9 8.5 - 10.5 mg/dL [facility] BUN/Creatinine Ratio 12 [facility] Serum (Serum) 02/25/2025 2:0 7 PM EST 02/25/2025 5:39 PM EST us Rose Sol BRANCH LENDING MANAGER CHEMISTRY ORDERABLES Final R esult [facility] [address] * (ABNORMAL) 2D ECHO COMPLETE W/STRAIN/3D PRN CONTR/BUBBLE (02/24/2025 4:35 PM EST) Pathologist [facility] Mitral Valve Regurgitation trivial [facility] Tricuspid Regurgitation trivial [facility] EF 29(LL) 50 - 72 percent [facility] Anatomical Region Laterality Modality Intravascular Ul trasound 02/24/2025 2:40 PM EST Narrative 02/24/2025 4:17 PM EST [facility] Echocardiography Lab [address] [place] [address] Transthoracic Echocardiogram Patient: Carley Kimble Gender: M MR #: [id number] Age: 49 Account: [id number] : 1975 Study Date: 02/24/2025 Room: BP: 101 / 64 Referring Physician: Mary Blackburn Interpreting Physician: Nilo Villagomez PERFORMING Nilo Villagomez GEOSPATIAL SYSTEMS INTEGRATOR Hue Villagomez REFERRING Mary Blackburn ORDERING Mary Blackburn Procedure:2D ECHO COMPLETE W/STRAIN/3D PRN Order: Accession CONTR/BUBBLE Number:[id number] Facility: [facility] Indications: CHF, Unspecified (I509). PMH: Congestive [...] left atrial pressure. Agitated saline shows no fhkgs-zm-llrz atrial level shunt. - Inferior vena cava: [...] left atrial pressure. Agitated saline shows no qzaaw-uf-xdjf atrial level shunt. Right ventricle: - The [...] range. Reviewed and confirmed by Nilo Villagomez [id number] Procedure Note Nilo Villagomez MD - 02/24/2025 [facility] Echocardiography Lab [address] [place] [address] Transthoracic Echocardiogram Patient: Carley Kimble Gender: Jassi MR #: [id number] Age: 49 Account: [id number] : 1975 Study Date: 02/24/2025 Room: BP: 101 / 64 Referring Physician: Mary Blackburn Interpreting Physician: Nilo Villagomez PERFORMING Nilo Villagomez GEOSPATIAL SYSTEMS INTEGRATOR Hue Villagomez REFERRING Mary Blackburn ORDERING Mary Blackburn Procedure:2D ECHO COMPLETE W/STRAIN/3D PRN Order: Accession CONTR/BUBBLE Number:[id number] Facility: [facility] Indications: CHF, Unspecified (I509). PMH: Congestive [...] left atrial pressure. Agitated saline shows no zlgbf-ek-gdsq atrial level shunt. - Inferior vena cava: [...] left atrial pressure. Agitated saline shows no khogj-wp-zwzl atrial level shunt. Right ventricle: - The [...] range. Reviewed and confirmed by Nilo Villagomez [id number] us Mary Blackburn MD CARDNT ECHO ORDERABLES Final Result * (ABNORMAL) POC HS TROPONIN I ISTAT (02/12/2025 2:23 PM EST) Only the most recent of2 resultswithin the time period is included. POC HS Troponin I ISTAT 66.2(HH) 0.0 - 35.0 ng/L [facility] Blood, Venous 02/12/2025 2:2 3 PM EST 02/12/2025 2:25 PM EST us Bryanna Rosenthal MD POINT OF CARE TEST ORDERABLES Final Result Performing Organization Address City/State/[facility] Co de Phone Number [facility] [address] * DIAG-PORTABLE CHEST (02/12/2025 11:55 AM [...] EST) PTT 28.4 23.1 - 37.6 seconds [facility] Comment: Effective 09/21/2024, there is a new lot number of PTT reagent. There are no changes in critical value or reference ranges. Plasma (Blood) 02/12/2025 11 :42 AM EST 02/12/2025 11:50 AM EST Bryanna Rosenthal MD HEMATOLOGY ORDERABLES Final Re sult Performing Organization Address City/State/[facility] Co de Phone Number [facility] [address] * PT (PRO TIME INCLUDES INR) (02/12/2025 11:42 AM EST) Protime 11.5 10.1 - 13.7 seconds [facility] Comment: Effective 09/21/24, the PT reference range changed from 10.5-14.1 s to 10.1-13.7 s. The INR reference range remains the same at 0.9-1.1. INR 1.0 0.9 - 1.1 [facility] Comment: RECOMMENDED THERAPEUTIC RANGES USING INR : Stable Oral Anticoagulant Therapy: 2.0 - 3.0 Mechanical Prosthetic Heart Valve: 2.5 - 3.5 Recurrent Acute Myocardial Infarction: 2.5 - 3.5 Plasma (Blood) 02/12/2025 11 :42 AM EST 02/12/2025 11:50 AM EST Bryanna Rosenthal MD HEMATOLOGY ORDERABLES Final Re sult Performing Organization Address [facility] Co de Phone Number [facility] [address] * DIFFERENTIAL (02/12/2025 11:42 AM EST) Neutrophils [...] ORDERABLES Final Re sult Performing Organization Address [facility] Co de Phone Number [facility] [address] * (ABNORMAL) D-DIMER (02/12/2025 11:42 AM EST) D-Dimer, Quant 233(H) 0 - 230 ng/mL DDU [facility] Comment: The D-dimer test is [...] Rosenthal MD HEMATOLOGY ORDERABLES Final Re sult [facility] [address] * (ABNORMAL) CBC WITH DIFFERENTIAL (02/12/2025 [...] ORDERABLES Final Re sult Performing Organization Address City/[facility]/ZIP Co de Phone Number [facility] [address] * (ABNORMAL) B NATRIURETIC PEPTIDE (02/12/2025 11:42 AM EST) BNP 134(H) 0 - 100 pg/mL [facility] Plasma (Blood) 02/12/2025 11 :42 AM EST 02/12/2025 11:50 AM EST us Bryanna Rosenthal MD CHEMISTRY ORDERABLES Final Res ult Performing Organization Address [facility] de Phone Number [facility] [address] * ECG (02/12/2025 11:32 AM EST) Heart Rate 88 bpm [facility] QRS Interval 105 ms [facility] E[facility] QT Interval 348 ms [facility]TE RNA[facility] QTc Interval 421 ms [facility] P [place] 64 deg [facility] QRS [place] -35 deg [facility] T Wave [place] 117 deg [facility] EXTE [facility] P-R Interval 151 msec [facility] EXT ERNAL LAB 02/12/2025 11:3 2 AM EST Narrative [facility] - 02/12/2025 11:43 AM EST [facility] ED Test Date: 2025-02-12 11:32:03 Pat Name: CARLEY KIMBLE Department: ED Room: Gender: Male Motor And Controls Tester: ELP5 : 1975 Requested By: BRYANNA Lai Order Number: [id number] Reading MD: Bryanna Rosenthal MD Interpretive Statements Sinus rhythm LAE, consider biatrial enlargement Left ventricular hypertrophy Anterior Q waves, possibly due to LVH Nonspecific T abnormalities, lateral leads rate 88 beats per minute Left axis deviation Normal ST segments No evidence of acute ischemia infarct Electronically Signed On 02-12-2025 11:43:29 EST by Bryanna Rosenthal MD Procedure Note Bryanna Rosenthal MD - 02/12/2025 [facility] ED Test Date: 2025-02-12 11:32:03 Pat Name: CARLEY KIMBLE Department: ED Room: Gender: Male Motor And Controls Tester: ELP5 : 1975 Requested By: BRYANNA Lai Order Number: [id number] Reading MD: Bryanna Rosenthal MD Interpretive Statements Sinus rhythm LAE, consider biatrial enlargement Left ventricular hypertrophy Anterior Q waves, possibly due to LVH Nonspecific T abnormalities, lateral leads rate 88 beats per minute Left axis deviation Normal ST segments No evidence of acute ischemia infarct Electronically Signed On 02-12-2025 11:43:29 EST by Bryanna Rosenthal MD us Bryanna Rosenthal MD ECG ORDERABLES Final Result Performing Organization Address [facility] Co de Phone Number [facility] [address] [place] [address] * (ABNORMAL) HGB, A1C (GLYCOHEMOGLOBIN) (02/11/2025 4:28 PM EST) Hgb A1C 6.2(H) 4.0 - 5.6 % [facility] Comment: Reference Ranges for [...] Average Glucose 131(H) 68 - 114 mg/dL [facility] Whole Blood 02/11/2025 4:28 PM EST 02/11/2025 5:42 PM EST us Mary Blackburn MD CHEMISTRY ORDERABLES Final R esult Performing Organization Address City/[facility]/ZIP Co de Phone Number [facility] [address] [place] [address], [facility] * (ABNORMAL) COMPREHENSIVE METABOLIC PANEL (02/11/2025 4:28 PM EST) Sodium 139 135 - 146 mmol/L [facility] Potassium 4.7 3.5 - 5.1 [...] LAB Glucose 103(H) 71 - 99 mg/dL [facility] Comment:Reference range (71- 99 mg/dL) refers only to fasting samples, and does not apply to non-fasting samples. eGFR CKD-EPI 2020 50 See Note [facility] Comment: eGFR calculated with 2020 CKD-EPI equation using creatinine, patient's age and gender. Other factors, especially muscle mass, may affect accuracy and need to be considered. Patient values should be interpreted as a trend. The reference interval is >60 mL/min/1.73m2. Calcium 9.5 8.5 - 10.5 mg/dL [facility] Total Bilirubin 0.3 0.2 - 1.2 mg/dL [facility] AST 35 0 - 40 U/L [facility] ALT 98(H) 0 - 60 U/L [facility] Alkaline Phosphatase 46 33 - 140 U/L [facility] Total Protein 7.8 6.0 - 8.0 g/dL [facility] Albumin 4.5 3.5 - 5.0 g/dL [facility] Globulin 3.3 2.0 - 3.7 g/dL [facility] Albumin/Globulin Ratio 1.4 1.0 - 2.1 [facility] BUN/Creatinine Ratio 13 [facility] Serum (Serum) 02/11/2025 4:2 8 PM EST 02/11/2025 5:46 PM EST us Mary Blackburn MD CHEMISTRY ORDERABLES Final R esult [facility] [address] [place] [address], [facility] from Last 3 Months Insurance [facility] Care Teams Seeing Eye Dog Teacher Relationship Specialty Start Date End Date Madison Echevarria [address] [place] [address] PCP - General 02/12/25
--- OUTSIDE RECORDS SUMMARY | 2025-03-24 18:41 | XMS_ITS | Encounter Summary ---
Author Organization [facility] Address [address] [place] [address] Care Team Providers Care Parking Attendant Name Role Phone Duke Monterroso MD Primary Care Provider [phone] Madison Echevarria Primary Care Provider [phone] Encounter Details Date Type Department Care Team (Late st Contact Info) Description 02/11/2025 Orders Only [facility] Heart Failure [address] [place] [address] [address] [place] [phone] Juliette James [address] [place] [phone] Social History Tobacco Use Types Packs/Day Years [...] Description 04/08/2025 11:10 AM EST Appointment [facility] Heart [address] [place] [phone] aMry Blackburn MD [address] [place] [address] [address] [place], [place] [address] documented as of this encounter Visit Diagnoses Not on filedocumented in this encounter Care Teams Parking Attendant Relationship Specialty Start Date End Date Duke Monterroso MD PCP - General Family Medicine 05/18/10 02/11/25 Madison Echevarria [address] [place] [address] PCP - General 02/12/25 documented as of this encounter
--- OUTSIDE RECORDS SUMMARY | 2025-03-24 18:41 | XMS_ITS | Encounter Summary ---
Author Organization [place] [address] Care Team Providers Care Armature Coil Winder Name Role Phone No Pcp, Provider Not In [facility] Primary Care Provid er Unavailable Reason for Referral * Consultation (Routine) - Pending Review Specialty Diagnoses / Procedures Referred By Viji gaona Referred To Contact Otolaryngology Diagnoses Allergic rhinitis, unspecified seasonality, unspecified trigger Procedures PA OFFICE/OUTPATIENT NEW MODERATE MDM 45 MINUTES Madison Echevarria APRN [address] [place], [place] [id number] Phone: tel: Referral ID Status Reason Start Date Expiration Date V isits Requested Visits Authorized [id number] Pending Review 12/28/2024 12/28/2025 1 1 Encounter Details Date Type Department Care Team (Late st Contact Info) Description 12/28/2024 Community Orders [facility] [place] [address] Madison Echevarria APRN [address] [place] [address] Allergic rhinitis, unspecified seasonality, unspecified trigger (Primary [...] as of this encounter Plan of Treatment Scheduled Referrals Name Type Priority Associated Diagnoses Orde r Schedule AMB REFERRAL TO ENT Outpatient Referral Routine Allergic rhinitis, unspecified seasonality, unspecified trigger Ordered: 12/28/2024 documented as of this encounter Visit Diagnoses Diagnosis Allergic rhinitis, unspecified seasonality, unspecified trigger- Primary documented in this encounter Care Teams Armature Coil Winder Relationship Specialty Start Date End Date No Pcp, Provider Not In Epic PCP - General 03/09/24 documented as of this encounter
--- OUTSIDE RECORDS SUMMARY | 2025-03-24 18:41 | XMS_ITS | Encounter Summary ---
Author Organization [facility] Address [address] [place] [address] Care Team Providers Care Electric Switch Tester Name Role Phone Duke Monterroso MD Primary Care Provider [phone] Madison Echevarria Primary Care Provider [phone] Reason for Visit * Reason Onset Date Comments Results 02/11/2025 Encounter Details Date Type Department Care Team (Late st Contact Info) Description 02/11/2025 Telephone [facility], [place] [address] [facility] [address] [phone] Torrie Arzate NP [address] [place] [address] [phone] Results Social History Tobacco Use Types [...] Description 04/08/2025 11:10 AM EST Appointment [facility] [place] [facility] Failure [address] [place] [address] Office [facility] [phone] Mary Blackburn MD [address] [place] [address] [phone] documented as of this encounter Visit Diagnoses Not on filedocumented in this encounter Care Teams Electric Switch Tester Relationship Specialty Start Date End Date Duke Monterroso MD PCP - General Family Medicine 05/18/10 02/11/25 Madison Echevarria [address] [place] [address] PCP - General 02/12/25 documented as of this encounter
--- OUTSIDE RECORDS SUMMARY | 2025-03-24 18:41 | XMS_ITS | Clinical Summary ---
Author Organization [facility] Address [address] [place] [address] Care Team Providers Care Log Rafter Name Role Phone Pcp, No Primary Care Provider [phone] Source Comments This information has been [...] therelease of HIV test results or diagnoses. [id number] Allergies Active Allergy Reactions Criticality Noted [...] (#1) 2024 Insurance MANAGED MEDICAID Care Teams Log Rafter Relationship Specialty Start Date End Date Pcp, No No Address PCP - General 01/21/23
--- OUTSIDE RECORDS SUMMARY | 2025-03-24 18:41 | XMS_ITS | Clinical Summary ---
Author Organization [facility] Address [address] [facility] [place] [address] Phone Care Team Providers Care Brusher Machine Name Role Phone No Pcp, Provider Not In [facility] Primary Care Provid er Unavailable Allergies [...] Active fluticasone propionate (FLONASE) 50 mcg/actuation Nasl Smock, Suspension TAKE 1 SPRAY EACH NARE BY [...] take second tablet if needed 2 Tablet 5 Active Active Problems Problem Noted Date Diagnosed Date HTN (hypertension) Encounters Date Type Department Care Team Description 03/01/2025 Telephone [facility] [address] [place] [address] Yusuf Ortiz MD Missed Appointment 02/03/2025 10:45 AM EST Office Visit [facility] [address] [address] Edu Yin MD Radiculopathy of cervical region (Primary Dx) 01/22/2025 9:30 AM EDT Ancillary Procedure [facility] [address] [address] Albino Orellana MD DDD (degenerative disc disease), cervical 01/22/2025 9:15 AM EDT Office Visit [facility] [address] [address] Albino Orellana MD Radiculopathy of cervical region (Primary Dx); DDD (degenerative disc disease), cervical; Smoking history; Nicotine dependence with nicotine-induced disorder, unspecified nicotine product type; Foraminal stenosis of cervical region; Neck pain; Cervical stenosis of spinal canal; Cervical spondylosis; Cervical radiculopathy 01/22/[address] [facility] [address] [address] Theresa Posey, MA Medication Refill 12/28/2024 [place] [address] Madison Echevarria APRN Allergic rhinitis, unspecified seasonality, unspecified trigger (Primary Dx) 12/25/2024 Telephone [facility] [address] [address] Kimberly Torres, LETICIA Results 12/25/2024 Orders Only [facility] [address] [place] [address] Kimberly Torres, ATC Paresthesia and pain of both upper extremities (Primary Dx) 12/22/2024 9:00 AM EDT Ancillary Procedure [facility] [address] [place] [address] Yusuf Ortiz MD Cubital tunnel syndrome of both upper extremities; Paresthesia and pain of both upper extremities from Last 3 Months Surgical History Surgery [...] 01/22/2025 9:34 AM EDT Plan of Treatment Health Maintenance Due [...] EXTENSION ONLY (01/22/2025 9:33 AM EDT) Narrative [facility] - 01/22/2025 9:33 AM EDT Please see physician's note from office encounter for x-ray imaging result us Albino Orellana MD IMG DIAGNOSTIC IMAGING OR DERABLES Final Result * MRI CERVICAL SPINE WO CONTRAST (12/22/2024 9:33 AM EDT) Narrative [facility] - 12/22/2024 9:34 AM EDT Please see the scanned MRI report associated with this order on the Imaging tab of the patient's chart. us Yusuf Ortiz MD IMG MRI ORDERABLES Final Result [facility] from Last 3 Months Insurance [employer] MDR MDR Care Teams Brusher Machine Relationship Specialty Start Date End Date No Pcp, Provider Not In Epic PCP - General 03/09/24
--- OUTSIDE RECORDS SUMMARY | 2025-03-24 18:41 | XMS_ITS | Encounter Summary ---
Author Organization [facility] Address [address] [place] [address] Care Team Providers Care Clarifier Operator Name Role Phone Wale Madison Primary Care Provider [phone] Reason for Visit * Reason Onset Date Comments Patient Status Update 02/12/2025 Encounter Details Date Type Department Care Team (Late st Contact Info) Description 02/12/2025 Telephone [facility] Heart Failure [address] [place] [address] Medical Office Building [address] [place] [phone] Lena Ruby RN [address] [place] [address] Patient Status Update Social History Tobacco Use [...] were ordered. Critical outpt Troponin of 94. Anna Arzate NP was notified and sent the call to [...] Description 04/08/2025 11:10 AM EST Appointment [facility] Heart Failure [address] [place] [address] [address] [place] [phone] Mary Blackburn MD [address] [place] [address]. [address] [place] [phone] documented as of this encounter Visit Diagnoses Not on filedocumented in this encounter Care Teams Clarifier Operator Relationship Specialty Start Date End Date Madison Echevarria [address] [place] [address] PCP - General 02/12/25 documented as of this encounter
--- OUTSIDE RECORDS SUMMARY | 2025-03-24 18:41 | XMS_ITS | Encounter Summary ---
Author Organization [facility] Address [address] [place] [address] Care Team Providers Care Rn Rehab Name Role Phone Duke Monterroso MD Primary Care Provider [phone] Encounter Details Date Type Department Care Team (Late Contact Info) Description 02/11/2025 Abstract [facility] Cardiovascular [facility] Heart Failure [address] [place] [address] [place] [phone] Kristi Veliz RN Social History Tobacco [...] Encounters Date Type Department Care Team (Late Contact Info) Description 04/08/2025 11:10 AM EST Appointment [facility] [address] [place] [address] Building [address] [place] [address] Mary Blackburn MD [address] [place] [address] [address] [place], [place] [phone] documented as of this encounter Visit Diagnoses Not on filedocumented in this encounter Care Teams Rn Rehab Relationship Specialty Start Date End Date Duke Monterroso MD PCP - General Family Medicine 05/18/10 02/11/25 documented as of this encounter
--- OUTSIDE RECORDS SUMMARY | 2025-03-24 18:41 | XMS_ITS | Encounter Summary ---
Author Organization [facility] Address [address] [place] [address] Care Team Providers Care Early Interventionist Name Role Phone Duke Monterroso MD Primary Care Provider [phone] Reason for Visit * Reason Onset Date Comments Other 02/11/2025 Off work x 6 wee ks Encounter Details Date Type Department Care Team (Late st Contact Info) Description 02/11/2025 Telephone [facility] Heart Failure [address] [place] [address] Medical Office Building [address] [place] [phone] Lena Ruby, RN [address] [place] [address] Other (Off work x 6 weeks) Social [...] Description 04/08/2025 11:10 AM EST Appointment [facility] [place] Heart Failure [address] [place] [address] [address] [place] [phone] Mary Blackbunr MD [address] [place] [address] [address] [place], [place] [phone] documented as of this encounter Visit Diagnoses Not on filedocumented in this encounter Care Teams Early Interventionist Relationship Specialty Start Date End Date Duke Monterroso MD PCP - General Family Medicine 05/18/10 02/11/25 documented as of this encounter
--- NOTE | 2025-03-24 18:42 | CT_ITS ---
PROCEDURE INFORMATION: Exam: CT Head Without Contrast Exam date and time: 03/24/2025 7:29 PM Age: 49 years old Clinical indication: Pain; Headache TECHNIQUE: Imaging protocol: Computed tomography of the head without contrast. Radiation optimization: All CT scans at this facility use at least one of these dose optimization techniques: automated exposure control; mA and/or kV adjustment per patient size (includes targeted exams where dose is matched to clinical indication); or iterative reconstruction. COMPARISON: No relevant prior studies available. FINDINGS: Brain: Normal. No hemorrhage. Unremarkable white matter. No mass effect. Cerebral ventricles: No ventriculomegaly. Paranasal sinuses: Visualized sinuses are unremarkable. No fluid levels. Mastoid air cells: Visualized mastoid air cells are well aerated. Bones: Unremarkable. No acute fracture. Soft tissues: Unremarkable. IMPRESSION: No acute intracranial abnormality.
[2025-03-24 18:44] VITALS: BP 157/109; PULSE 100; RESP 18; TEMP 37.6; O2SAT 98; BMI 29.8
[2025-03-24 19:18] LABS: Coronavirus 19, PCR Not Detected (NotDetected); Influenza A, PCR Not Detected (NotDetected); Influenza B, PCR Not Detected (NotDetected)
[2025-03-24] MEDS: PROCHLORPERAZINE 10MG/2ML VIAL 5 MG IV (19:36)
[2025-03-24] MEDS: ACETAMINOPHEN 1,000MG/100ML VIAL 1000 MG IV (20:33)
[2025-03-24] MEDS: AMPICILLIN SODIUM/SULBACTAM 3 GM in 0.9 % SODIUM CHLORIDE 100 ML IV (20:34)
[2025-03-24 20:43] VITALS: BP 136/92; PULSE 94; RESP 20; TEMP 36.8; O2SAT 96
--- NOTE | 2025-03-24 21:15 | ED_ITS ---
Discharge Plan Disposition Patient Disposition: Home, Self-Care Condition: Good Prescriptions Prescriptions: No Action metoprolol succinate [Toprol XL] 25 mg tablet extended release 24 hr 12.5 mg PO DAILY Qty: 30 5RF Jardiance 10 mg tablet 10 mg PO DAILY 30 Days Qty: 30 0RF sacubitril-valsartan [Entresto] 97-103 mg tablet 1 tab PO BID 30 Days Qty: 60 0RF spironolactone 25 mg tablet 25 mg PO DAILY 30 Days Qty: 30 0RF bumetanide 1 mg tablet 1 mg PO BIDL 30 Days Qty: 60 0RF nicotine 21 mg/24 hr Patch 24 Hour 21 mg transdermal DAILY 30 Days Qty: 28 0RF Referrals Follow up/Referrals: Provider,Referral, MD [Primary Care Provider, Medical] - See instructions Activity Restrictions/Add. Instructions Additional Instructions/Restrictions: You were evaluated on an emergency basis. It is very important that you follow- up with your primary care provider and any specialist who we discussed within the next 2 days in order to better assess your health more comprehensively. For example, incidental findings on imaging or laboratory results that were performed today may be discovered, which do not require immediate medical care, but may impact your health in the future. If your symptoms worsen or persist, please return to the emergency department immediately for reassessment. Take all medications as prescribed. In queue for allowing me to participate in your health care, and I hope you feel better soon. Clinical Impressions Clinical Impression: Acute myringitis of right ear Instructions Patient Instructions: DI for Ear Pain in Adults Print Language Print Language: Montenegrin Discharge ED Provider: Yonas Mccarty General Adult HPI General Chief complaint: Headache Stated complaint: headache,ear ache, fever Time Seen by Provider: 03/24/25 18:33 Mode of Arrival: Ambulatory Source of Information: Patient Description of Symptoms (Recalled from ER Triage Doc. by RN): PT PRESENTS TO THE ER FOR HEADACHE AND R EAR PAIN THAT STARTED THIS MORNING WHEN HE WOKE UP, STATES THE HEADACHE IS A CONSTANT 10/10 AND DESCRIBES IT A SHARP PAIN, DENIES VISION ISSUES, HAS BEEN TAKING TYLENOL WITH NO RELIEF NOTED, LAST DOSE AROUND 3:30-4PM Related Data Previous Rx's ?Medication ?Instructions ?Recorded nicotine 21 mg/24 hr daily 21 mg transdermal DAILY 30 days 02/09/25 transdermal patch #28 ea empagliflozin 10 mg tablet 10 mg PO DAILY 30 days #30 tabs 02/22/25 (Jardiance) sacubitril 97 mg-valsartan 103 mg 1 tab PO BID 30 days #60 tabs 02/22/25 tablet (Entresto) spironolactone 25 mg tablet 25 mg PO DAILY 30 days #30 tabs 02/22/25 bumetanide 1 mg tablet 1 mg PO BIDL 30 days #60 tab s 03/08/25 metoprolol succinate 25 mg 12.5 mg (1/2 x 25 mg) PO DA THEA #30 03/08/25 tablet,extended release 24 hr tabs (Toprol XL) Allergies Allergy/AdvReac Type Severity Reaction Status Date / Time No Known Allergies Allergy Verified 03/08/25 14:10 [facility] Disclaimer: The information contained in this section may have been updated after the patient was seen, as this information can be updated by other users. Medical History (Updated 03/24/25 @ 20:23 by Torrie Pimentel) Sleep apnea, unspecified Severe left ventricular systolic dysfunction (LVSD) Cardiomyopathy Hypertension Smoker Elevated liver enzymes VILMA (acute kidney injury) Acute HFrEF (heart failure with reduced ejection fraction) Non-STEMI (non-ST elevated myocardial infarction) Social History Smoking Status: Current some day smoker alcohol intake: never current occupational status: employed Travel in the last 8 weeks?: None Have you lived/traveled outside US in past 30 days?: No Contact w/someone who lives/traveled outside US past 30 days?: No Exposure to someone with infectious disease in past 14 days?: No Do you have a fever (greater than 100.4 F or 38 C)?: No Have you tested positive for COVID-19?: No Exposed to someone with COVID-19 in past 14 days?: No Do you have a sore throat?: No Do you have a cough?: No Do you have any weakness?: No Do you have any diarrhea?: No Are you experiencing any unusual bleeding?: No Do you have any muscle aches/pain?: No Do you have any abdominal pain?: No Are you experiencing loss of taste or smell?: No Other Medical History Have you received the Flu Vaccine for this season: No Have you received the Pneumonia Vaccine: No Physical Exam General General appearance: alert Medical Decision Making Medical Records Screening: Per USPSTF and CDC recommendations, given the prevalence of disease in our region, it is our hospital?s policy to screen for HIV and viral Hepatitis for all patients aged 18 and over and those with ongoing risk factors. Vital Signs: 03/24/25 18:44 03/24/25 20:43 Temperature 99.7 F H 98.2 F Temperature Source Oral Pulse Rate 94 H Pulse Rate [Right Radial] 100 H Respiratory Rate 18 20 Blood Pressure 136/92 H Blood Pressure [Right Arm] 157/109 H Blood Pressure Mean [Right Arm] 125 Blood Pressure Source [Right Arm] Automatic Cuff Blood Pressure Position [Right Arm] Sitting 02 Sat by Pulse Oximetry 98 Oxygen Delivery Method Room Air Room Air Lab Data Lab Results 03/24/25 19:15: SARS-CoV-2 (PCR) Not detected, Influenza A Untype (PCR) Not det ected, Influenza Type B (PCR) Not detected Orders (Tests/Meds): ED MEDICATIONS Discontinued Medications Generic Name Dose Route Start Last Admin Trade Name Butchq PRN Reason Stop Dose Admin Acetaminophen 1,000 mg 03/24/25 20:10 03/24/25 20:33 Acetaminophen 1,000mg/100ml Vial IV 03/24/25 20:11 1,000 mg ONCE ONE Administration Diphenhydramine HCl 25 mg 03/24/25 18:42 03/24/25 19:36 Diphenhydramine 50mg/Ml Vial IV 03/24/25 18:43 25 mg ONCE ONE Administration Ampicillin Sodium/Sulbactam 100 mls @ 200 mls/hr 03/24/25 20:10 03/24/25 21:04 Sodium 3 gm/ Sodium Chloride IV 03/24/25 20:11 Infused ONCE ONE Infusion Prochlorperazine Edisylate 5 mg 03/24/25 18:42 03/24/25 19:36 Prochlorperazine 10mg/2ml Vial IV 03/24/25 18:43 5 mg ONCE ONE Administration ORDERS Category Date Time Status CT head/brain wo con Stat Cat Scan 03/24/25 18:42 Completed Rapid PCR Covid and Flu A/B Stat Lab 03/24/25 19:15 Completed
== END 2025-03-24 21:22 | disposition home or self-care (01) ==
PROVIDERS: Nurse Practitioner Family; Emergency Provider Emergency Medicine
DX: H73.001 Acute myringitis, right ear (principal); H92.01 Otalgia, right ear; R51.9 Headache, unspecified; I10 Essential (primary) hypertension; Z87.891 Personal history of nicotine dependence
CPT/HCPCS: 70450; 87636; 96374; 96375; 99284; J0131; J0295; J0780; J1200